=== PATIENT | female | born 1945 | race Hispanic/Latino ===

== ENCOUNTER 2017-12-14 15:30 | Inpatient (IN) | payer MEDICARE ==
[~2017-12-14] VITALS: Ht 154.9 cm; Wt 103.0 kg
[2018-02-12] MEDS ORDERED: PROPOFOL 10 MG/ML 20ML VIAL IV ONE (09:20)
[2018-02-14 15:05] VITALS: BP 160/68
[2018-02-14] MEDS ORDERED: EZET1TAB21 PO (15:18)
[2018-02-14] MEDS ORDERED: DULA1.5P SQ (15:18)
[2018-02-14 15:21] LABS: APPEARANCE,URINE Clear (CLEAR); BILIRUBIN,URINE Negative (NEGATIVE); COLOR,URINE Yellow (YELLOW); GLUCOSE, URINE (UA) 250 mg/dL (NEGATIVE); KETONES,URINE Negative (NEGATIVE); LEUKOCYTE ESTERASE ,URINE Small (NEGATIVE); NITRATE,URINE Negative (NEGATIVE); OCCULT BLOOD,URINE Negative (NEGATIVE); PROTEIN,URINE >=1000 (NEGATIVE)
[2018-02-14 15:24] LABS: CREATININE 1.4 mg/dL (0.5-1.5); POTASSIUM 4.5 mmol/L (3.5-5.1)
[2018-02-14 15:28] LABS: INR 0.92 (0.85-1.15); PARTIAL THROMBOPLASTIN TIME 24.3 SEC (26.3-35.5); PROTHROMBIN TIME 9.7 SEC (9.6-11.6)
[2018-02-14 15:30] LABS: BASOPHILS % (AUTO) 0.7 % (0.0-5.0); EOSINOPHILS % (AUTO) 4.7 % (0.0-8.0); HEMATOCRIT 36.8 % (36-48); LYMPHOCYTES % (AUTO) 15.9 % (21.0-51.0); MEAN CORPUSCULAR HEMOGLOBIN 28.2 pg (27.0-33.0); MEAN CORPUSCULAR VOLUME 82.7 fL (79-99); MONOCYTES % (AUTO) 5.4 % (3.0-13.0); NEUTROPHILS % (AUTO) 73.3 % (40.0-77.0); PLATELET COUNT (AUTO) 263 K/uL (130-400); RED BLOOD CELL COUNT(AUTO) 4.44 MIL/uL (4.00-5.50); RED CELL DISTRIBUTION WIDTH 13.8 % (11.0-15.5)
[2018-02-14 15:52] LABS: BACTERIA,URINE Rare /HPF (None Seen); RBC,URINE 0-1 /HPF (0-1); SQUAMOUS EPITHELIAL CELL,UR Few /HPF (0-2)
[2018-02-14] MEDS ORDERED: INSU100I24 SQ ×2 (15:54)
[2018-02-14] MEDS ORDERED: METF10004 PO (15:54)
[2018-02-14] MEDS ORDERED: LISI40TA4 PO (15:54)
[2018-02-14] MEDS ORDERED: TRAM50TA4 PO (15:54)
[2018-02-14] MEDS ORDERED: OMEP20TA25 PO (15:54)
[2018-02-14] MEDS ORDERED: ALPHAGAN OU (15:54)
[2018-02-14] MEDS ORDERED: CHOL200016 PO (15:54)
[2018-02-14] MEDS ORDERED: CARV3.12 PO (15:54)
[2018-02-15] VITALS (19 sets, daily range): BP systolic 117–157; BP diastolic 60–88
[2018-02-15] MEDS ORDERED: CEFAZOLIN 3GM /D5W 100ML 100 ML IV ONE (08:00)
[2018-02-15] MEDS ORDERED: CEFAZOLIN SODIUM 1 GM VIAL ONE (08:44)
[2018-02-15] MEDS ORDERED: SODIUM CHLORIDE 0.9% 1000ML 1,000 ML IV ONE (08:44)
[2018-02-15] MEDS ORDERED: CLINDAMYCIN 900 MG/D5% WATER 50 ML IV ONE (08:54)
[2018-02-15] MEDS ORDERED: PROPOFOL 10 MG/ML 20ML VIAL IV ONE (09:09)
[2018-02-15] MEDS ORDERED: FENTANYL CITRATE PF 50 MCG/1 ML 2ML VIAL ONE ×2 (09:09→10:53)
[2018-02-15] MEDS ORDERED: LIDOCAINE PF 2% 5ML ABBOJECT ONE (09:09)
[2018-02-15] MEDS ORDERED: DEXAMETHASONE SOD PHOSPHATE 10MG/ML 1ML VIAL ONE ×3 (09:09→13:10)
[2018-02-15] MEDS ORDERED: MIDAZOLAM HCL 1 MG/ML 2ML VIAL ONE (09:09)
[2018-02-15] MEDS: GENTAMICIN SULFATE 240 MG in SODIUM CHLORIDE 0.9% 100 ML IV SCH ×3 (09:10→11:21)
[2018-02-15] MEDS ORDERED: BUPIVACAINE/EPI/PF 0.25% 30ML VIAL IJ ONE (09:42)
[2018-02-15] MEDS ORDERED: CLINDAMYCIN PHOSPHATE 150 MG/ML 6ML VIAL ONE ×2 (09:42→12:50)
[2018-02-15] MEDS ORDERED: TRANEXAMIC ACID 1000MG/10ML IV ONE (09:43)
[2018-02-15] MEDS ORDERED: ROPIVACAINE 0.5% 5MG/ML 30ML IJ ONE ×2 (09:46)
[2018-02-15] MEDS ORDERED: CALDOLOR 800MG+NS 250ML 250 ML IV ONE (09:46)
[2018-02-15] MEDS ORDERED: ACETAMINOPHEN EXTRA STRENGTH 500 MG TABLET ONE (09:56)
[2018-02-15] MEDS ORDERED: CELECOXIB 200 MG CAP ONE (09:56)
[2018-02-15] MEDS ORDERED: KETOROLAC TROMETHAMINE 15MG/ML ONE (09:56)
[2018-02-15] MEDS ORDERED: OXYCODONE HCL 10 MG TAB.SR.12H PO ONE (09:57)
[2018-02-15] MEDS ORDERED: EPHEDRINE SULFATE 50 MG/ML AMPULE ONE (10:44)
[2018-02-15] MEDS ORDERED: ROCURONIUM BROMIDE 10MG/1ML 5ML VL ONE ×2 (13:09)
[2018-02-15] MEDS ORDERED: LIDOCAINE HCL 4% LTA SOL 4 ML VIAL ONE (13:10)
[2018-02-15] MEDS ORDERED: GLYCOPYRROLATE 0.2 MG/ML 5 ML VIAL ONE (13:10)
[2018-02-15] MEDS ORDERED: PHENYLEPHRINE HCL 10 MG/ML 1ML VIAL IV ONE (13:10)
[2018-02-15] MEDS ORDERED: SUCCINYLCHOLINE CHLORIDE 20 MG/ML 10 ML VIAL ONE (13:10)
[2018-02-15] MEDS ORDERED: ONDANSETRON HCL MDV 20ML 2 MG/ML VIAL ONE (13:11)
[2018-02-15] MEDS ORDERED: KETOROLAC TROMETHAMINE 15MG/ML IV PRN (13:15)
[2018-02-15] MEDS ORDERED: POTASSIUM CHLORIDE 20MEQ/100ML 100 ML IV PRN (13:15)
[2018-02-15] MEDS ORDERED: POTASSIUM CHLORIDE 10% ELIXIR 20 MEQ/15 ML UDCUP PO PRN (13:15)
[2018-02-15] MEDS ORDERED: DIPHENHYDRAMINE HCL 25 MG CAPSULE PO PRN (13:15)
[2018-02-15] MEDS ORDERED: OXYCODONE HCL 5 MG TAB PO PRN (13:15)
[2018-02-15] MEDS ORDERED: DiphenhydrAMINE HCL 50 MG/ML VIAL IVP PRN (13:15)
[2018-02-15] MEDS ORDERED: POTASSIUM CHLORIDE 20 MEQ ERTAB PO PRN (13:15)
[2018-02-15] MEDS ORDERED: TEMAZEPAM 15 MG CAPSULE PO PRN (13:15)
[2018-02-15] MEDS ORDERED: PROMETHAZINE HCL 25 MG/ML 1ML AMPULE IM PRN (13:15)
[2018-02-15] MEDS ORDERED: LIDOCAINE HCL-MPF 1% 2ML VIAL IVP PRN (13:15)
[2018-02-15] MEDS ORDERED: FERROUS FUMARATE 324 MG TABLET PO PRN (13:15)
[2018-02-15] MEDS ORDERED: TRAMADOL HCL 50 MG TABLET PO PRN (13:15)
[2018-02-15] MEDS ORDERED: CALCIUM CARBONATE 500 MG TABLET PO PRN (13:15)
[2018-02-15] MEDS ORDERED: MEPERIDINE-PF 25 MG/ML SYG ONE ×2 (13:54→14:03)
[2018-02-15] MEDS: SODIUM CHLORIDE 0.9% 1000ML 1,000 ML IV SCH ×2 (15:12→23:03)
[2018-02-15] MEDS: ACETAMINOPHEN 325 MG TAB PO SCH ×2 (15:22→20:08)
[2018-02-15] MEDS: CLINDAMYCIN 900 MG/D5% WATER 50 ML IVPB SCH (18:14)
[2018-02-15] MEDS: SIMVASTATIN PO SCH (20:06)
[2018-02-15] MEDS: LISINOPRIL 40 MG TABLET PO SCH (20:06)
[2018-02-15] MEDS: INSULIN DEGLUDEC 35 UNIT SQ SCH (20:06)
[2018-02-15] MEDS: EZETIMIBE PO SCH (20:06)
[2018-02-15] MEDS: BRIMONIDINE TARTRATE 0.2% 5 ML BOTTLE OU SCH (20:07)
[2018-02-15] MEDS: CARVEDILOL 3.125 MG TABLET PO SCH (20:07)
[2018-02-15] MEDS: ASPIRIN 325 MG TABLET PO SCH (20:09)
[2018-02-15] MEDS: FAMOTIDINE 20MG TAB 20 MG TAB PO SCH (20:09)
[2018-02-15] MEDS: CELECOXIB 200 MG CAP PO SCH (20:09)
[2018-02-15] MEDS: PREGABALIN 25 MG CAP PO SCH (20:09)
[2018-02-15] MEDS: OXYCODONE HCL 5 MG TAB PO PRN ×2 (20:10→23:50)
[2018-02-15] MEDS ORDERED: EZETIMIBE 10 MG TAB PO SCH (21:00)
[2018-02-16] VITALS (7 sets, daily range): BP systolic 113–148; BP diastolic 56–77
[2018-02-16] MEDS: ACETAMINOPHEN 325 MG TAB PO SCH ×4 (01:02→20:22)
[2018-02-16] MEDS: CLINDAMYCIN 900 MG/D5% WATER 50 ML IVPB SCH (01:39)
[2018-02-16 06:07] LABS: HEMATOCRIT 31.9 % (36-48); MEAN CORPUSCULAR HEMOGLOBIN 29.9 pg (27.0-33.0); MEAN CORPUSCULAR VOLUME 83.2 fL (79-99); PLATELET COUNT (AUTO) 231 K/uL (130-400); RED BLOOD CELL COUNT(AUTO) 3.83 MIL/uL (4.00-5.50); RED CELL DISTRIBUTION WIDTH 13.8 % (11.0-15.5); WHITE BLOOD COUNT (AUTO) 10.9 K/uL (4.8-10.8)
[2018-02-16 06:22] LABS: CREATININE 1.6 mg/dL (0.5-1.5); POTASSIUM 4.7 mmol/L (3.5-5.1)
[2018-02-16] MEDS: POLYETHYLENE GLYCOL 3350 17 GM POWD.PACK PO SCH (08:41)
[2018-02-16] MEDS: METFORMIN HCL 500 MG TABLET PO SCH (08:41)
[2018-02-16] MEDS: ASPIRIN 325 MG TABLET PO SCH ×2 (08:41→20:20)
[2018-02-16] MEDS: FAMOTIDINE 20MG TAB 20 MG TAB PO SCH ×2 (08:41→20:20)
[2018-02-16] MEDS: PANTOPRAZOLE SODIUM 40 MG TABLET.DR PO SCH (08:44)
[2018-02-16] MEDS: LISINOPRIL 40 MG TABLET PO SCH ×2 (08:44→20:20)
[2018-02-16] MEDS: PREGABALIN 25 MG CAP PO SCH ×2 (08:44→20:20)
[2018-02-16] MEDS: CARVEDILOL 3.125 MG TABLET PO SCH ×2 (08:44→20:21)
[2018-02-16] MEDS: CELECOXIB 200 MG CAP PO SCH ×2 (08:45→20:21)
[2018-02-16] MEDS: OXYCODONE HCL 5 MG TAB PO PRN ×3 (08:45→20:21)
[2018-02-16] MEDS: BRIMONIDINE TARTRATE 0.2% 5 ML BOTTLE OU SCH ×2 (08:46→20:22)
[2018-02-16] MEDS: INSULIN DEGLUDEC 70 UNIT SQ SCH (08:46)
[2018-02-16] MEDS: CHOLECALCIFEROL 2000 UNIT PO SCH (08:46)
[2018-02-16] MEDS: SODIUM CHLORIDE 0.9% 1000ML 1,000 ML IV SCH (09:03)
[2018-02-16] MEDS: INSULIN HUMULIN R 100 UNIT/ML 3ML SQ SCH ×3 (12:27→20:23)
[2018-02-16] MEDS: PSYLLIUM SEED 1 EACH PACKET PO SCH (12:30)
[2018-02-16] MEDS: EZETIMIBE PO SCH (20:22)
[2018-02-16] MEDS: SIMVASTATIN PO SCH (20:22)
[2018-02-16] MEDS: INSULIN DEGLUDEC 35 UNIT SQ SCH (20:23)
[2018-02-17] VITALS: BP 146/72
[2018-02-17] MEDS: ACETAMINOPHEN 325 MG TAB PO SCH ×3 (02:02→12:03)
[2018-02-17 04:08] VITALS: BP 150/75
[2018-02-17] MEDS: INSULIN HUMULIN R 100 UNIT/ML 3ML SQ SCH ×2 (05:52→11:30)
[2018-02-17 05:59] LABS: HEMATOCRIT 31.8 % (36-48); MEAN CORPUSCULAR HEMOGLOBIN 28.6 pg (27.0-33.0); MEAN CORPUSCULAR HGB CONC 34.3 g/dL (32.0-36.0); MEAN CORPUSCULAR VOLUME 83.3 fL (79-99); PLATELET COUNT (AUTO) 221 K/uL (130-400); RED BLOOD CELL COUNT(AUTO) 3.81 MIL/uL (4.00-5.50); RED CELL DISTRIBUTION WIDTH 14.4 % (11.0-15.5); WHITE BLOOD COUNT (AUTO) 7.4 K/uL (4.8-10.8)
[2018-02-17 06:07] LABS: CREATININE 1.9 mg/dL (0.5-1.5); POTASSIUM 4.6 mmol/L (3.5-5.1)
[2018-02-17] MEDS: PANTOPRAZOLE SODIUM 40 MG TABLET.DR PO SCH (06:25)
[2018-02-17 08:00] VITALS: BP 161/87
[2018-02-17] MEDS: CELECOXIB 200 MG CAP PO SCH (08:37)
[2018-02-17] MEDS: PREGABALIN 25 MG CAP PO SCH (08:37)
[2018-02-17] MEDS: FAMOTIDINE 20MG TAB 20 MG TAB PO SCH (08:37)
[2018-02-17] MEDS: CARVEDILOL 3.125 MG TABLET PO SCH (08:37)
[2018-02-17] MEDS: METFORMIN HCL 500 MG TABLET PO SCH (08:38)
[2018-02-17] MEDS: ASPIRIN 325 MG TABLET PO SCH (08:38)
[2018-02-17] MEDS: LISINOPRIL 40 MG TABLET PO SCH (08:38)
[2018-02-17] MEDS: OXYCODONE HCL 5 MG TAB PO PRN ×2 (08:39→15:11)
[2018-02-17] MEDS: POLYETHYLENE GLYCOL 3350 17 GM POWD.PACK PO SCH (08:39)
[2018-02-17] MEDS: BRIMONIDINE TARTRATE 0.2% 5 ML BOTTLE OU SCH (08:40)
[2018-02-17] MEDS: INSULIN DEGLUDEC 70 UNIT SQ SCH (08:40)
[2018-02-17] MEDS: CHOLECALCIFEROL 2000 UNIT PO SCH (08:40)
[2018-02-17] MEDS ORDERED: HYDR-309 PO (09:22)
[2018-02-17] MEDS ORDERED: ASPI-1012 PO (09:22)
[2018-02-17 11:49] VITALS: BP 126/66
[2018-02-17] MEDS: PSYLLIUM SEED 1 EACH PACKET PO SCH (12:04)
[2018-02-17] MEDS ORDERED: BISACODYL 5 MG TABLET.DR PO PRN (13:15)
[2018-02-18] MEDS ORDERED: BISACODYL 10 MG SUPP.RECT RC PRN (13:15)
[2018-02-22] MEDS ORDERED: DULAGLUTIDE 1.5 MG SQ SCH (09:00)
== END 2018-02-17 15:55 | disposition home health service (06) | DRG 468 ==
LOC: EDSTATUS 02-12 15:30 → DAHIP 02-15 07:51 → 4AH 02-15 14:43
PROVIDERS: ADMIT Orthopaedic Surgery; ATTEND Orthopaedic Surgery
PROC: 0SPC0JZ Removal of Synthetic Substitute from Right Knee Joint, Open Approach (ICD-10-PCS; principal; 2018-02-15 10:10)
PROC: 0SRC0J9 Replacement of Right Knee Joint with Synthetic Substitute, Cemented, Open Approach (ICD-10-PCS; 2018-02-15 10:10)
DX: M25.561 Pain in right knee (principal); E11.9 Type 2 diabetes mellitus without complications; G89.29 Other chronic pain; I10 Essential (primary) hypertension; K21.9 Gastro-esophageal reflux disease without esophagitis; Z79.4 Long term (current) use of insulin; Z85.3 Personal history of malignant neoplasm of breast; Z88.0 Allergy status to penicillin; Z88.8 Allergy status to other drugs, medicaments and biological substances
CPT/HCPCS: 36415; 80048; 81001; 82948; 85025; 85027; 85610; 85730; 88300; 88304; 97039; A4218; C1713; J0330; J0690; J1100; J1580; J1741; J1815; J1885; J2001; J2175; J2250; J2370; J2550; J2704; J2795; J3010; J3490; J7030

== ENCOUNTER → 2019-01-13 | Outpatient (CLI) | payer MEDICARE ==
[~2019-01-13] MED LIST: ALPHAGAN OU; ASPI-1012 PO; CARV3.12 PO; CHOL200016 PO; DULA1.5P SQ; EZET1TAB21 PO; HYDR-4457 PO; INSU100I24 SQ; LISI40TA4 PO; METF-446 PO; OMEP20TA25 PO
== END | disposition home or self-care (01) ==
LOC: SHCH 07:36 → EDUNIT# 08:00 → EDSTATUS 08:00
PROVIDERS: ATTEND Internal Medicine Cardiovascular Disease
DX: I08.8 Other rheumatic multiple valve diseases (principal)
CPT/HCPCS: 93306

== ENCOUNTER → 2020-03-03 | Outpatient (CLI) | payer MEDICARE | END | disposition home or self-care (01) | LOC: SHCH 08:57 | PROVIDERS: ATTEND Internal Medicine Cardiovascular Disease | DX: I35.0 Nonrheumatic aortic (valve) stenosis (principal) | CPT/HCPCS: 93306 ==

== ENCOUNTER 2023-05-18 16:02 | Inpatient (IN) | payer MEDICARE ==
[~2023-05-18] VITALS: Ht 152.4 cm; Wt 97.1 kg
[~2023-05-18 16:02] MED LIST changes: +EZET-82 PO; -EZET1TAB21 PO; -LISI40TA4 PO; +LISI40TA9 PO; +OMEP20TA20 PO; -OMEP20TA25 PO
[2023-05-18 17:23] LABS: BASOPHILS % (AUTO) 0.4 % (0.0-5.0); EOSINOPHILS % (AUTO) 5.3 % (0.0-8.0); HEMATOCRIT 32.4 % (36-48); LYMPHOCYTES % (AUTO) 18.1 % (21.0-51.0); MEAN CORPUSCULAR HEMOGLOBIN 27.1 pg (27.0-33.0); MEAN CORPUSCULAR HGB CONC 31.2 g/dL (32.0-36.0); MEAN CORPUSCULAR VOLUME 86.9 fL (79-99); MONOCYTES % (AUTO) 8.6 % (3.0-13.0); NEUTROPHILS % (AUTO) 65.9 % (40.0-77.0); PLATELET COUNT (AUTO) 218 K/uL (130-400); RED BLOOD CELL COUNT(AUTO) 3.73 MIL/uL (4.00-5.50); RED CELL DISTRIBUTION WIDTH 14.6 % (11.0-15.5); WHITE BLOOD COUNT (AUTO) 7.7 K/uL (4.8-10.8)
[2023-05-18 17:40] LABS: ALBUMIN 2.7 g/dL (3.5-5.0); POTASSIUM 3.9 mmol/L (3.5-5.1); TOTAL PROTEIN, SERUM 6.4 g/dL (6.0-8.3)
[2023-05-18 17:50] LABS: CREATININE 11.7 mg/dL (0.5-1.5)
[2023-05-18] MEDS ORDERED: HYDRALAZINE 20MG/ML VIAL IV ONE (18:30)
[2023-05-18] MEDS ORDERED: HYDRALAZINE 20MG/ML VIAL ONE (18:36)
[2023-05-18] MEDS ORDERED: ONDANSETRON 4MG INJ IVP ONE (20:30)
[2023-05-18] MEDS ORDERED: ONDANSETRON 4MG INJ IVP PRN (21:00)
[2023-05-18] MEDS ORDERED: FURO20TA4 PO (22:51)
[2023-05-18] MEDS ORDERED: OMEP20TA20 PO (22:51)
[2023-05-18] MEDS ORDERED: BRIM5DRO2 OP (22:51)
[2023-05-18] MEDS ORDERED: ROSU20TA73 PO (22:51)
[2023-05-18] MEDS ORDERED: CHOL500051 PO (22:51)
[2023-05-18] MEDS ORDERED: CARV25TA PO (22:51)
[2023-05-18 23:35] VITALS: BP 197/76; PULSE 94; RESP 20
[2023-05-18] MEDS: HYDRALAZINE 20MG/ML VIAL IV PRN (23:57)
[2023-05-19] MEDS ORDERED: LORAZEPAM 2 MG/ML 1 ML VIAL IVP ONE (00:30)
[2023-05-19 04:00] VITALS: BP 157/71; PULSE 98; RESP 20
[2023-05-19 05:40] LABS: BASOPHILS % (AUTO) 0.5 % (0.0-5.0); EOSINOPHILS % (AUTO) 2.1 % (0.0-8.0); HEMATOCRIT 31.4 % (36-48); LYMPHOCYTES % (AUTO) 13.3 % (21.0-51.0); MEAN CORPUSCULAR HEMOGLOBIN 26.7 pg (27.0-33.0); MEAN CORPUSCULAR HGB CONC 30.6 g/dL (32.0-36.0); MEAN CORPUSCULAR VOLUME 87.2 fL (79-99); MONOCYTES % (AUTO) 7.2 % (3.0-13.0); NEUTROPHILS % (AUTO) 75.4 % (40.0-77.0); PLATELET COUNT (AUTO) 249 K/uL (130-400); RED CELL DISTRIBUTION WIDTH 14.6 % (11.0-15.5); WHITE BLOOD COUNT (AUTO) 8.5 K/uL (4.8-10.8)
[2023-05-19 05:56] LABS: INR 1.01 (0.85-1.15); PROTHROMBIN TIME 11.7 SEC (9.6-11.6)
[2023-05-19 06:05] LABS: ALBUMIN 2.5 g/dL (3.5-5.0); PHOSPHORUS 8.2 mg/dL (2.5-4.9); POTASSIUM 3.6 mmol/L (3.5-5.1); TOTAL PROTEIN, SERUM 5.9 g/dL (6.0-8.3)
[2023-05-19 08:00] VITALS: BP 131/76; PULSE 96; RESP 19
[2023-05-19] MEDS: CARVEDILOL 25 MG TABLET PO SCH ×2 (08:27→19:58)
[2023-05-19] MEDS: PANTOPRAZOLE 40 MG TAB DR PO SCH (08:27)
[2023-05-19] MEDS: BRIMONIDINE TARTRATE 0.2% 5 ML BOTTLE OP SCH (08:28)
[2023-05-19] MEDS ORDERED: FUROSEMIDE 40MG VIAL IV SCH (09:00)
[2023-05-19] MEDS ORDERED: FUROSEMIDE 20 MG TABLET PO SCH (09:00)
[2023-05-19] MEDS ORDERED: BRIMONIDINE TARTRATE OP SCH (09:00)
[2023-05-19] MEDS: LORAZEPAM 2 MG/ML 1 ML VIAL IVP PRN ×2 (09:24→20:05)
[2023-05-19 12:00] VITALS: BP 121/65; PULSE 90; RESP 18
[2023-05-19 14:03] LABS: PHOSPHORUS 8.6 mg/dL (2.5-4.9)
[2023-05-19 14:08] LABS: % IRON SATURATION 31.3 % (22-44)
[2023-05-19 16:00] VITALS: BP 158/71; PULSE 96; RESP 18
[2023-05-19 19:24] VITALS: BP 152/70; PULSE 94; RESP 21
[2023-05-19] MEDS: ATORVASTATIN 40 MG TABLET PO SCH (19:57)
[2023-05-19] MEDS: FUROSEMIDE 40MG VIAL IV SCH (19:57)
[2023-05-20] VITALS: BP 130/67; PULSE 86; RESP 20
[2023-05-20 04:00] VITALS: BP 146/63; PULSE 88; RESP 20
[2023-05-20 04:51] LABS: HEMATOCRIT 28.7 % (36-48); MEAN CORPUSCULAR HGB CONC 30.7 g/dL (32.0-36.0); RED BLOOD CELL COUNT(AUTO) 3.26 MIL/uL (4.00-5.50); RED CELL DISTRIBUTION WIDTH 14.7 % (11.0-15.5); WHITE BLOOD COUNT (AUTO) 9.9 K/uL (4.8-10.8)
[2023-05-20 05:07] LABS: POTASSIUM 3.8 mmol/L (3.5-5.1)
[2023-05-20 05:15] LABS: CREATININE 12.5 mg/dL (0.5-1.5)
[2023-05-20] MEDS: LORAZEPAM 2 MG/ML 1 ML VIAL IVP PRN ×2 (06:17→20:17)
[2023-05-20 08:00] VITALS: BP 137/71; PULSE 91; RESP 20
[2023-05-20] MEDS: PANTOPRAZOLE 40 MG TAB DR PO SCH (08:31)
[2023-05-20] MEDS: Vitamin B Complex/Vit C/Folic Acid PO SCH (08:31)
[2023-05-20] MEDS: FUROSEMIDE 40MG VIAL IV SCH ×2 (08:31→20:16)
[2023-05-20] MEDS: BRIMONIDINE TARTRATE 0.2% 5 ML BOTTLE OP SCH (08:34)
[2023-05-20] MEDS: CARVEDILOL 25 MG TABLET PO SCH ×2 (08:34→20:16)
[2023-05-20] MEDS: TRIAMCINOLONE ACETONIDE 0.1% CREAM 15GM TP SCH ×2 (09:24→20:16)
[2023-05-20 12:00] VITALS: BP 130/53; PULSE 74; RESP 18
[2023-05-20] MEDS: IRON SUCROSE COMPLEX 300 MG in 0.9% NACL 250ML 250 ML IV SCH (15:56)
[2023-05-20 16:00] VITALS: BP 140/66; PULSE 88; RESP 18
[2023-05-20] MEDS ORDERED: MAGNESIUM 2GM PREMIX 50ML 50 ML IV PRN (16:30)
[2023-05-20 20:08] VITALS: BP 133/71; PULSE 88; RESP 18
[2023-05-20] MEDS: ATORVASTATIN 40 MG TABLET PO SCH (20:16)
[2023-05-21] VITALS (26 sets, daily range): BP systolic 95–168; BP diastolic 46–86; PULSE 76–90; RESP 16–20; TEMP 98–98.1
[2023-05-21 04:05] LABS: HEMATOCRIT 27.1 % (36-48); MEAN CORPUSCULAR HEMOGLOBIN 27.1 pg (27.0-33.0); MEAN CORPUSCULAR HGB CONC 30.6 g/dL (32.0-36.0); MEAN CORPUSCULAR VOLUME 88.6 fL (79-99); RED BLOOD CELL COUNT(AUTO) 3.06 MIL/uL (4.00-5.50); RED CELL DISTRIBUTION WIDTH 14.7 % (11.0-15.5); WHITE BLOOD COUNT (AUTO) 8.8 K/uL (4.8-10.8)
[2023-05-21 04:08] LABS: INR 0.95 (0.85-1.15); PROTHROMBIN TIME 11.1 SEC (9.6-11.6)
[2023-05-21 04:09] LABS: PARTIAL THROMBOPLASTIN TIME 33.7 SEC (26.3-35.5)
[2023-05-21 04:17] LABS: PHOSPHORUS 9.3 mg/dL (2.5-4.9); POTASSIUM 3.5 mmol/L (3.5-5.1)
[2023-05-21 05:01] LABS: CREATININE 13.2 mg/dL (0.5-1.5)
[2023-05-21] MEDS: FUROSEMIDE 40MG VIAL IV SCH ×2 (08:15→22:14)
[2023-05-21] MEDS: CARVEDILOL 25 MG TABLET PO SCH ×2 (08:16→22:14)
[2023-05-21] MEDS: PANTOPRAZOLE 40 MG TAB DR PO SCH (08:16)
[2023-05-21] MEDS: Vitamin B Complex/Vit C/Folic Acid PO SCH (08:16)
[2023-05-21] MEDS: TRIAMCINOLONE ACETONIDE 0.1% CREAM 15GM TP SCH ×2 (08:20→22:12)
[2023-05-21] MEDS: BRIMONIDINE TARTRATE 0.2% 5 ML BOTTLE OP SCH (08:22)
[2023-05-21] MEDS ORDERED: EPOETIN ALFA-EPBX (NON-ESRD) 10,000 UNIT/ML VIAL SQ SCH (10:30)
[2023-05-21 10:53] LABS: APPEARANCE,URINE CLOUDY (CLEAR); BILIRUBIN,URINE NEGATIVE (NEGATIVE); COLOR,URINE LIGHT-YELLOW (YELLOW); GLUCOSE, URINE (UA) TRACE mg/dL (NEGATIVE); KETONES,URINE NEGATIVE (NEGATIVE); LEUKOCYTE ESTERASE ,URINE NEGATIVE Leu/uL (NEGATIVE); NITRATE,URINE NEGATIVE (NEGATIVE); OCCULT BLOOD,URINE SMALL (NEGATIVE); PROTEIN,URINE 300 mg/dL (NEGATIVE); UROBILINOGEN,URINE 0.2 mg/dL (0.2-1.0)
[2023-05-21 10:57] LABS: BACTERIA,URINE MOD /HPF (None Seen); MUCUS,URINE RARE LPF (None Seen); SQUAMOUS EPITHELIAL CELL,UR MOD /HPF (0-2)
[2023-05-21] MEDS: SEVELAMER HCL 800 MG TABLET PO SCH ×2 (12:00→16:08)
[2023-05-21] MEDS ORDERED: COMPOUND IV MISC 1 EACH IVSOLN MISC PRN (12:30)
[2023-05-21] MEDS ORDERED: HEPARIN 1,000 UNIT VIAL ONE (14:17)
[2023-05-21] MEDS ORDERED: LIDOCAINE HCL 1% MDV 50ML VIAL ONE (14:17)
[2023-05-21] MEDS: IRON SUCROSE COMPLEX 300 MG in 0.9% NACL 250ML 250 ML IV SCH (16:09)
[2023-05-21] MEDS ORDERED: HEPARIN 5,000 UNIT VIAL IJ SCH (20:00)
[2023-05-21] MEDS: ATORVASTATIN 40 MG TABLET PO SCH (22:13)
[2023-05-21] MEDS: LORAZEPAM 2 MG/ML 1 ML VIAL IVP PRN (22:26)
[2023-05-22] VITALS (19 sets, daily range): BP systolic 106–166; BP diastolic 59–77; PULSE 76–91; RESP 17–20; TEMP 97.8–98
[2023-05-22 04:14] LABS: HEPATITIS B SURFACE ANTIGEN Non-Reactive (Nonreactive)
[2023-05-22] MEDS ORDERED: ACETAMINOPHEN 325 MG TAB PO PRN (06:00)
[2023-05-22] MEDS: SEVELAMER HCL 800 MG TABLET PO SCH ×2 (08:00→12:00)
[2023-05-22] MEDS: PANTOPRAZOLE 40 MG TAB DR PO SCH (09:00)
[2023-05-22] MEDS: CARVEDILOL 25 MG TABLET PO SCH ×2 (09:00→22:00)
[2023-05-22] MEDS: CALCITRIOL 0.25 MCG CAP PO SCH (09:00)
[2023-05-22] MEDS: BRIMONIDINE TARTRATE 0.2% 5 ML BOTTLE OP SCH (09:00)
[2023-05-22] MEDS: Vitamin B Complex/Vit C/Folic Acid PO SCH (09:00)
[2023-05-22] MEDS: TRIAMCINOLONE ACETONIDE 0.1% CREAM 15GM TP SCH ×2 (09:48→22:01)
[2023-05-22] MEDS: HEPARIN 5,000 UNIT VIAL IJ PRN (12:37)
[2023-05-22] MEDS: IRON SUCROSE COMPLEX 300 MG in 0.9% NACL 250ML 250 ML IV SCH (14:23)
[2023-05-22] MEDS: ATORVASTATIN 40 MG TABLET PO SCH (22:00)
[2023-05-23] VITALS (26 sets, daily range): BP systolic 110–215; BP diastolic 45–101; PULSE 76–143; RESP 11–20
[2023-05-23] MEDS: LORAZEPAM 2 MG/ML 1 ML VIAL IVP PRN (04:08)
[2023-05-23 05:50] LABS: HEMATOCRIT 26.4 % (36-48); MEAN CORPUSCULAR HEMOGLOBIN 27.5 pg (27.0-33.0); MEAN CORPUSCULAR HGB CONC 30.7 g/dL (32.0-36.0); MEAN CORPUSCULAR VOLUME 89.5 fL (79-99); NUCLEATED RED BLOOD CELLS 0.2 % (0.0-0.19); RED BLOOD CELL COUNT(AUTO) 2.95 MIL/uL (4.00-5.50); RED CELL DISTRIBUTION WIDTH 14.6 % (11.0-15.5); WHITE BLOOD COUNT (AUTO) 8.9 K/uL (4.8-10.8)
[2023-05-23 05:55] LABS: INR 0.98 (0.85-1.15); PROTHROMBIN TIME 11.4 SEC (9.6-11.6)
[2023-05-23 05:56] LABS: CREATININE 6.9 mg/dL (0.5-1.5); PARTIAL THROMBOPLASTIN TIME 40.7 SEC (26.3-35.5); POTASSIUM 3.1 mmol/L (3.5-5.1)
[2023-05-23] MEDS: SEVELAMER HCL 800 MG TABLET PO SCH ×3 (08:00→17:19)
[2023-05-23] MEDS: BRIMONIDINE TARTRATE 0.2% 5 ML BOTTLE OP SCH (09:00)
[2023-05-23] MEDS: TRIAMCINOLONE ACETONIDE 0.1% CREAM 15GM TP SCH ×2 (09:00→22:33)
[2023-05-23] MEDS: PANTOPRAZOLE 40 MG TAB DR PO SCH (09:00)
[2023-05-23] MEDS: Vitamin B Complex/Vit C/Folic Acid PO SCH (09:00)
[2023-05-23] MEDS: CALCITRIOL 0.25 MCG CAP PO SCH (09:00)
[2023-05-23] MEDS: CARVEDILOL 25 MG TABLET PO SCH ×2 (09:08→22:33)
[2023-05-23] MEDS ORDERED: CEFAZOLIN SODIUM 1 GM VIAL ONE (10:27)
[2023-05-23] MEDS ORDERED: VANCOMYCIN 1G/250ML KIT 250 ML IV ONE ×2 (11:10→12:46)
[2023-05-23] MEDS ORDERED: LIDOCAINE PF 100MG/5ML (2%) SYRINGE 5ML ONE (13:39)
[2023-05-23] MEDS ORDERED: ONDANSETRON 4MG INJ ONE (13:39)
[2023-05-23] MEDS ORDERED: DEXAMETHASONE SOD PHOSPHATE 4 MG/ML 1ML VIAL ONE (13:39)
[2023-05-23] MEDS ORDERED: PROPOFOL 10 MG/ML 20ML VIAL IV ONE (13:39)
[2023-05-23] MEDS ORDERED: FENTANYL CITRATE PF 50 MCG/1 ML 2ML VIAL ONE (13:40)
[2023-05-23] MEDS ORDERED: ROCURONIUM 10MG/1ML SYR 10 MG/ML ML ONE (13:40)
[2023-05-23] MEDS ORDERED: EPHEDRINE SULFATE 50 MG/ML AMPULE ONE (14:18)
[2023-05-23] MEDS ORDERED: VANCOMYCIN 1G VIAL IRRIG ONE (14:20)
[2023-05-23] MEDS ORDERED: ACETAMINOPHEN 325 MG TAB PO PRN (15:00)
[2023-05-23] MEDS ORDERED: TRAMADOL HCL 50 MG TABLET PO PRN ×2 (15:00)
[2023-05-23] MEDS ORDERED: SUGAMMADEX SODIUM 200 MG/2 ML VIAL IV ONE (15:03)
[2023-05-23] MEDS: HYDRALAZINE 20MG/ML VIAL IV PRN (16:53)
[2023-05-23] MEDS: IRON SUCROSE COMPLEX 300 MG in 0.9% NACL 250ML 250 ML IV SCH (17:19)
[2023-05-23] MEDS: ATORVASTATIN 40 MG TABLET PO SCH (22:32)
[2023-05-24] VITALS (18 sets, daily range): BP systolic 109–161; BP diastolic 59–91; PULSE 76–90; RESP 18–20; TEMP 97.6–97.7
[2023-05-24] MEDS: LORAZEPAM 2 MG/ML 1 ML VIAL IVP PRN (00:57)
[2023-05-24 05:56] LABS: BASOPHILS % (AUTO) 0.2 % (0.0-5.0); LYMPHOCYTES % (AUTO) 4.3 % (21.0-51.0); MEAN CORPUSCULAR HEMOGLOBIN 27.5 pg (27.0-33.0); MEAN CORPUSCULAR HGB CONC 30.7 g/dL (32.0-36.0); MEAN CORPUSCULAR VOLUME 89.5 fL (79-99); MONOCYTES % (AUTO) 5.3 % (3.0-13.0); NEUTROPHILS % (AUTO) 87.8 % (40.0-77.0); PLATELET COUNT (AUTO) 168 K/uL (130-400); RED BLOOD CELL COUNT(AUTO) 3.13 MIL/uL (4.00-5.50); RED CELL DISTRIBUTION WIDTH 14.4 % (11.0-15.5); WHITE BLOOD COUNT (AUTO) 11.3 K/uL (4.8-10.8)
[2023-05-24 06:20] LABS: PHOSPHORUS 6.3 mg/dL (2.5-4.9); POTASSIUM 3.6 mmol/L (3.5-5.1)
[2023-05-24 06:24] LABS: CREATININE 7.9 mg/dL (0.5-1.5)
[2023-05-24] MEDS: BRIMONIDINE TARTRATE 0.2% 5 ML BOTTLE OP SCH (09:00)
[2023-05-24] MEDS: Vitamin B Complex/Vit C/Folic Acid PO SCH (09:11)
[2023-05-24] MEDS: SEVELAMER HCL 800 MG TABLET PO SCH (09:12)
[2023-05-24] MEDS: PANTOPRAZOLE 40 MG TAB DR PO SCH (09:13)
[2023-05-24] MEDS: CARVEDILOL 25 MG TABLET PO SCH (09:13)
[2023-05-24] MEDS: TRIAMCINOLONE ACETONIDE 0.1% CREAM 15GM TP SCH (09:14)
[2023-05-24] MEDS: CALCITRIOL 0.25 MCG CAP PO SCH (09:14)
[2023-05-24] MEDS: HEPARIN 5,000 UNIT VIAL IJ PRN (15:00)
[2023-05-25] MEDS ORDERED: BRIMONIDINE TARTRATE 0.2% 5 ML BOTTLE OP SCH (09:00)
== END 2023-05-24 16:21 | disposition home or self-care (01) | DRG 674 ==
LOC: EDH 16:02 → EDHIP 20:50 → 3CH 23:35
PROVIDERS: ADMIT Internal Medicine; ATTEND Internal Medicine
PROC: 0JH63XZ Insertion of Tunneled Vascular Access Device into Chest Subcutaneous Tissue and Fascia, Percutaneous Approach (ICD-10-PCS; 2023-05-21)
PROC: 02H633Z Insertion of Infusion Device into Right Atrium, Percutaneous Approach (ICD-10-PCS; 2023-05-21)
PROC: B5181ZA Fluoroscopy of Superior Vena Cava using Low Osmolar Contrast, Guidance (ICD-10-PCS; 2023-05-21)
PROC: 5A1D70Z Performance of Urinary Filtration, Intermittent, Less than 6 Hours Per Day (ICD-10-PCS; 2023-05-21)
PROC: 5A1D70Z Performance of Urinary Filtration, Intermittent, Less than 6 Hours Per Day (ICD-10-PCS; 2023-05-22)
PROC: 03180ZD Bypass Left Brachial Artery to Upper Arm Vein, Open Approach (ICD-10-PCS; principal; 2023-05-23 13:42)
PROC: 5A1D70Z Performance of Urinary Filtration, Intermittent, Less than 6 Hours Per Day (ICD-10-PCS; 2023-05-24)
DX: N17.9 Acute kidney failure, unspecified (principal); I12.0 Hypertensive chronic kidney disease with stage 5 chronic kidney disease or end stage renal disease; I16.1 Hypertensive emergency; Z20.822 Contact with and (suspected) exposure to COVID-19; N18.6 End stage renal disease; E83.42 Hypomagnesemia; E11.22 Type 2 diabetes mellitus with diabetic chronic kidney disease; F41.9 Anxiety disorder, unspecified; E87.5 Hyperkalemia; Z96.651 Presence of right artificial knee joint; D63.1 Anemia in chronic kidney disease; E78.5 Hyperlipidemia, unspecified; Z90.49 Acquired absence of other specified parts of digestive tract; Z99.2 Dependence on renal dialysis
CPT/HCPCS: 36415; 36558; 71045; 77001; 80048; 80053; 80061; 81001; 82728; 82948; 83036; 83540; 83550; 83735; 84100; 85025; 85027; 85610; 85730; 86701; 86704; 86706; 86850; 86900; 86901; 86923; 87340; 87390; 87635; 90935; 93971; C1750; G0378; J0360; J0690; J1100; J1644; J1756; J1940; J2001; J2060; J2405; J2704; J3010; J3370; J3475; J3490; J7030; J7040; J7050

== ENCOUNTER → 2024-01-18 | Outpatient (CLI) | payer MEDICARE ==
[~2024-01-18] MED LIST changes: -ALPHAGAN OU; -ASPI-1012 PO; +BRIM5DRO2 OP; +CARV25TA PO; -CARV3.12 PO; -CHOL200016 PO; +CHOL500051 PO; -DULA1.5P SQ; -EZET-82 PO; +FURO20TA4 PO; -HYDR-4457 PO; -INSU100I24 SQ; -LISI40TA9 PO; -METF-446 PO; +ROSU20TA73 PO
== END ==
LOC: RAH 13:36
PROVIDERS: ATTEND Internal Medicine
DX: I51.89 Other ill-defined heart diseases (principal); I51.7 Cardiomegaly; I34.81 Nonrheumatic mitral (valve) annulus calcification; I70.0 Atherosclerosis of aorta
CPT/HCPCS: 93306

== ENCOUNTER 2025-07-30 06:54 | Observation (INO) | payer MEDICARE ==
[~2025-07-30] VITALS: Ht 152.4 cm; Wt 83.6 kg
[2025-07-30] VITALS (18 sets, daily range): BP systolic 119–188; BP diastolic 52–76; PULSE 65–78; RESP 12–18; TEMP 97.8–98.6; O2SAT 94–96
[~2025-07-30 06:54] MED LIST changes: -ROSU20TA73 PO; +ROSU20TA98 PO
--- NOTE | 2025-07-30 07:14 | ERN ---
General Chief Complaint: Hyperglycemia Stated Complaint: DIABETIC COMPLICATIONS Time Seen by MD: 07:08 History of Present Illness Initial Comments 79-year-old female, HX ESRD on dialysis Sunday left arm fistula, HTN, insulin-dependent diabetic, brought in by EMS from home for generalized weakness. Patient reports yesterday afternoon and about 12 hours prior to arrival she began feeling weak. This morning she woke up and was unable to go to dialysis because she felt generalized weakness. She denies any headache vision changes vomiting abdominal pain chest pain shortness of breath or diarrhea. She reports that she has been missing doses of insulin lately because she has been forgetting. She took 4 units of Humalog earlier this morning. She has also been taking weekly Ozempic. Last dialysis was Sunday, 48 hours ago. EMS found the patient's blood pressure 229/110, blood glucose greater than 500. Other vital signs stable. EMS gave 0.4 mg sublingual nitroglycerin prior to arrival. PCP: Noel Maintenance Pipefitter: Chicho Manager Film: Tonja Allergies: Coded Allergies: Latex, Natural Rubber (Unverified Allergy, Severe, 05/18/23) Penicillins (Unverified Allergy, Unknown, 02/14/18) codeine (Unverified Allergy, Unknown, 02/14/18) iodine (Unverified Allergy, Unknown, 02/14/18) Home Meds Reported Medications Brimonidine Tartrate (Alphagan P) 5 Ml Drops, 5 ML OP DAILY, DROP 05/18/23 Omeprazole (Omeprazole) 20 Mg Tablet.dr, 20 MG PO DAILY, TAB 05/18/23 Carvedilol (Carvedilol) 25 Mg Tablet, 25 MG PO TAKE 1/2 TAB BID , TAB 05/18/23 Cholecalciferol (Vitamin D3) (Vitamin D3) 125 Mcg Capsule, 125 MCG PO DAILY, CAP 05/18/23 Furosemide (Furosemide) 20 Mg Tablet, 20 MG PO DAILY, TAB 05/18/23 Rosuvastatin Calcium (Rosuvastatin Calcium) 20 Mg Tablet, 20 MG PO DAILY, TAB 05/18/23 Past Medical History Past Medical History: Diabetes-Type II, Hypertension, Renal Disese, Renal Failure Medical History Other: HX OF CA Past Surgical History: Appendectomy, Cholecystectomy Surgical History Other: KNEE, ROS Dictation CONSTITUTIONAL: Generalized fatigue and weakness, no fever HEAD/FACE: No signs of trauma. EENT: No eye pain, no blurred vision, no tearing, no double vision, no ear pain, no ear discharge, no nose pain, no nasal congestion, no throat pain, no throat swelling, no mouth pain. RESPIRATORY: No cough, no orthopnea, no SOB, no stridor, no wheezing. CARDIOVASCULAR: No chest pain, no edema, no palpitations, no syncope. GASTROINTESTINAL/ABDOMINAL: No abdominal pain, no constipation, no diarrhea, no nausea, no vomiting. GENITOURINARY: No abnormal discharge, no dysuria, no frequent urination, no hematuria. No complaints of pain in the genitals. MUSCULOSKELETAL: No back pain, no gout, no joint pain, no joint swelling, no muscle pain, no muscle stiffness, no neck pain. INTEGUMENTARY: No change in color, no change in hair/nails, no dryness, no lesion, no lumps, no rash. NEUROLOGICAL/PSYCH: No anxiety, not depressed, no emotional problem, no headache, no numbness, no pre-existing deficit, no history of seizures, no tremors, no weakness. HEMATOLOGIC/LYMPHATIC: Not anemic, no history of blood clots, no apparent bleeding, no bruising, glands not swollen. All Systems Negative, Except as Noted. Physical Exam Physical Exam Dictation VITAL SIGNS: Reviewed. GENERAL APPEARANCE: Alert, oriented x3, no acute distress. Generally weak HEAD AND FACE: Non-traumatic. EYES: PERRL, pink conjunctivas, eyelid no trauma, anterior chamber clear. EARS: Pinnas intact and no signs of trauma or erythema. Ear canals clear and no discharge. TMs no erythema. NOSE: No discharge, no bleeding. OROPHARYNX: Mouth normal, teeth no caries, tongue pink. Pharynx clear, no erythema. Tonsils no exudates, no abscesses noted. Mucous membrane moist. NECK: Supple, non-tender, no thyromegaly, no masses, no JVD, no bruits. BREAST: Deferred. CHEST: No tenderness, no crepitus, no paradoxical movement, no retractions. LUNGS: Clear, well-ventilated, symmetric, no rales, no wheezing, no rhonchi, no stridor, good breath sounds bilaterally. HEART: Regular rate, regular rhythm, no murmur, no gallops. VASCULAR: No peripheral edema. ABDOMEN: Soft, positive bowel sounds, nondistended, no guarding, nontender, no rebound, no masses no hepatomegaly, no splenomegaly, no Vo's sign, no hernias. RECTAL: Deferred. GENITAL: Deferred. NEUROLOGICAL: Normal speech, gross motor function intact, gross sensory function intact. MUSCULOSKELETAL: Neck nontender, full range of motion, back nontender, full range of motion. LAVA good bruit and flow. EXTREMITIES: Nontender, full range of motion. SKIN: Color pink, dry, no turgor, no rash, no lacerations, no abrasions, no contusions. LYMPHATICS: Deferred. Results Laboratory and Microbiology Lab and Micro Result Laboratory Tests Test 07/30/25 07:14 07/30/25 07:25 White Blood Count 8.0 K/uL (4.8-10.8) Red Blood Count 3.60 MIL/uL (4.00-5.50) L Hemoglobin 11.0 g/dL (12.0-16.0) L Hematocrit 32.9 % (36-48) L Mean Corpuscular Volume 91.4 fL (79-99) Mean Corpuscular Hemoglobin 30.6 pg (27.0-33.0) Mean Corpuscular Hemoglobin Concent 33.4 g/dL (32.0-36.0) Red Cell Distribution Width 12.9 % (11.0-15.5) Platelet Count 168 K/uL (130-400) Mean Platelet Volume 9.0 fL (7.5-10.5) Immature Granulocyte % (Auto) 0.7 % (0-1) Neutrophils (%) (Auto) 88.6 % (40.0-77.0) H Lymphocytes (%) (Auto) 7.4 % (21.0-51.0) L Monocytes (%) (Auto) 3.1 % (3.0-13.0) Eosinophils (%) (Auto) 0.1 % (0.0-8.0) Basophils (%) (Auto) 0.1 % (0.0-5.0) Neutrophils # (Auto) 7.1 K/uL (1.8-7.7) Lymphocytes # (Auto) 0.6 K/uL (1.0-4.8) L Monocytes # (Auto) 0.3 K/uL (0.1-1.0) Eosinophils # (Auto) 0.01 K/uL (0.00-0.70) Basophils # (Auto) 0.01 K/uL (0.00-0.20) Absolute Immature Granulocyte (auto 0.06 K/uL (0-1) Nucleated Red Blood Cells 0.0 % (0.0-0.19) White Cell Morphology Comment See comments Sodium Level 132 mmol/L (136-145) L Potassium Level 5.4 mmol/L (3.5-5.1) H Chloride Level 96 mmol/L (101-111) L Carbon Dioxide Level 28 mmol/L (21-32) Blood Urea Nitrogen 59 mg/dL (7-18) H Creatinine 8.6 mg/dL (0.5-1.0) *H Glomerular Filtration Rate Calc 4 mL/min (>90) Random Glucose 422 mg/dL (70-105) *H Whole Blood Ketones Quantitative 0.4 mmol/L (0.0-0.6) Total Calcium 8.5 mg/dL (8.5-10.1) Magnesium Level 2.00 mg/dL (1.80-2.40) Total Creatine Kinase 50 U/L (21-232) Troponin I High Sensitivity 14.7 ng/L (4-50) B-Type Natriuretic Peptide 664 pg/mL (0-100) H Blood Gas Specimen Type Venous Arterial Blood Oxygen Saturation 90.9 % (94.0-98.0) L Venous Blood pH 7.393 (7.320-7.430) Venous Blood pCO2 at Patient Temp 34 (38-54) L Venous Blood pO2 at Patient Temp 63.5 mmHg (23.0-48.0) H Venous Blood HCO3 20.0 (22.0-29.0) L Venous Blood Base Excess -4.2 (-2.0-3.0) L Venous Blood Total Hemoglobin 11.1 (12.0-16.0) L Sodium (Blood Gas) 134 MMOL/L (136-145) L Bedside Potassium (Blood Gas) 5.1 MMOL/L (3.4-4.5) H Bedside Chloride (Blood Gas) 98 MMOL/L (98-107) Bedside Glucose (Blood Gas) 379 MG/DL (65-95) H Bedside Ionized Calcium (Blood Gas) 1.12 MMOL/L (1.15-1.33) L Bedside Lactic Acid (Blood Gas) 1.46 MMOL/L (0.36-0.75) H Blood Gas Temperature 37.0 CELSIUS (35.5-37.0) Blood Gas Vent Mode RA (ROOM AIR) FiO2 21.0 % Blood Gas Specimen Comment DIYA MENDOZA RN MDM CC: generalized weakness, HTN, hyperglycemia Historian: patient Comorbidities: ESRD dialysis dependent, insulin-dependent diabetic, hypertension Limitations by social determinants of health: None Differential diagnosis: Hypertensive urgency, needing dialysis, fluid overload, hyperglycemia, hyperosmolar state, DKA, other Vital signs: Initially 214/94, did improve 186/93. Other vital signs stable. EKG: Sinus rhythm, rate 78, left axis deviation, good R-wave progression, LVH, no STEMI. Independently interpreted by me. Labs show no leukocytosis, left shift 88% neutrophils. Hemoglobin 11 baseline anemia. Blood gas shows a O2 sat 90.9, the pH is stable. Base excess -4. Labs show potassium 5.5, BUN 59 creatinine 0.6. The glucose is 4-2. Ketones are stable. BNP elevated 664. Troponin stable. CXR shows vascular congestion and cardiomegaly. Consistent with fluid overload. Patient has hyperglycemia, she does not need dialysis. She is a bit hypoxic oxygen level at 90%. Placed on 2 L cannula. I gave her some insulin here in the ER, 5 units IV. Also some hydralazine for the hypertension. Spoke with Dr Evangelista, agrees with dialysis. Spoke with Dr Gomes for admission. ED Course Orders Procedure Category Date Status Time Cardiac Panel LAB 07/30/25 Complete 07:09 Cbc With Differential LAB 07/30/25 Complete 07:09 Basic Metabolic Panel LAB 07/30/25 Complete 07:09 Magnesium LAB 07/30/25 Complete 07:09 12 Lead Ekg Tracing- EKG 07/30/25 Logged Technical 07:09 Chest 1vw RAD 07/30/25 Resulted 07:09 B-Type Natriuretic LAB 07/30/25 Complete Peptide 07:09 Ketone Blood LAB 07/30/25 Complete Quantitative 07:09 Venous Blood Gas + RT 07/30/25 Transmitted 07:09 Venous Blood Gas Plus LAB 07/30/25 Complete 07:25 Hydralazine 20mg Inj PHA 07/30/25 In Process (Apresoline 20mg In 08:30 Insulin Regular, PHA 07/30/25 In Process Human 3ml (Humulin R 08:30 Urinalysis LAB 07/30/25 Logged W/Microscopic 08:25 Current Medications Medications (Trade) Dose Ordered Sig/Benito Route PRN Reason Start Time Stop Time Status Last Admin Dose Admin Hydralazine HCl (APRESOLine 20MG INJ) 20 mg ONCE ONCE IV 07/30/25 08:30 07/30/25 08:31 Insulin Human Regular (humuLIN R 100 UNIT/ML 3ML) 5 unit ONCE ONCE IV 07/30/25 08:30 07/30/25 08:31 Vital Signs Date Time Temp Pulse Resp B/P (MAP) Pulse Ox O2 Delivery O2 Flow Rate FiO2 07/30/25 07:27 97.5 81 18 214/94 94 Room Air* 0 21 07/30/25 06:55 98.1 84 16 186/93 96 Room Air 0 DX & DISP Disposition: Inpatient Departure Impression: Primary Impression: Hypertensive emergency Additional Impressions: ESRD needing dialysis, Hyperglycemia due to diabetes mellitus, Hyperkalemia Critical Time: 30 minutes (Critical Care Procedure NoteAuthorized and Performed by: meTotal critical care time: Approximately 36 minutesDue to a high probability of clinically significant, life threatening deterioration, the patient required my highest level of preparedness to intervene emergently and I personally spent this critical care time directly and personally managing the patient. This critical care time included obtaining a history; examining the patient; pulse oximetry; ordering and review of studies; arranging urgent treatment with development of a management plan; evaluation of patient's response to treatment; frequent reassessment; and, discussions with other providers.This critical care time was performed to assess and manage the high probability of imminent, life-threatening deterioration that could result in multi-organ failure. It was exclusive of separately billable procedures and treating other patients and teaching time.Please see MDM section and the rest of the note for further information on patient assessment and treatment.) Condition: Stable Referrals: ALICIA DIAZ MD (PCP) KAT GREEN DO Jul 30, 2025 07:14
[2025-07-30 07:27] LABS: IMMATURE GRANULOCYTE ABSOLUTE 0.06 K/uL (0-1); NUCLEATED RED BLOOD CELLS 0.0 % (0.0-0.19); PLATELET COUNT (AUTO) 168 K/uL (130-400); RED BLOOD CELL COUNT(AUTO) 3.60 MIL/uL (4.00-5.50); RED CELL DISTRIBUTION WIDTH 12.9 % (11.0-15.5); WHITE BLOOD COUNT (AUTO) 8.0 K/uL (4.8-10.8)
[2025-07-30 07:28] LABS: ABG OXYGEN SATURATION 90.9 % (94.0-98.0); BASE EXCESS,VENOUS BLOOD GAS -4.2 (-2.0-3.0); DEVICE COMMENT VEN JESUS RN; HCO3,VENOUS BLOOD GAS 20.0 (22.0-29.0); PCO2,VENOUS BLOOD GAS 34 (38-54); PH,VENOUS BLOOD GAS 7.393 (7.320-7.430); PO2,VENOUS BLOOD GAS 63.5 mmHg (23.0-48.0); TEMPERATURE, CELSIUS BG 37.0 CELSIUS (35.5-37.0); VENT MODE, BG RA (ROOM AIR)
[2025-07-30 07:58] LABS: GLOMERULAR FILTR. RATE CALC 4.0 mL/min (>90); SODIUM SERUM 132.0 mmol/L (136-145); UREA NITROGEN, BLOOD 59.0 mg/dL (7-18)
--- NOTE | 2025-07-30 08:00 | HMCIMG ---
EXAM: CR Chest, 1 View. CLINICAL HISTORY: chest pain COMPARISON: None provided. FINDINGS: LUNGS: Mild pulmonary vascular congestion which could be on the basis of CHF. Correlate clinically. PLEURAL SPACES: No pleural effusion or pneumothorax. MEDIASTINUM: Cardiomegaly. BONES: No acute osseous abnormality. IMPRESSION: 1. Mild pulmonary vascular congestion, possibly due to congestive heart failure. 2. Cardiomegaly. /Bailey
[2025-07-30 08:04] LABS: CREATINE KINASE, TOTAL 50.0 U/L (21-232)
[2025-07-30 08:09] LABS: CREATININE 8.6 mg/dL (0.5-1.0); GLUCOSE,RANDOM 422.0 mg/dL (70-105)
[2025-07-30] MEDS ORDERED: DEXTROSE 50%-WATER 50 ML DISP.SYRIN IV PRN (09:00)
[2025-07-30] MEDS ORDERED: GLUCAGON 1MG KIT 1 MG ML IM PRN (09:00)
--- NOTE | 2025-07-30 09:20 | EKG ---
[facility] Test Date: 2025-07-30 Test Time: 07:29:34 Pat Name: ANDREI RODRÍGUEZ Department: [facility] Room: 304 Gender: F Front Line Supervisor: [id number]//STUDENT : 1945 Requested By: KAT GREEN Order Number: [id number] Reading MD: Antoinette Beckford Measurements Intervals [place] Rate: 78 P: 77 [place]: 233 QRS: -25 QRSD: 112 T: 137 QT: 413 QTc: 470 Interpretive Statements Sinus rhythm Prolonged [place] interval LVH with secondary repolarization abnormality No previous ECG available for comparison Electronically Signed On 07-31-2025 08:31:40 CDT by Antoinette Beckford Please click the below link to view image of tracing.
[2025-07-30] MEDS: 0.9%NACL 1000ML 1,000 ML IV SCH (10:00)
--- NOTE | 2025-07-30 11:30 | NUR ---
DCP:HOME Pt currently lives at home with her Luis E Davis [phone]. Pt does use a walker at home to ambulate. Pt does not have a provider or home health services. Pt states that she is able to complete ADLs independently. Pt does go to dialysis at [facility] on [address]. PCP is Dr. Mark Cohen and uses [facility] for any RX needs. At [place] pt will want to go home and family can assist with transportation. Addendum: 07/30/25 at 1134 by CHUY BONE SS Amended: Links added.
[2025-07-30] MEDS: amLODIPine 5 MG TAB PO ONE (11:58)
[2025-07-30 14:35] LABS: HEPATITIS B CORE AB TOTAL Non-Reactive (Nonreactive); HEPATITIS B SURFACE ANTIBODY Negative (Reactive)
--- NOTE | 2025-07-30 19:58 | NUR ---
per dialysis nurse 2.7 L removed
--- NOTE | 2025-07-30 21:15 | NUR ---
REPORT GIVEN TO NURSE SADIE
--- NOTE | 2025-07-30 22:07 | HP ---
HISTORY AND PHYSICAL NOTE DATE OF CONSULTATION: 07/30/25 REASON FOR CONSULTATION: dyspnea HISTORY OF PRESENT ILLNESS: 79-year-old female, HX ESRD on dialysis Sunday left arm fistula, HTN, insulin-dependent diabetic, brought in by EMS from home for generalized weakness. Patient reports yesterday afternoon and about 12 hours prior to arrival she began feeling weak. This morning she woke up and was unable to go to dialysis because she felt generalized weakness. She denies any headache vision changes vomiting abdominal pain chest pain shortness of breath or diarrhea. She reports that she has been missing doses of insulin lately because she has been forgetting. She took 4 units of Humalog earlier this morning. She has also been taking weekly Ozempic. Last dialysis was Sunday, 48 hours ago. EMS found the patient's blood pressure 229/110, blood glucose greater than 500. Other vital signs stable. EMS gave 0.4 mg sublingual nitroglycerin prior to arrival. PCP: [facility] [employer] Professor: Chicho Stamp Machine Servicer: Tonja Allergies: Coded Allergies: Latex, Natural Rubber (Unverified Allergy, Severe, 05/18/23) Penicillins (Unverified Allergy, Unknown, 02/14/18) codeine (Unverified Allergy, Unknown, 02/14/18) iodine (Unverified Allergy, Unknown, 02/14/18) Home Meds Reported Medications Brimonidine Tartrate (Alphagan P) 5 Ml Drops, 5 ML OP DAILY, DROP 05/18/23 Omeprazole (Omeprazole) 20 Mg Tablet.dr, 20 MG PO DAILY, TAB 05/18/23 Carvedilol (Carvedilol) 25 Mg Tablet, 25 MG PO TAKE 1/2 TAB BID , TAB 05/18/23 Cholecalciferol (Vitamin D3) (Vitamin D3) 125 Mcg Capsule, 125 MCG PO DAILY, CAP 05/18/23 Furosemide (Furosemide) 20 Mg Tablet, 20 MG PO DAILY, TAB 05/18/23 Rosuvastatin Calcium (Rosuvastatin Calcium) 20 Mg Tablet, 20 MG PO DAILY, TAB 05/18/23 Past History Past Medical History Past Medical History: Diabetes-Type II, Hypertension, Renal Disese, Renal Failure Medical History Other: HX OF CA Past Surgical History: Appendectomy, Cholecystectomy Surgical History Other: KNEE, Review of Systems ROS Dictation CONSTITUTIONAL: Generalized fatigue and weakness, no fever HEAD/FACE: No signs of trauma. EENT: No eye pain, no blurred vision, no tearing, no double vision, no ear pain, no ear discharge, no nose pain, no nasal congestion, no throat pain, no throat swelling, no mouth pain. RESPIRATORY: No cough, no orthopnea, no SOB, no stridor, no wheezing. CARDIOVASCULAR: No chest pain, no edema, no palpitations, no syncope. GASTROINTESTINAL/ABDOMINAL: No abdominal pain, no constipation, no diarrhea, no nausea, no vomiting. GENITOURINARY: No abnormal discharge, no dysuria, no frequent urination, no hematuria. No complaints of pain in the genitals. MUSCULOSKELETAL: No back pain, no gout, no joint pain, no joint swelling, no muscle pain, no muscle stiffness, no neck pain. INTEGUMENTARY: No change in color, no change in hair/nails, no dryness, no lesion, no lumps, no rash. NEUROLOGICAL/PSYCH: No anxiety, not depressed, no emotional problem, no headache, no numbness, no pre-existing deficit, no history of seizures, no tremors, no weakness. HEMATOLOGIC/LYMPHATIC: Not anemic, no history of blood clots, no apparent bleeding, no bruising, glands not swollen. All Systems Negative, Except as Noted. ALLERGIES: Coded Allergies: Latex, Natural Rubber (Unverified Allergy, Severe, 05/18/23) Penicillins (Unverified Allergy, Unknown, 02/14/18) codeine (Unverified Allergy, Unknown, 02/14/18) iodine (Unverified Allergy, Unknown, 02/14/18) HOME MEDS: Reported Medications Carvedilol (Carvedilol) 25 Mg Tablet, 25 MG PO TAKE 1/2 TAB BID , TAB 05/18/23 Discontinued Reported Medications Brimonidine Tartrate (Alphagan P) 5 Ml Drops, 5 ML OP DAILY, DROP 05/18/23 Omeprazole (Omeprazole) 20 Mg Tablet.dr, 20 MG PO DAILY, TAB 05/18/23 Cholecalciferol (Vitamin D3) (Vitamin D3) 125 Mcg Capsule, 125 MCG PO DAILY, CAP 05/18/23 Furosemide (Furosemide) 20 Mg Tablet, 20 MG PO DAILY, TAB 05/18/23 Rosuvastatin Calcium (Rosuvastatin Calcium) 20 Mg Tablet, 20 MG PO DAILY, TAB 05/18/23 INPATIENT MEDS: Current Medications Medications Dose Ordered Sig/Benito Start Time Stop Time Status Last Admin Furosemide 20 mg DAILY 07/30/25 09:00 08/29/25 08:59 07/30/25 09:30 Ondansetron HCl 4 mg Q6H PRN 07/30/25 09:00 08/29/25 08:59 Insulin Human Regular INSULIN SLIDING SCAL... ACHS 07/30/25 11:30 08/29/25 11:29 07/30/25 20:40 Dextrose 50 ml AD PRN 07/30/25 09:00 08/29/25 08:59 Glucagon 1 mg AD PRN 07/30/25 09:00 08/29/25 08:59 Carvedilol 12.5 mg BID 07/30/25 21:00 08/29/25 20:59 07/30/25 20:39 Sodium Chloride 1,000 ml @ 0 mls/hr ONCE 07/30/25 10:00 08/29/25 09:59 07/30/25 17:42 Clonidine HCl 0.1 mg Q4H PRN 07/30/25 15:30 08/29/25 15:29 07/30/25 15:19 VITAL SIGNS Vital Signs Date Time Temp Pulse Resp B/P (MAP) Pulse Ox O2 Delivery O2 Flow Rate FiO2 07/30/25 20:39 125/71 07/30/25 20:33 97.2 70 14 125/71 94 Room Air* 0 07/30/25 19:55 97.0 66 14 164/66 94 Room Air* 0 07/30/25 19:40 98.1 65 17 164/66 100 Nasal Cannula 2.0 07/30/25 19:30 76 18 119/71 96 Room Air 07/30/25 19:15 76 18 125/72 96 Room Air 07/30/25 19:00 70 15 139/61 96 Room Air 07/30/25 18:45 65 17 142/61 96 Room Air 07/30/25 18:30 71 16 142/61 98 Room Air 07/30/25 18:15 65 16 133/62 98 Room Air 07/30/25 18:00 67 16 136/63 98 Room Air 07/30/25 17:45 69 17 165/63 99 Room Air 07/30/25 17:30 72 17 149/66 99 Room Air 07/30/25 17:15 68 17 134/71 99 Room Air 07/30/25 17:00 98.1 72 17 151/59 99 Room Air 07/30/25 16:35 98.1 71 17 145/60 99 Room Air 07/30/25 16:31 97.9 75 12 188/76 07/30/25 15:19 78 185/71 07/30/25 12:30 98.6 78 18 185/71 97 Room Air 0.0 07/30/25 09:30 96 Room Air* 0 21 07/30/25 09:25 97.5 76 18 162/74 95 Room Air* 0 21 07/30/25 08:28 81 214/94 07/30/25 07:27 97.5 81 18 214/94 94 Room Air* 0 21 07/30/25 06:55 98.1 84 16 186/93 96 Room Air 0 PHYSICAL EXAM VITAL SIGNS: Reviewed. GENERAL APPEARANCE: Alert, oriented x3, no acute distress. Generally weak HEAD AND FACE: Non-traumatic. EYES: PERRL, pink conjunctivas, eyelid no trauma, anterior chamber clear. EARS: Pinnas intact and no signs of trauma or erythema. Ear canals clear and no discharge. TMs no erythema. NOSE: No discharge, no bleeding. OROPHARYNX: Mouth normal, teeth no caries, tongue pink. Pharynx clear, no erythema. Tonsils no exudates, no abscesses noted. Mucous membrane moist. NECK: Supple, non-tender, no thyromegaly, no masses, no JVD, no bruits. BREAST: Deferred. CHEST: No tenderness, no crepitus, no paradoxical movement, no retractions. LUNGS: Clear, well-ventilated, symmetric, no rales, no wheezing, no rhonchi, no stridor, good breath sounds bilaterally. HEART: Regular rate, regular rhythm, no murmur, no gallops. VASCULAR: No peripheral edema. ABDOMEN: Soft, positive bowel sounds, nondistended, no guarding, nontender, no rebound, no masses no hepatomegaly, no splenomegaly, no Vo's sign, no hernias. RECTAL: Deferred. GENITAL: Deferred. NEUROLOGICAL: Normal speech, gross motor function intact, gross sensory function intact. MUSCULOSKELETAL: Neck nontender, full range of motion, back nontender, full range of motion. LAVA good bruit and flow. EXTREMITIES: Nontender, full range of motion. SKIN: Color pink, dry, no turgor, no rash, no lacerations, no abrasions, no contusions. LYMPHATICS: Deferred. LABORATORY RESULTS Laboratory Tests 07/30/25 07:14: White Blood Count 8.0, Red Blood Count 3.60, Hemoglobin 11.0, Hematocrit 32.9, Mean Corpuscular Volume 91.4, Mean Corpuscular Hemoglobin 30.6, Mean Corpuscular Hemoglobin Concent 33.4, Red Cell Distribution Width 12.9, Platelet Count 168, Mean Platelet Volume 9.0, Immature Granulocyte % (Auto) 0.7, Neutrophils (%) (Au to) 88.6, Lymphocytes (%) (Auto) 7.4, Monocytes (%) (Auto) 3.1, Eosinophils (%) (Auto) 0.1, Basophils (%) (Auto) 0.1, Neutrophils # (Auto) 7.1, Lymphocytes # (Auto) 0.6, Monocytes # (Auto) 0.3, Eosinophils # (Auto) 0.01, Basophils # (Auto) 0.01, Absolute Immature Granulocyte (auto 0.06, Nucleated Red Blood Cells 0.0, White Cell Morphology Comment See comments, Sodium Level 132, Potassium Level 5.4, Chloride Level 96, Carbon Dioxide Level 28, Blood Urea Nitrogen 59, Creatinine 8.6, Glomerular Filtration Rate Calc 4, Random Glucose 422, Whole Blood Ketones Quantitative 0.4, Total Calcium 8.5, Magnesium Level 2.00, Total Creatine Kinase 50, Troponin I High Sensitivity 14.7, B-Type Natriuretic Peptide 664, Hepatitis B Surface Antigen. Non-Reactive, Hepatitis B Surface Antibody. Negative, Hepatitis B Core Total Antibody. Non-Reactive, Hepatitis C Antibody Non-Reactive 07/30/25 07:25: Blood Gas Specimen Type Venous, Arterial Blood Oxygen Saturation 90.9, Venous Blood pH 7.393, Venous Blood pCO2 at Patient Temp 34, Venous Blood pO2 at Patient Temp 63.5, Venous Blood HCO3 20.0, Venous Blood Base Excess -4.2, Venous Blood Total Hemoglobin 11.1, Sodium (Blood Gas) 134, Bedside Potassium (Blood Gas) 5.1, Bedside Chloride (Blood Gas) 98, Bedside Glucose (Blood Gas) 379, Bedside Ionized Calcium (Blood Gas) 1.12, Bedside Lactic Acid (Blood Gas) 1.46, Blood Gas Temperature 37.0, Blood Gas Vent Mode RA, FiO2 21.0, Blood Gas Specimen Comment DIYA MENDOZA RN 07/30/25 09:14: Whole Blood Glucose 280 07/30/25 11:51: Whole Blood Glucose 247 07/30/25 15:03: Whole Blood Glucose 199 07/30/25 16:58: Whole Blood Glucose 160 07/30/25 19:59: Whole Blood Glucose 196 PROBLEM LIST: (1) ESRD needing dialysis ICD Codes: N18.6 - End stage renal disease; Z99.2 - Dependence on renal dialysis (2) Hypertensive emergency ICD Codes: I16.1 - Hypertensive emergency (3) Hyperglycemia due to diabetes mellitus ICD Codes: E11.65 - Type 2 diabetes mellitus with hyperglycemia (4) Hyperkalemia ICD Codes: E87.5 - Hyperkalemia; Z99.2 - Dependence on renal dialysis PLAN emergent dialysis and consult nephrology, resume home meds KEISHA GREGORY MD Jul 30, 2025 22:07
[2025-07-31] VITALS: BP 130/57; PULSE 69; RESP 18; TEMP 98.2
--- NOTE | 2025-07-31 03:10 | NUR ---
Called Dr. Gomes answering service. Pending call back. Patient requesting tylenol.
[2025-07-31 04:00] VITALS: BP 153/68; PULSE 68; RESP 18; TEMP 98.6
--- NOTE | 2025-07-31 04:11 | NUR ---
Repaged Dr. Gomes. Pending call back
[2025-07-31 05:17] LABS: IMMATURE GRANULOCYTE ABSOLUTE 0.04 K/uL (0-1); NUCLEATED RED BLOOD CELLS 0.0 % (0.0-0.19); PLATELET COUNT (AUTO) 164 K/uL (130-400); RED BLOOD CELL COUNT(AUTO) 3.44 MIL/uL (4.00-5.50); RED CELL DISTRIBUTION WIDTH 13.2 % (11.0-15.5); WHITE BLOOD COUNT (AUTO) 9.2 K/uL (4.8-10.8)
[2025-07-31 05:28] LABS: CREATININE 6.7 mg/dL (0.5-1.0); GLOMERULAR FILTR. RATE CALC 6.0 mL/min (>90); GLUCOSE,RANDOM 192.0 mg/dL (70-105); PHOSPHORUS 4.2 mg/dL (2.5-4.9); SODIUM SERUM 134.0 mmol/L (136-145); UREA NITROGEN, BLOOD 44.0 mg/dL (7-18)
--- NOTE | 2025-07-31 06:33 | CONS ---
REFERRING PHYSICIAN: Oz Gomes MD REASON FOR CONSULTATION: Uncontrolled hypertension, ESRD. HISTORY OF PRESENT ILLNESS: An 79-year-old female with history of diabetes mellitus and hypertension. She has a history of end-stage renal disease, on dialysis on a Sunday, , Sunday schedule. The patient presented to the hospital with complaints of significant weakness and shortness of breath. The patient initially with systolic blood pressures above 200 mmHg. The patient stated her dialysis on 07/28/2025 with 3.2 L of ultrafiltration. She does admit to noncompliance with her diet and she is being seen for urgent dialysis. PAST MEDICAL HISTORY: Diabetes mellitus, hypertension, ESRD, coronary artery disease. PAST SURGICAL HISTORY: AV access, appendectomy. SOCIAL HISTORY: She lives independently. There is no alcohol or tobacco use. FAMILY HISTORY: There is no renal disease in the family. ALLERGIES: SHE HAS AN ALLERGY TO PENICILLIN. MEDICATIONS: All noted. REVIEW OF SYSTEMS: GENERAL: She is feeling weak and tired. HEENT: No change in vision. No change in hearing. CARDIOVASCULAR: There is no current chest pain or palpitations. PULMONARY: There is shortness of breath. GASTROINTESTINAL: She has been tolerating diet. MUSCULOSKELETAL: Complains of weakness. NEUROLOGIC: No seizures or focal deficits. PSYCHIATRIC: No history of hallucinations or psychosis. ENDOCRINE: Diabetes mellitus. No history of thyroid disease. HEME: History of anemia. No history of malignancy. PHYSICAL EXAMINATION: VITAL SIGNS: Blood pressure is 186/93, pulse 80s, afebrile. GENERAL: She is a chronically ill female, elderly, lying in bed on medical floor. HEENT: Head is atraumatic. Pupils are equal, round and reactive to light. Oropharynx is without exudate. Nares clear. NECK: There is no JVP. There is no thyromegaly. No masses. CARDIOVASCULAR: Regular. There is no S3 or S4 gallop. LUNGS: Coarse with equal thoracic movement. ABDOMEN: Soft, nondistended, nontender. EXTREMITIES: She has minimal edema. NEUROLOGICAL: She is awake. She is alert. She is oriented. SKIN: Reveals no rash or nodules. BACK: There is no CVA tenderness, no back deformity. LABORATORY DATA: Sodium 132, potassium if 5.4, BUN 59, creatinine is 8. Glucose is 422. Hemoglobin 11, hematocrit 32. IMPRESSION: * Uncontrolled hypertension. * Volume overload. * Diabetes mellitus. * Anemia. * End-stage renal disease. PLAN: The patient will receive urgent dialysis on the day of this consultation. We will continue with maximum ultrafiltration as blood pressure allows. The patient's chest x-ray is consistent with pulmonary vascular congestion. I did discuss with the patient in regard to compliance with her general medical care including her fluid restriction. We will continue to follow closely. All labs will be repeated in the morning. The patient and at the bedside had multiple questions, were all answered. TID: [id number] RECEIPT: [id number]
--- NOTE | 2025-07-31 06:35 | PN ---
FOLLOWUP PROGRESS NOTE SUBJECTIVE: The patient was seen and evaluated on hemodialysis, prescription noted. OBJECTIVE: VITAL SIGNS: Blood pressure is 180/70. CARDIOVASCULAR: Regular. LUNGS: Coarse. IMPRESSION: End-stage renal disease. PLAN: The patient will continue with maximum ultrafiltration as blood pressure allows. The patient to be resumed on her antihypertensive medications. TID: [id number] RECEIPT: [id number]
[2025-07-31 08:00] VITALS: BP 168/62; PULSE 68; RESP 20; TEMP 98
[2025-07-31 12:00] VITALS: BP 120/62; PULSE 64; RESP 18; TEMP 98.2
--- NOTE | 2025-08-01 01:47 | PN ---
FOLLOWUP PROGRESS NOTE SUBJECTIVE: An 79-year-old female with a history of hypertension, diabetes mellitus. She initially presented with hypertensive urgency. The patient has a history of end-stage renal disease, on dialysis 3 times a week. The patient with ESRD. She did receive 2.7 liters of ultrafiltration with dialysis yesterday. The patient has become much more hemodynamically stable and she is being seen as a followup visit for all the above. REVIEW OF SYSTEMS: She is feeling weak and tired. HEENT: No change in vision. No change in hearing. CARDIOVASCULAR: There is no current chest pain or palpitations. PULMONARY: No shortness of breath. GASTROINTESTINAL: She is tolerating a diet. MUSCULOSKELETAL: Complaints of weakness. PHYSICAL EXAMINATION: VITAL SIGNS: Blood pressure is 168/62, pulse 60, afebrile. GENERAL: Chronically ill, elderly female, lying in bed on the medical floor. HEENT: Head is atraumatic. Pupils are equal, round, and reactive to light. Oropharynx is without exudate. Nares are clear. NECK: There is no JVP. There is no thyromegaly. No mass. CARDIOVASCULAR: Regular. There is no S3 or S4 gallop. LUNGS: Coarse with equal thoracic movement. ABDOMEN: Soft, nondistended, nontender. EXTREMITIES: No clubbing, no cyanosis. NEUROLOGICAL: She is awake and alert. LABORATORY DATA: Sodium 134, potassium 4.8, BUN 44, creatinine 6.7. Hemoglobin 10, hematocrit 32. IMPRESSION: 1. Hypertensive urgency. 2. End-stage renal disease. 3. Volume overload. 4. Diabetes mellitus. 5. Anemia PLAN: The patient has become much more hemodynamically stable. The patient is encouraged with her compliance with her general medical care including fluid restriction. The patient has been resumed on her antihypertensive medications. If the patient is discharged, she will follow up at the dialysis unit. TID: [id number] RECEIPT: [id number]
== END 2025-07-31 12:55 | disposition home or self-care (01) ==
LOC: EDH 06:54 → EDHIP 10:20 → 3AH 21:36
PROVIDERS: ADMIT Internal Medicine; ATTEND Internal Medicine
DX: I12.0 Hypertensive chronic kidney disease with stage 5 chronic kidney disease or end stage renal disease (principal); I25.10 Atherosclerotic heart disease of native coronary artery without angina pectoris; I16.1 Hypertensive emergency; N18.6 End stage renal disease; E11.22 Type 2 diabetes mellitus with diabetic chronic kidney disease; E11.65 Type 2 diabetes mellitus with hyperglycemia; D63.1 Anemia in chronic kidney disease; E87.5 Hyperkalemia; E87.70 Fluid overload, unspecified; R53.83 Other fatigue; Z90.49 Acquired absence of other specified parts of digestive tract; Z99.2 Dependence on renal dialysis; Z88.0 Allergy status to penicillin; Z79.899 Other long term (current) drug therapy; Z98.890 Other specified postprocedural states
CPT/HCPCS: 96374; 96375; 82435; 82947; 84132; 84295; 82948 ×6; 99291; 93005; 36600; 82550; 83735; 84484; 80048 ×2; 82803; 83880; 85025 ×2; 86803; 83605; 86706; 87340; 86704; 82010; 36415 ×2; 71045; 90935; 96376; 84100; J1815 ×5; G0378 ×27; J0360; J1938 ×2; G0257

== ENCOUNTER 2025-08-03 22:02 | Inpatient (IN) | payer MEDICARE ==
[~2025-08-03] VITALS: Ht 162.6 cm; Wt 87.1 kg
[~2025-08-03 22:02] MED LIST changes: -BRIM5DRO2 OP; -CHOL500051 PO; -FURO20TA4 PO; -OMEP20TA20 PO; -ROSU20TA98 PO
[2025-08-03 22:30] VITALS: PULSE 112; RESP 25; O2SAT 94
[2025-08-03 22:31] LABS: IMMATURE GRANULOCYTE ABSOLUTE 0.06 K/uL (0-1); NUCLEATED RED BLOOD CELLS 0.0 % (0.0-0.19); PLATELET COUNT (AUTO) 132 K/uL (130-400); RED BLOOD CELL COUNT(AUTO) 3.79 MIL/uL (4.00-5.50); RED CELL DISTRIBUTION WIDTH 13.4 % (11.0-15.5); WHITE BLOOD COUNT (AUTO) 9.1 K/uL (4.8-10.8)
[2025-08-03 22:32] LABS: ABG BASE EXCESS -2.1 mmol/L (-2.0-3.0); ABG HCO3 22.0 mmol/L (21.0-28.0); ABG OXYGEN SATURATION 98.0 % (94.0-98.0); ABG PCO2 35 mmHg (32-45); ABG PH 7.414 (7.350-7.450); CARBON MONOXIDE 1.7 % (0.5-1.5); DEVICE COMMENT RN PAUL,RR; PO2, ARTERIAL BG 110.3 mmHg (83.0-108.0); TEMPERATURE, CELSIUS BG 37.0 CELSIUS (35.5-37.0); VENT MODE, BG BIPAP 12,6 (ROOM AIR)
--- NOTE | 2025-08-03 22:33 | ERN ---
General Chief Complaint: Sepsis Stated Complaint: SEPSIS Time Seen by MD: 22:06 Source: patient History of Present Illness Initial Comments Patient is a an 79-year-old female coming in complaining of shortness of breath and cough. Per EMS patient has been presenting with a cough and URI symptoms led her to same day patient started having increased cough and shortness of breath. Patient does has a history of end-stage renal disease in his on dialysis. Patient started having fever and chills in his brought in for further evaluation. Allergies: Coded Allergies: Latex, Natural Rubber (Unverified Allergy, Severe, 05/18/23) Penicillins (Unverified Allergy, Unknown, 02/14/18) codeine (Unverified Allergy, Unknown, 02/14/18) iodine (Unverified Allergy, Unknown, 02/14/18) Home Meds Reported Medications Carvedilol (Carvedilol) 25 Mg Tablet, 25 MG PO TAKE 1/2 TAB BID , TAB 05/18/23 Discontinued Reported Medications Brimonidine Tartrate (Alphagan P) 5 Ml Drops, 5 ML OP DAILY, DROP 05/18/23 Omeprazole (Omeprazole) 20 Mg Tablet.dr, 20 MG PO DAILY, TAB 05/18/23 Cholecalciferol (Vitamin D3) (Vitamin D3) 125 Mcg Capsule, 125 MCG PO DAILY, CAP 05/18/23 Furosemide (Furosemide) 20 Mg Tablet, 20 MG PO DAILY, TAB 05/18/23 Rosuvastatin Calcium (Rosuvastatin Calcium) 20 Mg Tablet, 20 MG PO DAILY, TAB 05/18/23 Past Medical History Past Medical History: Diabetes-Type II, Hypertension, Renal Disese, Renal Failure Medical History Other: HX OF CA Past Surgical History: Appendectomy, Cholecystectomy Surgical History Other: KNEE, ROS Dictation CONSTITUTIONAL: No chills, no fever, no weakness, no diaphoresis, no malaise. HEAD/FACE: No signs of trauma. EENT: No eye pain, no blurred vision, no tearing, no double vision, no ear pain, no ear discharge, no nose pain, no nasal congestion, no throat pain, no throat swelling, no mouth pain. RESPIRATORY: No cough, no orthopnea, no SOB, no stridor, no wheezing. CARDIOVASCULAR: No chest pain, no edema, no palpitations, no syncope. GASTROINTESTINAL/ABDOMINAL: No abdominal pain, no constipation, no diarrhea, no nausea, no vomiting. GENITOURINARY: No abnormal discharge, no dysuria, no frequent urination, no hematuria. No complaints of pain in the genitals. MUSCULOSKELETAL: No back pain, no gout, no joint pain, no joint swelling, no muscle pain, no muscle stiffness, no neck pain. INTEGUMENTARY: No change in color, no change in hair/nails, no dryness, no lesion, no lumps, no rash. NEUROLOGICAL/PSYCH: No anxiety, not depressed, no emotional problem, no headache, no numbness, no pre-existing deficit, no history of seizures, no tremors, no weakness. HEMATOLOGIC/LYMPHATIC: Not anemic, no history of blood clots, no apparent bleeding, no bruising, glands not swollen. All Systems Negative, Except as Noted. Physical Exam Physical Exam Dictation VITAL SIGNS: Reviewed. GENERAL APPEARANCE: Alert, oriented x3, no acute distress, obese. HEAD AND FACE: Non-traumatic. EYES: PERRL, pink conjunctivas, eyelid no trauma, anterior chamber clear. EARS: Pinnas intact and no signs of trauma or erythema. Ear canals clear and no discharge. TMs no erythema. NOSE: No discharge, no bleeding. OROPHARYNX: Mouth normal, teeth no caries, tongue pink. Pharynx clear, no erythema. Tonsils no exudates, no abscesses noted. Mucous membrane moist. NECK: Supple, non-tender, no thyromegaly, no masses, no JVD, no bruits. BREAST: Deferred. CHEST: No tenderness, no crepitus, no paradoxical movement, no retractions. LUNGS: Clear, well-ventilated, symmetric, no rales, no wheezing, no rhonchi, no stridor, good breath sounds bilaterally. HEART: Regular rate, regular rhythm, no murmur, no gallops. VASCULAR: No peripheral edema. ABDOMEN: Soft, positive bowel sounds, nondistended, no guarding, nontender, no rebound, no masses no hepatomegaly, no splenomegaly, no Vo's sign, no hernias. RECTAL: Deferred. GENITAL: Deferred. NEUROLOGICAL: Normal speech, gross motor function intact, gross sensory function intact. MUSCULOSKELETAL: Neck nontender, full range of motion, back nontender, full range of motion. EXTREMITIES: Nontender, full range of motion. SKIN: Color pink, dry, no turgor, no rash, no lacerations, no abrasions, no contusions. LYMPHATICS: Deferred. Results Laboratory and Microbiology Lab and Micro Result Laboratory Tests Test 08/03/25 22:18 08/03/25 22:22 08/03/25 22:31 Influenza Type A Antigen Negative For Type A Influenza Type B Antigen Negative For Type B SARS-CoV-2, RNA, NAAT NEGATIVE SARS CoV-2 White Blood Count 9.1 K/uL (4.8-10.8) Red Blood Count 3.79 MIL/uL (4.00-5.50) L Hemoglobin 11.5 g/dL (12.0-16.0) L Hematocrit 35.5 % (36-48) L Mean Corpuscular Volume 93.7 fL (79-99) Mean Corpuscular Hemoglobin 30.3 pg (27.0-33.0) Mean Corpuscular Hemoglobin Concent 32.4 g/dL (32.0-36.0) Red Cell Distribution Width 13.4 % (11.0-15.5) Platelet Count 132 K/uL (130-400) Mean Platelet Volume 9.2 fL (7.5-10.5) Immature Granulocyte % (Auto) 0.7 % (0-1) Neutrophils (%) (Auto) 95.7 % (40.0-77.0) H Lymphocytes (%) (Auto) 0.7 % (21.0-51.0) L Monocytes (%) (Auto) 1.9 % (3.0-13.0) L Eosinophils (%) (Auto) 0.8 % (0.0-8.0) Basophils (%) (Auto) 0.2 % (0.0-5.0) Neutrophils # (Auto) 8.8 K/uL (1.8-7.7) H Lymphocytes # (Auto) 0.1 K/uL (1.0-4.8) L Monocytes # (Auto) 0.2 K/uL (0.1-1.0) Eosinophils # (Auto) 0.07 K/uL (0.00-0.70) Basophils # (Auto) 0.02 K/uL (0.00-0.20) Absolute Immature Granulocyte (auto 0.06 K/uL (0-1) Nucleated Red Blood Cells 0.0 % (0.0-0.19) Sodium Level 139 mmol/L (136-145) Potassium Level 5.2 mmol/L (3.5-5.1) H Chloride Level 100 mmol/L (101-111) L Carbon Dioxide Level 27 mmol/L (21-32) Blood Urea Nitrogen 70 mg/dL (7-18) H Creatinine 9.8 mg/dL (0.5-1.0) *H Glomerular Filtration Rate Calc 4 mL/min (>90) Random Glucose 136 mg/dL (70-105) H Lactic Acid Level 3.2 mmol/L (0.8-2.5) H Total Calcium 7.9 mg/dL (8.5-10.1) L Total Creatine Kinase 44 U/L (21-232) Troponin I High Sensitivity 82 ng/L (4-50) *H Blood Gas Specimen Type Arterial Arterial Blood pH 7.414 (7.350-7.450) Arterial Blood Partial Pressure CO2 35 mmHg (32-45) Arterial Blood Partial Pressure O2 110.3 mmHg (83.0-108.0) H Arterial Blood HCO3 22.0 mmol/L (21.0-28.0) Arterial Blood Oxygen Saturation 98.0 % (94.0-98.0) Arterial Blood Base Excess -2.1 mmol/L (-2.0-3.0) L Hemoglobin (Blood Gas) 11.4 g/dL (12.0-16.0) L Sodium (Blood Gas) 137 MMOL/L (136-145) Bedside Potassium (Blood Gas) 5.2 MMOL/L (3.4-4.5) H Bedside Chloride (Blood Gas) 100 MMOL/L (98-107) Bedside Glucose (Blood Gas) 143 MG/DL (65-95) H Bedside Ionized Calcium (Blood Gas) 1.04 MMOL/L (1.15-1.33) L Bedside Lactic Acid (Blood Gas) 2.80 MMOL/L (0.36-0.75) H Blood Gas Temperature 37.0 CELSIUS (35.5-37.0) Blood Gas Respiration Rate 12.0 min. Blood Gas Vent Mode BIPAP 12,6 (ROOM AIR) FiO2 40.0 % Blood Gas PEEP 5 cm H2O Blood Gas Specimen Comment DEVYN MURPHY,RR Labs Reviewed?: Yes MDM MDM: Differential diagnosis: Sepsis, right-sided pneumonia, end-stage renal disease on dialysis, shortness of breath, respiratory distress, endotracheal intubation Rationale: Tests considered and ordered secondary to shared decision making include: labs, ECG and radiology Previous outside records reviewed: Old ER visits. Risk of complication and/or morbidity or mortality of patient management: None Medications-Per medication reconciliation Need for hospitalization: Patient does meet criteria for hospitalization. Need for emergency major/minor surgery: No There are no social concerns with this patient. Prescription drug management Prescriptions will include symptomatic care Patient's prior external medical records from other ER visits were reviewed by me as indicated. Prior testing and results from previous visits were reviewed. Prior tests were taken into account with medical decision making and resource utilization, independent historian/historians were used to obtain complete medical history. I independently interpreted the test that were performed, results were reviewed by me and considered findings on radiology if ordered. Medical management and examination interpretation discussions were had by me with other qualified healthcare professionals as indicated for the patient's care. Patient is a an 79-year-old female coming in in respiratory distress. Patient does has a history of end-stage renal disease and was dialyzed on Sunday. Due to the respiratory distress and retractions he was presenting with the patient needed to be intubated. Patient is currently intubated we will be admitted under the care of for ongoing management. ED Course Orders Procedure Category Date Status Time Cbc With Differential LAB 08/03/25 Complete 22:06 Blood Cult ANTONY 08/03/25 In Process 22:06 Urinalysis Profile LAB 08/03/25 Logged 22:06 Culture Urine ANTONY 08/03/25 Logged 22:06 Creatine Kinase, Total LAB 08/03/25 Complete 22:06 Troponin I High LAB 08/03/25 Complete Sensitivity 22:06 Lactic Acid LAB 08/03/25 Complete 22:06 Basic Metabolic Panel LAB 08/03/25 Complete 22:06 Covid Rna Naat LAB 08/03/25 Complete 22:06 Influenza Type A & B, LAB 08/03/25 Complete Rapid 22:06 Arterial Blood Gas + RT 08/03/25 Transmitted 22:06 Ipratropium/Albuterol PHA 08/03/25 Complete Neb (Duoneb) 22:30 Ipratropium/Albuterol PHA 08/03/25 Complete Neb (Duoneb) 22:17 Arterial Blood Gas LAB 08/03/25 Complete Arterial + 22:31 Chest 1vw RAD 08/03/25 Logged 22:36 Acetaminophen 500mg PHA 08/03/25 Complete Tab (Tylenol 500mg T 23:00 Chest 1vw RAD 08/03/25 Taken 22:45 Fentanyl 1000mcg+Ns PHA 08/03/25 Complete 100ml (Fentanyl 1000 22:46 Ketamine 50mg/Ml PHA 08/03/25 Complete Syringe (Ketamine 22:47 Rocuronium [place] PHA 08/03/25 Complete (Zemuron) 22:47 Propofol 1000 Mg/100 PHA 08/03/25 Complete Ml (Diprivan 1000mg 22:50 Norepinephrin 4mg/Ns PHA 08/03/25 Complete 250ml (Levophed 4mg 22:58 Vancomycin 1g/250ml PHA 08/03/25 Transmitted Kit (Vancomycin 1g/2 23:30 Current Medications Medications (Trade) Dose Ordered Sig/Benito Route PRN Reason Start Time Stop Time Status Last Admin Dose Admin Acetaminophen (TYLenol 500MG TAB) 1,000 mg ONCE ONCE PO 08/03/25 23:00 08/03/25 23:01 DC Albuterol (DUOneb) 1 udvial STK-MED ONCE IH 08/03/25 22:17 08/03/25 22:18 DC Albuterol (DUOneb) 2 udvial ONCE ONCE IH 08/03/25 22:30 08/03/25 22:31 DC Fentanyl Citrate 100 ml @ As Directed STK-MED ONCE IV 08/03/25 22:46 08/03/25 22:46 DC Ketamine HCl (ketaMINE 50MG/ ML SYRINGE) 50 mg STK-MED ONCE .ROUTE 08/03/25 22:47 08/03/25 22:47 DC Norepinephrine 250 ml @ As Directed STK-MED ONCE IV 08/03/25 22:58 08/03/25 22:58 DC Propofol 100 ml @ As Directed STK-MED ONCE IV 08/03/25 22:50 08/03/25 22:50 DC Rocuronium [place] (ZemuRON) 50 mg STK-MED ONCE .ROUTE 08/03/25 22:47 08/03/25 22:47 DC Vital Signs Date Time Temp Pulse Resp B/P (MAP) Pulse Ox O2 Delivery O2 Flow Rate FiO2 08/03/25 22:10 102.4 105 20 107/47 98 Non-Rebreather+ 15 100 Procedure Dictation The procedure was emergent, the patient was unable to provide consent, and a designee was not immediately available. PROCEDURE SUMMARY: A time out was performed. My hands were washed immediately prior to the procedure. I wore a surgical cap, mask with protective eyewear, gown and gloves throughout the procedure. The patient was placed on a medic technician including continuous pulse oximetry. Rapid Sequence Intubation was conducted. The patient received 100 mg of KETAMINE for induction and 50 mg of AREN for adequate paralysis. Cricoid pressure was maintained from time induction agent was given to time of cuff balloon inflation. Using a GLIDESCOPE and a size [ 7.5 ] endotracheal tube with stylet, the patient was intubated on the 1 attempt. The stylet was removed and cuff balloon was inflated. Appropriate endotracheal tube position was confirmed by direct visualization of vocal cord passage, fogging of the tube, CO2 colormetric indicator and symmetric breath sounds. The tube wa s secured at [ 23] cm at the lips. Post intubation chest x-ray is pending at this time. Critical Care Note Comments Critical Care Procedure Note Authorized and Performed by: me Total critical care time: Approximately 36 minutes Due to a high probability of clinically significant, life threatening deterioration, the patient required my highest level of preparedness to intervene emergently and I personally spent this critical care time directly and personally managing the patient. This critical care time included obtaining a history; examining the patient; pulse oximetry; ordering and review of studies; arranging urgent treatment with development of a management plan; evaluation of patient's response to treatment; frequent reassessment; and, discussions with other providers. This critical care time was performed to assess and manage the high probability of imminent, life-threatening deterioration that could result in multi-organ failure. It was exclusive of separately billable procedures and treating other patients and teaching time. Please see MDM section and the rest of the note for further information on patient assessment and treatment. DX & DISP Disposition: Inpatient Decision to Admit Time: 23:08 Departure Impression: Primary Impression: End-stage renal disease (ESRD) Additional Impressions: Respiratory distress, Sepsis, Pneumonia involving right lung, Endotracheally intubated Condition: Stable Referrals: ALICIA DIAZ MD (PCP) MANSOOR CLEVELAND MD Aug 03, 2025 22:33
--- NOTE | 2025-08-03 22:40 | NUR ---
PT NOTED TO STILL BE DYSPNEIC, USING ACCESSORY MUSCLES ON THE BIPAP. ED MD MADE AWARE. ED MD DECIDES TO INTUBATE PATIENT. ED MD SPOKE TO PT'S AND PT CONSENTS TO THE EMERGENCY INTUBATION. 100MG KETAMINE IVP ADMINISTERED AT 2253, ROCURONIUM 50MCG IVP ADMINISTERED AT 2254. 7.5 ET TUBE PLACED AT 2254. INITIAL PLACEMENT AT 23@ LIPS. AFTER CXR, ET TUBE RETRACTED TO 20@LIPS. 14F OG TUBE INSERTED AT THIS TIME, CONNECTED TO LIS
[2025-08-03 22:45] LABS: SARS-CoV-2, RNA, NAAT NEGATIVE SARS CoV-2 (NEGATIVE)
[2025-08-03 22:51] LABS: INFLUENZA TYPE A Negative For Type A (NEGATIVE); INFLUENZA TYPE B Negative For Type B (NEGATIVE)
[2025-08-03 22:55] LABS: CREATINE KINASE, TOTAL 44.0 U/L (21-232); GLOMERULAR FILTR. RATE CALC 4.0 mL/min (>90); GLUCOSE,RANDOM 136.0 mg/dL (70-105); SODIUM SERUM 139.0 mmol/L (136-145); UREA NITROGEN, BLOOD 70.0 mg/dL (7-18)
[2025-08-03 22:57] LABS: CREATININE 9.8 mg/dL (0.5-1.0)
[2025-08-03 23:16] VITALS: PULSE 94; O2SAT 95
--- NOTE | 2025-08-03 23:25 | CONS ---
[facility] CONSULTATION NOTE Date Patient Seen: Aug 03, 2025 Time of Visit: 23:25 Supervising Physician: Dr. Lb Alicea Reason for Consultation: Critical Care Management Primary Care Physician: Dr. Cohen Outpatient Specialists: Inpatient Consults: BIS, critical care team PROBLEM LIST: Acute respiratory failure, in need of emergent intubation Sepsis with septic shock, POA, in need of pressors Pneumonia, POC Pulmonary vascular congestion Fluid overload, BNP a 1470 on arrival LVEF 55-60%, stage I diastolic dysfunction, moderate left ventricular hypertrophy, per echo on 01/17/2025 Left atrium mildly dilated, posterior mitral valve annular calcification, per echo on 01/18/2024 Lactic acidosis Elevated troponin, POA Hyperkalemia, in need of a hemodialysis Electrolyte derangement (hypokalemia, hypochloremia, hypocalcemia) ESRD in need of dialysis Anemia of chronic disease, POA Elevated ALK PHOS Hypoalbuminemia Diabetes mellitus with hyperglycemia End-stage renal disease History of cancer Hypertension, currently hypotensive HPI: Ms. Davis is a 79-year-old female with a history of HX of CA, diabetes-type II, hypertension, and ESRD who presented to [facility] via EMS for evaluation of shortness of breath and cough. Per EMS patient has been presenting with a cough and URI symptoms. The patient started having increased cough and shortness of breath. She started having fever and chills and was brought in for evaluation. VS: HR 105 bmp, RR 20 bmp, BP 107/47, 102.4 F, 98% Non-Rebreather, Labs: Chemistry: Potassium 5.2, Chloride 100, BUN 70, Creatinine 9.8 Random Glucose 136, Lactic Acid 3.2, Total Calcium 7.9, Alkaline Phosphatase 174, Troponin I High Sens 82, B-Natriuretic Peptide 1470, Albumin 3.2, Hematology: RBC 3.79, Hgb 11.5, Hct 35.5, UA: Negative Nitrate, Negative Leuk Est, Serology: Neg Flu and Neg COVID, ABG PH 7.414, pCO2 35, O2 110.3, bicarbonate 22.3, PO2 98.0, base excess -2.1, on BiPAP 1246, FiO2 40%, peep of five. Hemoglobin: 11.4, POC Potassium: 5.2, POC Glucose 143, POC Ionize Calcium: 1.04, POC Lactic Acid 2.80, Chest X-Ray: The endotracheal tube tip is 1.7 cm above the maru. The gastric tube tip is probably around the distal stomach. Stable mild cardiomegaly and pulmonary vascular congestion. ED provider reports that patient was retracting, was placed on BiPAP, continued tachypneic, in respiratory distress. The patient was intubated and admitted by Dr. Gomes covering for Dr. Cohen. BIS, critical care team was consulted for critical care management. I assessed the patient at bedside in ED 11. The patient had just been intubated. No family member at bedside. BI team we will continue monitoring patient closely in the ICU. PAST MEDICAL HX: see above PAST SURGICAL HX: Appendectomy, cholecystectomy and knee surgery SOCIAL HISTORY: No tobacco, ETOH, or illicit drug use Coded Allergies: Latex, Natural Rubber (Unverified Allergy, Severe, 05/18/23) Penicillins (Unverified Allergy, Unknown, 02/14/18) codeine (Unverified Allergy, Unknown, 02/14/18) iodine (Unverified Allergy, Unknown, 02/14/18) REVIEW OF SYSTEMS: Unable to obtain ROS from patient due to patient is intubated and sedated. PHYSICAL EXAM: GENERAL: Intubated and sedated HEENT: EOMI, Sclera non icteric, moist mucosa NECK: Supple, no JVD, trachea midline LUNGS: Diminished breath sounds bilaterally. No wheezes HEART: Regular rate and rhythm. Normal S1 and S2, without murmurs ABD: Abdomen soft, nontender. Bowel sounds present. Obese EXT: No clubbing cyanosis or edema NEURO: Intubated and sedated Vital Signs (last 8hr) Date Time Temp Pulse Resp B/P (MAP) Pulse Ox O2 Delivery O2 Flow Rate FiO2 08/03/25 22:10 102.4 105 20 107/47 98 Non-Rebreather+ 15 100 LABS: Hematology Labs: Test 08/03/25 22:22 Range/Units White Blood Count 9.1 4.8-10.8 K/uL Red Blood Count 3.79 L 4.00-5.50 MIL/uL Hemoglobin 11.5 L 12.0-16.0 g/dL Hematocrit 35.5 L 36-48 % Mean Corpuscular Volume 93.7 79-99 fL Mean Corpuscular Hemoglobin 30.3 27.0-33.0 pg Mean Corpuscular Hemoglobin Concent 32.4 32.0-36.0 g/dL Red Cell Distribution Width 13.4 11.0-15.5 % Platelet Count 132 130-400 K/uL Mean Platelet Volume 9.2 7.5-10.5 fL Immature Granulocyte % (Auto) 0.7 0-1 % Neutrophils (%) (Auto) 95.7 H 40.0-77.0 % Lymphocytes (%) (Auto) 0.7 L 21.0-51.0 % Monocytes (%) (Auto) 1.9 L 3.0-13.0 % Eosinophils (%) (Auto) 0.8 0.0-8.0 % Basophils (%) (Auto) 0.2 0.0-5.0 % Neutrophils # (Auto) 8.8 H 1.8-7.7 K/uL Lymphocytes # (Auto) 0.1 L 1.0-4.8 K/uL Monocytes # (Auto) 0.2 0.1-1.0 K/uL Eosinophils # (Auto) 0.07 0.00-0.70 K/uL Basophils # (Auto) 0.02 0.00-0.20 K/uL Absolute Immature Granulocyte (auto 0.06 0-1 K/uL Nucleated Red Blood Cells 0.0 0.0-0.19 % Chemistry Labs: Test 08/03/25 22:22 Range/Units Sodium Level 139 136-145 mmol/L Potassium Level 5.2 H 3.5-5.1 mmol/L Chloride Level 100 L 101-111 mmol/L Carbon Dioxide Level 27 21-32 mmol/L Blood Urea Nitrogen 70 H 7-18 mg/dL Creatinine 9.8 *H 0.5-1.0 mg/dL Glomerular Filtration Rate Calc 4 >90 mL/min Random Glucose 136 H 70-105 mg/dL Lactic Acid Level 3.2 H 0.8-2.5 mmol/L Total Calcium 7.9 L 8.5-10.1 mg/dL Total Creatine Kinase 44 21-232 U/L Troponin I High Sensitivity 82 *H 4-50 ng/L DIAGNOSTICS / RADIOLOGY RESULTS: [ ] PLAN -Admit patient to ICU under Dr. Cohen/ Mireya as inpatient. -Continuous pulse oximetry and cardiac monitoring. -Continue propofol, fentanyl titrate for RASS -2. -Titrate Levophed to keep map above 65. . -Monitor respiratory status closely. -Titrate ventilator to keep Spo2>/+=92%. -Chest x-ray and ABGs in a.m.. -Albuterol and Atrovent scheduled q.6 hours. -Robitussin DM as needed cough. -Solu-Medrol IV daily. -Echo in a.m.. -Troponin and EKGs series -Aspirin 81 mg p.o. daily. -Atorvastatin 40 mg IV daily. -Fluid restriction a 1200 mL. -consult Nephrology. -Continue antibiotic therapy: Levaquin IV and vancomycin (patient allergic to penicillin) -PRN medications for: Pain management, fever, N/V, constipation. -Glucometer checks AC & HS needed with insulin regular sliding scale coverage as needed. -Vital signs per ICU -Reconcile home medications once available. - Monitor renal and liver function. -Monitor electrolytes and treat accordingly PRN -AM labs. -GI and DVT prophylaxis -Further plan/orders per hospitalization course. NEURO: Minimize central acting medications as possible. Fall Precautions. Well lighted room through the day and minimize interruptions through the night to prevent acute delirium. PULMONARY: Supplemental 02 as needed Titrate Fio2 to keep Spo2 > or = 90% DuoNebs and CPT as needed IS hourly while awake for pulmonary hygiene Out of bed to chair as tolerated VAP Bundle CARDIOVASCULAR: Follow hemodynamics. Titrate vasopressor to keep MAP >65 or systolic blood pressure >95mmHg GI & NUTRITION: Continue nutritional support Aspirations precautions Prokinetic agents and laxatives as needed KIDNEYS & ELECTROLYTES: Strict monitoring of intake and output Daily weights Avoid nephrotoxic agents Monitor electrolytes and replace as needed Goal urine output of 30mL/hr or 0.5mL/kg/hr ENDOCRINE: Maintain blood glucose between 100-180 at all times. Insulin sliding scale for blood glucose management INFECTIOUS DISEASE: Trend temperature. Go-culture if febrile. HEMATOLOGY & COAGULATION: Monitor H&H. Keep Hgb > 7 Transfuse 1 unit of PRBC for Hgb < 7 Transfuse 1 pack of platelets of platelets < 20, 000 Watch for any signs and symptoms of bleeding SKIN: Pressure ulcer prevention per facility protocol Code Status: Full Resuscitation Disposition: Other: Due to a high probability for clinically significant, life-threatening deterioration, the patient required my highest level of preparedness to intervene emergently, and I personally spent 60 minutes of critical care time directly and personally managing the patient. I devoted my full attention to the patient during this time, which is separate from time spent on any billable procedures. This includes time spent involved in work directly related to the care of the patient: such as review of prior records, development of treatment plan with patient and/or surrogate as well as nursing, discussions with consultants, evaluation of patient's response to treatment, examination of patient, obtaining history from staff, ordering and performing treatments and interventions, ordering and review of laboratory studies, ordering and review of radiographic studies, pulse oximetry and re-evaluation of patient's condition, and any required documentation. This critical care time was performed to assess and manage the high probability of imminent life-threatening deterioration that could result in multi-organ failure. ATTESTATION BY PHYSICIAN The patient has been seen and evaluated, the case has been discussed with the SAP ANALYST, I agree with the clinical findings and plan of care. Lb Alicea MD, [facility] Aug 03, 2025 23:25
[2025-08-03] MEDS ORDERED: NOREPINEPHRIN 4MG/NS 250ML 250 ML IV SCH (23:30)
[2025-08-03] MEDS ORDERED: ALBUTEROL 0.083% 2.5 MG/3 ML INH IH PRN (23:30)
[2025-08-03] MEDS: NOREPINEPHRIN 4MG/NS 250ML 250 ML IV ONE (23:35)
[2025-08-03 23:39] LABS: APPEARANCE,URINE CLEAR (CLEAR); GLUCOSE, URINE (UA) 150 mg/dL (NEGATIVE); LEUKOCYTE ESTERASE ,URINE NEGATIVE Leu/uL (NEGATIVE); NITRATE,URINE NEGATIVE (NEGATIVE); OCCULT BLOOD,URINE NEGATIVE (NEGATIVE)
[2025-08-03] MEDS: NOREPINEPHRIN 4MG/NS 250ML 250 ML IV SCH (23:44)
[2025-08-03 23:48] LABS: ADD UA MICROSCOPIC YES
[2025-08-03 23:50] LABS: SQUAMOUS EPITHELIAL CELL,UR RARE /HPF (0-2)
[2025-08-03 23:52] VITALS: PULSE 90; RESP 18
[2025-08-03 23:59] LABS: ASPARTATE AMINOTRANSFERASE 23.0 U/L (10-37); TOTAL PROTEIN, SERUM 6.4 g/dL (6.0-8.3)
[2025-08-04] VITALS (93 sets, daily range): BP systolic 59–188; BP diastolic 31–91; PULSE 76–122; RESP 10–28; TEMP 97.5–101.2; O2SAT 92–100
[2025-08-04] MEDS: VANCOMYCIN KIT 1 GM/250 ML IV.KIT IV ONE (00:06)
--- NOTE | 2025-08-04 00:17 | HMCIMG ---
EXAM: CR Chest, 1 view CLINICAL HISTORY: Endotracheal tube. COMPARISON: Chest radiograph dated 07/30/2025. FINDINGS: The endotracheal tube tip terminates within the right main bronchus, recommend at least 5 cm retrieval of the endotracheal tube. The gastric tube tip is probably around the distal stomach. Stable mild cardiomegaly and pulmonary vascular congestion. No pleural effusion or pneumothorax. No acute osseous abnormality. Surgical clips in the right chest wall. IMPRESSION: The endotracheal tube tip terminates within the right main bronchus, recommend at least 5 cm retrieval of the endotracheal tube. The gastric tube tip is probably around the distal stomach. Stable mild cardiomegaly and pulmonary vascular congestion. /[place]
--- NOTE | 2025-08-04 00:19 | HMCIMG ---
EXAM: CR Chest, 1 view CLINICAL HISTORY: Endotracheal tube. COMPARISON: Chest radiograph from the same date. FINDINGS: The endotracheal tube tip is 1.7 cm above the maru. The gastric tube tip is probably around the distal stomach. Stable mild cardiomegaly and pulmonary vascular congestion. No pleural effusion or pneumothorax. No acute osseous abnormality. Surgical clips in the right and left chest wall. Surgical clips in the right upper quadrant of the abdomen. IMPRESSION: The endotracheal tube tip is 1.7 cm above the maru. The gastric tube tip is probably around the distal stomach. Stable mild cardiomegaly and pulmonary vascular congestion. /[place]
[2025-08-04] MEDS: VASOpressin 20 UNITS/ML 1ML Vi 20 UNITS in 0.9%NACL 100ML 100 ML IV SCH (04:45)
--- NOTE | 2025-08-04 06:06 | NUR ---
per DEVYN Edward pt too unstable to move or to go CT
[2025-08-04 06:32] LABS: NUCLEATED RED BLOOD CELLS 0.0 % (0.0-0.19); PLATELET COUNT (AUTO) 159.0 K/uL (130-400); RED BLOOD CELL COUNT(AUTO) 3.47 MIL/uL (4.00-5.50); RED CELL DISTRIBUTION WIDTH 13.8 % (11.0-15.5); WHITE BLOOD COUNT (AUTO) 17.8 K/uL (4.8-10.8)
--- NOTE | 2025-08-04 07:45 | NUR ---
PT JUST NOW LEAVING THE FLOOR W/OFELIA COMMODITY MANAGER, CAITY MORGAN II, STEFFI RN AND A STUDENT NURSE/EMT. THEY ARE EN-ROUTE TO ICU. PT IS INTUBATED AND LEFT W/OXYGEN, BVM WHILE VENTILATOR IS FOLLOWING W/THE COMMODITY MANAGER AND A HAT AND CAP OPENER. VSS ON CURRENT MEDICATION REGIME AND OXYGEN THERAPY.
[2025-08-04 08:01] LABS: GLOMERULAR FILTR. RATE CALC 4.0 mL/min (>90); GLUCOSE,RANDOM 168.0 mg/dL (70-105); PHOSPHORUS 3.1 mg/dL (2.5-4.9); SODIUM SERUM 139.0 mmol/L (136-145)
[2025-08-04 08:21] LABS: UREA NITROGEN, BLOOD 76.0 mg/dL (7-18)
[2025-08-04 08:22] LABS: CREATININE 9.7 mg/dL (0.5-1.0)
[2025-08-04 09:55] LABS: ABG BASE EXCESS -6.2 mmol/L (-2.0-3.0); ABG HCO3 19.6 mmol/L (21.0-28.0); ABG OXYGEN SATURATION 96.5 % (94.0-98.0); ABG PCO2 40 mmHg (32-45); ABG PH 7.308 (7.350-7.450); CARBON MONOXIDE 2.1 % (0.5-1.5); DEVICE COMMENT RR JEMMA; PO2, ARTERIAL BG 93.1 mmHg (83.0-108.0); TEMPERATURE, CELSIUS BG 37.0 CELSIUS (35.5-37.0); VENT MODE, BG AC-VC (ROOM AIR)
--- NOTE | 2025-08-04 10:48 | HP ---
HISTORY AND PHYSICAL NOTE DATE OF CONSULTATION: 08/04/25 REASON FOR CONSULTATION: Shortness of breath HISTORY OF PRESENT ILLNESS: Patient is a an 79-year-old female coming in complaining of shortness of breath and cough. Per EMS patient has been presenting with a cough and URI symptoms led her to same day patient started having increased cough and shortness of breath. Patient does has a history of end-stage renal disease in his on d ialysis. Patient started having fever and chills in his brought in for further evaluation. Allergies: Coded Allergies: Latex, Natural Rubber (Unverified Allergy, Severe, 05/18/23) Penicillins (Unverified Allergy, Unknown, 02/14/18) codeine (Unverified Allergy, Unknown, 02/14/18) iodine (Unverified Allergy, Unknown, 02/14/18) Home Meds Reported Medications Carvedilol (Carvedilol) 25 Mg Tablet, 25 MG PO TAKE 1/2 TAB BID , TAB 05/18/23 Discontinued Reported Medications Brimonidine Tartrate (Alphagan P) 5 Ml Drops, 5 ML OP DAILY, DROP 05/18/23 Omeprazole (Omeprazole) 20 Mg Tablet.dr, 20 MG PO DAILY, TAB 05/18/23 Cholecalciferol (Vitamin D3) (Vitamin D3) 125 Mcg Capsule, 125 MCG PO DAILY, CAP 05/18/23 Furosemide (Furosemide) 20 Mg Tablet, 20 MG PO DAILY, TAB 05/18/23 Rosuvastatin Calcium (Rosuvastatin Calcium) 20 Mg Tablet, 20 MG PO DAILY, TAB 05/18/23 Past History Past Medical History Past Medical History: Diabetes-Type II, Hypertension, Renal Disese, Renal Failure Medical History Other: HX OF CA Past Surgical History: Appendectomy, Cholecystectomy Surgical History Other: KNEE, Review of Systems ROS Dictation CONSTITUTIONAL: No chills, no fever, no weakness, no diaphoresis, no malaise. HEAD/FACE: No signs of trauma. EENT: No eye pain, no blurred vision, no tearing, no double vision, no ear pain, no ear discharge, no nose pain, no nasal congestion, no throat pain, no throat swelling, no mouth pain. RESPIRATORY: No cough, no orthopnea, no SOB, no stridor, no wheezing. CARDIOVASCULAR: No chest pain, no edema, no palpitations, no syncope. GASTROINTESTINAL/ABDOMINAL: No abdominal pain, no constipation, no diarrhea, no nausea, no vomiting. GENITOURINARY: No abnormal discharge, no dysuria, no frequent urination, no hematuria. No complaints of pain in the genitals. MUSCULOSKELETAL: No back pain, no gout, no joint pain, no joint swelling, no muscle pain, no muscle stiffness, no neck pain. INTEGUMENTARY: No change in color, no change in hair/nails, no dryness, no lesion, no lumps, no rash. NEUROLOGICAL/PSYCH: No anxiety, not depressed, no emotional problem, no headache, no numbness, no pre-existing deficit, no history of seizures, no tremors, no weakness. HEMATOLOGIC/LYMPHATIC: Not anemic, no history of blood clots, no apparent bleeding, no bruising, glands not swollen. All Systems Negative, Except as Noted. Physical Exam Physical Exam ALLERGIES: Coded Allergies: Latex, Natural Rubber (Unverified Allergy, Severe, 05/18/23) Penicillins (Unverified Allergy, Unknown, 02/14/18) codeine (Unverified Allergy, Unknown, 02/14/18) iodine (Unverified Allergy, Unknown, 02/14/18) HOME MEDS: Reported Medications Carvedilol (Carvedilol) 25 Mg Tablet, 25 MG PO TAKE 1/2 TAB BID , TAB 05/18/23 Discontinued Reported Medications Brimonidine Tartrate (Alphagan P) 5 Ml Drops, 5 ML OP DAILY, DROP 05/18/23 Omeprazole (Omeprazole) 20 Mg Tablet.dr, 20 MG PO DAILY, TAB 05/18/23 Cholecalciferol (Vitamin D3) (Vitamin D3) 125 Mcg Capsule, 125 MCG PO DAILY, CAP 05/18/23 Furosemide (Furosemide) 20 Mg Tablet, 20 MG PO DAILY, TAB 05/18/23 Rosuvastatin Calcium (Rosuvastatin Calcium) 20 Mg Tablet, 20 MG PO DAILY, TAB 05/18/23 INPATIENT MEDS: Current Medications Medications Dose Ordered Sig/Benito Start Time Stop Time Status Last Admin Albuterol Sulfate 2.5 mg [id number] PRN 08/03/25 23:30 09/02/25 23:29 Ipratropium [place] 0.5 mg [id number] 08/04/25 00:00 09/03/25 00:00 08/04/25 06:37 Acetaminophen 650 mg Q6H PRN 08/03/25 23:30 09/02/25 23:29 Acetaminophen 650 mg Q6H PRN 08/03/25 23:30 09/02/25 23:29 08/04/25 04:08 Lactulose 20 gm Q6H PRN 08/03/25 23:30 09/02/25 23:29 Docusate Sodium 100 mg BID PRN 08/03/25 23:30 09/02/25 23:29 Ondansetron HCl 4 mg Q6H PRN 08/03/25 23:30 09/02/25 23:29 Insulin Human Regular INSULIN SLIDING SCAL... ACHS 08/04/25 07:30 09/03/25 07:29 Fentanyl/Sodium Chloride 250 ml @ 0.1 mls/hr PROTOCOL 08/03/25 23:30 08/08/25 23:29 08/04/25 05:43 Propofol 1,000 mg PROTOCOL PRN 08/03/25 23:30 09/02/25 23:29 08/04/25 05:39 Norepinephrine 250 ml @ 37.425 mls/ hr PROTOCOL 08/03/25 23:30 09/02/25 23:29 08/04/25 10:09 Levofloxacin/ Dextrose 100 ml @ 100 mls/hr Q48H 08/05/25 23:00 08/15/25 22:59 Vasopressin 20 units/Sodium Chloride 100 ml @ 0 mls/hr PROTOCOL 08/04/25 05:00 09/03/25 04:59 08/04/25 04:45 VITAL SIGNS Vital Signs Date Time Temp Pulse Resp B/P (MAP) Pulse Ox O2 Delivery O2 Flow Rate FiO2 08/04/25 10:15 81 13 142/50 (80) 99 08/04/25 10:09 59/31 08/04/25 09:55 81 13 121/54 (76) 99 08/04/25 09:49 80 13 108/61 (77) 99 08/04/25 09:40 86 60 08/04/25 09:40 86 14 59/31 (40) 98 08/04/25 09:35 85 10 98 08/04/25 09:25 82 10 62/37 (45) 98 08/04/25 09:20 81 11 99 08/04/25 09:10 81 12 120/51 (74) 99 08/04/25 09:05 82 12 99 08/04/25 09:00 82 12 118/46 (70) 98 08/04/25 08:50 82 11 99 08/04/25 08:35 82 11 98 08/04/25 08:20 82 11 98 08/04/25 08:11 85 11 106/48 (67) 98 08/04/25 08:05 84 12 99 08/04/25 07:58 85 12 87/50 (62) 98 08/04/25 07:55 85 13 67/33 (44) 97 08/04/25 07:50 85 13 98 08/04/25 07:50 101.1 08/04/25 07:45 91/46 08/04/25 07:34 102.0 86 12 96/49 100 Ventilator+ 60 08/04/25 06:39 102.0 85 15 96/48 95 Ventilator+ 15 60 08/04/25 06:35 85 14 08/04/25 06:34 85 60 08/04/25 05:11 100/48 08/04/25 04:47 101.7 89 15 83/44 95 Ventilator+ 15 60 08/04/25 04:45 83/44 08/04/25 04:44 83/44 08/04/25 04:08 101.7 08/04/25 03:20 94 60 08/04/25 03:00 108/49 08/04/25 02:19 102.2 91 15 104/46 95 Ventilator+ 15 60 08/04/25 01:09 100/48 08/04/25 01:02 102.4 91 20 114/48 95 Ventilator+ 15 60 08/04/25 00:22 102.7 93 20 105/46 95 Ventilator+ 15 60 08/04/25 00:07 102 14 vent 60 08/03/25 23:52 90 18 08/03/25 23:44 83/42 08/03/25 23:16 94 60 08/03/25 23:00 103.1 101 20 73/42 95 Ventilator+ 15 60 08/03/25 22:30 112 25 40 08/03/25 22:10 102.4 105 20 107/47 98 Non-Rebreather+ 15 100 PHYSICAL EXAM Physical Exam Dictation VITAL SIGNS: Reviewed. GENERAL APPEARANCE: Alert, oriented x3, no acute distress, obese. HEAD AND FACE: Non-traumatic. EYES: PERRL, pink conjunctivas, eyelid no trauma, anterior chamber clear. EARS: Pinnas intact and no signs of trauma or erythema. Ear canals clear and no discharge. TMs no erythema. NOSE: No discharge, no bleeding. OROPHARYNX: Mouth normal, teeth no caries, tongue pink. Pharynx clear, no erythema. Tonsils no exudates, no abscesses noted. Mucous membrane moist. NECK: Supple, non-tender, no thyromegaly, no masses, no JVD, no bruits. BREAST: Deferred. CHEST: No tenderness, no crepitus, no paradoxical movement, no retractions. LUNGS: Clear, well-ventilated, symmetric, no rales, no wheezing, no rhonchi, no stridor, good breath sounds bilaterally. HEART: Regular rate, regular rhythm, no murmur, no gallops. VASCULAR: No peripheral edema. ABDOMEN: Soft, positive bowel sounds, nondistended, no guarding, nontender, no rebound, no masses no hepatomegaly, no splenomegaly, no Vo's sign, no hernias. RECTAL: Deferred. GENITAL: Deferred. NEUROLOGICAL: Normal speech, gross motor function intact, gross sensory function intact. MUSCULOSKELETAL: Neck nontender, full range of motion, back nontender, full range of motion. EXTREMITIES: Nontender, full range of motion. SKIN: Color pink, dry, no turgor, no rash, no lacerations, no abrasions, no contusions. LYMPHATICS: Deferred. LABORATORY RESULTS Laboratory Tests 08/03/25 22:18: Influenza Type A Antigen Negative For Type A, Influenza Type B Antigen Negative For Type B, SARS-CoV-2, RNA, NAAT NEGATIVE SARS CoV-2 08/03/25 22:22: White Blood Count 9.1, Red Blood Count 3.79, Hemoglobin 11.5, Hematocrit 35.5, Mean Corpuscular Volume 93.7, Mean Corpuscular Hemoglobin 30.3, Mean Corpuscular Hemoglobin Concent 32.4, Red Cell Distribution Width 13.4, Platelet Count 132, Mean Platelet Volume 9.2, Immature Granulocyte % (Auto) 0.7, Neutrophils (%) (Auto) 95.7, Lymphocytes (%) (Auto) 0.7, Monocytes (%) (Auto) 1.9, Eosinophils (%) (Auto) 0.8, Basophils (%) (Auto) 0.2, Neutrophils # (Auto) 8.8, Lymphocytes # (Auto) 0.1, Monocytes # (Auto) 0.2, Eosinophils # (Auto) 0.07, Basophils # (Auto) 0.02, Absolute Immature Granulocyte (auto 0.06, Nucleated Red Blood Cells 0.0, Sodium Level 139, Potassium Level 5.2, Chloride Level 100, Carbon Dioxide Level 27, Blood Urea Nitrogen 70, Creatinine 9.8, Glomerular Filtration Rate Calc 4, Random Glucose 136, Lactic Acid Level 3.2, Total Calcium 7.9, Total Bilirubin 0.6, Direct Bilirubin 0.3, Aspartate Amino Transf (AST/SGOT) 23, Alanine Aminotransferase (ALT/SGPT) 23, Alkaline Phosphatase 174, Total Creatine Kinase 44, Troponin I High Sensitivity 82, B-Type Natriuretic Peptide 1470, Total Protein 6.4, Albumin 3.2, Thyroid Stimulating Hormone (TSH) 0.99 08/03/25 22:31: Blood Gas Specimen Type Arterial, Arterial Blood pH 7.414, Arterial Blood Partial Pressure CO2 35, Arterial Blood Partial Pressure O2 110.3, Arterial Blood HCO3 22.0, Arterial Blood Oxygen Saturation 98.0, Arterial Blood Base Excess -2.1, Hemoglobin (Blood Gas) 11.4, Sodium (Blood Gas) 137, Bedside Potassium (Blood Gas) 5.2, Bedside Chloride (Blood Gas) 100, Bedside Glucose (Blood Gas) 143, Bedside Ionized Calcium (Blood Gas) 1.04, Bedside Lactic Acid (Blood Gas) 2.80, Blood Gas Temperature 37.0, Blood Gas Respiration Rate 12.0, Blood Gas Vent Mode BIPAP 12,6, FiO2 40.0, Blood Gas PEEP 5, Blood Gas Specimen Comment DEVYN MURPHY,RR 08/03/25 23:29: Urine Color LIGHT-YELLOW, Urine Appearance CLEAR, Urine pH 8.0, Urine Specific [place] 1.010, Urine Protein 100, Urine Glucose (UA) 150, Urine Ketones NEGATIVE, Urine Occult Blood NEGATIVE, Urine Nitrate NEGATIVE, Urine Bilirubin NEGATIVE, Urine Urobilinogen 0.2, Urine Leukocyte Esterase NEGATIVE, Urine RBC 2-5, Urine WBC 11-25, Urine Squamous Epithelial Cells RARE, Urine Bacteria None 08/04/25 06:02: White Blood Count 17.8, Red Blood Count 3.47, Hemoglobin 10.9, Hematocrit 32.8, Mean Corpuscular Volume 94.5, Mean Corpuscular Hemoglobin 31.4, Mean Corpuscular Hemoglobin Concent 33.2, Red Cell Distribution Width 13.8, Platelet Count 159, Mean Platelet Volume 9.9, Nucleated Red Blood Cells 0.0, Sodium Level 139, Potassium Level 5.9, Chloride Level 101, Carbon Dioxide Level 23, Blood Urea Nitrogen 76, Creatinine 9.7, Glomerular Filtration Rate Calc 4, Random Glucose 168, Hemoglobin A1c 8.7, Estimated Average Glucose (eAG) 203, Total Calcium 7.0, Phosphorus Level 3.1, Magnesium Level 1.70, Troponin I High Sensitivity 101, B- Type Natriuretic Peptide 3080, Thyroid Stimulating Hormone (TSH) 0.74 08/04/25 06:04: Lactic Acid Level 3.3 08/04/25 08:00: Whole Blood Glucose 146 08/04/25 09:53: Blood Gas Specimen Type Arterial, Arterial Blood pH 7.308, Arterial Blood Partial Pressure CO2 40, Arterial Blood Partial Pressure O2 93.1, Arterial Blood HCO3 19.6, Arterial Blood Oxygen Saturation 96.5, Arterial Blood Base Excess -6 .2, Hemoglobin (Blood Gas) 11.5, Sodium (Blood Gas) 134, Bedside Potassium (Blood Gas) 6.7, Bedside Chloride (Blood Gas) 100, Bedside Glucose (Blood Gas) 167, Bedside Ionized Calcium (Blood Gas) 0.98, Bedside Lactic Acid (Blood Gas) 1.96, Blood Gas Temperature 37.0, Blood Gas Respiration Rate 12.0, Blood Gas Vent Mode AC-VC, FiO2 60.0, Blood Gas Tidal Volume 450, Blood Gas PEEP 5, Blood Gas Specimen Comment [facility] Microbiology Date/Time Source Procedure Growth Status 08/03/25 22:38 Blood Blood Culture - Final Complete 08/03/25 22:22 Blood Blood Culture - Final Complete PROBLEM LIST: (1) ESRD needing dialysis ICD Codes: N18.6 - End stage renal disease; Z99.2 - Dependence on renal dialysis (2) Hypertensive emergency ICD Codes: I16.1 - Hypertensive emergency (3) Hyperglycemia due to diabetes mellitus ICD Codes: E11.65 - Type 2 diabetes mellitus with hyperglycemia (4) Respiratory distress ICD Codes: R06.03 - Acute respiratory distress (5) Sepsis ICD Codes: A41.9 - Sepsis, unspecified organism (6) Endotracheally intubated ICD Codes: Z97.8 - Presence of other specified devices (7) Pneumonia involving right lung ICD Codes: J18.9 - Pneumonia, unspecified organism PLAN IV antibiotics admit to ICU and consult critical Care and Nephrology KEISHA GREGORY MD Aug 04, 2025 10:48
--- NOTE | 2025-08-04 11:27 | NUR ---
DCP:HOME Pt currently lives at home with her Luis E Davis [phone]. Pt does have a walker and wheelchair at home. As per , pt can complete most ADLs independently however assists when needed. PCP is Dr. Mark Cohen and uses [facility] for any RX needs. At CT pt will want to go home and family can assist with transportation. Addendum: 08/04/25 at 1129 by CHUY BONE SS Amended: Links added. Addendum: 08/04/25 at 1130 by CHUY BONE SS Pt also goes to [facility] on [address], [address].
--- NOTE | 2025-08-04 13:10 | NUR ---
SPEECH TRIGGER COMPLETED / INTUBATION Pt IS AN 79 Y.O. FEMALE ADMITTED SECONDARY TO RESPIRATORY FAILURE AND ESRD. Pt CURRENTLY INTUBATED AND NPO. PLEASE REQUEST SPEECH THERAPY SERVICES FOR SKILLED BEDSIDE SWALLOW EVALUATION 24 HOURS POST EXTUBATION IF ANY S/S OF ASPIRATION ARISE WITH ORAL INTAKE. FLOORHAND COORDINATED WITH NURSE MILLER. ALL QUESTIONS ANSWERED AT THIS TIME. Addendum: 08/04/[address] [facility] Amended: Links added.
--- NOTE | 2025-08-04 13:25 | CONS ---
NEPHROLOGY CONSULTATION NOTE Date/Time Patient Seen: Aug 04, 2025 1205 Reason for Consultation: Shortness of breath, cough, end-stage renal disease HISTORY OF PRESENT ILLNESS: This is an 79-year-old female with a past medical history of end-stage renal disease on hemodialysis Sunday, hypertension, cancer, coronary artery disease, anemia. She presented to the emergency room with complaints of shortness of breath, cough, fever and chills. She was intubated in the emergency room and transferred to the ICU. She continues to be intubated and sedated Continues to require multiple vasopressors to maintain blood pressure. Blood cultures are positive for Gram-positive cocci She has been started on antibiotics. Imaging studies were noted. She is due for dialysis today She was seen in the ICU, intubated and sedated Multiple family members at the bedside Condition is critical and guarded REVIEW OF SYSTEMS: Difficult to obtain given status of the patient who remains intubated mechanically ventilated PAST MEDICAL HISTORY: End-stage renal disease Hypertension Cancer Coronary artery disease Anemia PAST SURGICAL HISTORY: Appendectomy Cholecystectomy Left AV fistula PAST SOCIAL HISTORY: Denies use of alcohol, tobacco or illicit drugs FAMILY HISTORY: Noncontributory PHYSICAL EXAM: General: acutely ill, sedated, intubated, and mechanically ventilated HEENT: head is atraumatic, pupils equal and reactive, ET tube in place Neck: supple, no masses, no lymphadenopathy, no thyromegaly, no JVD Lungs: decreased breath sounds bilaterally, symmetrical chest movement Cardio: regular rate, S1 and S2 normal, no rub or gallop Abdomen: soft, non tender, no distension, no organomegaly Extremities: trace edema bilateral lower extremities, no cyanosis or clubbing Skin: no rashes or suspicious lesions Neuro: sedated MEDICATIONS: [ ] Current Medications Medications (Trade) Dose Ordered Sig/Benito Route PRN Reason Start Time Stop Time Status Last Admin Dose Admin Acetaminophen (TYLenol 325MG TAB) 650 mg Q6H PRN PO FEVER/MILD PAIN LEVEL 1-3 08/03/25 23:30 09/02/25 23:29 Acetaminophen (TYLenol 650MG SUPPOSITORY) 650 mg Q6H PRN RC FEVER / MILD PAIN 1-3 IF NPO 08/03/25 23:30 09/02/25 23:29 08/04/25 04:08 650 MG Albuterol Sulfate (Proventil 0.083% 2.5mg/3ml) 2.5 mg [id number] PRN IH SHORTNESS OF BREATH 08/03/25 23:30 09/02/25 23:29 Docusate Sodium (COLace 100MG CAP) 100 mg BID PRN PO CONSTIPATION 08/03/25 23:30 09/02/25 23:29 Fentanyl Citrate 100 ml @ 2.5 mls/hr PROTOCOL IV 08/03/25 23:30 08/03/25 23:39 DC Fentanyl/Sodium Chloride 250 ml @ 0.1 mls/hr PROTOCOL IV 08/03/25 23:30 08/08/25 23:29 08/04/25 05:43 0.1 MLS/HR Insulin Human Regular (humuLIN R 100 UNIT/ML 3ML) INSULIN SLIDING SCAL... ACHS SQ 08/04/25 07:30 09/03/25 07:29 Ipratropium [place] (AtrovENT UD) 0.5 mg [id number] IH 08/04/25 00:00 09/03/25 00:00 08/04/25 11:25 0.5 MG Lactulose (Constulose 20gm/ 30ml Udcup) 20 gm Q6H PRN PO CONSTIPATION 08/03/25 23:30 09/02/25 23:29 Levofloxacin/ Dextrose 100 ml @ 100 mls/hr Q48H IV 08/05/25 23:00 08/15/25 22:59 Norepinephrine 250 ml @ 37.425 mls/ hr PROTOCOL IV 08/03/25 23:30 09/02/25 23:29 08/04/25 12:50 37.425 MLS/HR Norepinephrine 250 ml @ 0 mls/hr PROTOCOL IV 08/03/25 23:30 08/03/25 23:39 DC Ondansetron HCl (zoFRAN 4MG INJ) 4 mg Q6H PRN IVP NAUSEA/VOMITING 08/03/25 23:30 09/02/25 23:29 Propofol (DIPRivan 1000MG/ 100ML) 1,000 mg PROTOCOL PRN IV SEDATION 08/03/25 23:30 08/03/25 23:39 DC Propofol (DIPRivan 1000MG/ 100ML) 1,000 mg PROTOCOL PRN IV SEDATION 08/03/25 23:30 09/02/25 23:29 08/04/25 05:39 1,000 MG Vasopressin 20 units/Sodium Chloride 100 ml @ 0 mls/hr PROTOCOL IV 08/04/25 05:00 09/03/25 04:59 08/04/25 04:45 9 MLS/HR Vital Signs (last 8hr) Date Time Temp Pulse Resp B/P (MAP) Pulse Ox O2 Delivery O2 Flow Rate FiO2 08/04/25 12:50 121/77 08/04/25 11:27 82 14 08/04/25 11:24 81 60 08/04/25 10:15 81 13 142/50 (80) 99 08/04/25 10:09 59/31 08/04/25 09:55 81 13 121/54 (76) 99 08/04/25 09:49 80 13 108/61 (77) 99 08/04/25 09:40 86 60 08/04/25 09:40 86 14 59/31 (40) 98 08/04/25 09:35 85 10 98 08/04/25 09:25 82 10 62/37 (45) 98 08/04/25 09:20 81 11 99 08/04/25 09:10 81 12 120/51 (74) 99 08/04/25 09:05 82 12 99 08/04/25 09:00 82 12 118/46 (70) 98 08/04/25 08:50 82 11 99 08/04/25 08:35 82 11 98 08/04/25 08:20 82 11 98 08/04/25 08:11 85 11 106/48 (67) 98 08/04/25 08:05 84 12 99 08/04/25 07:58 85 12 87/50 (62) 98 08/04/25 07:55 85 13 67/33 (44) 97 08/04/25 07:50 85 13 98 08/04/25 07:50 101.1 08/04/25 07:45 91/46 08/04/25 07:34 102.0 86 12 96/49 100 Ventilator+ 60 08/04/25 06:39 102.0 85 15 96/48 95 Ventilator+ 15 60 08/04/25 06:35 85 14 08/04/25 06:34 85 60 08/04/25 05:11 100/48 DIAGNOSTICS / RADIOLOGY: [facility] [address] [address] IMAGING REPORT Signed PATIENT: ANDREI RODRÍGUEZ MR#: [id number] : 1945 SEX: F AGE: 79 LOCATION: [facility] ORDER 10 STATUS: ADM IN REPORT#: [id number] SERVICE 09 REASON: ET TUBE PLACEMENT RECHECK ORDERING PHYSICIAN: MANSOOR CLEVELAND MD PROCEDURE: CXR1VW - CHEST 1VW EXAM: CR Chest, 1 view CLINICAL HISTORY: Endotracheal tube. COMPARISON: Chest radiograph from the same date. FINDINGS: The endotracheal tube tip is 1.7 cm above the maru. The gastric tube tip is probably around the distal stomach. Stable mild cardiomegaly and pulmonary vascular congestion. No pleural effusion or pneumothorax. No acute osseous abnormality. Surgical clips in the right and left chest wall. Surgical clips in the right upper quadrant of the abdomen. IMPRESSION: The endotracheal tube tip is 1.7 cm above the maru. The gastric tube tip is probably around the distal stomach. Stable mild cardiomegaly and pulmonary vascular congestion. /[place] DICTATED BY: EREN YANES Jr., MD DATE: 08/04/25117 ELECTRONICALLY SIGNED BY: EREN YANES Jr., MD DATE: 08/04/25117 PATIENT: ANDREI RODRÍGUEZ MR#: [id number] : 1945 SEX: F AGE: 79 LOCATION: [facility] ORDER 45 STATUS: ADM IN REPORT#: [id number] SERVICE 44 REASON: S/P INTUBATION ORDERING PHYSICIAN: MANSOOR CLEVELAND MD PROCEDURE: CXR1VW - CHEST 1VW EXAM: CR Chest, 1 view CLINICAL HISTORY: Endotracheal tube. COMPARISON: Chest radiograph dated 07/30/2025. FINDINGS: The endotracheal tube tip terminates within the right main bronchus, recommend at least 5 cm retrieval of the endotracheal tube. The gastric tube tip is probably around the distal stomach. Stable mild cardiomegaly and pulmonary vascular congestion. No pleural effusion or pneumothorax. No acute osseous abnormality. Surgical clips in the right chest wall. IMPRESSION: The endotracheal tube tip terminates within the right main bronchus, recommend at least 5 cm retrieval of the endotracheal tube. The gastric tube tip is probably around the distal stomach. Stable mild cardiomegaly and pulmonary vascular congestion. /[place] DICTATED BY: EREN YANES Jr., MD DATE: 08/04/25116 ELECTRONICALLY SIGNED BY: EREN YANES Jr., MD DATE: 08/04/25116 LABORATORY: [ ] Hematology Labs: Test 08/04/25 06:02 08/03/25 22:22 Range/Units White Blood Count 17.8 #H 4.8-10.8 K/uL Red Blood Count 3.47 L 4.00-5.50 MIL/uL Hemoglobin 10.9 L 12.0-16.0 g/dL Hematocrit 32.8 L 36-48 % Mean Corpuscular Volume 94.5 79-99 fL Mean Corpuscular Hemoglobin 31.4 27.0-33.0 pg Mean Corpuscular Hemoglobin Concent 33.2 32.0-36.0 g/dL Red Cell Distribution Width 13.8 11.0-15.5 % Platelet Count 159 130-400 K/uL Mean Platelet Volume 9.9 7.5-10.5 fL Nucleated Red Blood Cells 0.0 0.0-0.19 % Immature Granulocyte % (Auto) 0.7 0-1 % Neutrophils (%) (Auto) 95.7 H 40.0-77.0 % Lymphocytes (%) (Auto) 0.7 L 21.0-51.0 % Monocytes (%) (Auto) 1.9 L 3.0-13.0 % Eosinophils (%) (Auto) 0.8 0.0-8.0 % Basophils (%) (Auto) 0.2 0.0-5.0 % Neutrophils # (Auto) 8.8 H 1.8-7.7 K/uL Lymphocytes # (Auto) 0.1 L 1.0-4.8 K/uL Monocytes # (Auto) 0.2 0.1-1.0 K/uL Eosinophils # (Auto) 0.07 0.00-0.70 K/uL Basophils # (Auto) 0.02 0.00-0.20 K/uL Absolute Immature Granulocyte (auto 0.06 0-1 K/uL Chemistry Labs: Test 08/04/25 12:53 08/04/25 06:04 08/04/25 06:02 08/03/25 22:22 Range/Units Whole Blood Glucose 141 H 70-110 MG/DL Lactic Acid Level 3.3 H 0.8-2.5 mmol/L Sodium Level 139 136-145 mmol/L Potassium Level 5.9 H 3.5-5.1 mmol/L Chloride Level 101 101-111 mmol/L Carbon Dioxide Level 23 21-32 mmol/L Blood Urea Nitrogen 76 *H 7-18 mg/dL Creatinine 9.7 *H 0.5-1.0 mg/dL Glomerular Filtration Rate Calc 4 >90 mL/min Random Glucose 168 H 70-105 mg/dL Hemoglobin A1c 8.7 H 4.0-6.0 % Estimated Average Glucose (eAG) 203 H 70-126 mg/dL Total Calcium 7.0 L 8.5-10.1 mg/dL Phosphorus Level 3.1 2.5-4.9 mg/dL Magnesium Level 1.70 L 1.80-2.40 mg/dL Troponin I High Sensitivity 101 *H 4-50 ng/L B-Type Natriuretic Peptide 3080 H 0-100 pg/mL Thyroid Stimulating Hormone (TSH) 0.74 # 0.36-3.74 uIU/mL Total Bilirubin 0.6 0.2-1.0 mg/dL Direct Bilirubin 0.3 0.0-0.3 mg/dL Aspartate Amino Transf (AST/SGOT) 23 10-37 U/L Alanine Aminotransferase (ALT/SGPT) 23 12-78 U/L Alkaline Phosphatase 174 H 50-136 U/L Total Creatine Kinase 44 21-232 U/L Total Protein 6.4 6.0-8.3 g/dL Albumin 3.2 L 3.5-5.0 g/dL ASSESSMENT: ESRD Hyperkalemia Fluid overload Acute respiratory failure, in need of emergent intubation Sepsis with septic shock, POA, in need of pressors Pneumonia Pulmonary vascular congestion LVEF 55-60%, stage I diastolic dysfunction, moderate left ventricular hypertrophy, per echo on 01/17/2025 Left atrium mildly dilated, posterior mitral valve annular calcification, per echo on 01/18/2024 Lactic acidosis Elevated troponin Electrolyte derangement (hypokalemia, hypochloremia, hypocalcemia) Elevated ALK PHOS Hypoalbuminemia Diabetes mellitus History of cancer Hypertension, currently hypotensive PLAN: Labs and Diagnostics/ Radiology personally reviewed and interpreted by myself and supervising physician We have reviewed dialysis and external records in detail. Patient continues to require multiple vasopressors to maintain blood pressure. Dialysis remains a high-risk procedure, this was explained to family at the bedside Multiple questions were answered The agreed to proceed, dialysis planned for today. May use albumin for hypotension. Start thiamine 100 mg IV daily. Continue with the antibiotics Continue with mechanical ventilation and sedation Continue with the IV pressors Follow up blood culture results 1.5 L fluid restriction Continue with frequent monitoring of renal function, anemia, and electrolytes Order CBC, CMP, and electrolytes in the morning May use Dilaudid 0.5 mg IV every 6 hours as needed for severe pain Monitor blood pressure adjust medication doses as needed Maintain normotensive state Strict intake, output, and daily weight should be monitored Please renally adjust medications. Avoid nephrotoxics and nonsteroidal drugs. We will continue to monitor the patient closely We have discussed with the other team physicians in detail about the care plan Thank you for allowing us to participate in the care of this patient Total critical care time spent with patient, nursing staff, critical care team over 35 minutes ATTESTATION BY PHYSICIAN I have seen and examined the patient. I reviewed the documentation, medical decision making, and treatment plan as noted by the mid-level provider above. I agree with the findings and plan of care. VIKA LONGO MD, [facility] Aug 04, 2025 13:25
[2025-08-04] MEDS ORDERED: VANCOMYCIN PROTOCOL PER PHARMACY IV SCH (13:30)
[2025-08-04] MEDS: ALBUMIN (HUMAN) 25% 50 ML IV ONE (13:30)
[2025-08-04] MEDS ORDERED: CARV12.511 PO (13:36)
[2025-08-04] MEDS ORDERED: FOLI0.8T22 PO (13:36)
[2025-08-04] MEDS ORDERED: OMEP20CA12 PO (13:36)
[2025-08-04] MEDS ORDERED: LISI40TA15 PO (13:36)
[2025-08-04] MEDS ORDERED: ROSU40TA88 PO (13:36)
[2025-08-04] MEDS ORDERED: GABA-529 PO (13:36)
[2025-08-04] MEDS ORDERED: AMLO2.5T4 PO (13:36)
[2025-08-04] MEDS ORDERED: FURO20TA6 PO (13:36)
[2025-08-04] MEDS ORDERED: CHOL1CAP16 PO (13:36)
[2025-08-04] MEDS ORDERED: VANCOMYCIN 1.75 GM/250 ML BAG 250 ML IV ONE (14:00)
--- NOTE | 2025-08-04 14:04 | HMCIMG ---
EXAM: CR Chest, 2 View. CLINICAL HISTORY: PICC LINE INSERTION COMPARISON: Radiograph dated August 04, 2025 Findings: AP view of the chest is submitted. Endotracheal and enteric tubes are in satisfactory positions. Right PICC terminates overlying the proximal right atrium. There is no pneumothorax appreciated. Relatively unchanged bilateral perihilar and bibasilar airspace disease. No pleural effusion. Heart size is stable. Mild central pulmonary vascular congestion. IMPRESSION: 1. Right PICC line terminates overlying the proximal right atrium. 2. Bilateral perihilar and bibasilar airspace disease, unchanged, with mild central pulmonary vascular congestion. /[place]
[2025-08-04] MEDS ORDERED: PHARMACY COMMUNICATION MISC SCH (15:30)
--- NOTE | 2025-08-04 15:37 | PN ---
[facility] PROGRESS NOTE Date Patient Seen: Aug 04, 2025 Time of Visit: 15:14 Supervising Physician: [ ] Primary Care Physician: Dr. Cohen Outpatient Specialists: Inpatient Consults: BIS, critical care team PROBLEM LIST: Acute respiratory failure, in need of emergent intubation Sepsis with septic shock, POA, in need of pressors Pneumonia, POC Pulmonary vascular congestion Fluid overload, BNP a 1470 on arrival LVEF 55-60%, stage I diastolic dysfunction, moderate left ventricular hypertrophy, per echo on 01/17/2025 Left atrium mildly dilated, posterior mitral valve annular calcification, per echo on 01/18/2024 Lactic acidosis Elevated troponin, POA Hyperkalemia, in need of a hemodialysis Electrolyte derangement (hypokalemia, hypochloremia, hypocalcemia) ESRD in need of dialysis Anemia of chronic disease, POA Elevated ALK PHOS Hypoalbuminemia Diabetes mellitus with hyperglycemia End-stage renal disease History of cancer Hypertension, currently hypotensive INTERVAL HISTORY: 79-year-old female with a past medical history of end-stage renal disease on hemodialysis Sunday, hypertension, cancer, coronary artery disease, anemia. She presented to the emergency room with complaints of shortness of breath, cough, fever and chills.She was intubated in the emergency room and transferred to the ICU. She continues to be intubated and sedated .Continues to require Levophed and vasopressin to maintain blood pressure. Vitals stable. Labs WBC 17.8 from 9.1, HB 10.9, potassium 5.9, sodium 139, BUN 76, creatinine 9.7, GFR for, lactic acid 3.2, BNP 1470. Blood cultures are positive for Gram-positive cocci.She has been started on antibiotics, vancomycin and meropenem, discontinued on Levaquin. Patient is placed on a PICC line for dialysis. Chest x-ray- Right PICC line terminates overlying the proximal right atrium. 2. Bilateral perihilar and bibasilar airspace disease, unchanged, with mild central pulmonary vascular congestion. She is due for dialysis today. Condition is critical and guarded. REVIEW OF SYSTEMS: Unable to obtain ROS from patient due to patient is intubated and sedated. PHYSICAL EXAM: GENERAL: Intubated and sedated HEENT: EOMI, Sclera non icteric, moist mucosa NECK: Supple, no JVD, trachea midline LUNGS: Diminished breath sounds bilaterally. No wheezes HEART: Regular rate and rhythm. Normal S1 and S2, without murmurs ABD: Abdomen soft, nontender. Bowel sounds present. Obese EXT: No clubbing cyanosis or edema NEURO: Intubated and sedated Vital Signs (last 8hr) Date Time Temp Pulse Resp B/P (MAP) Pulse Ox O2 Delivery O2 Flow Rate FiO2 08/04/25 15:08 77 60 08/04/25 14:11 110/54 08/04/25 13:00 99.5 08/04/25 12:50 121/77 08/04/25 11:27 82 14 08/04/25 11:24 81 60 08/04/25 10:15 81 13 142/50 (80) 99 08/04/25 10:09 59/31 08/04/25 09:55 81 13 121/54 (76) 99 08/04/25 09:49 80 13 108/61 (77) 99 08/04/25 09:40 86 60 08/04/25 09:40 86 14 59/31 (40) 98 08/04/25 09:35 85 10 98 08/04/25 09:25 82 10 62/37 (45) 98 08/04/25 09:20 81 11 99 08/04/25 09:10 81 12 120/51 (74) 99 08/04/25 09:05 82 12 99 08/04/25 09:00 82 12 118/46 (70) 98 08/04/25 08:50 82 11 99 08/04/25 08:35 82 11 98 08/04/25 08:20 82 11 98 08/04/25 08:11 85 11 106/48 (67) 98 08/04/25 08:05 84 12 99 08/04/25 07:58 85 12 87/50 (62) 98 08/04/25 07:55 85 13 67/33 (44) 97 08/04/25 07:50 85 13 98 08/04/25 07:50 101.1 08/04/25 07:45 91/46 08/04/25 07:34 102.0 86 12 96/49 100 Ventilator+ 60 LABS: Hematology Labs: Test 08/04/25 06:02 08/03/25 22:22 Range/Units White Blood Count 17.8 #H 4.8-10.8 K/uL Red Blood Count 3.47 L 4.00-5.50 MIL/uL Hemoglobin 10.9 L 12.0-16.0 g/dL Hematocrit 32.8 L 36-48 % Mean Corpuscular Volume 94.5 79-99 fL Mean Corpuscular Hemoglobin 31.4 27.0-33.0 pg Mean Corpuscular Hemoglobin Concent 33.2 32.0-36.0 g/dL Red Cell Distribution Width 13.8 11.0-15.5 % Platelet Count 159 130-400 K/uL Mean Platelet Volume 9.9 7.5-10.5 fL Nucleated Red Blood Cells 0.0 0.0-0.19 % Immature Granulocyte % (Auto) 0.7 0-1 % Neutrophils (%) (Auto) 95.7 H 40.0-77.0 % Lymphocytes (%) (Auto) 0.7 L 21.0-51.0 % Monocytes (%) (Auto) 1.9 L 3.0-13.0 % Eosinophils (%) (Auto) 0.8 0.0-8.0 % Basophils (%) (Auto) 0.2 0.0-5.0 % Neutrophils # (Auto) 8.8 H 1.8-7.7 K/uL Lymphocytes # (Auto) 0.1 L 1.0-4.8 K/uL Monocytes # (Auto) 0.2 0.1-1.0 K/uL Eosinophils # (Auto) 0.07 0.00-0.70 K/uL Basophils # (Auto) 0.02 0.00-0.20 K/uL Absolute Immature Granulocyte (auto 0.06 0-1 K/uL Chemistry Labs: Test 08/04/25 13:19 08/04/25 12:53 08/04/25 06:04 08/04/25 06:02 Range/Units Troponin I High Sensitivity 208 *H 4-50 ng/L Whole Blood Glucose 141 H 70-110 MG/DL Lactic Acid Level 3.3 H 0.8-2.5 mmol/L Sodium Level 139 136-145 mmol/L Potassium Level 5.9 H 3.5-5.1 mmol/L Chloride Level 101 101-111 mmol/L Carbon Dioxide Level 23 21-32 mmol/L Blood Urea Nitrogen 76 *H 7-18 mg/dL Creatinine 9.7 *H 0.5-1.0 mg/dL Glomerular Filtration Rate Calc 4 >90 mL/min Random Glucose 168 H 70-105 mg/dL Hemoglobin A1c 8.7 H 4.0-6.0 % Estimated Average Glucose (eAG) 203 H 70-126 mg/dL Total Calcium 7.0 L 8.5-10.1 mg/dL Phosphorus Level 3.1 2.5-4.9 mg/dL Magnesium Level 1.70 L 1.80-2.40 mg/dL B-Type Natriuretic Peptide 3080 H 0-100 pg/mL Thyroid Stimulating Hormone (TSH) 0.74 # 0.36-3.74 uIU/mL Test 08/03/25 22:22 Range/Units Total Bilirubin 0.6 0.2-1.0 mg/dL Direct Bilirubin 0.3 0.0-0.3 mg/dL Aspartate Amino Transf (AST/SGOT) 23 10-37 U/L Alanine Aminotransferase (ALT/SGPT) 23 12-78 U/L Alkaline Phosphatase 174 H 50-136 U/L Total Creatine Kinase 44 21-232 U/L Total Protein 6.4 6.0-8.3 g/dL Albumin 3.2 L 3.5-5.0 g/dL DIAGNOSTICS / RADIOLOGY RESULTS: [ ] PLAN -Admit patient to ICU under Dr. Cohen/ Mireya as inpatient. -Continuous pulse oximetry and cardiac monitoring. -Continue propofol, fentanyl titrate for RASS -2. -Titrate Levophed to keep map above 65. . -Monitor respiratory status closely. -Titrate ventilator to keep Spo2>/+=92%. -Chest x-ray and ABGs in a.m.. -Albuterol and Atrovent scheduled q.6 hours. -Robitussin DM as needed cough. -Solu-Medrol IV daily. -Echo in a.m.. -Troponin and EKGs series -Aspirin 81 mg p.o. daily. -Atorvastatin 40 mg IV daily. -Fluid restriction a 1200 mL. -consult Nephrology for dialysis. On PICC line -Continue antibiotic therapy: Levaquin discontinued. Continued on vanco and Merrem -PRN medications for: Pain management, fever, N/V, constipation. -Glucometer checks AC & HS needed with insulin regular sliding scale coverage as needed. -Vital signs per ICU -Reconcile home medications once available. - Monitor renal and liver function. -Monitor electrolytes and treat accordingly PRN -AM labs. -GI and DVT prophylaxis -Further plan/orders per hospitalization course. NEURO: Minimize central acting medications as possible. Fall Precautions. Well lighted room through the day and minimize interruptions through the night to prevent acute delirium. PULMONARY: Supplemental 02 as needed Titrate Fio2 to keep Spo2 > or = 90% DuoNebs and CPT as needed IS hourly while awake for pulmonary hygiene Out of bed to chair as tolerated VAP Bundle Vent settings: FiO2 60%, RR 12, peep 5, tidal volume 450 mL CARDIOVASCULAR: Follow hemodynamics. Titrate vasopressor to keep MAP >65 or systolic blood pressure >95mmHg GI & NUTRITION: Continue nutritional support Aspirations precautions Prokinetic agents and laxatives as needed KIDNEYS & ELECTROLYTES: Strict monitoring of intake and output Daily weights Avoid nephrotoxic agents Monitor electrolytes and replace as needed Goal urine output of 30mL/hr or 0.5mL/kg/hr ENDOCRINE: Maintain blood glucose between 100-180 at all times. Insulin sliding scale for blood glucose management INFECTIOUS DISEASE: Trend temperature. Go-culture if febrile. HEMATOLOGY & COAGULATION: Monitor H&H. Keep Hgb > 7 Transfuse 1 unit of PRBC for Hgb < 7 Transfuse 1 pack of platelets of platelets < 20, 000 Watch for any signs and symptoms of bleeding SKIN: Pressure ulcer prevention per facility protocol Code Status: Full Resuscitation Disposition: Other: Due to a high probability for clinically significant, life-threatening deterioration, the patient required my highest level of preparedness to intervene emergently, and I personally spent 60 minutes of critical care time directly and personally managing the patient. I devoted my full attention to the patient during this time, which is separate from time spent on any billable procedures. This includes time spent involved in work directly related to the care of the patient: such as review of prior records, development of treatment plan with patient and/or surrogate as well as nursing, discussions with consultants, evaluation of patient's response to treatment, examination of patient, obtaining history from staff, ordering and performing treatments and interventions, ordering and review of laboratory studies, ordering and review of radiographic studies, pulse oximetry and re-evaluation of patient's condition, and any required documentation. This critical care time was performed to assess and manage the high probability of imminent life-threatening deterioration that could result in multi-organ failure. ATTESTATION BY PHYSICIAN I have seen and examined the patient. I reviewed the documentation, medical decision making, and treatment plan as noted by the mid-level provider above. I agree with the findings and plan of care. ANNIE PIZANO MD, AISHWARYA MD Aug 04, 2025 15:36
[2025-08-04] MEDS ORDERED: 0.9% NACL 250ML 250 ML IV SCH (17:00)
[2025-08-04] MEDS: 0.9%NACL 1000ML 1,000 ML IV SCH (17:00)
[2025-08-04] MEDS: ALBUMIN (HUMAN) 25% 50 ML IV.SOLN. IV SCH (17:00)
[2025-08-04] MEDS: NOREPINEPHRINE 16MG/NS 250ML PREMIX IV SCH (17:01)
--- NOTE | 2025-08-04 17:03 | NUR ---
HEP STATUS OBTAINED FROM PT'S OP DIALYSIS CLINIC ([facility]) HBSAG - NEGATIVE OF 07/11/2025 HBSAB - <4 - NEGATIVE OF 12/11/2024
--- NOTE | 2025-08-04 17:55 | PN ---
[facility] PROGRESS NOTE Date Patient Seen: Today, July Supervising Physician: Dr Emeterio Garcia Room [address] Assessment: Acute respiratory failure requiring intubation Sepsis with septic shock (HAP, pulmonary vascular congestion) ESRD on hemodialysis (TTS) Stage I diastolic dysfunction Anemia of chronic disease Type II diabetes mellitus with hyperglycemia Interval/Exam: 79F intubated in ED for hypoxia/SOB. WBC 17.8, Hgb 10.9, lactate 3.3. EF 5560%. Vent FiO? 50%, PEEP 5. On vancomycin, merrem, levo, vasopressin. Sedated on propofol/fentanyl. On heparin SQ, Protonix. at bedside. Plan: Continue antibiotics Vent management + daily ABGs Maintain MAP with dual pressors Dialysis as scheduled Monitor labs and cultures Physical Exam: General: Intubated, sedated. Neuro: Sedated, non-responsive, pupils equal/reactive. HEENT: ETT secured, no trauma. CV: Tachycardic, no murmurs, distal pulses present. Respiratory: Bilateral crackles, diminished at bases. Abdomen: Soft, non-tender, non-distended. : Gambino present, minimal urine output. Extremities: Trace edema. Skin: Warm, intact. Lines/Tubes: ETT, central line, Gambino, A-line. Critical Care Time: 60 minutes intubated, on dual pressors, septic shock with multi-organ failure. Excludes any time spent with teaching for procedures Total patient critical care time 45 minutes excluding all procedures. REVIEW OF SYSTEMS: 12 point ROS reviewed , only + as per above PLAN GI & NUTRITION: Continue nutritional support Aspirations precautions Prokinetic agents and laxatives as needed KIDNEYS & ELECTROLYTES: Strict monitoring of intake and output NEURO: Minimize central acting medications as possible. Fall Precautions. Well lighted room through the day and minimize interruptions through the night to prevent acute delirium. PULMONARY: Supplemental 02 as needed Titrate Fio2 to keep Spo2 > or = 90% DuoNebs and CPT as needed CARDIOVASCULAR: Follow hemodynamics. Titrate vasopressor to keep MAP >65 or systolic blood pressure >95mmHg ENDOCRINE: Maintain blood glucose between 100-180 at all times. Insulin sliding scale for blood glucose management RENAL: Avoid nephrotoxic agents INFECTIOUS DISEASE: Trend temperature. Go-culture if febrile. HEMATOLOGY & COAGULATION: Monitor H&H. Keep Hgb > 7 Transfuse 1 unit of PRBC for Hgb < 7 Watch for any signs and symptoms of bleeding SKIN: Pressure ulcer prevention per facility protocol ATTESTATION BY PHYSICIAN The patient has been seen and evaluated, the case has been discussed with the PA, I agree with the clinical findings and plan of care. Vitals/Labs Vital Signs Date Time Temp Pulse Resp B/P (MAP) Pulse Ox O2 Delivery O2 Flow Rate FiO2 08/04/25 17:01 109/61 08/04/25 15:08 77 60 08/04/25 13:00 99.5 08/04/25 11:27 14 08/04/25 10:15 99 08/04/25 07:34 Ventilator+ 08/04/25 06:39 15 Laboratory Tests 08/03/25 22:22 08/04/25 06:02 Microbiology Date/Time Source Procedure Growth Status 08/03/25 22:38 Blood Blood Culture - Final Complete 08/03/25 22:22 Blood Blood Culture - Final Complete Medications Current Medications Albuterol 2 udvial ONCE ONCE IH Last administered on 08/03/25at 23:50; Start 08/03/25 at 22:30; Stop 08/03/25 at 22:31; Status DC Albuterol 1 udvial STK-MED ONCE IH; Start 08/03/25 at 22:17; Stop 08/03/25 at 22:18; Status DC Acetaminophen 1,000 mg ONCE ONCE PO; Start 08/03/25 at 23:00; Stop 08/03/25 at 23:01; Status DC Fentanyl Citrate 100 ml @ As Directed STK-MED ONCE IV; Start 08/03/25 at 22:46; Stop 08/03/25 at 22:46; Status DC Ketamine HCl 50 mg STK-MED ONCE .ROUTE; Start 08/03/25 at 22:47; Stop 08/03/25 at 22:47; Status DC Rocuronium [place] 50 mg STK-MED ONCE .ROUTE Last administered on 08/03/25at 23:34; Start 08/03/25 at 22:47; Stop 08/03/25 at 22:47; Status DC Propofol 100 ml @ As Directed STK-MED ONCE IV; Start 08/03/25 at 22:50; Stop 08/03/25 at 22:50; Status DC Norepinephrine 250 ml @ As Directed STK-MED ONCE IV; Start 08/03/25 at 22:58; Stop 08/03/25 at 22:58; Status DC Vancomycin HCl 1 gm ONCE ONCE IV Last administered on 08/04/25at 00:06; Start 08/03/25 at 23:30; Stop 08/03/25 at 23:36; Status DC Albuterol Sulfate 2.5 mg [id number] PRN IH; Start 08/03/25 at 23:30; Stop 09/02/25 at 23:29 Ipratropium [place] 0.5 mg [id number] IH Last administered on 08/04/25at 11:25; Start 08/04/25 at 00:00; Stop 09/03/25 at 00:00 Acetaminophen 650 mg Q6H PRN PO; Start 08/03/25 at 23:30; Stop 09/02/25 at 23:29 Acetaminophen 650 mg Q6H PRN RC Last administered on 08/04/25at 04:08; Start 08/03/25 at 23:30; Stop 09/02/25 at 23:29 Lactulose 20 gm Q6H PRN PO; Start 08/03/25 at 23:30; Stop 09/02/25 at 23:29 Docusate Sodium 100 mg BID PRN PO; Start 08/03/25 at 23:30; Stop 09/02/25 at 23:29 Ondansetron HCl 4 mg Q6H PRN IVP; Start 08/03/25 at 23:30; Stop 09/02/25 at 23:29 Insulin Human Regular INSULIN SLIDING SCAL... ACHS SQ; Start 08/04/25 at 07:30; Stop 09/03/25 at 07:29 Ketamine HCl 100 mg ONCE ONCE IM Last administered on 08/03/25at 23:43; Start 08/03/25 at 23:30; Stop 08/03/25 at 23:39; Status DC Propofol 1,000 mg PROTOCOL PRN IV; Start 08/03/25 at 23:30; Stop 08/03/25 at 23:39; Status DC Fentanyl Citrate 100 ml @ 2.5 mls/hr PROTOCOL IV; Start 08/03/25 at 23:30; Stop 08/03/25 at 23:39; Status DC Norepinephrine 250 ml @ 0 mls/hr PROTOCOL IV; Start 08/03/25 at 23:30; Stop 08/03/25 at 23:39; Status DC Fentanyl/Sodium Chloride 250 ml @ 0.1 mls/hr PROTOCOL IV Last administered on 08/04/25at 05:43; Start 08/03/25 at 23:30; Stop 08/08/25 at 23:29 Propofol 1,000 mg PROTOCOL PRN IV Last administered on 08/04/25at 17:39; Start 08/03/25 at 23:30; Stop 09/02/25 at 23:29 Levofloxacin/ Dextrose 750 mg ONCE ONCE IV Last administered on 08/04/25at 02:13; Start 08/03/25 at 23:30; Stop 08/03/25 at 23:41; Status DC Norepinephrine 250 ml @ 37.425 mls/ hr PROTOCOL IV Last administered on 08/04/25at 14:11; Start 08/03/25 at 23:30; Stop 08/04/25 at 14:18; Status DC Levofloxacin/ Dextrose 100 ml @ 100 mls/hr Q48H IV; Start 08/05/25 at 23:00; Stop 08/04/25 at 16:22; Status DC Vasopressin 20 units STK-MED ONCE .ROUTE; Start 08/04/25 at 04:24; Stop 08/04/25 at 04:24; Status DC Vasopressin 20 units/Sodium Chloride 100 ml @ 0 mls/hr PROTOCOL IV Last administered on 08/04/25at 04:45; Start 08/04/25 at 05:00; Stop 09/03/25 at 04:59 Vancomycin HCl 1 each AD IV; Start 08/04/25 at 13:30; Stop 08/18/25 at 13:29 Albumin Human 50 ml @ 0 mls/hr AD ONCE IV; Start 08/04/25 at 13:30; Stop 08/04/25 at 13:47; Status DC Thiamine HCl 100 mg DAILY IVP; Start 08/05/25 at 09:00; Stop 09/04/25 at 08:59 Vancomycin HCl 250 ml @ 125 mls/hr ONCE ONCE IV; Start 08/04/25 at 14:00; Stop 08/04/25 at 13:33; Status DC Vancomycin HCl 750 mg TTHSPHD IVPB; Start 08/04/25 at 16:00; Stop 08/14/25 at 15:59 Norepinephrine Bitartrate as protocol PROTOCOL IV Last administered on 08/04/25at 17:01; Start 08/04/25 at 14:30; Stop 09/03/25 at 14:29 Pharmacy Profile Note 1 each ONCE MISC; Start 08/04/25 at 15:30; Stop 08/04/25 at 16:16; Status DC Meropenem 500 mg Q24H IVPB; Start 08/04/25 at 16:30; Stop 08/14/25 at 16:29 Sodium Chloride 250 ml @ 0 mls/hr AD IV; Start 08/04/25 at 17:00; Stop 09/03/25 at 16:59 Albumin Human 100 ml ONCE IV; Start 08/04/25 at 17:00; Stop 08/05/25 at 16:59 Sodium Chloride 1,000 ml @ 0 mls/hr ONCE IV; Start 08/04/25 at 17:00; Stop 09/03/25 at 16:59 ALONDRA DESHPANDE Aug 04, 2025 17:55
--- NOTE | 2025-08-04 17:57 | CONS ---
[facility] CARDIOLOGY CONSULTATION REPORT Date Patient Seen: Aug 04, 2025 Time of Visit: 17:28 Requesting Physician: Dr. Mark Cohen Reason for Consultation: Elevated troponin in the setting of septic shock History of Present Illness: This 79-year-old Latin-[place] female, patient of Dr. Mark Cohen and Dr. Ryan Valentino has a history of hypertension, hyperlipidemia, type 2 diabetes mellitus with renal manifestations, breast cancer, obesity, cholelithiasis, and moderate aortic stenosis. She was hospitalized with generalized weakness and dyspnea 07/30/2025 and was released 07/31/2025. She presented now to the emerg ency room via EMS with symptoms of cough, shortness of breath, upper respiratory infection symptoms, and fever with chills. She failed BiPAP support and required intubation a short time after arrival in the emergency department. The patient has been on pressor support with Levophed and vasopressin but Levophed has begun to be weaned this afternoon. Blood cultures are 2/2 sets po sitive on the 1st day of admission for Gram-positive cocci (pending identification) and she is receiving broad-spectrum antibiotics and she is intubated undergoing respiratory support. Cardiology was consulted because of a rising pattern of troponins initially 82, 101, 208, and 481. Review of the ER record and admission record discloses no information about chest discomfort. Her EKG was not obtained on admission but was just obtained and demonstrates sinus tachycardia at 120 beats per minute, left axis deviation, IVCD, and an early repolarization pattern in the anterior leads. A repeat EKG short interval later was unchanged. The patient is followed by Dr. Ryan Valentino for moderate aortic stenosis. She has no history of coronary artery disease or prior cardiac catheterization. A 2D echo March 2025 demonstrated an LVEF of 65-70% with concentric LVH and peak aortic valve gradient of 38 mm of mercury, mean gradient of 24 mm of mercury, DVI of 0.26, and an aortic valve area of 1.2 cm2. Past Medical History: Essential hypertension Type 2 diabetes mellitus with renal manifestations Obesity Breast cancer Cholelithiasis, status post cholecystectomy 1972 Moderate aortic stenosis by 2D echo March 2025 with aortic valve area of 1.2 cm2, dimensionless index of 0.26 (see below) End-stage renal disease on chronic hemodialysis Past Surgical History: Appendectomy 1967 Cholecystectomy 1972 Right total knee arthroplasty 1999 Bilateral lumpectomy Right total knee arthroplasty revision 02/15/2018 Hernia repair 01/2021 Family History: Noncontributory Social History: Noncontributory Habits: Never smoker. Denies alcohol consumption. Denies illicit drug use Home Meds: Recent office visit 05/13/2025: Amlodipine 5 mg daily Vitamin-D supplement Tresiba flex touch insulin Omeprazole 20 mg daily Lisinopril 40 mg daily Carvedilol 12.5 mg b.i.d. Ozempic 0.25 or 0.5 mg Furosemide 20 mg daily Alphagan eyedrops Review of Systems: CONST: Fever, chills, generalized weakness, dyspnea, respiratory distress. EYES: No recent vision problems. ENT: No congestion, ear pain, or sore throat. C/V: No chest pain, palpitations, or edema. RESP: Progressive respiratory distress. Positive for cough. GI: No abdominal pain, nausea, vomiting, constipation, or diarrhea. : No incontinence or dysuria. SKIN: No rash. NEURO: No headache, focal numbness or weakness, dizziness, or seizures. PSYCH: No depression or anxiety. HEME: No abnormal bruising or bleeding. LYMPH: No swollen glands. Physical Examination: GENERAL: Intubated, sedated, and mechanically ventilated. HEAD: Normal with no signs of head trauma. EYES: PERRLA, EOMI, conjunctiva and sclera normal. ENT: Intubated. NECK: Supple without JVD. There is no tenderness, lymphadenopathy, or masses. No thyromegaly. Normal carotid upstrokes without bruits. LUNGS: Rhonchorous breath sounds. No wheezes, or rhonchi. HEART: Normal rate and rhythm. Normal S1 and S2 with a 2/6 mid-peaking systolic ejection murmur loudest at the right upper sternal border. There was no diastolic murmur, gallops or rubs. VASC: Peripheral pulses +1 bilaterally. ABD: Bowel sounds normal, soft, nontender, no masses, no organomegaly. No audible bruits. : Not examined LYMPH: No lymphadenopathy noted. EXT: No clubbing, cyanosis or edema. SKIN: No rashes or lesions noted. NEURO: Sedated and can not be assessed. No lateralizing signs. Vital Signs (last 8hr) Date Time Temp Pulse Resp B/P (MAP) Pulse Ox O2 Delivery O2 Flow Rate FiO2 9/30/25 17:01 109/61 08/04/25 15:08 77 60 08/04/25 14:11 110/54 08/04/25 13:00 99.5 08/04/25 12:50 121/77 08/04/25 11:27 82 14 08/04/25 11:24 81 60 08/04/25 10:15 81 13 142/50 (80) 99 08/04/25 10:09 59/31 08/04/25 09:55 81 13 121/54 (76) 99 08/04/25 09:49 80 13 108/61 (77) 99 08/04/25 09:40 86 60 08/04/25 09:40 86 14 59/ (40) 98 08/04/25 09:35 85 10 98 Laboratory: Hematology Labs: Test 08/04/25 06:02 08/03/25 22:22 Range/Units White Blood Count 17.8 #H 4.8-10.8 K/uL Red Blood Count 3.47 L 4.00-5.50 MIL/uL Hemoglobin 10.9 L 12.0-16.0 g/dL Hematocrit 32.8 L 36-48 % Mean Corpuscular Volume 94.5 79-99 fL Mean Corpuscular Hemoglobin 31.4 27.0-33.0 pg Mean Corpuscular Hemoglobin Concent 33.2 32.0-36.0 g/dL Red Cell Distribution Width 13.8 11.0-15.5 % Platelet Count 159 130-400 K/uL Mean Platelet Volume 9.9 7.5-10.5 fL Nucleated Red Blood Cells 0.0 0.0-0.19 % Immature Granulocyte % (Auto) 0.7 0-1 % Neutrophils (%) (Auto) 95.7 H 40.0-77.0 % Lymphocytes (%) (Auto) 0.7 L 21.0-51.0 % Monocytes (%) (Auto) 1.9 L 3.0-13.0 % Eosinophils (%) (Auto) 0.8 0.0-8.0 % Basophils (%) (Auto) 0.2 0.0-5.0 % Neutrophils # (Auto) 8.8 H 1.8-7.7 K/uL Lymphocytes # (Auto) 0.1 L 1.0-4.8 K/uL Monocytes # (Auto) 0.2 0.1-1.0 K/uL Eosinophils # (Auto) 0.07 0.00-0.70 K/uL Basophils # (Auto) 0.02 0.00-0.20 K/uL Absolute Immature Granulocyte (auto 0.06 0-1 K/uL Chemistry Labs: Test 08/04/25 16:52 08/04/25 12:53 08/04/25 06:04 08/04/25 06:02 Range/Units Troponin I High Sensitivity 481 *H 4-50 ng/L Whole Blood Glucose 141 H 70-110 MG/DL Lactic Acid Level 3.3 H 0.8-2.5 mmol/L Sodium Level 139 136-145 mmol/L Potassium Level 5.9 H 3.5-5.1 mmol/L Chloride Level 101 101-111 mmol/L Carbon Dioxide Level 23 21-32 mmol/L Blood Urea Nitrogen 76 *H 7-18 mg/dL Creatinine 9.7 *H 0.5-1.0 mg/dL Glomerular Filtration Rate Calc 4 >90 mL/min Random Glucose 168 H 70-105 mg/dL Hemoglobin A1c 8.7 H 4.0-6.0 % Estimated Average Glucose (eAG) 203 H 70-126 mg/dL Total Calcium 7.0 L 8.5-10.1 mg/dL Phosphorus Level 3.1 2.5-4.9 mg/dL Magnesium Level 1.70 L 1.80-2.40 mg/dL B-Type Natriuretic Peptide 3080 H 0-100 pg/mL Thyroid Stimulating Hormone (TSH) 0.74 # 0.36-3.74 uIU/mL Test 08/03/25 22:22 Range/Units Total Bilirubin 0.6 0.2-1.0 mg/dL Direct Bilirubin 0.3 0.0-0.3 mg/dL Aspartate Amino Transf (AST/SGOT) 23 10-37 U/L Alanine Aminotransferase (ALT/SGPT) 23 12-78 U/L Alkaline Phosphatase 174 H 50-136 U/L Total Creatine Kinase 44 21-232 U/L Total Protein 6.4 6.0-8.3 g/dL Albumin 3.2 L 3.5-5.0 g/dL Diagnostics / Radiology: A 2D echo March 2025 demonstrated an LVEF of 65-70% with concentric LVH and peak aortic valve gradient of 38 mm of mercury, mean gradient of 24 mm of mercury, DVI of 0.26, and an aortic valve area of 1.2 cm2. Impression and Plan: Septic shock requiring two pressors, with Gram-positive cocci in blood cultures in 2/2 sets, pending identification: Respiratory symptoms and respiratory failure suggest possible pulmonary source, recent admission 07/30/2025 with dyspnea and weakness: -continue broad-spectrum antibiotic coverage and supportive care Nonspecific troponin elevations in the setting of septic shock: Troponin trend initially 82, 101, 208, and 481: No antecedent chest pain and no ischemic EKG changes. No clinical evidence of myocardial infarction. -await repeat 2D echocardiogram Moderate aortic stenosis with 2D echo March 2025 demonstrating an LVEF of 65-70% with concentric LVH and peak aortic valve gradient of 38 mm of mercury, mean gradient of 24 mm of mercury, DVI of 0.26, and an aortic valve area of 1.2 cm2: -await repeat 2D echocardiogram Comorbidities: Essential hypertension Hyperlipidemia Type 2 diabetes with renal manifestations End-stage renal disease on chronic hemodialysis Breast cancer Obesity Cholelithiasis status post cholecystectomy GABRIEL CHINCHILLA MD Aug 04, 2025 17:57
--- NOTE | 2025-08-04 18:48 | HMCIMG ---
EXAM: XR Chest, 3 View(s). CLINICAL HISTORY: 79-year-old female repositioning of PICC line. COMPARISON: Compared to XR chest from 08/03/2025 at 11:14 PM, similar findings are noted. FINDINGS: LUNGS: Minimal pulmonary vascular congestion. PLEURAL SPACES: No pleural effusion or pneumothorax. HEART: The heart size is normal. BONES: No acute osseous abnormality. IMPRESSION: 1. PICC line in a satisfactory position. 2. Minimal pulmonary vascular congestion, similar to prior study. 3. Similar findings compared to XR chest from 08/03/2025 at 11:14 PM. /[place]
--- NOTE | 2025-08-04 21:06 | NUR ---
CT ON HOLD AT THIS TIME. PT IS STILL UNSTABLE FOR CT SCAN ALSO PT IN DIALYSIS.
[2025-08-04] MEDS: VANCOMYCIN 750MG VIAL IVPB SCH (21:07)
[2025-08-04] MEDS: MEROPENEM 500MG 500 MG VIAL IVPB SCH (21:07)
--- NOTE | 2025-08-04 22:55 | HMCSR ---
APPROVED REPORT EXAM: Two-dimensional and M-mode echocardiogram with Doppler and color Doppler. INDICATION ICD: Respiratory failure 2D Dimensions RVDd4.0 cmLVEF(%)50.2 (>50%)LVED Vol(simp.)88.5 mL IVSd1.2 (0.7-1.1cm)FS(%)25 %LVES Vol(simp.)47.5 mL LVDd4.1 (3.8-5.6cm)LA (2D)4.3 (1.6-4.0cm)LVEF(%, simp.)46 % PWd1.2 (0.7-1.1cm)Ao Root(2D)2.9 (2.0-3.7cm)LA ESV INDEX (BP)30.04 mL/m2 LVDs3.1 (2.5-4.0cm)LVOT diam1.9 (1.8-2.4cm) IVC diam2.2 cm Deformation Strain Apical 4-8.9 % Apical 2-7.6 % Apical 3-8.1 % Global Strain-8.2 % M-Mode Dimensions EPSS1.2 cm LA (MM)4.2 (1.6-4.0cm) Ao Root(MM)3.2 (2.0-3.7cm) Aortic Valve AoV Vmax3.5 m/Konrad Peak GR49.3 mmHgLVOT Vmax1.0 m/s AoV VTI0.7 mAo Mean GR31.8 mmHgLVOT VTI0.19 m MARIAELENA (VMAX)0.79 cm2AVA (VTI) 0.8 cm2 Mitral Valve MV E Vmax82.3 cm/sDECEL Hoom503 msMV Peak GR7 mmHg MV A Xohn359.0 cm/sP 1/2 T75 msMV Mean GR3 mmHg E/A ratio0.7MVA (PHT)2.9 cm2MVA (VTI)1.41 cm2 TDI E/E' Cyxbgf25.0E/E' [id number] Medial E' Peak V3.43 cm/sLateral E' Peak V7.07 cm/s Pulmonary Valve PV Vmax1.4 m/sPV VTI0.25 mPV Mean GR3.4 mmHg PV Peak GR7.4 mmHg Tricuspid Valve TR Vmax2.5 m/sRAP (EST) 15 [id number] mmHg TR Peak GR26.3 mmHg Left Ventricle The left ventricle is normal size. GLS -8.0%. Apical septal bounce. Apical severe hypokinesis. Mild c oncentric left ventricular hypertrophy. LVEF is 40-45%. Stage I diastolic dysfunction. Right Ventricle The right ventricle is normal size. The right ventricular systolic function is normal. Atria The left atrium size is normal. The right atrium size is normal. Aortic Valve The aortic valve is trileaflet, heavily calcified, and shows severely restricted opening. Trace of ao rtic regurgitation is present. There is severe aortic valvular stenosis. Peak AV gradient is 48 mmHg; mean AV gradient is 32 mmHg; and AV area is 0.7 cm. Mitral Valve Mild posterior annular calcification noted. There is trace of mitral valve regurgitation noted. There is no mitral valve stenosis. Tricuspid Valve The tricuspid valve is normal in structure. There is trace of tricuspid valve regurgitation noted. Pulmonic Valve The pulmonary valve is normal in structure. There is mild pulmonic valvular regurgitation. Great Vessels The aortic root is normal in size. IVC is dilated and collapses <50% with inspiration. Pericardium There is no pericardial effusion. Other Information Quality : Adequate Conclusion The left atrium size is normal. Mild concentric left ventricular hypertrophy. GLS -8.0%. Early relaxation at the LV apex. Apical septal bounce. Apical severe hypokinesis. LVEF is 40-45%. Stage I diastolic dysfunction. The aortic valve is trileaflet, heavily calcified, and shows severely restricted opening. There is severe aortic valvular stenosis. Peak AV gradient is 48 mmHg; mean AV gradient is 32 mmHg; and AV area is 0.7 cm.
--- NOTE | 2025-08-04 23:37 | EKG ---
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 : 1945 Requested By: GABRIEL CHINCHILLA Order Number: [id number] Reading MD: Ryan Valentino Measurements Intervals [place] Rate: 103 P: 25 TN: 180 QRS: -53 QRSD: 120 T: 116 QT: 356 QTc: 466 Interpretive Statements Sinus tachycardia Left anterior fascicular block LVH with secondary repolarization abnormality Anterior ST elevation, probably due to LVH Compared to ECG 07/30/2025 07:29:34 Left anterior fascicular block now present ST (T wave) deviation now present Sinus rhythm no longer present First degree AV block no longer present Electronically Signed On 08-05-2025 21:30:39 CDT by Ryan Valentino Please click the below link to view image of tracing.
[2025-08-05] VITALS (115 sets, daily range): BP systolic 73–169; BP diastolic 30–136; PULSE 82–120; RESP 11–26; TEMP 98.8–99.6; O2SAT 96–100
[2025-08-05 03:31] LABS: ABG BASE EXCESS -0.6 mmol/L (-2.0-3.0); ABG HCO3 24.8 mmol/L (21.0-28.0); ABG OXYGEN SATURATION 98.9 % (94.0-98.0); ABG PCO2 44 mmHg (32-45); ABG PH 7.373 (7.350-7.450); CARBON MONOXIDE 1.7 % (0.5-1.5); DEVICE COMMENT RR; PO2, ARTERIAL BG 147.2 mmHg (83.0-108.0); TEMPERATURE, CELSIUS BG 37.0 CELSIUS (35.5-37.0); VENT MODE, BG AC (ROOM AIR)
[2025-08-05 04:26] LABS: NUCLEATED RED BLOOD CELLS 0.0 % (0.0-0.19); PLATELET COUNT (AUTO) 78 K/uL (130-400); RED BLOOD CELL COUNT(AUTO) 3.51 MIL/uL (4.00-5.50); RED CELL DISTRIBUTION WIDTH 13.8 % (11.0-15.5); WHITE BLOOD COUNT (AUTO) 12.7 K/uL (4.8-10.8)
[2025-08-05 05:01] LABS: ASPARTATE AMINOTRANSFERASE 199.0 U/L (10-37); CREATININE 6.8 mg/dL (0.5-1.0); GLOMERULAR FILTR. RATE CALC 6.0 mL/min (>90); GLUCOSE,RANDOM 168.0 mg/dL (70-105); PHOSPHORUS 5.1 mg/dL (2.5-4.9); SODIUM SERUM 136.0 mmol/L (136-145); TOTAL PROTEIN, SERUM 5.7 g/dL (6.0-8.3); UREA NITROGEN, BLOOD 55.0 mg/dL (7-18)
[2025-08-05 05:49] LABS: BAND NEUTROPHILS % (MANUAL) 41 % (0-2); EOSINOPHILS % (MANUAL) 3 % (1-6); LYMPHOCYTES % (MANUAL) 4 % (22-44); METAMYELOCYTES % 1 % (0-0); MONOCYTES % (MANUAL) 3 % (2-9); SEGMENTED NEUTROPHILS % 48 % (40-70)
[2025-08-05 05:50] LABS: MAN.DIFF COMMENT-IMPRESSION MANUAL DIFFERENTIAL; PLATELET MORPHOLOGY COMMENT DECREASED
--- NOTE | 2025-08-05 06:14 | NUR ---
CT on hold//pt too unstable
--- NOTE | 2025-08-05 08:58 | PN ---
[facility] PROGRESS NOTE Date Patient Seen: Aug 05, 2025 Time of Visit: 08:53 Supervising Physician: Dr Emeterio Garcia Primary Care Physician: Dr. Cohen Outpatient Specialists: Inpatient Consults: BIS, critical care team PROBLEM LIST: Acute respiratory failure, in need of emergent intubation Sepsis with septic shock - Gram-positive cocci bacteremia Volume overload in a end-stage renal disease patient on hemodialysis Electrolyte imbalance Hyperkalemia LVEF 55-60%, stage I diastolic dysfunction, moderate left ventricular hypertrophy, per echo on 01/17/2025 Diabetes mellitus with hyperglycemia INTERVAL HISTORY: Patient seen and examined, patient is remains intubated, FiO2 40% peep of 5, her chest x-ray is significantly improved, Patient underwent hemodialysis yesterday with removal of 3 L, she continues on Levophed and vasopressin however we are weaning down and likely turn off the vaso shortly Discussion with patient's at bedside, plan is turn off sedation and hopefully spontaneous breathing trials Nursing reports no acute events overnight Patient afebrile White count is downtrending Plan: Vent management, chest x-ray, ABG, spontaneous breathing trials shortly Following nephrology recs Weaning pressors Daily labs, cultures and antibiotics Total critical care time 54 minutes, vent management and pressor support. Patient remains critical but is improving REVIEW OF SYSTEMS: Unable to obtain ROS from patient due to patient is intubated and sedated. PHYSICAL EXAM: GENERAL: Intubated and sedated HEENT: EOMI, Sclera non icteric, moist mucosa NECK: Supple, no JVD, trachea midline LUNGS: Diminished breath sounds bilaterally. No wheezes HEART: Regular rate and rhythm. Normal S1 and S2, without murmurs ABD: Abdomen soft, nontender. Bowel sounds present. Obese EXT: No clubbing cyanosis or edema NEURO: Intubated and sedated Vital Signs (last 8hr) Date Time Temp Pulse Resp B/P (MAP) Pulse Ox O2 Delivery O2 Flow Rate FiO2 08/05/25 07:44 99.5 08/05/25 07:40 99 12 107/51 (69) 98 08/05/25 07:25 100 12 115/53 (73) 98 08/05/25 07:10 96 12 114/56 (75) 98 08/05/25 06:45 93 12 106/49 (68) 98 08/05/25 06:30 94 12 104/50 (68) 99 08/05/25 06:25 96 17 08/05/25 06:25 97 40 08/05/25 06:15 100 23 111/68 (82) 100 08/05/25 06:00 93 12 110/50 (70) 99 40 08/05/25 05:45 93 12 110/51 (70) 99 08/05/25 05:30 90 12 108/49 (68) 99 08/05/25 05:15 87 12 116/47 (70) 100 08/05/25 05:00 88 13 115/56 (75) 100 50 08/05/25 04:45 87 14 118/56 (76) 100 08/05/25 04:30 87 14 116/57 (76) 100 08/05/25 04:15 87 13 115/54 (74) 100 08/05/25 04:10 109/48 08/05/25 04:00 99.1 Ventilator 50 08/05/25 04:00 99.1 86 12 108/49 (68) 100 50 08/05/25 04:00 100 Ventilator+ 50 08/05/25 03:45 88 12 109/48 (68) 100 08/05/25 03:41 85 50 08/05/25 03:30 86 14 104/55 (71) 99 08/05/25 03:15 86 13 101/47 (65) 100 08/05/25 03:00 83 12 124/54 (77) 100 50 08/05/25 02:45 83 12 126/59 (81) 99 08/05/25 02:30 85 11 136/68 (90) 100 08/05/25 02:15 83 12 129/58 (81) 100 08/05/25 02:00 84 15 110/58 (75) 100 60 08/05/25 01:45 84 13 115/57 (76) 100 08/05/25 01:30 86 12 108/59 (75) 100 08/05/25 01:24 82 60 08/05/25 01:15 85 12 110/57 (74) 100 08/05/25 01:00 86 15 112/58 (76) 100 60 LABS: Hematology Labs: Test 08/05/25 03:55 08/03/25 22:22 Range/Units White Blood Count 12.7 #H 4.8-10.8 K/uL Red Blood Count 3.51 L 4.00-5.50 MIL/uL Hemoglobin 10.9 L 12.0-16.0 g/dL Hematocrit 33.3 L 36-48 % Mean Corpuscular Volume 94.9 79-99 fL Mean Corpuscular Hemoglobin 31.1 27.0-33.0 pg Mean Corpuscular Hemoglobin Concent 32.7 32.0-36.0 g/dL Red Cell Distribution Width 13.8 11.0-15.5 % Platelet Count 78 #L 130-400 K/uL Mean Platelet Volume 10.9 H 7.5-10.5 fL Segmented Neutrophils % 48 40-70 % Band Neutrophils % 41 H 0-2 % Lymphocytes % (Manual) 4 L 22-44 % Monocytes % (Manual) 3 2-9 % Eosinophils % (Manual) 3 1-6 % Metamyelocytes % 1 H 0-0 % Nucleated Red Blood Cells 0.0 0.0-0.19 % Differential Comment MANUAL DIFFERENTIAL White Cell Morphology Comment Platelet Morphology Comment DECREASED Red Blood Cell Morphology ANISO 1+ Immature Granulocyte % (Auto) 0.7 0-1 % Neutrophils (%) (Auto) 95.7 H 40.0-77.0 % Lymphocytes (%) (Auto) 0.7 L 21.0-51.0 % Monocytes (%) (Auto) 1.9 L 3.0-13.0 % Eosinophils (%) (Auto) 0.8 0.0-8.0 % Basophils (%) (Auto) 0.2 0.0-5.0 % Neutrophils # (Auto) 8.8 H 1.8-7.7 K/uL Lymphocytes # (Auto) 0.1 L 1.0-4.8 K/uL Monocytes # (Auto) 0.2 0.1-1.0 K/uL Eosinophils # (Auto) 0.07 0.00-0.70 K/uL Basophils # (Auto) 0.02 0.00-0.20 K/uL Absolute Immature Granulocyte (auto 0.06 0-1 K/uL Chemistry Labs: Test 08/05/25 03:55 08/04/25 21:11 08/04/25 16:52 08/04/25 06:04 Range/Units Sodium Level 136 136-145 mmol/L Potassium Level 5.3 H 3.5-5.1 mmol/L Chloride Level 96 L 101-111 mmol/L Carbon Dioxide Level 25 21-32 mmol/L Blood Urea Nitrogen 55 #H 7-18 mg/dL Creatinine 6.8 H 0.5-1.0 mg/dL Glomerular Filtration Rate Calc 6 >90 mL/min Random Glucose 168 H 70-105 mg/dL Total Calcium 7.0 L 8.5-10.1 mg/dL Phosphorus Level 5.1 #H 2.5-4.9 mg/dL Magnesium Level 1.70 L 1.80-2.40 mg/dL Total Bilirubin 2.0 H 0.2-1.0 mg/dL Aspartate Amino Transf (AST/SGOT) 199 H 10-37 U/L Alanine Aminotransferase (ALT/SGPT) 115 H 12-78 U/L Alkaline Phosphatase 179 H 50-136 U/L Total Protein 5.7 L 6.0-8.3 g/dL Albumin 2.3 L 3.5-5.0 g/dL Whole Blood Glucose 107 70-110 MG/DL Troponin I High Sensitivity 481 *H 4-50 ng/L Lactic Acid Level 3.3 H 0.8-2.5 mmol/L Test 08/04/25 06:02 08/03/25 22:22 Range/Units Hemoglobin A1c 8.7 H 4.0-6.0 % Estimated Average Glucose (eAG) 203 H 70-126 mg/dL B-Type Natriuretic Peptide 3080 H 0-100 pg/mL Thyroid Stimulating Hormone (TSH) 0.74 # 0.36-3.74 uIU/mL Direct Bilirubin 0.3 0.0-0.3 mg/dL Total Creatine Kinase 44 21-232 U/L DIAGNOSTICS / RADIOLOGY RESULTS: [ ] PLAN NEURO: Minimize central acting medications as possible. Fall Precautions. Well lighted room through the day and minimize interruptions through the night to prevent acute delirium. PULMONARY: Supplemental 02 as needed Titrate Fio2 to keep Spo2 > or = 90% DuoNebs and CPT as needed IS hourly while awake for pulmonary hygiene Out of bed to chair as tolerated VAP Bundle Vent settings: FiO2 60%, RR 12, peep 5, tidal volume 450 mL CARDIOVASCULAR: Follow hemodynamics. Titrate vasopressor to keep MAP >65 or systolic blood pressure >95mmHg GI & NUTRITION: Continue nutritional support Aspirations precautions Prokinetic agents and laxatives as needed KIDNEYS & ELECTROLYTES: Strict monitoring of intake and output Daily weights Avoid nephrotoxic agents Monitor electrolytes and replace as needed Goal urine output of 30mL/hr or 0.5mL/kg/hr ENDOCRINE: Maintain blood glucose between 100-180 at all times. Insulin sliding scale for blood glucose management INFECTIOUS DISEASE: Trend temperature. Go-culture if febrile. HEMATOLOGY & COAGULATION: Monitor H&H. Keep Hgb > 7 Transfuse 1 unit of PRBC for Hgb < 7 Transfuse 1 pack of platelets of platelets < 20, 000 Watch for any signs and symptoms of bleeding SKIN: Pressure ulcer prevention per facility protocol Code Status: Full Resuscitation Disposition: ALONDRA DESHPANDE Aug 05, 2025 08:58
[2025-08-05] MEDS: THIAMINE HCL 100 MG/ML 2ML VIAL IVP SCH (09:07)
[2025-08-05] MEDS: DEXTROSE 50%-WATER 50 ML DISP.SYRIN IV ONE (09:12)
--- NOTE | 2025-08-05 09:28 | PN ---
Acute myocardial infarct versus takotsubo syndrome Recent EF 65-70% with moderate aortic stenosis, DVI 0.27, current EF 40-45% with apical akinesia, DVI 0.27 Sepsis Acute renal failure Acute respiratory failure Diabetes Hypertension Gastroesophageal reflux Gallstones Patient is intubated and sedated and unresponsive. No JVD, no rales, soft S1 and S2, soft parasternal systolic murmur, no edema, bowel sounds present Echocardiogram demonstrates a new apical wall motion abnormality and troponin cathy to 480. This troponin does not correlate with the significant decrease in ejection fraction and significant wall motion abnormality observed; either it may have risen further since last draw, or the patient may have takotsubo rather than classical infarction. She has acute renal failure requiring dialysis and respiratory failure requiring ventilator support and septic shock requiring multiple pressor therapy but is now hemodynamically stable, ventilated, and can have dialysis. I will repeat troponin and obtain a CPK, and we will continue supportive care. I discussed the situation with her . I do not think the aortic stenosis is severe enough to complicate her current treatment unless she develops endocarditis. We will observe carefully. 40 minutes required to review office records, review hospital record, discussed with Dr. Evangelista team, review the echocardiogram images, evaluate the patient, discussed with her , document the results Vitals/Labs Vital Signs Date Time Temp Pulse Resp B/P (MAP) Pulse Ox O2 Delivery O2 Flow Rate FiO2 08/05/25 08:00 96 Ventilator+ 40 08/05/25 07:44 99.5 08/05/25 07:40 99 12 107/51 (69) 08/04/25 06:39 15 Laboratory Tests 08/05/25 03:55 Medications Current Medications Albuterol 2 udvial ONCE ONCE IH Last administered on 08/03/25at 23:50; Start 08/03/25 at 22:30; Stop 08/03/25 at 22:31; Status DC Albuterol 1 udvial STK-MED ONCE IH; Start 08/03/25 at 22:17; Stop 08/03/25 at 22:18; Status DC Acetaminophen 1,000 mg ONCE ONCE PO; Start 08/03/25 at 23:00; Stop 08/03/25 at 23:01; Status DC Fentanyl Citrate 100 ml @ As Directed STK-MED ONCE IV; Start 08/03/25 at 22:46; Stop 08/03/25 at 22:46; Status DC Ketamine HCl 50 mg STK-MED ONCE .ROUTE; Start 08/03/25 at 22:47; Stop 08/03/25 at 22:47; Status DC Rocuronium [place] 50 mg STK-MED ONCE .ROUTE Last administered on 08/03/25at 23:34; Start 08/03/25 at 22:47; Stop 08/03/25 at 22:47; Status DC Propofol 100 ml @ As Directed STK-MED ONCE IV; Start 08/03/25 at 22:50; Stop 08/03/25 at 22:50; Status DC Norepinephrine 250 ml @ As Directed STK-MED ONCE IV; Start 08/03/25 at 22:58; Stop 08/03/25 at 22:58; Status DC Vancomycin HCl 1 gm ONCE ONCE IV Last administered on 08/04/25at 00:06; Start 08/03/25 at 23:30; Stop 08/03/25 at 23:36; Status DC Albuterol Sulfate 2.5 mg [id number] PRN IH; Start 08/03/25 at 23:30; Stop 09/02/25 at 23:29 Ipratropium [place] 0.5 mg [id number] IH Last administered on 08/05/25at 06:25; Start 08/04/25 at 00:00; Stop 09/03/25 at 00:00 Acetaminophen 650 mg Q6H PRN PO; Start 08/03/25 at 23:30; Stop 09/02/25 at 23:29 Acetaminophen 650 mg Q6H PRN RC Last administered on 08/04/25at 04:08; Start 08/03/25 at 23:30; Stop 09/02/25 at 23:29 Lactulose 20 gm Q6H PRN PO; Start 08/03/25 at 23:30; Stop 09/02/25 at 23:29 Docusate Sodium 100 mg BID PRN PO; Start 08/03/25 at 23:30; Stop 09/02/25 at 23:29 Ondansetron HCl 4 mg Q6H PRN IVP; Start 08/03/25 at 23:30; Stop 09/02/25 at 23:29 Insulin Human Regular INSULIN SLIDING SCAL... ACHS SQ; Start 08/04/25 at 07:30; Stop 09/03/25 at 07:29 Ketamine HCl 100 mg ONCE ONCE IM Last administered on 08/03/25at 23:43; Start 08/03/25 at 23:30; Stop 08/03/25 at 23:39; Status DC Propofol 1,000 mg PROTOCOL PRN IV; Start 08/03/25 at 23:30; Stop 08/03/25 at 23:39; Status DC Fentanyl Citrate 100 ml @ 2.5 mls/hr PROTOCOL IV; Start 08/03/25 at 23:30; Stop 08/03/25 at 23:39; Status DC Norepinephrine 250 ml @ 0 mls/hr PROTOCOL IV; Start 08/03/25 at 23:30; Stop 08/03/25 at 23:39; Status DC Fentanyl/Sodium Chloride 250 ml @ 0.1 mls/hr PROTOCOL IV Last administered on 08/05/25at 08:12; Start 08/03/25 at 23:30; Stop 08/08/25 at 23:29 Propofol 1,000 mg PROTOCOL PRN IV Last administered on 08/05/25at 07:32; Start 08/03/25 at 23:30; Stop 09/02/25 at 23:29 Levofloxacin/ Dextrose 750 mg ONCE ONCE IV Last administered on 08/04/25at 02:13; Start 08/03/25 at 23:30; Stop 08/03/25 at 23:41; Status DC Norepinephrine 250 ml @ 37.425 mls/ hr PROTOCOL IV Last administered on 08/04/25at 14:11; Start 08/03/25 at 23:30; Stop 08/04/25 at 14:18; Status DC Levofloxacin/ Dextrose 100 ml @ 100 mls/hr Q48H IV; Start 08/05/25 at 23:00; Stop 08/04/25 at 16:22; Status DC Vasopressin 20 units STK-MED ONCE .ROUTE; Start 08/04/25 at 04:24; Stop 08/04/25 at 04:24; Status DC Vasopressin 20 units/Sodium Chloride 100 ml @ 0 mls/hr PROTOCOL IV Last administered on 08/05/25at 04:10; Start 08/04/25 at 05:00; Stop 09/03/25 at 04:59 Vancomycin HCl 1 each AD IV; Start 08/04/25 at 13:30; Stop 08/18/25 at 13:29 Albumin Human 50 ml @ 0 mls/hr AD ONCE IV; Start 08/04/25 at 13:30; Stop 08/04/25 at 13:47; Status DC Thiamine HCl 100 mg DAILY IVP; Start 08/05/25 at 09:00; Stop 09/04/25 at 08:59 Vancomycin HCl 250 ml @ 125 mls/hr ONCE ONCE IV; Start 08/04/25 at 14:00; Stop 08/04/25 at 13:33; Status DC Vancomycin HCl 750 mg [id number] IVPB Last administered on 08/04/25at 21:07; Start 08/04/25 at 16:00; Stop 08/14/25 at 15:59 Norepinephrine Bitartrate as protocol PROTOCOL IV Last administered on 08/04/25at 17:01; Start 08/04/25 at 14:30; Stop 09/03/25 at 14:29 Pharmacy Profile Note 1 each ONCE MISC; Start 08/04/25 at 15:30; Stop 08/04/25 at 16:16; Status DC Meropenem 500 mg Q24H IVPB Last administered on 08/04/25at 21:07; Start 08/04/25 at 16:30; Stop 08/14/25 at 16:29 Sodium Chloride 250 ml @ 0 mls/hr AD IV; Start 08/04/25 at 17:00; Stop 09/03/25 at 16:59 Albumin Human 100 ml ONCE IV; Start 08/04/25 at 17:00; Stop 08/05/25 at 16:59 Sodium Chloride 1,000 ml @ 0 mls/hr ONCE IV; Start 08/04/25 at 17:00; Stop 09/03/25 at 16:59 Dextrose 50 ml ONCE ONCE IV; Start 08/05/25 at 09:00; Stop 08/05/25 at 09:01; Status DC Insulin Human Regular 10 unit ONCE ONCE IV; Start 08/05/25 at 09:00; Stop 08/05/25 at 09:01; Status DC RUMA CLEMENTS MD Aug 05, 2025 09:28
--- NOTE | 2025-08-05 12:03 | NUR ---
[facility] ICU Skin Assessment: Patient assessed by wound healing team. Patient with no wounds or skin breakdown noted. Assessment and recommendations provided to primary nurse. Education provided. Addendum: 08/05/25 at 1648 by JOHN CONTEH RN RN/ Amended: Links added.
--- NOTE | 2025-08-05 12:40 | NUR ---
pATIENT WOKE UP AND WAS TACHY AND BP IN THE HIGH 160'S, DR. VALENCIA SAW THE PATIENT AND ORDERED TO SEDARE HER BACK.
--- NOTE | 2025-08-05 13:25 | NUR ---
pulled the wrong concentration of levophed from [facility] . Med was wasted in the med disposal in the med room and was witnessed by DEVYN Bryson. Mikayla pruett [facility] was made aware.
--- NOTE | 2025-08-05 14:49 | PN ---
NEPHROLOGY PROGRESS NOTE Date/Time Patient Seen: Aug 05, 2025 SUBJECTIVE: This is an 79-year-old female with a past medical history of end-stage renal disease on hemodialysis Sunday, hypertension, cancer, coronary artery disease, anemia. She presented to the emergency room with complaints of shortness of breath, cough, fever and chills. She was intubated in the emergency room and transferred to the ICU. She continues to be intubated and sedated Continues to require multiple vasopressors to maintain blood pressure. Blood cultures are positive for Gram-positive cocci She has been started on antibiotics. Imaging studies were noted. Dialysis was done yesterday She was seen in the ICU, intubated and sedated Multiple family members at the bedside Condition is critical and guarded REVIEW OF SYSTEMS: Difficult to obtain given status of the patient who remains intubated mechanically ventilated Vital Signs (last 8hr) Date Time Temp Pulse Resp B/P (MAP) Pulse Ox O2 Delivery O2 Flow Rate FiO2 08/05/25 14:43 97 40 08/05/25 14:10 96 20 103/51 (68) 98 08/05/25 14:05 96 22 100/50 (67) 98 08/05/25 14:00 97 20 106/53 (70) 97 08/05/25 13:55 95 20 84/42 (56) 91 08/05/25 13:50 96 14 77/39 (52) 89 08/05/25 13:45 96 13 80/46 (57) 95 08/05/25 13:40 94 11 73/34 (47) 95 08/05/25 13:35 97 13 73/30 (44) 91 08/05/25 13:33 96 14 75/34 (48) 90 08/05/25 13:25 97 12 75/35 (48) 95 08/05/25 13:20 99.7 08/05/25 13:18 82/44 08/05/25 13:10 98 12 75/38 (50) 93 08/05/25 13:06 98 12 80/38 (52) 95 08/05/25 12:55 102 13 82/44 (57) 92 08/05/25 12:40 116 26 104/37 (59) 96 08/05/25 12:25 103 24 85/47 (60) 94 08/05/25 12:10 115 21 166/136 (146) 95 08/05/25 12:06 107 40 08/05/25 11:55 120 20 169/94 (119) 96 08/05/25 11:50 102 17 08/05/25 11:40 115 15 126/93 (104) 96 08/05/25 11:25 95 94/47 (63) 93 08/05/25 11:10 96 14 92/47 (62) 94 08/05/25 10:55 98 15 107/51 (69) 95 08/05/25 10:40 94 14 119/53 (75) 97 08/05/25 10:25 95 13 118/53 (74) 96 08/05/25 10:20 98 40 08/05/25 10:10 96 17 112/53 (72) 96 08/05/25 09:55 97 15 99/48 (65) 95 08/05/25 09:40 101 14 100/52 (68) 95 08/05/25 09:25 101 17 83/45 (58) 95 08/05/25 09:10 99 20 96/46 (63) 95 08/05/25 08:55 97 14 103/52 (69) 95 08/05/25 08:40 99 15 104/50 (68) 96 08/05/25 08:25 97 12 113/51 (71) 95 08/05/25 08:10 97 12 113/49 (70) 98 08/05/25 08:00 96 Ventilator+ 40 08/05/25 07:44 99.5 08/05/25 07:40 99 12 107/51 (69) 98 08/05/25 07:25 100 12 115/53 (73) 98 08/05/25 07:10 96 12 114/56 (75) 98 PHYSICAL EXAM: General: acutely ill, sedated, intubated, and mechanically ventilated HEENT: head is atraumatic, pupils equal and reactive, ET tube in place Neck: supple, no masses, no lymphadenopathy, no thyromegaly, no JVD Lungs: decreased breath sounds bilaterally, symmetrical chest movement Cardio: regular rate, S1 and S2 normal, no rub or gallop Abdomen: soft, non tender, no distension, no organomegaly Extremities: trace edema bilateral lower extremities, no cyanosis or clubbing Skin: no rashes or suspicious lesions Neuro: sedated Current Medications Medications (Trade) Dose Ordered Sig/Benito Route Start Time Stop Time Status Last Admin Dose Admin Albumin Human (Albumin (Human) 25%) 100 ml ONCE IV 08/04/25 17:00 08/05/25 16:59 Fentanyl Citrate 100 ml @ 2.5 mls/hr PROTOCOL IV 08/03/25 23:30 08/03/25 23:39 DC Fentanyl/Sodium Chloride 250 ml @ 0.1 mls/hr PROTOCOL IV 08/03/25 23:30 08/08/25 23:29 08/05/25 08:12 0.1 MLS/HR Heparin Sodium (Porcine) (HEParin 5,000 UNIT VIAL) 5,000 unit Q12H SQ 08/05/25 12:00 09/04/25 11:59 UNV Insulin Human Regular (humuLIN R 100 UNIT/ML 3ML) INSULIN SLIDING SCAL... ACHS SQ 08/04/25 07:30 09/03/25 07:29 08/05/25 12:40 8 UNIT Ipratropium Seibert (AtrovENT UD) 0.5 mg [id number] IH 08/04/25 00:00 09/03/25 00:00 08/05/25 11:50 0.5 MG Levofloxacin/ Dextrose 100 ml @ 100 mls/hr Q48H IV 08/05/25 23:00 08/04/25 16:22 DC Meropenem (Merrem 500mg) 500 mg Q24H IVPB 08/04/25 16:30 08/14/25 16:29 08/04/25 21:07 500 MG Norepinephrine 250 ml @ 37.425 mls/ hr PROTOCOL IV 08/03/25 23:30 08/04/25 14:18 DC 08/04/25 14:11 37.425 MLS/HR Norepinephrine 250 ml @ 0 mls/hr PROTOCOL IV 08/03/25 23:30 08/03/25 23:39 DC Norepinephrine Bitartrate (Norepineph 16 Mg/250ml NS Premix) as protocol PROTOCOL IV 08/04/25 14:30 09/03/25 14:29 08/05/25 13:18 16 MG Pantoprazole Sodium (PROTonix 40MG INJ) 40 mg DAILY IVP 08/06/25 09:00 09/05/25 08:59 Pharmacy Profile Note (Pharmacy Communication) 1 each ONCE MISC 08/04/25 15:30 08/04/25 16:16 DC Sodium Chloride 250 ml @ 0 mls/hr AD IV 08/04/25 17:00 09/03/25 16:59 Sodium Chloride 1,000 ml @ 0 mls/hr ONCE IV 08/04/25 17:00 09/03/25 16:59 Thiamine HCl (Vitamin B-1) 100 mg DAILY IVP 08/05/25 09:00 09/04/25 08:59 08/05/25 09:07 100 MG Vancomycin HCl (Vancomycin 750mg) 750 mg TTHSPHD IVPB 08/04/25 16:00 08/14/25 15:59 08/04/25 21:07 750 MG Vancomycin HCl (Vancomycin Protocol) 1 each AD IV 08/04/25 13:30 08/18/25 13:29 Vasopressin 20 units/Sodium Chloride 100 ml @ 0 mls/hr PROTOCOL IV 08/04/25 05:00 09/03/25 04:59 08/05/25 04:10 9 MLS/HR LABORATORY: [ ] Hematology Labs: Test 08/05/25 03:55 08/03/25 22:22 Range/Units White Blood Count 12.7 #H 4.8-10.8 K/uL Red Blood Count 3.51 L 4.00-5.50 MIL/uL Hemoglobin 10.9 L 12.0-16.0 g/dL Hematocrit 33.3 L 36-48 % Mean Corpuscular Volume 94.9 79-99 fL Mean Corpuscular Hemoglobin 31.1 27.0-33.0 pg Mean Corpuscular Hemoglobin Concent 32.7 32.0-36.0 g/dL Red Cell Distribution Width 13.8 11.0-15.5 % Platelet Count 78 #L 130-400 K/uL Mean Platelet Volume 10.9 H 7.5-10.5 fL Segmented Neutrophils % 48 40-70 % Band Neutrophils % 41 H 0-2 % Lymphocytes % (Manual) 4 L 22-44 % Monocytes % (Manual) 3 2-9 % Eosinophils % (Manual) 3 1-6 % Metamyelocytes % 1 H 0-0 % Nucleated Red Blood Cells 0.0 0.0-0.19 % Differential Comment MANUAL DIFFERENTIAL White Cell Morphology Comment Platelet Morphology Comment DECREASED Red Blood Cell Morphology ANISO 1+ Immature Granulocyte % (Auto) 0.7 0-1 % Neutrophils (%) (Auto) 95.7 H 40.0-77.0 % Lymphocytes (%) (Auto) 0.7 L 21.0-51.0 % Monocytes (%) (Auto) 1.9 L 3.0-13.0 % Eosinophils (%) (Auto) 0.8 0.0-8.0 % Basophils (%) (Auto) 0.2 0.0-5.0 % Neutrophils # (Auto) 8.8 H 1.8-7.7 K/uL Lymphocytes # (Auto) 0.1 L 1.0-4.8 K/uL Monocytes # (Auto) 0.2 0.1-1.0 K/uL Eosinophils # (Auto) 0.07 0.00-0.70 K/uL Basophils # (Auto) 0.02 0.00-0.20 K/uL Absolute Immature Granulocyte (auto 0.06 0-1 K/uL Chemistry Labs: Test 08/05/25 12:15 08/05/25 09:40 08/05/25 03:55 08/04/25 06:04 Range/Units Whole Blood Glucose 237 H 70-110 MG/DL Total Creatine Kinase 1570 #*H 21-232 U/L Troponin I High Sensitivity 676 *H 4-50 ng/L Sodium Level 136 136-145 mmol/L Potassium Level 5.3 H 3.5-5.1 mmol/L Chloride Level 96 L 101-111 mmol/L Carbon Dioxide Level 25 21-32 mmol/L Blood Urea Nitrogen 55 #H 7-18 mg/dL Creatinine 6.8 H 0.5-1.0 mg/dL Glomerular Filtration Rate Calc 6 >90 mL/min Random Glucose 168 H 70-105 mg/dL Total Calcium 7.0 L 8.5-10.1 mg/dL Phosphorus Level 5.1 #H 2.5-4.9 mg/dL Magnesium Level 1.70 L 1.80-2.40 mg/dL Total Bilirubin 2.0 H 0.2-1.0 mg/dL Aspartate Amino Transf (AST/SGOT) 199 H 10-37 U/L Alanine Aminotransferase (ALT/SGPT) 115 H 12-78 U/L Alkaline Phosphatase 179 H 50-136 U/L Total Protein 5.7 L 6.0-8.3 g/dL Albumin 2.3 L 3.5-5.0 g/dL Lactic Acid Level 3.3 H 0.8-2.5 mmol/L Test 08/04/25 06:02 08/03/25 22:22 Range/Units Hemoglobin A1c 8.7 H 4.0-6.0 % Estimated Average Glucose (eAG) 203 H 70-126 mg/dL B-Type Natriuretic Peptide 3080 H 0-100 pg/mL Thyroid Stimulating Hormone (TSH) 0.74 # 0.36-3.74 uIU/mL Direct Bilirubin 0.3 0.0-0.3 mg/dL DIAGNOSTICS / RADIOLOGY: [place] [id number] [address] IMAGING REPORT Signed PATIENT: ANDREI RODRÍGUEZ MR#: [id number] : 1945 SEX: F AGE: 79 LOCATION: [facility] ORDER 13 STATUS: ADM IN REPORT#: [id number] SERVICE 09 REASON: respiratory failure ORDERING PHYSICIAN: EMERY RODRIGUEZ PROCEDURE: ECHO CMP - ECHO 2-D COMPLETE APPROVED REPORT EXAM: Two-dimensional and M-mode echocardiogram with Doppler and color Doppler. INDICATION ICD: Respiratory failure 2D Dimensions RVDd 4.0 cm LVEF(%) 50.2 (>50%) LVED Vol(simp.) 88.5 mL IVSd 1.2 (0.7-1.1cm) FS(%) 25 % LVES Vol(simp.) 47.5 mL LVDd 4.1 (3.8-5.6cm) LA (2D) 4.3 (1.6-4.0cm) LVEF(%, simp.) 46 % PWd 1.2 (0.7-1.1cm) Ao Root(2D) 2.9 (2.0-3.7cm) LA ESV INDEX (BP) 30.04 mL/m2 LVDs 3.1 (2.5-4.0cm) LVOT diam 1.9 (1.8-2.4cm) IVC diam 2.2 cm Deformation Strain Apical 4 -8.9 % Apical 2 -7.6 % Apical 3 -8.1 % Global Strain -8.2 % M-Mode Dimensions EPSS 1.2 cm LA (MM) 4.2 (1.6-4.0cm) Ao Root(MM) 3.2 (2.0-3.7cm) Aortic Valve AoV Vmax 3.5 m/s Ao Peak GR 49.3 mmHg LVOT Vmax 1.0 m/s AoV VTI 0.7 m Ao Mean GR 31.8 mmHg LVOT VTI 0.19 m MARIAELENA (VMAX) 0.79 cm2 MARIAELENA (VTI) 0.8 cm2 Mitral Valve MV E Vmax 82.3 cm/s DECEL Time 304 ms MV Peak GR 7 mmHg MV A Vmax 121.0 cm/s P 1/2 T 75 ms MV Mean GR 3 mmHg E/A ratio 0.7 MVA (PHT) 2.9 cm2 MVA (VTI) 1.41 cm2 TDI E/E' Medial 24.0 E/E' Lateral 11.6 Medial E' Peak V 3.43 cm/s Lateral E' Peak V 7.07 cm/s Pulmonary Valve PV Vmax 1.4 m/s PV VTI 0.25 m PV Mean GR 3.4 mmHg PV Peak GR 7.4 mmHg Tricuspid Valve TR Vmax 2.5 m/s RAP (EST) 15 mmHg RVSP 41.3 mmHg TR Peak GR 26.3 mmHg Left Ventricle The left ventricle is normal size. GLS -8.0%. Apical septal bounce. Apical severe hypokinesis. Mild concentric left ventricular hypertrophy. LVEF is 40- 45%. Stage I diastolic dysfunction. Right Ventricle The right ventricle is normal size. The right ventricular systolic function is normal. Atria The left atrium size is normal. The right atrium size is normal. Aortic Valve The aortic valve is trileaflet, heavily calcified, and shows severely restricted opening. Trace of aortic regurgitation is present. There is severe aortic valvular stenosis. Peak AV gradient is 48 mmHg; mean AV gradient is 32 mmHg; and AV area is 0.7 cm. Mitral Valve Mild posterior annular calcification noted. There is trace of mitral valve regurgitation noted. There is no mitral valve stenosis. Tricuspid Valve The tricuspid valve is normal in structure. There is trace of tricuspid valve regurgitation noted. Pulmonic Valve The pulmonary valve is normal in structure. There is mild pulmonic valvular regurgitation. Great Vessels The aortic root is normal in size. IVC is dilated and collapses <50% with insp iration. Pericardium There is no pericardial effusion. Other Information Quality : Adequate Conclusion The left atrium size is normal. Mild concentric left ventricular hypertrophy. GLS -8.0%. Early relaxation at the LV apex. Apical septal bounce. Apical severe hypokinesis. LVEF is 40-45%. Stage I diastolic dysfunction. The aortic valve is trileaflet, heavily calcified, and shows severely restricted opening. There is severe aortic valvular stenosis. Peak AV gradient is 48 mmHg; mean AV gradient is 32 mmHg; and AV area is 0.7 cm. DICTATED BY: GABRIEL CHINCHILLA MD DATE: 08/04/25 1015 ELECTRONICALLY SIGNED BY: GABRIEL CHINCHILLA MD DATE: 08/04/25 8051 PATIENT: ANDREI RODRÍGUEZ MR#: [id number] : 1945 SEX: F AGE: 79 LOCATION: [facility] ORDER 1306 STATUS: ADM IN REPORT#: [id number] SERVICE 1304 REASON: repositioning of picc line ORDERING PHYSICIAN: ALONDRA DESHPANDE PROCEDURE: CXR1VW - CHEST 1VW EXAM: XR Chest, 3 View(s). CLINICAL HISTORY: 79-year-old female repositioning of PICC line. COMPARISON: Compared to XR chest from 08/03/2025 at 11:14 PM, similar findings are noted. FINDINGS: LUNGS: Minimal pulmonary vascular congestion. PLEURAL SPACES: No pleural effusion or pneumothorax. HEART: The heart size is normal. BONES: No acute osseous abnormality. IMPRESSION: 1. PICC line in a satisfactory position. 2. Minimal pulmonary vascular congestion, similar to prior study. 3. Similar findings compared to XR chest from 08/03/2025 at 11:14 PM. /[place] DICTATED BY: OSCAR SMITH MD DATE: 08/04/251946 ELECTRONICALLY SIGNED BY: OSCRA SMITH MD DATE: 08/04/251946 PATIENT: ANDREI RODRÍGUEZ MR#: [id number] : 1945 SEX: F AGE: 79 LOCATION: [facility] ORDER 1230 STATUS: ADM IN REPORT#: [id number] SERVICE 1229 REASON: PICC LINE INSERTION ORDERING PHYSICIAN: ALONDRA DESHPANDE PROCEDURE: CXR1VW - CHEST 1VW EXAM: CR Chest, 2 View. CLINICAL HISTORY: PICC LINE INSERTION COMPARISON: Radiograph dated August 04, 2025 Findings: AP view of the chest is submitted. Endotracheal and enteric tubes are in satisfactory positions. Right PICC terminates overlying the proximal right atrium. There is no pneumothorax appreciated. Relatively unchanged bilateral perihilar and bibasilar airspace disease. No pleural effusion. Heart size is stable. Mild central pulmonary vascular congestion. IMPRESSION: 1. Right PICC line terminates overlying the proximal right atrium. 2. Bilateral perihilar and bibasilar airspace disease, unchanged, with mild central pulmonary vascular congestion. /[place] DICTATED BY: EREN YANES Jr., MD DATE: 08/04/251503 ELECTRONICALLY SIGNED BY: EREN YANES Jr., MD DATE: 08/04/251503 PATIENT: ANDREI RODRÍGUEZ MR#: [id number] : 1945 SEX: F AGE: 79 LOCATION: [facility] ORDER 231 STATUS: ADM IN REPORT#: [id number] SERVICE 231 REASON: ET TUBE PLACEMENT RECHECK ORDERING PHYSICIAN: MANSOOR CLEVELAND MD PROCEDURE: CXR1VW - CHEST 1VW EXAM: CR Chest, 1 view CLINICAL HISTORY: Endotracheal tube. COMPARISON: Chest radiograph from the same date. FINDINGS: The endotracheal tube tip is 1.7 cm above the maru. The gastric tube tip is probably around the distal stomach. Stable mild cardiomegaly and pulmonary vascular congestion. No pleural effusion or pneumothorax. No acute osseous abnormality. Surgical clips in the right and left chest wall. Surgical clips in the right upper quadrant of the abdomen. IMPRESSION: The endotracheal tube tip is 1.7 cm above the maru. The gastric tube tip is probably around the distal stomach. Stable mild cardiomegaly and pulmonary vascular congestion. /[place] DICTATED BY: EREN YANES Jr., MD DATE: 08/04/25117 ELECTRONICALLY SIGNED BY: EREN YANES Jr., MD DATE: 08/04/25117 PATIENT: ANDREI RODRÍGUEZ MR#: [id number] : 1945 SEX: F AGE: 79 LOCATION: [facility] ORDER 45 STATUS: ADM IN REPORT#: [id number] SERVICE 44 REASON: S/P INTUBATION ORDERING PHYSICIAN: MANSOOR CLEVELAND MD PROCEDURE: CXR1VW - CHEST 1VW EXAM: CR Chest, 1 view CLINICAL HISTORY: Endotracheal tube. COMPARISON: Chest radiograph dated 07/30/2025. FINDINGS: The endotracheal tube tip terminates within the right main bronchus, recommend at least 5 cm retrieval of the endotracheal tube. The gastric tube tip is probably around the distal stomach. Stable mild cardiomegaly and pulmonary vascular congestion. No pleural effusion or pneumothorax. No acute osseous abnormality. Surgical clips in the right chest wall. IMPRESSION: The endotracheal tube tip terminates within the right main bronchus, recommend at least 5 cm retrieval of the endotracheal tube. The gastric tube tip is probably around the distal stomach. Stable mild cardiomegaly and pulmonary vascular congestion. /[place] DICTATED BY: EREN YANES Jr., MD DATE: 08/04/25116 ELECTRONICALLY SIGNED BY: EREN YANES Jr., MD DATE: 09/30/25 0117 ASSESSMENT: ESRD Hyperkalemia Fluid overload Acute respiratory failure, in need of emergent intubation Sepsis with septic shock, POA, in need of pressors Pneumonia Pulmonary vascular congestion LVEF 55-60%, stage I diastolic dysfunction, moderate left ventricular hypertrophy, per echo on 01/17/2025 Left atrium mildly dilated, posterior mitral valve annular calcification, per echo on 01/18/2024 Lactic acidosis Elevated troponin Electrolyte derangement (hypokalemia, hypochloremia, hypocalcemia) Elevated ALK PHOS Hypoalbuminemia Diabetes mellitus History of cancer Hypertension, currently hypotensive PLAN: Labs and Diagnostics/ Radiology personally reviewed and interpreted by myself and supervising physician We have reviewed dialysis and external records in detail. Continue with dialysis schedule Sunday Continue with the antibiotics Continue with mechanical ventilation and sedation Continue with the IV pressors Follow up blood culture results 1.5 L fluid restriction Continue with frequent monitoring of renal function, anemia, and electrolytes Order CBC, CMP, and electrolytes in the morning May use Dilaudid 0.5 mg IV every 6 hours as needed for severe pain Monitor blood pressure adjust medication doses as needed Maintain normotensive state Strict intake, output, and daily weight should be monitored Please renally adjust medications. Avoid nephrotoxics and nonsteroidal drugs. We will continue to monitor the patient closely We have discussed with the other team physicians in detail about the care plan Total critical care time spent with patient, nursing staff, critical care team over 35 minutes ATTESTATION BY PHYSICIAN I have seen and examined the patient. I reviewed the documentation, medical decision making, and treatment plan as noted by the mid-level provider above. I agree with the findings and plan of care. VIKA LONGO MD, [facility] Aug 05, 2025 14:49
[2025-08-05 16:07] LABS: HEPATITIS B CORE AB TOTAL Non-Reactive (Nonreactive); HEPATITIS B SURFACE ANTIBODY Negative (Reactive)
[2025-08-05] MEDS: MAGNESIUM 2GM PREMIX 50ML 50 ML IV PRN (18:34)
--- NOTE | 2025-08-05 19:20 | PN ---
NEPHROLOGY NOTE FOR HEMODIALYSIS DATE OF SERVICE: 08/04/2025 SUBJECTIVE: The patient has been tolerating dialysis somewhat poorly, but the patient has hypotension with no fevers, chills, or rigors. No cough, expectoration, or hemoptysis. No abdominal pain. The patient has been on pressor, intubated and mechanically vent. PROBLEMS: * Renal failure. * Anemia. * Multiple other comorbidities. PLAN: The patient is critically ill and plan is to continue dialysis support. Continue monitoring of renal function. Continue monitoring of electrolytes. Sepsis, being treated; septic shock; respiratory failure. Antibiotic continue. Elevated troponin. The patient has no other associated finding. Plan will be on dialysis in ICU, continue mechanical ventilation, antibiotic, and overall status monitoring. I have discussed with other team physicians and thank you for this patient. TID: [id number] RECEIPT: [id number]
--- NOTE | 2025-08-05 20:19 | HMCIMG ---
EXAM: XR Chest, 3 Views. CLINICAL HISTORY: 79-year-old female with a history of congestion and is intubated. COMPARISON: XR Chest dated 08/04/2025. FINDINGS: LUNGS: No consolidation. PLEURAL SPACES: Left lower lobe pleural effusion. HEART: The heart size is normal. BONES: No acute osseous abnormality. LINES AND TUBES: The endotracheal tube tip is 2.1 cm above the maru. The right upper extremity PICC line tip is in the SVC. IMPRESSION: 1. Left lower lobe pleural effusion, overall similar to prior XR Chest dated 08/04/2025. 2. Lines and tubes in satisfactory positioning. /[place]
[2025-08-06] VITALS (107 sets, daily range): BP systolic 78–184; BP diastolic 32–127; PULSE 81–142; RESP 12–50; TEMP 98.1–102.9; O2SAT 96–100
--- NOTE | 2025-08-06 02:27 | PN ---
SUBJECTIVE: The patient in the Intensive Care Unit, orally intubated, on IV antibiotics, inotropics. The patient was admitted for assessment and treatment of respiratory failure with hypoxemia. She was intubated, went into shock, was resuscitated with fluids as well as with inotropics. The patient is on hemodialysis. She is currently orally intubated, restless in bed, opens eyes, spontaneous movement of upper and lower extremities. OBJECTIVE: VITAL SIGNS: Blood pressure is 102/64. Pulse 98. Respiratory rate is 17. HEENT: Normocephalic, atraumatic. LUNGS: Lungs decreased breath sounds bilaterally. Heart: S1, S2 are distant. ABDOMEN: Prominent, soft, nontender. EXTREMITIES: No clubbing or cyanosis. LABORATORY DATA: WBC count 12.7, down from 17.8 yesterday, hemoglobin 10.9, platelets 78. Sodium 136, potassium 5.3, BUN 55, creatinine 6.8, glucose 168, AST 199, ALT 115. Latest troponin was 676, albumin 2.3. Chest x-ray on admission was reported as bilateral perihilar and bibasilar airspace disease with mild central pulmonary vascular congestion. Echocardiogram from yesterday was reported as with left ventricular ejection fraction 40-45%. Aortic valve is three leaflet, heavily calcified with severely restricted opening with an AV area of 0.7 square cm, AV gradient peak is 48, mean AV gradient is 32. ASSESSMENT AND PLAN: * Respiratory failure with hypoxemia. Orally intubated. Continue with ICU protocol. The patient might be able to be extubated in the next 24-48 hours. * Sepsis with septic shock. Continue with current inotropics, antibiotics. * End-stage renal disease on hemodialysis. Continue recommendations by Nephrology. * Severe aortic stenosis. Continue to monitor. * Chronic anemia. Continue to monitor. * Abnormal cardiac enzymes. Continue recommendation by Cardiology. * Follow up in a.m. with results. DOS: 08/05/2025 TID: [id number] RECEIPT: [id number]
[2025-08-06 05:26] LABS: NUCLEATED RED BLOOD CELLS 0.0 % (0.0-0.19); PLATELET COUNT (AUTO) 68 K/uL (130-400); RED BLOOD CELL COUNT(AUTO) 3.40 MIL/uL (4.00-5.50); RED CELL DISTRIBUTION WIDTH 13.7 % (11.0-15.5); WHITE BLOOD COUNT (AUTO) 20.6 K/uL (4.8-10.8)
[2025-08-06 05:44] LABS: GLOMERULAR FILTR. RATE CALC 4.0 mL/min (>90); GLUCOSE,RANDOM 261.0 mg/dL (70-105); PHOSPHORUS 4.6 mg/dL (2.5-4.9); SODIUM SERUM 134.0 mmol/L (136-145); TOTAL PROTEIN, SERUM 5.4 g/dL (6.0-8.3)
[2025-08-06 05:46] LABS: BAND NEUTROPHILS % (MANUAL) 23 % (0-2); EOSINOPHILS % (MANUAL) 4 % (1-6); LYMPHOCYTES % (MANUAL) 3 % (22-44); MAN.DIFF COMMENT-IMPRESSION MANUAL DIFFERENTIAL; SEGMENTED NEUTROPHILS % 70 % (40-70)
[2025-08-06 05:47] LABS: PLATELET MORPHOLOGY COMMENT DECREASED
[2025-08-06 05:57] LABS: CREATININE 8.6 mg/dL (0.5-1.0); UREA NITROGEN, BLOOD 85.0 mg/dL (7-18)
[2025-08-06 06:17] LABS: ASPARTATE AMINOTRANSFERASE 91.0 U/L (10-37)
--- NOTE | 2025-08-06 08:19 | HMCIMG ---
EXAM: CR Chest, 1 View. CLINICAL HISTORY: pn COMPARISON: 08/05. FINDINGS: LUNGS: Endotracheal tube adequately positioned below the maru. Multiple airspace opacities within the left lung. New compared to prior. PLEURAL SPACES: Small left pleural effusion. MEDIASTINUM: Cardiac size and mediastinal contours within normal limits. BONES: No acute osseous abnormality. MISCELLANEOUS: Enteric tube course below level of diaphragm, distal tip not within the [id number]. Right sided PICC. IMPRESSION: 1. New left lung airspace opacities, concerning for pneumonia. 2. Small left pleural effusion. 3. Endotracheal tube in adequate position. 4. Enteric tube extending below the diaphragm, tip not visualized. 5. Right-sided PICC line present. /[place]
--- NOTE | 2025-08-06 09:35 | PN ---
[facility] PROGRESS NOTE Date Patient Seen: Aug 06, 2025 Time of Visit: 09:28 Supervising Physician: Dr Yung Butler Primary Care Physician: Dr. Cohen Outpatient Specialists: Inpatient Consults: BIS, critical care team PROBLEM LIST: Acute hypoxic and hypercapnic respiratory failure-intubated patient, 2nd 2 volu me overload Sepsis with septic shock - Gram-positive cocci bacteremia Volume overload in a end-stage renal disease patient on hemodialysis Electrolyte imbalance Hyperkalemia LVEF 40-45%, diastolic dysfunction, 55-60% per echo on 01/17/2025 Hyperglycemia in a type 2 diabetic Morbid obesity INTERVAL HISTORY: Patient seen and examined, patient is remains intubated, patient remains on peep of 5, FiO2 is at 40% Patient's chest x-ray reveals continued congestion, possible pneumonia, we are pending repeat cultures She continues on the Merrem and vancomycin, we have blood cultures x2 both positive for Gram-positi Patient with a temperature of 101 overnight, responding to Tylenol Coming down on pressors, now just on low-dose levo, vaso has been turned off Patient going for hemodialysis today with a goal to pull 3 L Plan: Vent management, chest x-ray, ABG, s spontaneous breathing trials post hemodialysis today Continue to follow nephrology recommendations Continue to wean pressors Continue current antibiotics, following cultures Total critical care time 49 minutes, vent management and pressor support. Patient remains critical REVIEW OF SYSTEMS: Unable to obtain ROS from patient due to patient is intubated and sedated. PHYSICAL EXAM: GENERAL: Intubated and sedated HEENT: EOMI, Sclera non icteric, moist mucosa NECK: Supple, no JVD, trachea midline LUNGS: Diminished breath sounds bilaterally. No wheezes HEART: Regular rate and rhythm. Normal S1 and S2, without murmurs ABD: Abdomen soft, nontender. Bowel sounds present. Obese EXT: No clubbing cyanosis or edema NEURO: Intubated and sedated Vital Signs (last 8hr) Date Time Temp Pulse Resp B/P (MAP) Pulse Ox O2 Delivery O2 Flow Rate FiO2 08/06/25 09:16 155/64 08/06/25 08:30 99.0 08/06/25 06:53 91 18 08/06/25 06:47 91 40 08/06/25 06:15 93 16 103/48 (66) 97 08/06/25 06:00 102 12 100/48 (65) 97 08/06/25 05:45 104 13 102/47 (65) 98 08/06/25 05:30 108 50 132/63 (86) 08/06/25 05:15 108 14 104/54 (71) 98 08/06/25 05:00 108 14 113/54 (73) 97 08/06/25 04:45 107 17 111/54 (73) 98 08/06/25 04:30 108 15 108/55 (72) 98 08/06/25 04:15 108 13 99/50 (66) 98 08/06/25 04:00 98 Ventilator+ 50 08/06/25 04:00 98.2 107 14 108/48 (68) 98 08/06/25 03:45 107 16 111/52 (71) 98 08/06/25 03:33 106 40 08/06/25 03:30 106 13 109/51 (70) 98 08/06/25 03:25 106 13 109/51 (70) 98 08/06/25 03:15 107 22 102/44 (63) 100 08/06/25 03:00 101 14 104/46 (65) 97 08/06/25 02:45 102 14 86/40 (55) 96 08/06/25 02:30 102 14 78/38 (51) 97 08/06/25 02:15 103 14 86/40 (55) 96 08/06/25 02:00 99.0 105 18 87/45 (59) 96 08/06/25 01:45 105 14 86/40 (55) 95 08/06/25 01:30 106 24 91/43 (59) 97 LABS: Hematology Labs: Test 08/06/25 05:09 08/05/25 03:55 Range/Units White Blood Count 20.6 H 4.8-10.8 K/uL Red Blood Count 3.40 L 4.00-5.50 MIL/uL Hemoglobin 10.6 L 12.0-16.0 g/dL Hematocrit 32.2 L 36-48 % Mean Corpuscular Volume 94.7 79-99 fL Mean Corpuscular Hemoglobin 31.2 27.0-33.0 pg Mean Corpuscular Hemoglobin Concent 32.9 32.0-36.0 g/dL Red Cell Distribution Width 13.7 11.0-15.5 % Platelet Count 68 L 130-400 K/uL Mean Platelet Volume 10.8 H 7.5-10.5 fL Segmented Neutrophils % 70 40-70 % Band Neutrophils % 23 H 0-2 % Lymphocytes % (Manual) 3 L 22-44 % Eosinophils % (Manual) 4 1-6 % Nucleated Red Blood Cells 0.0 0.0-0.19 % Differential Comment MANUAL DIFFERENTIAL White Cell Morphology Comment See comments Platelet Morphology Comment DECREASED Red Blood Cell Morphology ANISO 1+ Monocytes % (Manual) 3 2-9 % Metamyelocytes % 1 H 0-0 % Chemistry Labs: Test 08/06/25 06:28 08/06/25 05:09 08/05/25 09:40 08/05/25 03:55 Range/Units Whole Blood Glucose 247 #H 70-110 MG/DL Sodium Level 134 L 136-145 mmol/L Potassium Level 5.5 H 3.5-5.1 mmol/L Chloride Level 96 L 101-111 mmol/L Carbon Dioxide Level 22 21-32 mmol/L Blood Urea Nitrogen 85 *H 7-18 mg/dL Creatinine 8.6 *H 0.5-1.0 mg/dL Glomerular Filtration Rate Calc 4 >90 mL/min Random Glucose 261 H 70-105 mg/dL Total Calcium 7.2 L 8.5-10.1 mg/dL Phosphorus Level 4.6 2.5-4.9 mg/dL Total Bilirubin 2.0 H 0.2-1.0 mg/dL Aspartate Amino Transf (AST/SGOT) 91 H 10-37 U/L Alanine Aminotransferase (ALT/SGPT) 76 12-78 U/L Alkaline Phosphatase 205 H 50-136 U/L Total Protein 5.4 L 6.0-8.3 g/dL Albumin 2.2 L 3.5-5.0 g/dL Total Creatine Kinase 1570 #*H 21-232 U/L Troponin I High Sensitivity 676 *H 4-50 ng/L Magnesium Level 1.70 L 1.80-2.40 mg/dL DIAGNOSTICS / RADIOLOGY RESULTS: [ ] PLAN NEURO: Minimize central acting medications as possible. Fall Precautions. Well lighted room through the day and minimize interruptions through the night to prevent acute delirium. PULMONARY: Supplemental 02 as needed Titrate Fio2 to keep Spo2 > or = 90% DuoNebs and CPT as needed IS hourly while awake for pulmonary hygiene Out of bed to chair as tolerated VAP Bundle Vent settings: FiO2 60%, RR 12, peep 5, tidal volume 450 mL CARDIOVASCULAR: Follow hemodynamics. Titrate vasopressor to keep MAP >65 or systolic blood pressure >95mmHg GI & NUTRITION: Continue nutritional support Aspirations precautions Prokinetic agents and laxatives as needed KIDNEYS & ELECTROLYTES: Strict monitoring of intake and output Daily weights Avoid nephrotoxic agents Monitor electrolytes and replace as needed Goal urine output of 30mL/hr or 0.5mL/kg/hr ENDOCRINE: Maintain blood glucose between 100-180 at all times. Insulin sliding scale for blood glucose management INFECTIOUS DISEASE: Trend temperature. Go-culture if febrile. HEMATOLOGY & COAGULATION: Monitor H&H. Keep Hgb > 7 Transfuse 1 unit of PRBC for Hgb < 7 Transfuse 1 pack of platelets of platelets < 20, 000 Watch for any signs and symptoms of bleeding SKIN: Pressure ulcer prevention per facility protocol Code Status: Full Resuscitation Disposition: ALONDRA DESHPANDE Aug 06, 2025 09:35
[2025-08-06] MEDS: ALBUMIN HUMAN 25% 100 ML IV PRN (11:27)
[2025-08-06] MEDS: MEROPENEM 500MG 500 MG VIAL IVPB SCH (12:58)
--- NOTE | 2025-08-06 14:03 | NUR ---
Nutrition consult per TF recs Reviewed labs, notes, and medications. Pt on ESRD on HD, pressor support, intubated, Nepro 20 ml/hr, FWF 100Q6H, b-complex, CO2 WNL, Na 134(L), K 5.5(H), elevated BUN 85, Cr 8.6, BG 247 (H), Ca 7.2(L), elevated bilirubin 2, elevated AST 91 per chart review. Pt on insulin, Nepro 20 ml/hr x 24 hrs, wt via bed scale, no edema, well nourished, no wounds, 3L output on HD 08/04/25 per nursing. Continue trickle feeds while Pt on pressors. Do NOT provide goal rate if Pt on pressors and CO2 not WNL. Trickle feeds provide 50% of Pt's caloric needs. Provide goal rate of Nepro 1.8 @40 ml/hr x 24 hrs + FWF 100Q6H: provides: 1728 kcals, 78, 1097 ml per day. Provide goal rate till Pt off pressors and CO2 WNL. If residual >500 ml stop TF for 2 hours and then restart if residual continues to be >500 ml stop TF and notify MD Recommendations -Provide Nepro 1.8 @ 20 ml/hr x 22 hrs + FWF 100 Q6H Provides: 864 kcals, 39 gm pro, 748 ml per day -Monitor BM -If no BM >3 days consider stool softener -Monitor electrolytes -Replenish electrolytes per protocol -Monitor wts -Reweigh as able -Order Vit D, vit b12 labs to rule out deficiencies -Provide Nephro-EDNA QD -Monitor HD output -Monitor TF tolerance + need for TF adjustment -Monitor goals of care RD to follow + available for consult per protocol Addendum: 08/06/25 at [address] Amended: Links added.
--- NOTE | 2025-08-06 17:39 | PN ---
Acute myocardial infarct versus takotsubo syndrome Recent EF 65-70% with moderate aortic stenosis, DVI 0.27, current EF 40-45% with apical akinesia, DVI 0.27 Sepsis Renal failure is chronic; patient has been on dialysis and tolerated it well for 19 months according to her Acute respiratory failure Diabetes Hypertension Gastroesophageal reflux Gallstones Patient is still unable to communicate. Chest x-ray shows worsening infiltrates. Previously there were central hilar infiltrates but now extensive infiltrates on the left side. Dialysis is tolerated and 2.3 L fluid was removed in the last three. Although chest x-ray shows progressive infiltrates on the left, I do not appreciate any rales or rhonchi on either side and all zazueta are well aerated. S1 and S2 are diminished in intensity and there is a 2/6 aortic outflow murmur, but rhythm is stable and regular. I discussed the gravity of this illness with the patient's and son. I advised them that renal failure complicates other aspects of her care and respiratory failure is difficult to tree with concurrent heart failure and pneumonia, but aspiration pneumonia is common in the circumstance and can be treated. I made them aware that cardiac status is not so severe that by itself with limit her survival, and that fortunately we are able to support her with medication, ventilator support, and dialysis as we observe for signs of potential improvement. Vitals/Labs Vital Signs Date Time Temp Pulse Resp B/P (MAP) Pulse Ox O2 Delivery O2 Flow Rate FiO2 08/06/25 16:01 100.6 08/06/25 14:51 86 40 08/06/25 12:45 18 145/72 100 Ventilator 08/04/25 06:39 15 Laboratory Tests 08/06/25 05:09 Medications Current Medications Albuterol 2 udvial ONCE ONCE IH Last administered on 08/03/25at 23:50; Start 08/03/25 at 22:30; Stop 08/03/25 at 22:31; Status DC Albuterol 1 udvial STK-MED ONCE IH; Start 08/03/25 at 22:17; Stop 08/03/25 at 22:18; Status DC Acetaminophen 1,000 mg ONCE ONCE PO; Start 08/03/25 at 23:00; Stop 08/03/25 at 23:01; Status DC Fentanyl Citrate 100 ml @ As Directed STK-MED ONCE IV; Start 08/03/25 at 22:46; Stop 08/03/25 at 22:46; Status DC Ketamine HCl 50 mg STK-MED ONCE .ROUTE; Start 08/03/25 at 22:47; Stop 08/03/25 at 22:47; Status DC Rocuronium [place] 50 mg STK-MED ONCE .ROUTE Last administered on 08/03/25at 23:34; Start 08/03/25 at 22:47; Stop 08/03/25 at 22:47; Status DC Propofol 100 ml @ As Directed STK-MED ONCE IV; Start 08/03/25 at 22:50; Stop 08/03/25 at 22:50; Status DC Norepinephrine 250 ml @ As Directed STK-MED ONCE IV; Start 08/03/25 at 22:58; Stop 08/03/25 at 22:58; Status DC Vancomycin HCl 1 gm ONCE ONCE IV Last administered on 08/04/25at 00:06; Start 08/03/25 at 23:30; Stop 08/03/25 at 23:36; Status DC Albuterol Sulfate 2.5 mg [id number] PRN IH; Start 08/03/25 at 23:30; Stop 09/02/25 at 23:29 Ipratropium [place] 0.5 mg [id number] IH Last administered on 08/06/25at 11:52; Start 08/04/25 at 00:00; Stop 09/03/25 at 00:00 Acetaminophen 650 mg Q6H PRN PO Last administered on 08/06/25at 00:40; Start 08/03/25 at 23:30; Stop 09/02/25 at 23:29 Acetaminophen 650 mg Q6H PRN RC Last administered on 08/04/25at 04:08; Start 08/03/25 at 23:30; Stop 09/02/25 at 23:29 Lactulose 20 gm Q6H PRN PO; Start 08/03/25 at 23:30; Stop 09/02/25 at 23:29 Docusate Sodium 100 mg BID PRN PO; Start 08/03/25 at 23:30; Stop 09/02/25 at 23:29 Ondansetron HCl 4 mg Q6H PRN IVP; Start 08/03/25 at 23:30; Stop 09/02/25 at 23:29 Insulin Human Regular INSULIN SLIDING SCAL... ACHS SQ Last administered on 08/06/25at 06:34; Start 08/04/25 at 07:30; Stop 09/03/25 at 07:29 Ketamine HCl 100 mg ONCE ONCE IM Last administered on 08/03/25at 23:43; Start 08/03/25 at 23:30; Stop 08/03/25 at 23:39; Status DC Propofol 1,000 mg PROTOCOL PRN IV; Start 08/03/25 at 23:30; Stop 08/03/25 at 23:39; Status DC Fentanyl Citrate 100 ml @ 2.5 mls/hr PROTOCOL IV; Start 08/03/25 at 23:30; Stop 08/03/25 at 23:39; Status DC Norepinephrine 250 ml @ 0 mls/hr PROTOCOL IV; Start 08/03/25 at 23:30; Stop 08/03/25 at 23:39; Status DC Fentanyl/Sodium Chloride 250 ml @ 0.1 mls/hr PROTOCOL IV Last administered on 08/06/25at 13:11; Start 08/03/25 at 23:30; Stop 08/08/25 at 23:29 Propofol 1,000 mg PROTOCOL PRN IV Last administered on 08/06/25at 09:47; Start 08/03/25 at 23:30; Stop 09/02/25 at 23:29 Levofloxacin/ Dextrose 750 mg ONCE ONCE IV Last administered on 08/04/25at 02:13; Start 08/03/25 at 23:30; Stop 08/03/25 at 23:41; Status DC Norepinephrine 250 ml @ 37.425 mls/ hr PROTOCOL IV Last administered on 08/04/25at 14:11; Start 08/03/25 at 23:30; Stop 08/04/25 at 14:18; Status DC Levofloxacin/ Dextrose 100 ml @ 100 mls/hr Q48H IV; Start 08/05/25 at 23:00; Stop 08/04/25 at 16:22; Status DC Vasopressin 20 units STK-MED ONCE .ROUTE; Start 08/04/25 at 04:24; Stop 08/04/25 at 04:24; Status DC Vasopressin 20 units/Sodium Chloride 100 ml @ 0 mls/hr PROTOCOL IV Last administered on 08/05/25at 04:10; Start 08/04/25 at 05:00; Stop 09/03/25 at 04:59 Vancomycin HCl 1 each AD IV; Start 08/04/25 at 13:30; Stop 08/18/25 at 13:29 Albumin Human 50 ml @ 0 mls/hr AD ONCE IV; Start 08/04/25 at 13:30; Stop 08/04/25 at 13:47; Status DC Thiamine HCl 100 mg DAILY IVP Last administered on 08/06/25at 12:58; Start 08/05/25 at 09:00; Stop 09/04/25 at 08:59 Vancomycin HCl 250 ml @ 125 mls/hr ONCE ONCE IV; Start 08/04/25 at 14:00; Stop 08/04/25 at 13:33; Status DC Vancomycin HCl 750 mg [id number] IVPB Last administered on 08/06/25at 15:25; Start 08/04/25 at 16:00; Stop 08/14/25 at 15:59 Norepinephrine Bitartrate as protocol PROTOCOL IV Last administered on 08/06/25at 09:16; Start 08/04/25 at 14:30; Stop 09/03/25 at 14:29 Pharmacy Profile Note 1 each ONCE MISC; Start 08/04/25 at 15:30; Stop 08/04/25 at 16:16; Status DC Meropenem 500 mg Q24H IVPB Last administered on 08/05/25at 15:56; Start 08/04/25 at 16:30; Stop 08/06/25 at 07:37; Status DC Sodium Chloride 250 ml @ 0 mls/hr AD IV; Start 08/04/25 at 17:00; Stop 09/03/25 at 16:59 Albumin Human 100 ml ONCE IV; Start 08/04/25 at 17:00; Stop 08/05/25 at 16:59; Status DC Sodium Chloride 1,000 ml @ 0 mls/hr ONCE IV; Start 08/04/25 at 17:00; Stop 09/03/25 at 16:59 Dextrose 50 ml ONCE ONCE IV Last administered on 08/05/25at 09:12; Start 08/05/25 at 09:00; Stop 08/05/25 at 09:01; Status DC Insulin Human Regular 10 unit ONCE ONCE IV Last administered on 08/05/25at 09:21; Start 08/05/25 at 09:00; Stop 08/05/25 at 09:01; Status DC Pantoprazole Sodium 40 mg DAILY IVP Last administered on 08/06/25at 12:59; Start 08/06/25 at 09:00; Stop 09/05/25 at 08:59 Heparin Sodium (Porcine) 5,000 unit Q12H SQ; Start 08/05/25 at 12:00; Stop 08/05/25 at 16:11; Status DC Heparin Sodium (Porcine) 5,000 unit Q12H SQ Last administered on 08/06/25at 04:46; Start 08/05/25 at 16:00; Stop 08/06/25 at 07:37; Status DC Magnesium Sulfate 50 ml @ 0 mls/hr PROTOCOL PRN IV Last administered on 08/05/25at 18:34; Start 08/05/25 at 17:30; Stop 09/04/25 at 17:29 Heparin Sodium (Porcine) 5,000 unit Q12H9 SQ; Start 08/06/25 at 21:00; Stop 09/04/25 at 20:59 Meropenem 500 mg DAILY IVPB Last administered on 08/06/25at 12:58; Start 08/06/25 at 09:00; Stop 08/14/25 at 16:29 Albumin Human 100 ml @ 0 mls/hr ONCE PRN IV Last administered on 08/06/25at 11:27; Start 08/06/25 at 11:00; Stop 08/06/25 at 11:27; Status DC Phenylephrine HCl 100 mg/Sodium Chloride 250 ml @ 0 mls/hr PROTOCOL IV Last administered on 08/06/25at 12:02; Start 08/06/25 at 11:30; Stop 09/05/25 at 11:29 RUMA CLEMENTS MD Aug 06, 2025 17:39
[2025-08-06] MEDS: ARTIFICIAL TEARS 3.5 GM OINTMENT OD SCH (19:56)
--- NOTE | 2025-08-06 23:48 | NUR ---
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
--- NOTE | 2025-08-06 23:55 | NUR ---
MD PAGE RETURNED NEW ORDERS RECEIVED AND CARRIED OUT.
[2025-08-07] VITALS (96 sets, daily range): BP systolic 91–179; BP diastolic 42–82; PULSE 67–127; RESP 10–29; TEMP 97.4–99.9; O2SAT 96–99
[2025-08-07] MEDS: AMIOdarone 150MG/100ML BAG 100 ML ONE (00:16)
[2025-08-07] MEDS: AMIODARONE 360MG/200ML BAG 200 ML IV SCH (00:25)
[2025-08-07] MEDS ORDERED: AMIOdarone 150MG/100ML BAG 100 ML IV SCH (00:30)
[2025-08-07 05:15] LABS: IMMATURE GRANULOCYTE ABSOLUTE 0.58 K/uL (0-1); NUCLEATED RED BLOOD CELLS 0.0 % (0.0-0.19); PLATELET COUNT (AUTO) 36 K/uL (130-400); RED BLOOD CELL COUNT(AUTO) 3.26 MIL/uL (4.00-5.50); RED CELL DISTRIBUTION WIDTH 13.8 % (11.0-15.5); WHITE BLOOD COUNT (AUTO) 22.4 K/uL (4.8-10.8)
[2025-08-07 05:31] LABS: ASPARTATE AMINOTRANSFERASE 84.0 U/L (10-37); CREATININE 6.3 mg/dL (0.5-1.0); GLOMERULAR FILTR. RATE CALC 6.0 mL/min (>90); GLUCOSE,RANDOM 156.0 mg/dL (70-105); SODIUM SERUM 136.0 mmol/L (136-145); TOTAL PROTEIN, SERUM 5.5 g/dL (6.0-8.3); UREA NITROGEN, BLOOD 60.0 mg/dL (7-18)
--- NOTE | 2025-08-07 06:58 | PN ---
Acute myocardial infarct versus takotsubo syndrome (peak CPK was in the 1500 range, inconsistent with the size of the wall motion abnormality on the echo) Recent EF 65-70% with moderate aortic stenosis, DVI 0.27, current EF 40-45% with apical akinesia, moderate aortic stenosis with DVI 0.27 Sepsis Renal failure is chronic; patient has been on dialysis and tolerated it well for 19 months according to her Acute respiratory failure Probable aspiration pneumonia Diabetes Hypertension Gastroesophageal reflux Gallstones Paroxysmal atrial fibrillation Patient is unresponsive, even when sedation is lightened. Successfully weaning from pressors, currently on only low-dose of Anuj-Synephrine and probably we will wean from this today. Systolic blood pressures have been from 115-155 but occasionally mA P dips to 65. Chest x-ray showed pulmonary infiltrates, more on the left than the right, probable aspiration pneumonia. Physical exam shows adequate aeration bilaterally by auscultation, but no rales or rhonchi. Heart tones are somewhat muffled. No edema. Mental status to be evaluated later when the patient can be weaned from pressors. Impression and plan: Patient is here with septic shock, on dialysis for the last 19 months, and had elevation of troponin associated with a wall motion abnormality in the apex. The size of the apical wall motion abnormality is greater than expected, given a troponin peak in the 1500 range. Probably some of this we will be reversible, and EF is still 40-45% anyway. She developed atrial fibrillation in the night for the 1st time and responded to amiodarone. I think it is advisable to continue amiodarone but I would not reload aggressively if she breaks through again because of risk of hepatotoxicity in such a critically ill patient. Vitals/Labs Vital Signs Date Time Temp Pulse Resp B/P (MAP) Pulse Ox O2 Delivery O2 Flow Rate FiO2 08/07/25 06:35 70 12 08/07/25 06:34 40 08/07/25 06:15 149/65 (93) 98 08/07/25 04:00 99.0 08/07/25 00:00 Ventilator+ 08/04/25 06:39 15 Laboratory Tests 08/07/25 05:07 Medications Current Medications Albuterol 2 udvial ONCE ONCE IH Last administered on 08/03/25at 23:50; Start 08/03/25 at 22:30; Stop 08/03/25 at 22:31; Status DC Albuterol 1 udvial STK-MED ONCE IH; Start 08/03/25 at 22:17; Stop 08/03/25 at 22:18; Status DC Acetaminophen 1,000 mg ONCE ONCE PO; Start 08/03/25 at 23:00; Stop 08/03/25 at 23:01; Status DC Fentanyl Citrate 100 ml @ As Directed STK-MED ONCE IV; Start 08/03/25 at 22:46; Stop 08/03/25 at 22:46; Status DC Ketamine HCl 50 mg STK-MED ONCE .ROUTE; Start 08/03/25 at 22:47; Stop 08/03/25 at 22:47; Status DC Rocuronium [place] 50 mg STK-MED ONCE .ROUTE Last administered on 08/03/25at 23:34; Start 08/03/25 at 22:47; Stop 08/03/25 at 22:47; Status DC Propofol 100 ml @ As Directed STK-MED ONCE IV; Start 08/03/25 at 22:50; Stop 08/03/25 at 22:50; Status DC Norepinephrine 250 ml @ As Directed STK-MED ONCE IV; Start 08/03/25 at 22:58; Stop 08/03/25 at 22:58; Status DC Vancomycin HCl 1 gm ONCE ONCE IV Last administered on 08/04/25at 00:06; Start 08/03/25 at 23:30; Stop 08/03/25 at 23:36; Status DC Albuterol Sulfate 2.5 mg [id number] PRN IH; Start 08/03/25 at 23:30; Stop 09/02/25 at 23:29 Ipratropium [place] 0.5 mg [id number] IH Last administered on 08/07/25at 06:30; Start 08/04/25 at 00:00; Stop 09/03/25 at 00:00 Acetaminophen 650 mg Q6H PRN PO Last administered on 08/06/25at 19:55; Start 08/03/25 at 23:30; Stop 09/02/25 at 23:29 Acetaminophen 650 mg Q6H PRN RC Last administered on 08/04/25at 04:08; Start 08/03/25 at 23:30; Stop 09/02/25 at 23:29 Lactulose 20 gm Q6H PRN PO; Start 08/03/25 at 23:30; Stop 09/02/25 at 23:29 Docusate Sodium 100 mg BID PRN PO; Start 08/03/25 at 23:30; Stop 09/02/25 at 23:29 Ondansetron HCl 4 mg Q6H PRN IVP; Start 08/03/25 at 23:30; Stop 09/02/25 at 23:29 Insulin Human Regular INSULIN SLIDING SCAL... ACHS SQ Last administered on 08/06/25at 20:42; Start 08/04/25 at 07:30; Stop 08/07/25 at 03:37; Status DC Ketamine HCl 100 mg ONCE ONCE IM Last administered on 08/03/25at 23:43; Start 08/03/25 at 23:30; Stop 08/03/25 at 23:39; Status DC Propofol 1,000 mg PROTOCOL PRN IV; Start 08/03/25 at 23:30; Stop 08/03/25 at 23:39; Status DC Fentanyl Citrate 100 ml @ 2.5 mls/hr PROTOCOL IV; Start 08/03/25 at 23:30; Stop 08/03/25 at 23:39; Status DC Norepinephrine 250 ml @ 0 mls/hr PROTOCOL IV; Start 08/03/25 at 23:30; Stop 08/03/25 at 23:39; Status DC Fentanyl/Sodium Chloride 250 ml @ 0.1 mls/hr PROTOCOL IV Last administered on 08/06/25at 13:11; Start 08/03/25 at 23:30; Stop 08/08/25 at 23:29 Propofol 1,000 mg PROTOCOL PRN IV Last administered on 08/06/25at 09:47; Start 08/03/25 at 23:30; Stop 09/02/25 at 23:29 Levofloxacin/ Dextrose 750 mg ONCE ONCE IV Last administered on 08/04/25at 02:13; Start 08/03/25 at 23:30; Stop 08/03/25 at 23:41; Status DC Norepinephrine 250 ml @ 37.425 mls/ hr PROTOCOL IV Last administered on 08/04/25at 14:11; Start 08/03/25 at 23:30; Stop 08/04/25 at 14:18; Status DC Levofloxacin/ Dextrose 100 ml @ 100 mls/hr Q48H IV; Start 08/05/25 at 23:00; Stop 08/04/25 at 16:22; Status DC Vasopressin 20 units STK-MED ONCE .ROUTE; Start 08/04/25 at 04:24; Stop 08/04/25 at 04:24; Status DC Vasopressin 20 units/Sodium Chloride 100 ml @ 0 mls/hr PROTOCOL IV Last administered on 08/05/25at 04:10; Start 08/04/25 at 05:00; Stop 09/03/25 at 04:59 Vancomycin HCl 1 each AD IV; Start 08/04/25 at 13:30; Stop 08/18/25 at 13:29 Albumin Human 50 ml @ 0 mls/hr AD ONCE IV; Start 08/04/25 at 13:30; Stop 08/04/25 at 13:47; Status DC Thiamine HCl 100 mg DAILY IVP Last administered on 08/06/25at 12:58; Start 08/05/25 at 09:00; Stop 09/04/25 at 08:59 Vancomycin HCl 250 ml @ 125 mls/hr ONCE ONCE IV; Start 08/04/25 at 14:00; Stop 08/04/25 at 13:33; Status DC Vancomycin HCl 750 mg [id number] IVPB Last administered on 08/06/25at 15:25; Start 08/04/25 at 16:00; Stop 08/14/25 at 15:59 Norepinephrine Bitartrate as protocol PROTOCOL IV Last administered on 08/06/25at 09:16; Start 08/04/25 at 14:30; Stop 09/03/25 at 14:29 Pharmacy Profile Note 1 each ONCE MISC; Start 08/04/25 at 15:30; Stop 08/04/25 at 16:16; Status DC Meropenem 500 mg Q24H IVPB Last administered on 08/05/25at 15:56; Start 08/04/25 at 16:30; Stop 08/06/25 at 07:37; Status DC Sodium Chloride 250 ml @ 0 mls/hr AD IV; Start 08/04/25 at 17:00; Stop 09/03/25 at 16:59 Albumin Human 100 ml ONCE IV; Start 08/04/25 at 17:00; Stop 08/05/25 at 16:59; Status DC Sodium Chloride 1,000 ml @ 0 mls/hr ONCE IV; Start 08/04/25 at 17:00; Stop 09/03/25 at 16:59 Dextrose 50 ml ONCE ONCE IV Last administered on 08/05/25at 09:12; Start 08/05/25 at 09:00; Stop 08/05/25 at 09:01; Status DC Insulin Human Regular 10 unit ONCE ONCE IV Last administered on 08/05/25at 09:21; Start 08/05/25 at 09:00; Stop 08/05/25 at 09:01; Status DC Pantoprazole Sodium 40 mg DAILY IVP Last administered on 08/06/25at 12:59; Start 08/06/25 at 09:00; Stop 09/05/25 at 08:59 Heparin Sodium (Porcine) 5,000 unit Q12H SQ; Start 08/05/25 at 12:00; Stop 08/05/25 at 16:11; Status DC Heparin Sodium (Porcine) 5,000 unit Q12H SQ Last administered on 08/06/25at 04:46; Start 08/05/25 at 16:00; Stop 08/06/25 at 07:37; Status DC Magnesium Sulfate 50 ml @ 0 mls/hr PROTOCOL PRN IV Last administered on 08/05/25at 18:34; Start 08/05/25 at 17:30; Stop 09/04/25 at 17:29 Heparin Sodium (Porcine) 5,000 unit Q12H9 SQ Last administered on 08/06/25at 20:43; Start 08/06/25 at 21:00; Stop 09/04/25 at 20:59 Meropenem 500 mg DAILY IVPB Last administered on 08/06/25at 12:58; Start 08/06/25 at 09:00; Stop 08/14/25 at 16:29 Albumin Human 100 ml @ 0 mls/hr ONCE PRN IV Last administered on 08/06/25at 11:27; Start 08/06/25 at 11:00; Stop 08/06/25 at 11:27; Status DC Phenylephrine HCl 100 mg/Sodium Chloride 250 ml @ 0 mls/hr PROTOCOL IV Last administered on 08/06/25at 22:39; Start 08/06/25 at 11:30; Stop 09/05/25 at 11:29 Multi-Ingred Cream/Lotion/Oil/ Oint USE DIRECTED BID OD Last administered on 08/06/25at 19:56; Start 08/06/25 at 21:00; Stop 09/05/25 at 20:59 Metoprolol Tartrate 5 mg STK-MED ONCE IV Last administered on 08/07/25at 00:10; Start 08/07/25 at 00:02; Stop 08/07/25 at 00:02; Status DC Metoprolol Tartrate 25 mg ONCE ONCE IV Last administered on 08/07/25at 00:25; Start 08/07/25 at 00:00; Stop 08/07/25 at 00:24; Status DC Amiodarone HCl 150 mg/Dextrose 103 ml @ 618 mls/hr ONCE IV; Start 08/07/25 at 00:00; Stop 08/07/25 at 00:12; Status DC Amiodarone HCl 360 mg/Dextrose 207.2 ml @ 33.3 mls/hr AD IV; Start 08/07/25 at 00:00; Stop 08/07/25 at 00:12; Status DC Amiodarone HCl 540 mg/Dextrose 310.8 ml @ 16.7 mls/hr [id number] IV Last administered on 08/07/25at 06:07; Start 08/07/25 at 05:00; Stop 09/06/25 at 04:59 Amiodarone HCL/ Dextrose 100 ml @ As Directed STK-MED ONCE .ROUTE Last administered on 08/07/25at 00:16; Start 08/07/25 at 00:06; Stop 08/07/25 at 00:10; Status DC Amiodarone HCL/ Dextrose 100 ml @ 0 mls/hr PROTOCOL IV; Start 08/07/25 at 00:30; Stop 08/07/25 at 06:28; Status DC Amiodarone HCL/ Dextrose 200 ml @ 33.333 mls/ hr PROTOCOL IV Last administered on 08/07/25at 00:25; Start 08/07/25 at 00:30; Stop 08/07/25 at 06:28; Status DC Insulin Human Regular INSULIN SLIDING SCAL... Q6H6 SQ; Start 08/07/25 at 06:00; Stop 09/03/25 at 07:29 RUMA CLEMENTS MD Aug 07, 2025 06:58
--- NOTE | 2025-08-07 08:22 | HMCIMG ---
EXAMINATION: ULTRASOUND OF THE ABDOMEN WITH COLOR DOPPLER. CLINICAL HISTORY: To evaluate liver. COMPARISON: None. TECHNIQUE: Real-time grayscale ultrasound images of the abdomen. In addition, color Doppler is medically necessary to perform in order to evaluate vascularity and blood flow. FINDINGS: Liver: Bulky in caliber, the right hepatic lobe measures 18.4 cm in the craniocaudal dimension. There is increased echogenicity of the hepatic parenchyma. There is no focal hepatic abnormality or intrahepatic biliary ductal dilatation. There is normal spectral Doppler of the main portal vein. Gallbladder: Post cholecystectomy status. Common bile duct is normal in caliber, measuring 0.0 cm. Spleen is normal in caliber and measures 11.9 cm in craniocaudal dimension. No focal lesions. Pancreas: Normal in caliber and echotexture. No calcification or dilated pancreatic duct. The kidneys are smaller in caliber, the right kidney measures 7.7 x 3.1 x 4.1 cm and the left kidney measures 8.9 x 2.8 x 3.0 cm in craniocaudal, AP, and transverse dimensions respectively. There is renal cortical thinning and increased cortical echogenicity. There is no renal calculus or hydronephrosis. The proximal and mid abdominal aorta are normal in caliber with atherosclerosis. The distal aspect is obscured by overlying bowel gas. Visualized aspects of the inferior vena cava are unremarkable. IMPRESSION: Hepatomegaly with hepatic steatosis. Post cholecystectomy status. Bilateral renal parenchymal disease. /[place]
[2025-08-07 08:54] LABS: ABG BASE EXCESS -0.4 mmol/L (-2.0-3.0); ABG HCO3 24.7 mmol/L (21.0-28.0); ABG OXYGEN SATURATION 94.3 % (94.0-98.0); ABG PCO2 42 mmHg (32-45); ABG PH 7.385 (7.350-7.450); DEVICE COMMENT RR; PO2, ARTERIAL BG 72.2 mmHg (83.0-108.0); TEMPERATURE, CELSIUS BG 37.0 CELSIUS (35.5-37.0); VENT MODE, BG AC (ROOM AIR)
--- NOTE | 2025-08-07 10:39 | PN ---
SUBJECTIVE: The patient remains orally intubated with inotropics, IV antibiotics. She is sedated. OBJECTIVE: VITAL SIGNS: In the chart. HEENT: Normocephalic, atraumatic. LUNGS: Decreased breath sounds bilaterally. HEART: S1, S2 are distant. ABDOMEN: Soft, nontender. EXTREMITIES: No clubbing or cyanosis. LABORATORY DATA: WBC count increased to 20,000, hemoglobin 10.6, platelets 68,000. Sodium 134, potassium 5.5, BUN 85, creatinine 8.6, glucose 261, calcium 7.2, total bilirubin 2. AST 91, ALT 76, total protein 5.4, albumin 2.2. ASSESSMENT AND PLAN: * Respiratory failure with hypoxemia. Continue with mechanical ventilation. * Sepsis with septic shock. Continue with current antibiotics, pending results of cultures. * Blood cultures were positive for gram-positive cocci bacteremia. The patient will continue with vancomycin. * End-stage renal disease. Continue with hemodialysis. * Type 2 diabetes. Continue with insulin protocol. * Aortic stenosis. Continue supportive care. Continue to monitor. Monitor possible risk of endocarditis. * Follow up in a.m. with labs. DOS: 08/06/2025 TID: [id number] RECEIPT: [id number] [facility]
--- NOTE | 2025-08-07 11:04 | HMCIMG ---
CHEST 1VW REASON: pp COMPARISON: Prior chest radiograph from 08/06/2025 is available. FINDINGS: Single view of the chest was obtained. The cardiac silhouette is within the limits of normal. There is mild diffuse interstitial pulmonary edema.. This was not seen on the prior study. The support lines including endotracheal tube and nasogastric tube and right-sided PICC catheter to be in satisfactory position. There are surgical clips in the left axillary region. Mediastinum and bony thorax appear unremarkable. IMPRESSION: 1. Mild interstitial pulmonary edema 2. Support lines in satisfactory position..
--- NOTE | 2025-08-07 11:17 | CONS ---
NIYA EDWARDS MD 08/07/25 1117: CONSULT REASON FOR CONSULT: Thrombocytopenia HISTORY HPI: Patient is intubated and unresponsive. She has acute renal failure requiring dialysis and respiratory failure requiring ventilator support and septic shock that required multiple pressor therapy but today she was weaned off vasopressors and sedation. We will stop heparin due to possible HIT and start argatroban as per protocol. If extubated we can start oral anticoagulation. 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 PMH: Diabetes-Type II, Hypertension, Renal Disease, Renal Failure PSH: Appendectomy, Cholecystectomy ALLERGIES: Coded Allergies: Latex, Natural Rubber (Unverified Allergy, Severe, 05/18/23) Penicillins (Unverified Allergy, Unknown, 02/14/18) codeine (Unverified Allergy, Unknown, 02/14/18) iodine (Unverified Allergy, Unknown, 02/14/18) CURRENT MEDS: Current Medications Medications (Trade) Dose Ordered Sig/Benito Route PRN Reason Start Time Stop Time Status Last Admin Heparin Sodium (Porcine) (HEParin 5,000 UNIT VIAL) 5,000 unit Q12H9 SQ 08/06/25 21:00 09/04/25 20:59 08/06/25 20:43 Phenylephrine HCl 100 mg/Sodium Chloride 250 ml @ 0 mls/hr PROTOCOL IV 08/06/25 11:30 09/05/25 11:29 08/06/25 22:39 Multi-Ingred Cream/Lotion/Oil/ Oint (Artificial Tears Eye Oint) USE DIRECTED BID OD 08/06/25 21:00 09/05/25 20:59 08/07/25 08:35 Amiodarone HCl 540 mg/Dextrose 310.8 ml @ 16.7 mls/hr [id number] IV 08/07/25 05:00 09/06/25 04:59 08/07/25 06:07 Insulin Human Regular (humuLIN R 100 UNIT/ML 3ML) INSULIN SLIDING SCAL... Q6H6 SQ 08/07/25 06:00 09/03/25 07:29 PHYSICAL EXAM VITALS: Vital Signs Date Time Temp Pulse Resp B/P (MAP) Pulse Ox O2 Delivery O2 Flow Rate FiO2 08/07/25 10:00 78 22 150/60 (90) 97 40 08/07/25 07:45 98.8 08/07/25 04:00 Ventilator+ 08/04/25 06:39 15 DIAGNOSTIC STUDIES Signed PATIENT: ANDREI RODRÍGUEZ MR#: [id number] : 1945 SEX: F AGE: 79 LOCATION: [facility] ORDER 0830 STATUS: ADM IN REPORT#: [id number] SERVICE 0829 REASON: pp ORDERING PHYSICIAN: ALONDRA DESHPANDE PROCEDURE: CXR1VW - CHEST 1VW CHEST 1VW REASON: pp COMPARISON: Prior chest radiograph from 08/06/2025 is available. FINDINGS: Single view of the chest was obtained. The cardiac silhouette is within the limits of normal. There is mild diffuse interstitial pulmonary edema.. This was not seen on the prior study. The support lines including endotracheal tube and nasogastric tube and right-sided PICC catheter to be in satisfactory position. There are surgical clips in the left axillary region. Mediastinum and bony thorax appear unremarkable. IMPRESSION: 1. Mild interstitial pulmonary edema 2. Support lines in satisfactory position.. DICTATED BY: ROSA GONZALEZ MD DATE: 08/07/25 105 ELECTRONICALLY SIGNED BY: ROSA GONZALEZ MD DATE: 08/07/25 110 PATIENT: ANDREI RODRÍGUEZ MR#: [id number] : 1945 SEX: F AGE: 79 LOCATION: [facility] ORDER 185 STATUS: ADM IN REPORT#: [id number] SERVICE 1848 REASON: LIVER STATUS. ORDERING PHYSICIAN: ALONDRA DESHPANDE PROCEDURE: ABDOMEN - US ABDOMINAL COMPLETE EXAMINATION: ULTRASOUND OF THE ABDOMEN WITH COLOR DOPPLER. CLINICAL HISTORY: To evaluate liver. COMPARISON: None. TECHNIQUE: Real-time grayscale ultrasound images of the abdomen. In addition, color Doppler is medically necessary to perform in order to evaluate vascularity and blood flow. FINDINGS: Liver: Bulky in caliber, the right hepatic lobe measures 18.4 cm in the craniocaudal dimension. There is increased echogenicity of the hepatic parenchyma. There is no focal hepatic abnormality or intrahepatic biliary ductal dilatation. There is normal spectral Doppler of the main portal vein. Gallbladder: Post cholecystectomy status. Common bile duct is normal in caliber, measuring 0.0 cm. Spleen is normal in caliber and measures 11.9 cm in craniocaudal dimension. No focal lesions. Pancreas: Normal in caliber and echotexture. No calcification or dilated pancreatic duct. The kidneys are smaller in caliber, the right kidney measures 7.7 x 3.1 x 4.1 cm and the left kidney measures 8.9 x 2.8 x 3.0 cm in craniocaudal, AP, and transverse dimensions respectively. There is renal cortical thinning and increased cortical echogenicity. There is no renal calculus or hydronephrosis. The proximal and mid abdominal aorta are normal in caliber with atherosclerosis. The distal aspect is obscured by overlying bowel gas. Visualized aspects of the inferior vena cava are unremarkable. IMPRESSION: Hepatomegaly with hepatic steatosis. Post cholecystectomy status. Bilateral renal parenchymal disease. /[place] DICTATED BY: ADALBERTO ARELLANO MD DATE: 08/07/25920 ELECTRONICALLY SIGNED BY: ADALBERTO ARELLANO MD DATE: 08/07/25920 PATIENT: ANDREI RODRÍGUEZ MR#: [id number] : 1945 SEX: F AGE: 79 LOCATION: [facility] ORDER 13 STATUS: ADM IN REPORT#: [id number] SERVICE 09 REASON: respiratory failure ORDERING PHYSICIAN: EMERY RODRIGUEZ PROCEDURE: ECHO CMP - ECHO 2-D COMPLETE APPROVED REPORT EXAM: Two-dimensional and M-mode echocardiogram with Doppler and color Doppler. INDICATION ICD: Respiratory failure 2D Dimensions RVDd 4.0 cm LVEF(%) 50.2 (>50%) LVED Vol(simp.) 88.5 mL IVSd 1.2 (0.7-1.1cm) FS(%) 25 % LVES Vol(simp.) 47.5 mL LVDd 4.1 (3.8-5.6cm) LA (2D) 4.3 (1.6-4.0cm) LVEF(%, simp.) 46 % PWd 1.2 (0.7-1.1cm) Ao Root(2D) 2.9 (2.0-3.7cm) LA ESV INDEX (BP) 30.04 mL/m2 LVDs 3.1 (2.5-4.0cm) LVOT diam 1.9 (1.8-2.4cm) IVC diam 2.2 cm Deformation Strain Apical 4 -8.9 % Apical 2 -7.6 % Apical 3 -8.1 % Global Strain -8.2 % M-Mode Dimensions EPSS 1.2 cm LA (MM) 4.2 (1.6-4.0cm) Ao Root(MM) 3.2 (2.0-3.7cm) Aortic Valve AoV Vmax 3.5 m/s Ao Peak GR 49.3 mmHg LVOT Vmax 1.0 m/s AoV VTI 0.7 m Ao Mean GR 31.8 mmHg LVOT VTI 0.19 m MARIAELENA (VMAX) 0.79 cm2 MARIAELENA (VTI) 0.8 cm2 Mitral Valve MV E Vmax 82.3 cm/s DECEL Time 304 ms MV Peak GR 7 mmHg MV A Vmax 121.0 cm/s P 1/2 T 75 ms MV Mean GR 3 mmHg E/A ratio 0.7 MVA (PHT) 2.9 cm2 MVA (VTI) 1.41 cm2 TDI E/E' Medial 24.0 E/E' Lateral 11.6 Medial E' Peak V 3.43 cm/s Lateral E' Peak V 7.07 cm/s Pulmonary Valve PV Vmax 1.4 m/s PV VTI 0.25 m PV Mean GR 3.4 mmHg PV Peak GR 7.4 mmHg Tricuspid Valve TR Vmax 2.5 m/s RAP (EST) 15 mmHg RVSP 41.3 mmHg TR Peak GR 26.3 mmHg Left Ventricle The left ventricle is normal size. GLS -8.0%. Apical septal bounce. Apical severe hypokinesis. Mild concentric left ventricular hypertrophy. LVEF is 40- 45%. Stage I diastolic dysfunction. Right Ventricle The right ventricle is normal size. The right ventricular systolic function is normal. Atria The left atrium size is normal. The right atrium size is normal. Aortic Valve The aortic valve is trileaflet, heavily calcified, and shows severely restricted opening. Trace of aortic regurgitation is present. There is severe aortic valvular stenosis. Peak AV gradient is 48 mmHg; mean AV gradient is 32 mmHg; and AV area is 0.7 cm. Mitral Valve Mild posterior annular calcification noted. There is trace of mitral valve regurgitation noted. There is no mitral valve stenosis. Tricuspid Valve The tricuspid valve is normal in structure. There is trace of tricuspid valve regurgitation noted. Pulmonic Valve The pulmonary valve is normal in structure. There is mild pulmonic valvular regurgitation. Great Vessels The aortic root is normal in size. IVC is dilated and collapses <50% with inspiration. Pericardium There is no pericardial effusion. Other Information Quality : Adequate Conclusion The left atrium size is normal. Mild concentric left ventricular hypertrophy. GLS -8.0%. Early relaxation at the LV apex. Apical septal bounce. Apical severe hypokinesis. LVEF is 40-45%. Stage I diastolic dysfunction. The aortic valve is trileaflet, heavily calcified, and shows severely restricted opening. There is severe aortic valvular stenosis. Peak AV gradient is 48 mmHg; mean AV gradient is 32 mmHg; and AV area is 0.7 cm. DICTATED BY: GABRIEL CHINCHILLA MD DATE: 08/04/25 1015 ELECTRONICALLY SIGNED BY: GABRIEL CHINCHILLA MD DATE: 08/04/252254 PATIENT: ANDREI RODRÍGUEZ MR#: [id number] : 1945 SEX: F AGE: 79 LOCATION: [facility] ORDER 45 STATUS: ADM IN REPORT#: [id number] SERVICE 44 REASON: S/P INTUBATION ORDERING PHYSICIAN: MANSOOR CLEVELAND MD PROCEDURE: CXR1VW - CHEST 1VW EXAM: CR Chest, 1 view CLINICAL HISTORY: Endotracheal tube. COMPARISON: Chest radiograph dated 07/30/2025. FINDINGS: The endotracheal tube tip terminates within the right main bronchus, recommend at least 5 cm retrieval of the endotracheal tube. The gastric tube tip is probably around the distal stomach. Stable mild cardiomegaly and pulmonary vascular congestion. No pleural effusion or pneumothorax. No acute osseous abnormality. Surgical clips in the right chest wall. IMPRESSION: The endotracheal tube tip terminates within the right main bronchus, recommend at least 5 cm retrieval of the endotracheal tube. The gastric tube tip is probably around the distal stomach. Stable mild cardiomegaly and pulmonary vascular congestion. /[place] DICTATED BY: EREN YANES Jr., MD DATE: 08/04/25116 ELECTRONICALLY SIGNED BY: EREN YANES Jr., MD DATE: 08/04/25116 IMPRESSION New onset AFib with RVR Acute hypoxic and hypercapnic respiratory failure-intubated patient, 2nd 2 volume overload Sepsis with septic shock - Gram-positive cocci bacteremia, Staph aureus Volume overload in a end-stage renal disease patient on hemodialysis Electrolyte imbalance Hyperkalemia LVEF 40-45%, diastolic dysfunction, 55-60% per echo on 01/17/2025 Hyperglycemia in a type 2 diabetic Morbid obesity PLAN Stop heparin due to possible HIT Start Argatroban as per protocol No platelet transfusion Follow up on HIT Ab If extubated start on oral anticoagulation JACKELINE ANGULO MD 08/08/25 1103: PLAN I attest that I was physically present to evaluate the patient and I reviewed and discussed the case with the Resident and agree with the Resident's findings and plans of care as documented above with modifications. Case discussed with resident on the date stated at the beginning of note. Patient was first seen and evaluated by me during this hospitalization. NIYA EDWARDS MD Aug 07, 2025 11:17 JACKELINE ANGULO MD Aug 08, 2025 11:03
--- NOTE | 2025-08-07 11:49 | PN ---
[facility] PROGRESS NOTE Date Patient Seen: Aug 07, 2025 Time of Visit: 11:48 Supervising Physician: Osmar Butler Primary Care Physician: Dr. Cohen Outpatient Specialists: Inpatient Consults: BIS, critical care team PROBLEM LIST: New onset AFib with RVR Acute hypoxic and hypercapnic respiratory failure-intubated patient, 2nd 2 volume overload Sepsis with septic shock - Gram-positive cocci bacteremia, Staph aureus Volume overload in a end-stage renal disease patient on hemodialysis Electrolyte imbalance Hyperkalemia LVEF 40-45%, diastolic dysfunction, 55-60% per echo on 01/17/2025 Hyperglycemia in a type 2 diabetic Morbid obesity INTERVAL HISTORY: Patient seen and examined, patient is remains intubated, FiO2 is at 45%, Patient's pro count greater than 100, continues on antibiotics, repeat blood cultures obtained Cultures Gram-positive cocci, staph aureus Merrem and vancomycin Continues with fevers overnight, on Tylenol Patient on touch of Anuj, Platelets are 36, concern for hit Tolerating removal of 2.7 L yesterday hemodialysis requiring increase pressors support during hemodialysis Plan: Vent management, chest x-ray, ABG, s spontaneous breathing trials post hemodialysis today Continue to follow nephrology recommendations Continue to wean pressors Continue current antibiotics, following cultures Hematology recommendations, pending peripheral smear Follow coags Discussion with patient's and son at bedside. Total critical care time 55 minutes, vent management and pressor support. Patient remains critical REVIEW OF SYSTEMS: Unable to obtain ROS from patient due to patient is intubated and sedated. PHYSICAL EXAM: GENERAL: Intubated and sedated HEENT: EOMI, Sclera non icteric, moist mucosa NECK: Supple, no JVD, trachea midline LUNGS: Diminished breath sounds bilaterally. No wheezes HEART: Regular rate and rhythm. Normal S1 and S2, without murmurs ABD: Abdomen soft, nontender. Bowel sounds present. Obese EXT: No clubbing cyanosis or edema NEURO: Intubated and sedated Vital Signs (last 8hr) Date Time Temp Pulse Resp B/P (MAP) Pulse Ox O2 Delivery O2 Flow Rate FiO2 08/07/25 11:16 77 12 08/07/25 10:00 78 22 150/60 (90) 97 40 08/07/25 09:53 45 08/07/25 09:45 72 20 140/61 (87) 97 40 08/07/25 09:30 77 18 152/71 (98) 97 40 08/07/25 09:15 72 14 157/62 (93) 97 40 08/07/25 09:00 74 40 08/07/25 09:00 74 22 119/55 (76) 96 40 08/07/25 08:45 76 23 137/77 (97) 97 40 08/07/25 08:30 73 18 131/63 (85) 96 40 08/07/25 08:15 75 15 134/62 (86) 96 40 08/07/25 08:00 72 19 106/46 (66) 95 40 08/07/25 08:00 97 Ventilator+ 40 08/07/25 07:45 98.8 70 15 120/44 (69) 95 40 08/07/25 07:30 73 19 140/59 (86) 96 40 08/07/25 07:15 75 14 150/61 (90) 97 40 08/07/25 07:00 75 19 135/60 (85) 97 40 08/07/25 06:35 70 12 08/07/25 06:34 70 40 08/07/25 06:30 71 12 152/59 (90) 99 08/07/25 06:15 71 14 149/65 (93) 98 40 08/07/25 06:00 68 13 119/50 (73) 97 40 08/07/25 05:45 68 15 115/46 (69) 97 40 08/07/25 05:30 67 15 116/49 (71) 97 40 08/07/25 05:15 70 13 108/43 (64) 96 40 08/07/25 05:00 78 24 169/82 (111) 94 40 08/07/25 04:45 78 24 179/80 (113) 95 40 08/07/25 04:30 75 16 142/62 (88) 97 40 08/07/25 04:15 73 17 144/56 (85) 97 40 08/07/25 04:00 99.0 73 19 124/52 (76) 97 40 08/07/25 04:00 99 Ventilator+ 40 LABS: Hematology Labs: Test 08/07/25 05:07 08/06/25 05:09 Range/Units White Blood Count 22.4 H 4.8-10.8 K/uL Red Blood Count 3.26 L 4.00-5.50 MIL/uL Hemoglobin 10.0 L 12.0-16.0 g/dL Hematocrit 30.3 L 36-48 % Mean Corpuscular Volume 92.9 79-99 fL Mean Corpuscular Hemoglobin 30.7 27.0-33.0 pg Mean Corpuscular Hemoglobin Concent 33.0 32.0-36.0 g/dL Red Cell Distribution Width 13.8 11.0-15.5 % Platelet Count 36 #L 130-400 K/uL Mean Platelet Volume 11.6 H 7.5-10.5 fL Immature Granulocyte % (Auto) 2.6 H 0-1 % Neutrophils (%) (Auto) 81.3 H 40.0-77.0 % Lymphocytes (%) (Auto) 3.6 L 21.0-51.0 % Monocytes (%) (Auto) 7.4 3.0-13.0 % Eosinophils (%) (Auto) 4.7 0.0-8.0 % Basophils (%) (Auto) 0.4 0.0-5.0 % Neutrophils # (Auto) 18.2 H 1.8-7.7 K/uL Lymphocytes # (Auto) 0.8 L 1.0-4.8 K/uL Monocytes # (Auto) 1.7 H 0.1-1.0 K/uL Eosinophils # (Auto) 1.06 H 0.00-0.70 K/uL Basophils # (Auto) 0.08 0.00-0.20 K/uL Absolute Immature Granulocyte (auto 0.58 0-1 K/uL Nucleated Red Blood Cells 0.0 0.0-0.19 % Segmented Neutrophils % 70 40-70 % Band Neutrophils % 23 H 0-2 % Lymphocytes % (Manual) 3 L 22-44 % Eosinophils % (Manual) 4 1-6 % Differential Comment MANUAL DIFFERENTIAL White Cell Morphology Comment See comments Platelet Morphology Comment DECREASED Red Blood Cell Morphology ANISO 1+ Chemistry Labs: Test 08/07/25 05:07 08/06/25 19:39 08/06/25 18:04 08/06/25 05:09 Range/Units Sodium Level 136 136-145 mmol/L Potassium Level 4.3 3.5-5.1 mmol/L Chloride Level 96 L 101-111 mmol/L Carbon Dioxide Level 26 21-32 mmol/L Blood Urea Nitrogen 60 #H 7-18 mg/dL Creatinine 6.3 H 0.5-1.0 mg/dL Glomerular Filtration Rate Calc 6 >90 mL/min Random Glucose 156 H 70-105 mg/dL Total Calcium 7.5 L 8.5-10.1 mg/dL Total Bilirubin 2.0 H 0.2-1.0 mg/dL Aspartate Amino Transf (AST/SGOT) 84 H 10-37 U/L Alanine Aminotransferase (ALT/SGPT) 78 12-78 U/L Alkaline Phosphatase 247 H 50-136 U/L Total Protein 5.5 L 6.0-8.3 g/dL Albumin 2.2 L 3.5-5.0 g/dL Procalcitonin 118.98 H 0.05-0.5 ng/mL Whole Blood Glucose 197 H 70-110 MG/DL Troponin I High Sensitivity 235 *H 4-50 ng/L Phosphorus Level 4.6 2.5-4.9 mg/dL DIAGNOSTICS / RADIOLOGY RESULTS: [ ] PLAN NEURO: Minimize central acting medications as possible. Fall Precautions. Well lighted room through the day and minimize interruptions through the night to prevent acute delirium. PULMONARY: Supplemental 02 as needed Titrate Fio2 to keep Spo2 > or = 90% DuoNebs and CPT as needed IS hourly while awake for pulmonary hygiene Out of bed to chair as tolerated VAP Bundle Vent settings: FiO2 60%, RR 12, peep 5, tidal volume 450 mL CARDIOVASCULAR: Follow hemodynamics. Titrate vasopressor to keep MAP >65 or systolic blood pressure >95mmHg GI & NUTRITION: Continue nutritional support Aspirations precautions Prokinetic agents and laxatives as needed KIDNEYS & ELECTROLYTES: Strict monitoring of intake and output Daily weights Avoid nephrotoxic agents Monitor electrolytes and replace as needed Goal urine output of 30mL/hr or 0.5mL/kg/hr ENDOCRINE: Maintain blood glucose between 100-180 at all times. Insulin sliding scale for blood glucose management INFECTIOUS DISEASE: Trend temperature. Go-culture if febrile. HEMATOLOGY & COAGULATION: Monitor H&H. Keep Hgb > 7 Transfuse 1 unit of PRBC for Hgb < 7 Transfuse 1 pack of platelets of platelets < 20, 000 Watch for any signs and symptoms of bleeding SKIN: Pressure ulcer prevention per facility protocol Code Status: Full Resuscitation Disposition: ALONDRA DESHPANDE Aug 07, 2025 11:49
--- NOTE | 2025-08-07 13:46 | PN ---
[facility] PROGRESS NOTE Date Patient Seen: Aug 07, 2025 Time of Visit: 13:40 Supervising Physician: [ ] Primary Care Physician: Dr. Cohen Outpatient Specialists: Inpatient Consults: BIS, critical care team PROBLEM LIST: New onset AFib with RVR Acute hypoxic and hypercapnic respiratory failure-intubated patient, 2nd 2 volume overload Sepsis with septic shock - Gram-positive cocci bacteremia, Staph aureus Volume overload in a end-stage renal disease patient on hemodialysis Electrolyte imbalance Hyperkalemia LVEF 40-45%, diastolic dysfunction, 55-60% per echo on 01/17/2025 Hyperglycemia in a type 2 diabetic Morbid obesity INTERVAL HISTORY: Patient seen and examined, patient is remains intubated, FiO2 is at 45%, Patient's pro count greater than 100, continues on antibiotics, repeat blood cultures obtained Cultures Gram-positive cocci, staph aureus Merrem and vancomycin Continues with fevers overnight, on Tylenol Patient is off of pressors and sedation Platelets are 36, concern for hit Tolerating removal of 2.7 L yesterday hemodialysis requiring increase pressors support during hemodialysis Plan: Vent management, chest x-ray, ABG, spontaneous breathing trials. Continue to follow nephrology recommendations Continue to wean pressors. Continue current antibiotics, following cultures Hematology recommendations, pending peripheral smear,HIT antibody results. Follow on coagulation Discussion with patient's and son at bedside. Total critical care time 55 minutes, vent management and pressor support. Brittany ent remains critical REVIEW OF SYSTEMS: Unable to obtain ROS from patient due to patient is intubated and sedated. PHYSICAL EXAM: GENERAL: Intubated and sedated HEENT: EOMI, Sclera non icteric, moist mucosa NECK: Supple, no JVD, trachea midline LUNGS: Diminished breath sounds bilaterally. No wheezes HEART: Regular rate and rhythm. Normal S1 and S2, without murmurs ABD: Abdomen soft, nontender. Bowel sounds present. Obese EXT: No clubbing cyanosis or edema NEURO: Intubated and sedated Vital Signs (last 8hr) Date Time Temp Pulse Resp B/P (MAP) Pulse Ox O2 Delivery O2 Flow Rate FiO2 08/07/25 12:00 97.3 78 14 132/56 (81) 96 45 08/07/25 12:00 98 Ventilator+ 45 08/07/25 11:45 81 23 142/64 (90) 97 45 08/07/25 11:30 78 18 141/69 (93) 96 45 08/07/25 11:16 77 12 08/07/25 11:15 78 14 142/65 (90) 97 45 08/07/25 11:00 75 18 154/64 (94) 96 45 08/07/25 10:45 73 15 165/74 (104) 96 45 08/07/25 10:30 74 20 153/61 (91) 96 45 08/07/25 10:15 75 13 155/68 (97) 96 45 08/07/25 10:00 78 22 150/60 (90) 97 40 08/07/25 09:53 45 08/07/25 09:45 72 20 140/61 (87) 97 40 08/07/25 09:30 77 18 152/71 (98) 97 40 08/07/25 09:15 72 14 157/62 (93) 97 40 08/07/25 09:00 74 40 08/07/25 09:00 74 22 119/55 (76) 96 40 08/07/25 08:45 76 23 137/77 (97) 97 40 08/07/25 08:30 73 18 131/63 (85) 96 40 08/07/25 08:15 75 15 134/62 (86) 96 40 08/07/25 08:00 72 19 106/46 (66) 95 40 08/07/25 08:00 97 Ventilator+ 40 08/07/25 07:45 98.8 70 15 120/44 (69) 95 40 08/07/25 07:30 73 19 140/59 (86) 96 40 08/07/25 07:15 75 14 150/61 (90) 97 40 08/07/25 07:00 75 19 135/60 (85) 97 40 08/07/25 06:35 70 12 08/07/25 06:34 70 40 08/07/25 06:30 71 12 152/59 (90) 99 08/07/25 06:15 71 14 149/65 (93) 98 40 08/07/25 06:00 68 13 119/50 (73) 97 40 08/07/25 05:45 68 15 115/46 (69) 97 40 LABS: Hematology Labs: Test 08/07/25 05:07 08/06/25 05:09 Range/Units White Blood Count 22.4 H 4.8-10.8 K/uL Red Blood Count 3.26 L 4.00-5.50 MIL/uL Hemoglobin 10.0 L 12.0-16.0 g/dL Hematocrit 30.3 L 36-48 % Mean Corpuscular Volume 92.9 79-99 fL Mean Corpuscular Hemoglobin 30.7 27.0-33.0 pg Mean Corpuscular Hemoglobin Concent 33.0 32.0-36.0 g/dL Red Cell Distribution Width 13.8 11.0-15.5 % Platelet Count 36 #L 130-400 K/uL Mean Platelet Volume 11.6 H 7.5-10.5 fL Immature Granulocyte % (Auto) 2.6 H 0-1 % Neutrophils (%) (Auto) 81.3 H 40.0-77.0 % Lymphocytes (%) (Auto) 3.6 L 21.0-51.0 % Monocytes (%) (Auto) 7.4 3.0-13.0 % Eosinophils (%) (Auto) 4.7 0.0-8.0 % Basophils (%) (Auto) 0.4 0.0-5.0 % Neutrophils # (Auto) 18.2 H 1.8-7.7 K/uL Lymphocytes # (Auto) 0.8 L 1.0-4.8 K/uL Monocytes # (Auto) 1.7 H 0.1-1.0 K/uL Eosinophils # (Auto) 1.06 H 0.00-0.70 K/uL Basophils # (Auto) 0.08 0.00-0.20 K/uL Absolute Immature Granulocyte (auto 0.58 0-1 K/uL Nucleated Red Blood Cells 0.0 0.0-0.19 % Segmented Neutrophils % 70 40-70 % Band Neutrophils % 23 H 0-2 % Lymphocytes % (Manual) 3 L 22-44 % Eosinophils % (Manual) 4 1-6 % Differential Comment MANUAL DIFFERENTIAL White Cell Morphology Comment See comments Platelet Morphology Comment DECREASED Red Blood Cell Morphology ANISO 1+ Chemistry Labs: Test 08/07/25 12:57 08/07/25 12:02 08/07/25 05:07 08/06/25 18:04 Range/Units Magnesium Level 2.00 1.80-2.40 mg/dL Whole Blood Glucose 228 H 70-110 MG/DL Sodium Level 136 136-145 mmol/L Potassium Level 4.3 3.5-5.1 mmol/L Chloride Level 96 L 101-111 mmol/L Carbon Dioxide Level 26 21-32 mmol/L Blood Urea Nitrogen 60 #H 7-18 mg/dL Creatinine 6.3 H 0.5-1.0 mg/dL Glomerular Filtration Rate Calc 6 >90 mL/min Random Glucose 156 H 70-105 mg/dL Total Calcium 7.5 L 8.5-10.1 mg/dL Total Bilirubin 2.0 H 0.2-1.0 mg/dL Aspartate Amino Transf (AST/SGOT) 84 H 10-37 U/L Alanine Aminotransferase (ALT/SGPT) 78 12-78 U/L Alkaline Phosphatase 247 H 50-136 U/L Total Protein 5.5 L 6.0-8.3 g/dL Albumin 2.2 L 3.5-5.0 g/dL Procalcitonin 118.98 H 0.05-0.5 ng/mL Troponin I High Sensitivity 235 *H 4-50 ng/L Test 08/06/25 05:09 Range/Units Phosphorus Level 4.6 2.5-4.9 mg/dL DIAGNOSTICS / RADIOLOGY RESULTS: [ ] PLAN NEURO: Minimize central acting medications as possible. Fall Precautions. Well lighted room through the day and minimize interruptions through the night to prevent acute delirium. PULMONARY: Supplemental 02 as needed Titrate Fio2 to keep Spo2 > or = 90% DuoNebs and CPT as needed IS hourly while awake for pulmonary hygiene Out of bed to chair as tolerated VAP Bundle Vent settings: FiO2 45%, RR 12, peep 5, tidal volume 450 mL CARDIOVASCULAR: Follow hemodynamics. Titrate vasopressor to keep MAP >65 or systolic blood pressure >95mmHg. continue amiodarone follow on cardio recomm GI & NUTRITION: Continue nutritional support Aspirations precautions Prokinetic agents and laxatives as needed KIDNEYS & ELECTROLYTES: Strict monitoring of intake and output Daily weights Avoid nephrotoxic agents Monitor electrolytes and replace as needed Goal urine output of 30mL/hr or 0.5mL/kg/hr ENDOCRINE: Maintain blood glucose between 100-180 at all times. Insulin sliding scale for blood glucose management INFECTIOUS DISEASE: Trend temperature. Go-culture if febrile. HEMATOLOGY & COAGULATION: Monitor H&H. Keep Hgb > 7 Transfuse 1 unit of PRBC for Hgb < 7 Transfuse 1 pack of platelets of platelets < 20, 000 Watch for any signs and symptoms of bleeding SKIN: Pressure ulcer prevention per facility protocol Code Status: Full Resuscitation Disposition: ATTESTATION BY PHYSICIAN I have seen and examined the patient. I reviewed the documentation, medical decision making, and treatment plan as noted by the mid-level provider above. I agree with the findings and plan of care. [place] BARNETT MD, AISHWARYA MD Aug 07, 2025 13:46
--- NOTE | 2025-08-07 13:58 | PN ---
NEPHROLOGY PROGRESS NOTE Date/Time Patient Seen: Aug 07, 2025 SUBJECTIVE: This is an 79-year-old female with a past medical history of end-stage renal disease on hemodialysis Sunday, hypertension, cancer, coronary artery disease, anemia. She presented to the emergency room with complaints of shortness of breath, cough, fever and chills. She was intubated in the emergency room and transferred to the ICU. She continues to be intubated and sedated Continues to require multiple vasopressors to maintain blood pressure. Blood cultures are positive She has been started on antibiotics. Imaging studies were noted. She was seen in the ICU, intubated Multiple family members at the bedside Condition is critical and guarded REVIEW OF SYSTEMS: Difficult to obtain given status of the patient who remains intubated mechanically ventilated Vital Signs (last 8hr) Date Time Temp Pulse Resp B/P (MAP) Pulse Ox O2 Delivery O2 Flow Rate FiO2 08/07/25 13:54 77 45 08/07/25 12:00 97.3 78 14 132/56 (81) 96 45 08/07/25 12:00 98 Ventilator+ 45 08/07/25 11:45 81 23 142/64 (90) 97 45 08/07/25 11:30 78 18 141/69 (93) 96 45 08/07/25 11:16 77 12 08/07/25 11:15 78 14 142/65 (90) 97 45 08/07/25 11:00 75 18 154/64 (94) 96 45 08/07/25 10:45 73 15 165/74 (104) 96 45 08/07/25 10:30 74 20 153/61 (91) 96 45 08/07/25 10:15 75 13 155/68 (97) 96 45 08/07/25 10:00 78 22 150/60 (90) 97 40 08/07/25 09:53 45 08/07/25 09:45 72 20 140/61 (87) 97 40 08/07/25 09:30 77 18 152/71 (98) 97 40 08/07/25 09:15 72 14 157/62 (93) 97 40 08/07/25 09:00 74 40 08/07/25 09:00 74 22 119/55 (76) 96 40 08/07/25 08:45 76 23 137/77 (97) 97 40 08/07/25 08:30 73 18 131/63 (85) 96 40 08/07/25 08:15 75 15 134/62 (86) 96 40 08/07/25 08:00 72 19 106/46 (66) 95 40 08/07/25 08:00 97 Ventilator+ 40 08/07/25 07:45 98.8 70 15 120/44 (69) 95 40 08/07/25 07:30 73 19 140/59 (86) 96 40 08/07/25 07:15 75 14 150/61 (90) 97 40 08/07/25 07:00 75 19 135/60 (85) 97 40 08/07/25 06:35 70 12 08/07/25 06:34 70 40 08/07/25 06:30 71 12 152/59 (90) 99 08/07/25 06:15 71 14 149/65 (93) 98 40 08/07/25 06:00 68 13 119/50 (73) 97 40 PHYSICAL EXAM: General: acutely ill, sedated, intubated, and mechanically ventilated HEENT: head is atraumatic, pupils equal and reactive, ET tube in place Neck: supple, no masses, no lymphadenopathy, no thyromegaly, no JVD Lungs: decreased breath sounds bilaterally, symmetrical chest movement Cardio: regular rate, S1 and S2 normal, no rub or gallop Abdomen: soft, non tender, no distension, no organomegaly Extremities: trace edema bilateral lower extremities, no cyanosis or clubbing Skin: no rashes or suspicious lesions Neuro: sedated Current Medications Medications (Trade) Dose Ordered Sig/[facility] Route Start Time Stop Time Status Last Admin Dose Admin Albumin Human (Albumin (Human) 25%) 100 ml ONCE IV 08/04/25 17:00 08/05/25 16:59 DC Amiodarone HCl 150 mg/Dextrose 103 ml @ 618 mls/hr ONCE IV 08/07/25 00:00 08/07/25 00:12 DC Amiodarone HCl 360 mg/Dextrose 207.2 ml @ 33.3 mls/hr AD IV 08/07/25 00:00 08/07/25 00:12 DC Amiodarone HCl 540 mg/Dextrose 310.8 ml @ 16.7 mls/hr [id number] IV 08/07/25 05:00 09/06/25 04:59 08/07/25 06:07 16.7 MLS/HR Amiodarone HCL/ Dextrose 100 ml @ 0 mls/hr PROTOCOL IV 08/07/25 00:30 08/07/25 06:28 DC Amiodarone HCL/ Dextrose 200 ml @ 33.333 mls/ hr PROTOCOL IV 08/07/25 00:30 08/07/25 06:28 DC 08/07/25 00:25 33.333 MLS/HR Argatroban 50 mg/ Sodium Chloride 50 ml @ 0 mls/hr PROTOCOL IV 08/07/25 13:00 09/06/25 12:59 08/07/25 13:55 2.58 MLS/HR Fentanyl Citrate 100 ml @ 2.5 mls/hr PROTOCOL IV 08/03/25 23:30 08/03/25 23:39 DC Fentanyl/Sodium Chloride 250 ml @ 0.1 mls/hr PROTOCOL IV 08/03/25 23:30 08/08/25 23:29 08/06/25 13:11 0.1 MLS/HR Heparin Sodium (Porcine) (HEParin 5,000 UNIT VIAL) 5,000 unit Q12H SQ 08/05/25 12:00 08/05/25 16:11 DC Heparin Sodium (Porcine) (HEParin 5,000 UNIT VIAL) 5,000 unit Q12H SQ 08/05/25 16:00 08/06/25 07:37 DC 08/06/25 04:46 5,000 UNIT Heparin Sodium (Porcine) (HEParin 5,000 UNIT VIAL) 5,000 unit Q12H9 08/06/25 21:00 08/07/25 13:14 DC 08/06/25 20:43 5,000 UNIT Insulin Human Regular (humuLIN R 100 UNIT/ML 3ML) INSULIN SLIDING SCAL... ACHS SQ 08/04/25 07:30 08/07/25 03:37 DC 08/06/25 20:42 4 UNIT Insulin Human Regular (humuLIN R 100 UNIT/ML 3ML) INSULIN SLIDING SCAL... Q6H6 SQ 08/07/25 06:00 09/03/25 07:29 08/07/25 12:46 8 UNIT Ipratropium [place] (AtrovENT UD) 0.5 mg [id number] 08/04/25 00:00 09/03/25 00:00 08/07/25 11:16 0.5 MG Levofloxacin/ Dextrose 100 ml @ 100 mls/hr Q48H IV 08/05/25 23:00 08/04/25 16:22 DC Meropenem (Merrem 500mg) 500 mg DAILY IVPB 08/06/25 09:00 08/14/25 16:29 08/07/25 08:34 500 MG Meropenem (Merrem 500mg) 500 mg Q24H IVPB 08/04/25 16:30 08/06/25 07:37 DC 08/05/25 15:56 500 MG Multi-Ingred Cream/Lotion/Oil/ Oint (Artificial Tears Eye Oint) USE DIRECTED BID OD 08/06/25 21:00 09/05/25 20:59 08/07/25 08:35 1 APPL Norepinephrine 250 ml @ 37.425 mls/ hr PROTOCOL IV 08/03/25 23:30 08/04/25 14:18 DC 08/04/25 14:11 37.425 MLS/HR Norepinephrine 250 ml @ 0 mls/hr PROTOCOL IV 08/03/25 23:30 08/03/25 23:39 DC Norepinephrine Bitartrate (Norepineph 16 Mg/250ml NS Premix) as protocol PROTOCOL IV 08/04/25 14:30 09/03/25 14:29 08/06/25 09:16 16 MG Pantoprazole Sodium (PROTonix 40MG INJ) 40 mg DAILY IVP 08/06/25 09:00 09/05/25 08:59 08/07/25 08:34 40 MG Pharmacy Profile Note (Pharmacy Communication) 1 each ONCE MISC 08/04/25 15:30 08/04/25 16:16 DC Phenylephrine HCl 100 mg/Sodium Chloride 250 ml @ 0 mls/hr PROTOCOL IV 08/06/25 11:30 09/05/25 11:29 08/06/25 22:39 0 MLS/HR Sodium Chloride 250 ml @ 0 mls/hr AD IV 08/04/25 17:00 09/03/25 16:59 Sodium Chloride 1,000 ml @ 0 mls/hr ONCE IV 08/04/25 17:00 09/03/25 16:59 Thiamine HCl (Vitamin B-1) 100 mg DAILY IVP 08/05/25 09:00 10/31/25 08:59 08/07/25 08:34 100 MG Vancomycin HCl (Vancomycin 750mg) 750 mg TTHSPHD IVPB 08/04/25 16:00 08/14/25 15:59 08/06/25 15:25 750 MG Vancomycin HCl (Vancomycin Protocol) 1 each AD IV 08/04/25 13:30 08/18/25 13:29 Vasopressin 20 units/Sodium Chloride 100 ml @ 0 mls/hr PROTOCOL IV 08/04/25 05:00 09/03/25 04:59 08/05/25 04:10 9 MLS/HR LABORATORY: [ ] Hematology Labs: Test 08/07/25 05:07 08/06/25 05:09 Range/Units White Blood Count 22.4 H 4.8-10.8 K/uL Red Blood Count 3.26 L 4.00-5.50 MIL/uL Hemoglobin 10.0 L 12.0-16.0 g/dL Hematocrit 30.3 L 36-48 % Mean Corpuscular Volume 92.9 79-99 fL Mean Corpuscular Hemoglobin 30.7 27.0-33.0 pg Mean Corpuscular Hemoglobin Concent 33.0 32.0-36.0 g/dL Red Cell Distribution Width 13.8 11.0-15.5 % Platelet Count 36 #L 130-400 K/uL Mean Platelet Volume 11.6 H 7.5-10.5 fL Immature Granulocyte % (Auto) 2.6 H 0-1 % Neutrophils (%) (Auto) 81.3 H 40.0-77.0 % Lymphocytes (%) (Auto) 3.6 L 21.0-51.0 % Monocytes (%) (Auto) 7.4 3.0-13.0 % Eosinophils (%) (Auto) 4.7 0.0-8.0 % Basophils (%) (Auto) 0.4 0.0-5.0 % Neutrophils # (Auto) 18.2 H 1.8-7.7 K/uL Lymphocytes # (Auto) 0.8 L 1.0-4.8 K/uL Monocytes # (Auto) 1.7 H 0.1-1.0 K/uL Eosinophils # (Auto) 1.06 H 0.00-0.70 K/uL Basophils # (Auto) 0.08 0.00-0.20 K/uL Absolute Immature Granulocyte (auto 0.58 0-1 K/uL Nucleated Red Blood Cells 0.0 0.0-0.19 % Segmented Neutrophils % 70 40-70 % Band Neutrophils % 23 H 0-2 % Lymphocytes % (Manual) 3 L 22-44 % Eosinophils % (Manual) 4 1-6 % Differential Comment MANUAL DIFFERENTIAL White Cell Morphology Comment See comments Platelet Morphology Comment DECREASED Red Blood Cell Morphology ANISO 1+ Chemistry Labs: Test 08/07/25 12:57 08/07/25 12:02 08/07/25 05:07 08/06/25 18:04 Range/Units Magnesium Level 2.00 1.80-2.40 mg/dL Whole Blood Glucose 228 H 70-110 MG/DL Sodium Level 136 136-145 mmol/L Potassium Level 4.3 3.5-5.1 mmol/L Chloride Level 96 L 101-111 mmol/L Carbon Dioxide Level 26 21-32 mmol/L Blood Urea Nitrogen 60 #H 7-18 mg/dL Creatinine 6.3 H 0.5-1.0 mg/dL Glomerular Filtration Rate Calc 6 >90 mL/min Random Glucose 156 H 70-105 mg/dL Total Calcium 7.5 L 8.5-10.1 mg/dL Total Bilirubin 2.0 H 0.2-1.0 mg/dL Aspartate Amino Transf (AST/SGOT) 84 H 10-37 U/L Alanine Aminotransferase (ALT/SGPT) 78 12-78 U/L Alkaline Phosphatase 247 H 50-136 U/L Total Protein 5.5 L 6.0-8.3 g/dL Albumin 2.2 L 3.5-5.0 g/dL Procalcitonin 118.98 H 0.05-0.5 ng/mL Troponin I High Sensitivity 235 *H 4-50 ng/L Test 08/06/25 05:09 Range/Units Phosphorus Level 4.6 2.5-4.9 mg/dL DIAGNOSTICS / RADIOLOGY: [place] [address] [address] IMAGING REPORT Signed PATIENT: ANDREI RODRÍGUEZ MR#: [id number] : 1945 SEX: F AGE: 79 LOCATION: 2[facility] ORDER 0830 STATUS: ADM IN REPORT#: [id number] SERVICE 0829 REASON: pp ORDERING PHYSICIAN: ALONDRA DESHPANDE PROCEDURE: CXR1VW - CHEST 1VW CHEST 1VW REASON: pp COMPARISON: Prior chest radiograph from 08/06/2025 is available. FINDINGS: Single view of the chest was obtained. The cardiac silhouette is within the limits of normal. There is mild diffuse interstitial pulmonary edema.. This was not seen on the prior study. The support lines including endotracheal tube and nasogastric tube and right-sided PICC catheter to be in satisfactory position. There are surgical clips in the left axillary region. Mediastinum and bony thorax appear unremarkable. IMPRESSION: 1. Mild interstitial pulmonary edema 2. Support lines in satisfactory position.. DICTATED BY: ROSA GONZALEZ MD DATE: 08/07/25 1058 ELECTRONICALLY SIGNED BY: ROSA GONZALEZ MD DATE: 08/07/25 110 PATIENT: ANDREI RODRÍGUEZ MR#: [id number] : 1945 SEX: F AGE: 79 LOCATION: [facility] ORDER 1850 STATUS: ADM IN REPORT#: [id number] SERVICE 1848 REASON: LIVER STATUS. ORDERING PHYSICIAN: ALONDRA DESHPANDE PROCEDURE: ABDOMEN - US ABDOMINAL COMPLETE EXAMINATION: ULTRASOUND OF THE ABDOMEN WITH COLOR DOPPLER. CLINICAL HISTORY: To evaluate liver. COMPARISON: None. TECHNIQUE: Real-time grayscale ultrasound images of the abdomen. In addition, color Doppler is medically necessary to perform in order to evaluate vascularity and blood flow. FINDINGS: Liver: Bulky in caliber, the right hepatic lobe measures 18.4 cm in the craniocaudal dimension. There is increased echogenicity of the hepatic parenchyma. There is no focal hepatic abnormality or intrahepatic biliary ductal dilatation. There is normal spectral Doppler of the main portal vein. Gallbladder: Post cholecystectomy status. Common bile duct is normal in caliber, measuring 0.0 cm. Spleen is normal in caliber and measures 11.9 cm in craniocaudal dimension. No focal lesions. Pancreas: Normal in caliber and echotexture. No calcification or dilated pancreatic duct. The kidneys are smaller in caliber, the right kidney measures 7.7 x 3.1 x 4.1 cm and the left kidney measures 8.9 x 2.8 x 3.0 cm in craniocaudal, AP, and transverse dimensions respectively. There is renal cortical thinning and increased cortical echogenicity. There is no renal calculus or hydronephrosis. The proximal and mid abdominal aorta are normal in caliber with atherosclerosis. The distal aspect is obscured by overlying bowel gas. Visualized aspects of the inferior vena cava are unremarkable. IMPRESSION: Hepatomegaly with hepatic steatosis. Post cholecystectomy status. Bilateral renal parenchymal disease. /[place] DICTATED BY: ADALBERTO ARELLANO MD DATE: 08/07/25920 ELECTRONICALLY SIGNED BY: ADALBERTO ARELLANO MD DATE: 08/07/25920 PATIENT: ANDREI RODRÍGUEZ MR#: [id number] : 1945 SEX: F AGE: 79 LOCATION: [facility] ORDER 2300 STATUS: ADM IN REPORT#: [id number] SERVICE 0600 REASON: pn ORDERING PHYSICIAN: ALONDRA DESHPANDE PROCEDURE: CXR1VW - CHEST 1VW EXAM: CR Chest, 1 View. CLINICAL HISTORY: pn COMPARISON: 08/05. FINDINGS: LUNGS: Endotracheal tube adequately positioned below the maru. Multiple airspace opacities within the left lung. New compared to prior. PLEURAL SPACES: Small left pleural effusion. MEDIASTINUM: Cardiac size and mediastinal contours within normal limits. BONES: No acute osseous abnormality. MISCELLANEOUS: Enteric tube course below level of diaphragm, distal tip not within the [id number]. Right sided PICC. IMPRESSION: 1. New left lung airspace opacities, concerning for pneumonia. 2. Small left pleural effusion. 3. Endotracheal tube in adequate position. 4. Enteric tube extending below the diaphragm, tip not visualized. 5. Right-sided PICC line present. /[place] DICTATED BY: LUISITO HANSON MD DATE: 08/06/25917 ELECTRONICALLY SIGNED BY: LUISITO HANSON MD DATE: 08/06/25917 PATIENT: ANDREI RODRÍGUEZ MR#: [id number] : 1945 SEX: F AGE: 79 LOCATION: 2[facility] ORDER 5 STATUS: ADM IN REPORT#: [id number] SERVICE 3 REASON: congestion, intubated ORDERING PHYSICIAN: HARINDER VALENCIA MD PROCEDURE: CXR1VW - CHEST 1VW EXAM: XR Chest, 3 Views. CLINICAL HISTORY: 79-year-old female with a history of congestion and is intubated. COMPARISON: XR Chest dated 08/04/2025. FINDINGS: LUNGS: No consolidation. PLEURAL SPACES: Left lower lobe pleural effusion. HEART: The heart size is normal. BONES: No acute osseous abnormality. LINES AND TUBES: The endotracheal tube tip is 2.1 cm above the maru. The right upper extremity PICC line tip is in the SVC. IMPRESSION: 1. Left lower lobe pleural effusion, overall similar to prior XR Chest dated 08/04/2025. 2. Lines and tubes in satisfactory positioning. /[place] DICTATED BY: OSCAR SMITH MD DATE: 08/05/252117 ELECTRONICALLY SIGNED BY: OSCAR SMITH MD DATE: 08/05/252117 PATIENT: ANDREI RODRÍGUEZ MR#: [id number] : 1945 SEX: F AGE: 79 LOCATION: 2[facility] ORDER 13 STATUS: ADM IN REPORT#: [id number] SERVICE 09 REASON: respiratory failure ORDERING PHYSICIAN: EMERY RODRIGUEZ PROCEDURE: ECHO CMP - ECHO 2-D COMPLETE APPROVED REPORT EXAM: Two-dimensional and M-mode echocardiogram with Doppler and color Doppler. INDICATION ICD: Respiratory failure 2D Dimensions RVDd 4.0 cm LVEF(%) 50.2 (>50%) LVED Vol(simp.) 88.5 mL IVSd 1.2 (0.7-1.1cm) FS(%) 25 % LVES Vol(simp.) 47.5 mL LVDd 4.1 (3.8-5.6cm) LA (2D) 4.3 (1.6-4.0cm) LVEF(%, simp.) 46 % PWd 1.2 (0.7-1.1cm) Ao Root(2D) 2.9 (2.0-3.7cm) LA ESV INDEX (BP) 30.0 4 mL/m2 LVDs 3.1 (2.5-4.0cm) LVOT diam 1.9 (1.8-2.4cm) IVC diam 2.2 cm Deformation Strain Apical 4 -8.9 % Apical 2 -7.6 % Apical 3 -8.1 % Global Strain -8.2 % M-Mode Dimensions EPSS 1.2 cm LA (MM) 4.2 (1.6-4.0cm) Ao Root(MM) 3.2 (2.0-3.7cm) Aortic Valve AoV Vmax 3.5 m/s Ao Peak GR 49.3 mmHg LVOT Vmax 1.0 m/s AoV VTI 0.7 m Ao Mean GR 31.8 mmHg LVOT VTI 0.19 m MARIAELENA (VMAX) 0.79 cm2 MARIAELENA (VTI) 0.8 cm2 Mitral Valve MV E Vmax 82.3 cm/s DECEL Time 304 ms MV Peak GR 7 mmHg MV A Vmax 121.0 cm/s P 1/2 T 75 ms MV Mean GR 3 mmHg E/A ratio 0.7 MVA (PHT) 2.9 cm2 MVA (VTI) 1.41 cm2 TDI E/E' Medial 24.0 E/E' Lateral 11.6 Medial E' Peak V 3.43 cm/s Lateral E' Peak V 7.07 cm/s Pulmonary Valve PV Vmax 1.4 m/s PV VTI 0.25 m PV Mean GR 3.4 mmHg PV Peak GR 7.4 mmHg Tricuspid Valve TR Vmax 2.5 m/s RAP (EST) 15 mmHg RVSP 41.3 mmHg TR Peak GR 26.3 mmHg Left Ventricle The left ventricle is normal size. GLS -8.0%. Apical septal bounce. Apical severe hypokinesis. Mild concentric left ventricular hypertrophy. LVEF is 40- 45%. Stage I diastolic dysfunction. Right Ventricle The right ventricle is normal size. The right ventricular systolic function is normal. Atria The left atrium size is normal. The right atrium size is normal. Aortic Valve The aortic valve is trileaflet, heavily calcified, and shows severely restricted opening. Trace of aortic regurgitation is present. There is severe aortic valvular stenosis. Peak AV gradient is 48 mmHg; mean AV gradient is 32 mmHg; and AV area is 0.7 cm. Mitral Valve Mild posterior annular calcification noted. There is trace of mitral valve regu rgitation noted. There is no mitral valve stenosis. Tricuspid Valve The tricuspid valve is normal in structure. There is trace of tricuspid valve regurgitation noted. Pulmonic Valve The pulmonary valve is normal in structure. There is mild pulmonic valvular regurgitation. Great Vessels The aortic root is normal in size. IVC is dilated and collapses <50% with inspiration. Pericardium There is no pericardial effusion. Other Information Quality : Adequate Conclusion The left atrium size is normal. Mild concentric left ventricular hypertrophy. GLS -8.0%. Early relaxation at the LV apex. Apical septal bounce. Apical severe hypokinesis. LVEF is 40-45%. Stage I diastolic dysfunction. The aortic valve is trileaflet, heavily calcified, and shows severely restricted opening. There is severe aortic valvular stenosis. Peak AV gradient is 48 mmHg; mean AV gradient is 32 mmHg; and AV area is 0.7 cm. DICTATED BY: GABRIEL CHINCHILLA MD DATE: 08/04/25 1015 ELECTRONICALLY SIGNED BY: GABRIEL CHINCHILLA MD DATE: 08/04/25 5005 PATIENT: ANDREI RODRÍGUEZ MR#: [id number] : 1945 SEX: F AGE: 79 LOCATION: 2[facility] ORDER 1306 STATUS: ADM IN REPORT#: [id number] SERVICE 1304 REASON: repositioning of picc line ORDERING PHYSICIAN: ALONDRA DESHPANDE PROCEDURE: CXR1VW - CHEST 1VW EXAM: XR Chest, 3 View(s). CLINICAL HISTORY: 79-year-old female repositioning of PICC line. COMPARISON: Compared to XR chest from 08/03/2025 at 11:14 PM, similar findings are noted. FINDINGS: LUNGS: Minimal pulmonary vascular congestion. PLEURAL SPACES: No pleural effusion or pneumothorax. HEART: The heart size is normal. BONES: No acute osseous abnormality. IMPRESSION: 1. PICC line in a satisfactory position. 2. Minimal pulmonary vascular congestion, similar to prior study. 3. Similar findings compared to XR chest from 08/03/2025 at 11:14 PM. /[place] DICTATED BY: OSCAR SMITH MD DATE: 08/04/251946 ELECTRONICALLY SIGNED BY: OSCAR SMITH MD DATE: 08/04/251946 PATIENT: ANDREI RODRÍGUEZ MR#: [id number] : 1945 SEX: F AGE: 79 LOCATION: [facility] ORDER 1230 STATUS: ADM IN REPORT#: [id number] SERVICE 1229 REASON: PICC LINE INSERTION ORDERING PHYSICIAN: ALONDRA DESHPANDE PROCEDURE: CXR1VW - CHEST 1VW EXAM: CR Chest, 2 View. CLINICAL HISTORY: PICC LINE INSERTION COMPARISON: Radiograph dated August 04, 2025 Findings: AP view of the chest is submitted. Endotracheal and enteric tubes are in satisfactory positions. Right PICC terminates overlying the proximal right atrium. There is no pneumothorax appreciated. Relatively unchanged bilateral perihilar and bibasilar airspace disease. No pleural effusion. Heart size is stable. Mild central pulmonary vascular congestion. IMPRESSION: 1. Right PICC line terminates overlying the proximal right atrium. 2. Bilateral perihilar and bibasilar airspace disease, unchanged, with mild central pulmonary vascular congestion. /[place] DICTATED BY: EREN YANES Jr., MD DATE: 08/04/251503 ELECTRONICALLY SIGNED BY: EREN YANES Jr., MD DATE: 08/04/251503 PATIENT: ANDREI RODRÍGUEZ MR#: [id number] : 1945 SEX: F AGE: 79 LOCATION: [facility] ORDER 10 STATUS: ADM IN REPORT#: [id number] SERVICE 09 REASON: ET TUBE PLACEMENT RECHECK ORDERING PHYSICIAN: MANSOOR CLEVELAND MD PROCEDURE: CXR1VW - CHEST 1VW EXAM: CR Chest, 1 view CLINICAL HISTORY: Endotracheal tube. COMPARISON: Chest radiograph from the same date. FINDINGS: The endotracheal tube tip is 1.7 cm above the maru. The gastric tube tip is probably around the distal stomach. Stable mild cardiomegaly and pulmonary vascular congestion. No pleural effusion or pneumothorax. No acute osseous abnormality. Surgical clips in the right and left chest wall. Surgical clips in the right upper quadrant of the abdomen. IMPRESSION: The endotracheal tube tip is 1.7 cm above the maru. The gastric tube tip is probably around the distal stomach. Stable mild cardiomegaly and pulmonary vascular congestion. /[place] DICTATED BY: EREN YANES Jr., MD DATE: 08/04/25117 ELECTRONICALLY SIGNED BY: EREN YANES Jr., MD DATE: 08/04/25117 PATIENT: ANDREI RODRÍGUEZ MR#: [id number] : 1945 SEX: F AGE: 79 LOCATION: [facility] ORDER 45 STATUS: ADM IN REPORT#: [id number] SERVICE 44 REASON: S/P INTUBATION ORDERING PHYSICIAN: MANSOOR CLEVELAND MD PROCEDURE: CXR1VW - CHEST 1VW EXAM: CR Chest, 1 view CLINICAL HISTORY: Endotracheal tube. COMPARISON: Chest radiograph dated 07/30/2025. FINDINGS: The endotracheal tube tip terminates within the right main bronchus, recommend at least 5 cm retrieval of the endotracheal tube. The gastric tube tip is probably around the distal stomach. Stable mild cardiomegaly and pulmonary vascular congestion. No pleural effusion or pneumothorax. No acute osseous abnormality. Surgical clips in the right chest wall. IMPRESSION: The endotracheal tube tip terminates within the right main bronchus, recommend at least 5 cm retrieval of the endotracheal tube. The gastric tube tip is probably around the distal stomach. Stable mild cardiomegaly and pulmonary vascular congestion. /[place] DICTATED BY: EREN YANES Jr., MD DATE: 08/04/25116 ELECTRONICALLY SIGNED BY: EREN YANES Jr., MD DATE: 08/04/25116 ASSESSMENT: ESRD Hyperkalemia Fluid overload Acute respiratory failure, in need of emergent intubation Sepsis with septic shock, POA, in need of pressors Pneumonia Pulmonary vascular congestion LVEF 55-60%, stage I diastolic dysfunction, moderate left ventricular hypertrophy, per echo on 01/17/2025 Left atrium mildly dilated, posterior mitral valve annular calcification, per echo on 01/18/2024 Lactic acidosis Elevated troponin Electrolyte derangement (hypokalemia, hypochloremia, hypocalcemia) Elevated ALK PHOS Hypoalbuminemia Diabetes mellitus History of cancer Hypertension, currently hypotensive PLAN: Labs and Diagnostics/ Radiology personally reviewed and interpreted by myself and supervising physician We have reviewed dialysis and external records in detail. Continue with dialysis schedule Sunday Continue with the antibiotics Continue with mechanical ventilation Continue with the IV pressors Follow up blood culture results 1.5 L fluid restriction Continue with frequent monitoring of renal function, anemia, and electrolytes Order CBC, CMP, and electrolytes in the morning May use Dilaudid 0.5 mg IV every 6 hours as needed for severe pain Monitor blood pressure adjust medication doses as needed Maintain normotensive state Strict intake, output, and daily weight should be monitored Please renally adjust medications. Avoid nephrotoxics and nonsteroidal drugs. We will continue to monitor the patient closely We have discussed with the other team physicians in detail about the care plan Total critical care time spent with patient, nursing staff, critical care team over 35 minutes ATTESTATION BY PHYSICIAN I have seen and examined the patient. I reviewed the documentation, medical decision making, and treatment plan as noted by the mid-level provider above. I agree with the findings and plan of care. VIKA LONGO MD, [facility] Aug 07, 2025 13:58
--- NOTE | 2025-08-07 15:57 | NUR ---
Nutrition f/u Reviewed labs, notes, and medications. Pt's HD output 5.4L 08/07/25, NPO, OGT in place, off pressor support and sedation, last BM 08/05/25 per nursing. NPO, CO2 WNL, b-complex, insulin, Nepro 1.8 @ 20 ml/hr per chart review. Observed Nepro @ 20 ml/hr, MAP @ 82, daughter in room during visit. Continue trickle feeds while Pt on pressors. Do NOT provide goal rate if Pt on pressors and CO2 not WNL. Trickle feeds provide 50% of Pt's caloric needs. Provide goal rate of Nepro 1.8 @40 ml/hr x 24 hrs + FWF 100Q6H: provides: 1728 kcals, 78, 1097 ml per day. Provide goal rate till Pt off pressors and CO2 WNL. If residual >500 ml stop TF for 2 hours and then restart if residual continues to be >500 ml stop TF and notify MD. If extubated follow [employer] texture recs, consider renal + T2DM diet. Recommendations: -Provide Nepro 1.8 @ 20 ml/hr x 22 hrs + FWF 100 Q6H Provides: 864 kcals, 39 gm pro, 748 ml per day -Monitor BM -If no BM >3 days consider stool softener -Monitor electrolytes -Replenish electrolytes per protocol -Monitor wts -Reweigh as able -Order Vit D, vit b12 labs to rule out deficiencies -Provide Nephro-EDNA QD -Monitor HD output -Monitor TF tolerance + need for TF adjustment -Monitor goals of care RD to follow + available for consult per protocol Addendum: 08/07/25 at [address] Amended: Links added.
--- NOTE | 2025-08-07 17:51 | PN ---
NEPHROLOGY NOTE DATE OF SERVICE: 08/06/2025 BRIEF HISTORY: The patient has been evaluated and seen for dialysis and seen multiple times. This patient has respiratory failure. The patient is intubated and mechanically ventilated on pressors and has received dialysis with albumin support and pressor support. PHYSICAL EXAMINATION: VITAL SIGNS: Blood pressure 126/49, pulse 101 and respiratory rate . NECK: Supple. No masses or bruits. DIAGNOSTIC DATA: Labs have shown elevated white cell count and cultures pending. PROBLEMS: * Renal failure. * Sepsis. * Respiratory failure. PLAN: Continue dialysis in ICU. Continue monitoring of renal function. Electrolytes. I have discussed with other team members. We will follow up closely. Condition remains guarded. Seen several times. TID: [id number] RECEIPT: [id number]
--- NOTE | 2025-08-07 20:58 | PN ---
NEPHROLOGY NOTE SUBJECTIVE: The patient has been evaluated and seen several times for dialysis. No fevers, chills, or rigors. No cough, expectoration or hemoptysis. The patient has been intubated, mechanically ventilated, on pressors, received albumin. The patient has respiratory failure, sepsis, anemia, and other comorbidities. PHYSICAL EXAMINATION: GENERAL: Critically ill, in ICU intubated, mechanically ventilated. VITAL SIGNS: Blood pressure 137/48, pulse 102, respiratory rate is 19. HEENT: Pupils are equal, round and reactive. Sclerae are anicteric. Conjunctivae not pale. Oral mucosa is not dry. NECK: Without mass or bruits. Thyroid is palpable. Neck has no bruits. LABORATORY DATA: Labs have been reviewed from old records. IMAGING STUDIES: Reviewed. PROBLEMS: 1. Anemia. 2. Sepsis. 3. Rising WBC. PLAN: Continue dialysis, support in ICU. Condition is critically guarded. We will follow up closely. I will suggest to adjust the dose of medicine. Overall prognosis has been guarded. I thank you for this challenging patient and for letting me participate in the care of this patient. I have discussed with other team physicians. TID: [id number] RECEIPT: [id number]
[2025-08-08] VITALS (89 sets, daily range): BP systolic 81–164; BP diastolic 35–72; PULSE 62–83; RESP 11–36; TEMP 98.3–99.6; O2SAT 96–100
[2025-08-08 03:43] LABS: CREATININE 7.8 mg/dL (0.5-1.0); GLOMERULAR FILTR. RATE CALC 5.0 mL/min (>90); GLUCOSE,RANDOM 208.0 mg/dL (70-105); PHOSPHORUS 4.1 mg/dL (2.5-4.9); SODIUM SERUM 134.0 mmol/L (136-145); TOTAL PROTEIN, SERUM 5.0 g/dL (6.0-8.3); VANCOMYCIN LEVEL 22.6 mcg/mL (20.0-30.0)
[2025-08-08 03:46] LABS: NUCLEATED RED BLOOD CELLS 0.0 % (0.0-0.19); PLATELET COUNT (AUTO) 32 K/uL (130-400); RED BLOOD CELL COUNT(AUTO) 3.05 MIL/uL (4.00-5.50); RED CELL DISTRIBUTION WIDTH 13.5 % (11.0-15.5); WHITE BLOOD COUNT (AUTO) 15.0 K/uL (4.8-10.8)
[2025-08-08 03:54] LABS: UREA NITROGEN, BLOOD 88.0 mg/dL (7-18)
[2025-08-08 04:21] LABS: ASPARTATE AMINOTRANSFERASE 54.0 U/L (10-37)
[2025-08-08 04:22] LABS: ABG BASE EXCESS 2.0 mmol/L (-2.0-3.0); ABG HCO3 26.7 mmol/L (21.0-28.0); ABG OXYGEN SATURATION 96.1 % (94.0-98.0); ABG PCO2 42 mmHg (32-45); ABG PH 7.424 (7.350-7.450); DEVICE COMMENT JAMES RN, RR; PO2, ARTERIAL BG 80.3 mmHg (83.0-108.0); TEMPERATURE, CELSIUS BG 37.0 CELSIUS (35.5-37.0); VENT MODE, BG AC VC (ROOM AIR)
[2025-08-08 05:04] LABS: EOSINOPHILS % (MANUAL) 7 % (1-6); LYMPHOCYTES % (MANUAL) 6 % (22-44); MAN.DIFF COMMENT-IMPRESSION MANUAL DIFFERENTIAL; MONOCYTES % (MANUAL) 5 % (2-9); SEGMENTED NEUTROPHILS % 82 % (40-70)
[2025-08-08 05:05] LABS: PLATELET MORPHOLOGY COMMENT MARKED DECREASE
--- NOTE | 2025-08-08 05:19 | NUR ---
Luis E Davis stayed with patient overnight. As I was getting ready to bath the patient the asked me if we have an CHILD CARE GIVER to do the baths. I educated him on how in ICU we do total care of patients. Luis E looked visibly upset. I asked him why he was upset. He stated that he wanted a female to bath his . That his is out now but she would not want a male to bath her. I informed him that there is no female available to bath the patient.
--- NOTE | 2025-08-08 07:02 | NUR ---
Dr. Holley at the bedside. Informed of patient having to start oneyda. Physician ordered midodrine 10 mg bid.
--- NOTE | 2025-08-08 07:07 | PN ---
SUBJECTIVE: The patient will continue in ICU. She is orally intubated, sedated, with epinephrine IV. Vasopressin will be discontinued. Continue with IV antibiotics, the patient had an episode of atrial fibrillation with rapid ventricular response that did not respond to metoprolol and amiodarone was started. OBJECTIVE: GENERAL: Currently comfortable in bed, sedated, on mechanical ventilation. HEART: S1 and S2. LUNGS: decreased breath sounds bilaterally. ABDOMEN: Soft and nontender. LABORATORY DATA: Labs are pending. Blood cultures are positive for staph aureus. ASSESSMENT AND PLAN: * Respiratory failure with hypoxemia. Continue with mechanical ventilation. * Pneumonia. Continue current antibiotics. * Staph aureus bacteremia. Continue with vancomycin. * End-stage renal disease, on hemodialysis. Continue with nephrology recommendations. * Septic shock. Continue with inotropic antibiotics. * Abnormal cardiac enzymes and elevated troponin secondary to shock. Continue to monitor. * Aortic stenosis. Continue to monitor. * The patient family was informed of the patient's condition. * Follow up with me in the lab. DOS: 08/07/2025 TID: [id number] RECEIPT: [id number]
[2025-08-08 09:32] LABS: CREATININE 6.4 mg/dL (0.5-1.0); GLOMERULAR FILTR. RATE CALC 6.0 mL/min (>90); GLUCOSE,RANDOM 196.0 mg/dL (70-105); SODIUM SERUM 135.0 mmol/L (136-145); TOTAL PROTEIN, SERUM 4.9 g/dL (6.0-8.3); UREA NITROGEN, BLOOD 70.0 mg/dL (7-18)
[2025-08-08 10:04] LABS: ASPARTATE AMINOTRANSFERASE 74.0 U/L (10-37)
--- NOTE | 2025-08-08 10:14 | HMCIMG ---
CHEST 1VW REASON: pp COMPARISON: Prior chest radiograph from 08/07/2025 is available. FINDINGS: Single view of the chest was obtained. There is mild cardiomegaly with mild interstitial pulmonary edema. There is suspicion for small bilateral pleural effusion. Support lines including endotracheal tube and nasogastric tube and right-sided PICC catheter to be in satisfactory position.. Mediastinum and bony thorax appear unremarkable. There are surgical clips seen in the left axillary region. IMPRESSION: 1. Unchanged from prior study with mild cardiomegaly with interstitial pulmonary edema 2. Support lines are in satisfactory position..
[2025-08-08] MEDS: ALBUMIN (HUMAN) 25% 50 ML IV.SOLN. IV PRN (10:15)
--- NOTE | 2025-08-08 11:06 | PN ---
The patient has been evaluated and seen several times for dialysis. No fevers, chills, or rigors. No cough, expectoration or hemoptysis. The patient has been intubated, mechanically ventilated, on pressors, received albumin. The patient has respiratory failure, sepsis, anemia, and other comorbidities. Patient with thrombocytopenia. 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 This patient was started on argatroban. There is no obvious bleeding. Platelet count stable at 32K. PHYSICAL EXAMINATION: GENERAL: Critically ill, in ICU intubated, mechanically ventilated. VITAL SIGNS: Blood pressure 137/48, pulse 102, respiratory rate is 19. HEENT: ET tube in place.Pupils are equal, round and reactive. Sclerae are anicteric. Conjunctivae not pale. Oral mucosa is not dry. NECK: Without mass or bruits. Thyroid is palpable. Neck has no bruits. Neuro, patient is intubated sedated. LABORATORY DATA: Labs have been reviewed from old records. IMAGING STUDIES: Reviewed. PROBLEMS: 1. Anemia. 2. Thrombocytopenia with the patient is suspected of having heparin-induced thrombocytopenia with the patient was started on argatroban. 3. Leukocytosis 4. Acute renal failure with the patient in hemodialysis 5. Acute respiratory distress with the patient is intubated 6. Sepsis 7. Congestive heart failure Plan 1. We will continue argatroban with the goal for PTT to be done between 6090. If more than 90 to stop argatroban for 2-hour and decrease dose by 25%. 2. Please do not transfuse any platelet 3. Please do not give any heparin or heparin products 4. There was hypersegmented neutrophils. This patient to be started on folic acid 1 mg p.o. daily and vitamin B12 1000 mcg p.o. daily. 5. Continue care as per primary 6. Continue dialysis as per nephrology Patient to receive iron and Procrit during hemodialysis Vitals/Labs Vital Signs Date Time Temp Pulse Resp B/P (MAP) Pulse Ox O2 Delivery O2 Flow Rate FiO2 08/08/25 10:45 64 16 107/41 100 Ventilator 45 08/08/25 08:25 98.2 Laboratory Tests 08/08/25 03:23 08/08/25 08:43 Medications Current Medications Albuterol 2 udvial ONCE ONCE IH Last administered on 08/03/25at 23:50; Start 08/03/25 at 22:30; Stop 08/03/25 at 22:31; Status DC Albuterol 1 udvial STK-MED ONCE IH; Start 08/03/25 at 22:17; Stop 08/03/25 at 22:18; Status DC Acetaminophen 1,000 mg ONCE ONCE PO; Start 08/03/25 at 23:00; Stop 08/03/25 at 23:01; Status DC Fentanyl Citrate 100 ml @ As Directed STK-MED ONCE IV; Start 08/03/25 at 22:46; Stop 08/03/25 at 22:46; Status DC Ketamine HCl 50 mg STK-MED ONCE .ROUTE; Start 08/03/25 at 22:47; Stop 08/03/25 at 22:47; Status DC Rocuronium [place] 50 mg STK-MED ONCE .ROUTE Last administered on 08/03/25at 23:34; Start 08/03/25 at 22:47; Stop 08/03/25 at 22:47; Status DC Propofol 100 ml @ As Directed STK-MED ONCE IV; Start 08/03/25 at 22:50; Stop 08/03/25 at 22:50; Status DC Norepinephrine 250 ml @ As Directed STK-MED ONCE IV; Start 08/03/25 at 22:58; Stop 08/03/25 at 22:58; Status DC Vancomycin HCl 1 gm ONCE ONCE IV Last administered on 08/04/25at 00:06; Start 08/03/25 at 23:30; Stop 08/03/25 at 23:36; Status DC Albuterol Sulfate 2.5 mg [id number] PRN IH; Start 08/03/25 at 23:30; Stop 09/02/25 at 23:29 Ipratropium [place] 0.5 mg [id number] IH Last administered on 08/08/25at 07:18; Start 08/04/25 at 00:00; Stop 09/03/25 at 00:00 Acetaminophen 650 mg Q6H PRN PO Last administered on 08/06/25at 19:55; Start 08/03/25 at 23:30; Stop 09/02/25 at 23:29 Acetaminophen 650 mg Q6H PRN RC Last administered on 08/04/25at 04:08; Start 08/03/25 at 23:30; Stop 09/02/25 at 23:29 Lactulose 20 gm Q6H PRN PO; Start 08/03/25 at 23:30; Stop 09/02/25 at 23:29 Docusate Sodium 100 mg BID PRN PO; Start 08/03/25 at 23:30; Stop 09/02/25 at 23:29 Ondansetron HCl 4 mg Q6H PRN IVP; Start 08/03/25 at 23:30; Stop 09/02/25 at 23:29 Insulin Human Regular INSULIN SLIDING SCAL... ACHS SQ Last administered on 08/06/25at 20:42; Start 08/04/25 at 07:30; Stop 08/07/25 at 03:37; Status DC Ketamine HCl 100 mg ONCE ONCE IM Last administered on 08/03/25at 23:43; Start 08/03/25 at 23:30; Stop 08/03/25 at 23:39; Status DC Propofol 1,000 mg PROTOCOL PRN IV; Start 08/03/25 at 23:30; Stop 08/03/25 at 23:39; Status DC Fentanyl Citrate 100 ml @ 2.5 mls/hr PROTOCOL IV; Start 08/03/25 at 23:30; Stop 08/03/25 at 23:39; Status DC Norepinephrine 250 ml @ 0 mls/hr PROTOCOL IV; Start 08/03/25 at 23:30; Stop 08/03/25 at 23:39; Status DC Fentanyl/Sodium Chloride 250 ml @ 0.1 mls/hr PROTOCOL IV Last administered on 08/06/25at 13:11; Start 08/03/25 at 23:30; Stop 08/08/25 at 23:29 Propofol 1,000 mg PROTOCOL PRN IV Last administered on 08/07/25at 16:56; Start 08/03/25 at 23:30; Stop 09/02/25 at 23:29 Levofloxacin/ Dextrose 750 mg ONCE ONCE IV Last administered on 08/04/25at 02:13; Start 08/03/25 at 23:30; Stop 08/03/25 at 23:41; Status DC Norepinephrine 250 ml @ 37.425 mls/ hr PROTOCOL IV Last administered on 08/04/25at 14:11; Start 08/03/25 at 23:30; Stop 08/04/25 at 14:18; Status DC Levofloxacin/ Dextrose 100 ml @ 100 mls/hr Q48H IV; Start 08/05/25 at 23:00; Stop 08/04/25 at 16:22; Status DC Vasopressin 20 units STK-MED ONCE .ROUTE; Start 08/04/25 at 04:24; Stop 08/04/25 at 04:24; Status DC Vasopressin 20 units/Sodium Chloride 100 ml @ 0 mls/hr PROTOCOL IV Last administered on 08/05/25at 04:10; Start 08/04/25 at 05:00; Stop 09/03/25 at 04:59 Vancomycin HCl 1 each AD IV; Start 08/04/25 at 13:30; Stop 08/18/25 at 13:29 Albumin Human 50 ml @ 0 mls/hr AD ONCE IV; Start 08/04/25 at 13:30; Stop 08/04/25 at 13:47; Status DC Thiamine HCl 100 mg DAILY IVP Last administered on 08/08/25at 08:15; Start 08/05/25 at 09:00; Stop 09/04/25 at 08:59 Vancomycin HCl 250 ml @ 125 mls/hr ONCE ONCE IV; Start 08/04/25 at 14:00; Stop 08/04/25 at 13:33; Status DC Vancomycin HCl 750 mg [id number] IVPB Last administered on 08/06/25at 15:25; Start 08/04/25 at 16:00; Stop 08/14/25 at 15:59 Norepinephrine Bitartrate as protocol PROTOCOL IV Last administered on 08/06/25at 09:16; Start 08/04/25 at 14:30; Stop 09/03/25 at 14:29 Pharmacy Profile Note 1 each ONCE MISC; Start 08/04/25 at 15:30; Stop 08/04/25 at 16:16; Status DC Meropenem 500 mg Q24H IVPB Last administered on 08/05/25at 15:56; Start 08/04/25 at 16:30; Stop 08/06/25 at 07:37; Status DC Sodium Chloride 250 ml @ 0 mls/hr AD IV; Start 08/04/25 at 17:00; Stop 09/03/25 at 16:59 Albumin Human 100 ml ONCE IV; Start 08/04/25 at 17:00; Stop 08/05/25 at 16:59; Status DC Sodium Chloride 1,000 ml @ 0 mls/hr ONCE IV Last administered on 08/08/25at 10:14; Start 08/04/25 at 17:00; Stop 09/03/25 at 16:59 Dextrose 50 ml ONCE ONCE IV Last administered on 08/05/25at 09:12; Start 08/05/25 at 09:00; Stop 08/05/25 at 09:01; Status DC Insulin Human Regular 10 unit ONCE ONCE IV Last administered on 08/05/25at 09:21; Start 08/05/25 at 09:00; Stop 08/05/25 at 09:01; Status DC Pantoprazole Sodium 40 mg DAILY IVP Last administered on 08/08/25at 08:15; Start 08/06/25 at 09:00; Stop 09/05/25 at 08:59 Heparin Sodium (Porcine) 5,000 unit Q12H SQ; Start 08/05/25 at 12:00; Stop 08/05/25 at 16:11; Status DC Heparin Sodium (Porcine) 5,000 unit Q12H SQ Last administered on 08/06/25at 04:46; Start 08/05/25 at 16:00; Stop 08/06/25 at 07:37; Status DC Magnesium Sulfate 50 ml @ 0 mls/hr PROTOCOL PRN IV Last administered on 08/05/25at 18:34; Start 08/05/25 at 17:30; Stop 09/04/25 at 17:29 Heparin Sodium (Porcine) 5,000 unit Q12H9 SQ Last administered on 08/06/25at 20:43; Start 08/06/25 at 21:00; Stop 08/07/25 at 13:14; Status DC Meropenem 500 mg DAILY IVPB Last administered on 08/08/25at 08:15; Start 08/06/25 at 09:00; Stop 08/14/25 at 16:29 Albumin Human 100 ml @ 0 mls/hr ONCE PRN IV Last administered on 08/06/25at 11:27; Start 08/06/25 at 11:00; Stop 08/06/25 at 11:27; Status DC Phenylephrine HCl 100 mg/Sodium Chloride 250 ml @ 0 mls/hr PROTOCOL IV Last administered on 08/06/25at 22:39; Start 08/06/25 at 11:30; Stop 09/05/25 at 11:29 Multi-Ingred Cream/Lotion/Oil/ Oint USE DIRECTED BID OD Last administered on 08/08/25at 08:16; Start 08/06/25 at 21:00; Stop 09/05/25 at 20:59 Metoprolol Tartrate 5 mg STK-MED ONCE IV Last administered on 08/07/25at 00:10; Start 08/07/25 at 00:02; Stop 08/07/25 at 00:02; Status DC Metoprolol Tartrate 25 mg ONCE ONCE IV Last administered on 08/07/25at 00:25; Start 08/07/25 at 00:00; Stop 08/07/25 at 00:24; Status DC Amiodarone HCl 150 mg/Dextrose 103 ml @ 618 mls/hr ONCE IV; Start 08/07/25 at 00:00; Stop 08/07/25 at 00:12; Status DC Amiodarone HCl 360 mg/Dextrose 207.2 ml @ 33.3 mls/hr AD IV; Start 08/07/25 at 00:00; Stop 08/07/25 at 00:12; Status DC Amiodarone HCl 540 mg/Dextrose 310.8 ml @ 16.7 mls/hr [id number] IV Last administered on 08/08/25at 00:06; Start 08/07/25 at 05:00; Stop 09/06/25 at 04:59 Amiodarone HCL/ Dextrose 100 ml @ As Directed STK-MED ONCE .ROUTE Last administered on 08/07/25at 00:16; Start 08/07/25 at 00:06; Stop 08/07/25 at 00:10; Status DC Amiodarone HCL/ Dextrose 100 ml @ 0 mls/hr PROTOCOL IV; Start 08/07/25 at 00:30; Stop 08/07/25 at 06:28; Status DC Amiodarone HCL/ Dextrose 200 ml @ 33.333 mls/ hr PROTOCOL IV Last administered on 08/07/25at 00:25; Start 08/07/25 at 00:30; Stop 08/07/25 at 06:28; Status DC Insulin Human Regular INSULIN SLIDING SCAL... Q6H6 SQ Last administered on 08/08/25at 06:12; Start 08/07/25 at 06:00; Stop 08/08/25 at 10:28; Status DC Argatroban 50 mg/ Sodium Chloride 50 ml @ 0 mls/hr PROTOCOL IV Last administered on 08/08/25at 03:03; Start 08/07/25 at 13:00; Stop 09/06/25 at 12:59 Metoprolol Tartrate 12.5 mg BID PO Last administered on 08/08/25at 08:15; Start 08/07/25 at 21:00; Stop 09/06/25 at 20:59 Midodrine 10 mg BID NG Last administered on 08/08/25at 08:16; Start 08/08/25 at 09:00; Stop 09/07/25 at 08:59 Albumin Human 100 ml QTUTHSA[DIALYSIS] PRN IV Last administered on 08/08/25at 10:15; Start 08/08/25 at 08:15; Stop 08/09/25 at 08:14 Insulin Human Regular INSULIN SLIDING SCAL... ACHS SQ; Start 08/08/25 at 11:30; Stop 09/07/25 at 11:29 Insulin Glargine 10 units DAILY SQ; Start 08/08/25 at 11:30; Stop 09/07/25 at 11:29 Methylprednisolone Sodium Succinate 40 mg BID IVP; Start 08/08/25 at 11:30; Stop 09/07/25 at 11:29 JACKELINE ANGULO MD Aug 08, 2025 11:06
--- NOTE | 2025-08-08 11:57 | PN ---
[facility] PROGRESS NOTE Date Patient Seen: Aug 08, 2025 Time of Visit: 11:54 Supervising Physician: Dr Yung Butler Primary Care Physician: Dr. Cohen Outpatient Specialists: Inpatient Consults: BIS, critical care team PROBLEM LIST: New onset AFib with RVR Acute hypoxic and hypercapnic respiratory failure-intubated patient, 2nd 2 v olume overload Sepsis with septic shock - Gram-positive cocci bacteremia, Staph aureus Volume overload in a end-stage renal disease patient on hemodialysis Electrolyte imbalance Hyperkalemia LVEF 40-45%, diastolic dysfunction, 55-60% per echo on 01/17/2025 Hyperglycemia in a type 2 diabetic Morbid obesity Heparin induced thrombocytopenia INTERVAL HISTORY: Patient seen and examined, patient is remains intubated, Nursing reports that amnio was resumed overnight, cardiology gave metoprolol 12.5 this morning in amiodarone is off Afebrile, levo and new are both off On midodrine 10 mg t.i.d. Chest x-ray improved Currently in hemodialysis, the goal is to remove 3 L if her BP tolerates Plan: Patient seen by Hematology Thrombocytopenia with the patient is suspected of having heparin-induced thrombocytopenia with the patient was started on argat roban. Vent management, chest x-ray, ABG, spontaneous breathing trials. Continue to follow nephrology recommendations Continue current antibiotics, following cultures Hematology recommendations, pending peripheral smear,HIT antibody results. Follow on coagulation No family members available at bedside, discussion with nursing with rods treatment plan Total critical care time 49 minutes, vent management and pressor support. Patient remains critical REVIEW OF SYSTEMS: Unable to obtain ROS from patient due to patient is intubated and sedated. PHYSICAL EXAM: GENERAL: Intubated and sedated HEENT: EOMI, Sclera non icteric, moist mucosa NECK: Supple, no JVD, trachea midline LUNGS: Diminished breath sounds bilaterally. No wheezes HEART: Regular rate and rhythm. Normal S1 and S2, without murmurs ABD: Abdomen soft, nontender. Bowel sounds present. Obese EXT: No clubbing cyanosis or edema NEURO: Intubated and sedated Vital Signs (last 8hr) Date Time Temp Pulse Resp B/P (MAP) Pulse Ox O2 Delivery O2 Flow Rate FiO2 08/08/25 11:20 66 16 84/35 100 Ventilator 45 08/08/25 11:15 66 16 91/37 100 Ventilator 45 08/08/25 11:00 65 16 102/40 100 Ventilator 45 08/08/25 10:45 64 16 107/41 100 Ventilator 45 08/08/25 10:30 64 16 122/50 100 Ventilator 45 08/08/25 10:15 64 16 108/49 100 Ventilator 45 08/08/25 10:00 67 16 99/57 100 Ventilator 45 08/08/25 09:45 66 16 136/59 100 Ventilator 45 08/08/25 09:30 65 16 131/48 100 Ventilator 45 08/08/25 09:15 63 16 119/42 100 Ventilator 45 08/08/25 09:02 65 45 08/08/25 09:00 64 16 116/40 100 Ventilator 45 08/08/25 08:45 67 16 114/45 100 Ventilator 45 08/08/25 08:45 64 17 116/40 (65) 99 45 08/08/25 08:38 68 16 106/46 100 Ventilator 40 08/08/25 08:30 67 18 114/45 (68) 99 45 08/08/25 08:30 71 16 98/37 100 Ventilator 40 08/08/25 08:25 98.2 71 16 97/36 100 Ventilator 45 08/08/25 08:15 71 19 98/37 (57) 98 45 08/08/25 08:00 98.2 71 12 120/51 (74) 98 45 08/08/25 08:00 99 Ventilator+ 45 08/08/25 08:00 98.2 69 16 92/38 100 Ventilator 45 08/08/25 07:45 74 22 111/46 (67) 98 45 08/08/25 07:30 68 19 92/36 (54) 98 45 08/08/25 07:18 70 12 08/08/25 07:15 69 12 113/42 (65) 100 45 08/08/25 07:00 72 45 08/08/25 06:55 72 19 147/53 (84) 99 08/08/25 06:40 73 21 151/52 (85) 97 08/08/25 06:39 73 34 147/55 (85) 98 08/08/25 06:25 72 18 145/56 (85) 96 08/08/25 06:11 73 23 146/52 (83) 98 08/08/25 05:55 73 16 99/46 (63) 98 08/08/25 05:40 75 21 81/42 (55) 98 08/08/25 05:25 73 18 90/40 (57) 96 08/08/25 05:14 75 15 104/38 (60) 95 08/08/25 05:11 73 19 97/37 (57) 95 08/08/25 05:10 73 16 87/39 (55) 96 08/08/25 04:55 75 15 104/42 (62) 98 08/08/25 04:40 77 17 97/40 (59) 97 08/08/25 04:36 96 Ventilator+ 45 08/08/25 04:25 72 16 93/37 (55) 97 08/08/25 04:15 99.5 08/08/25 04:10 78 19 106/45 (65) 97 08/08/25 03:55 77 19 102/37 (58) 96 LABS: Hematology Labs: Test 08/08/25 03:23 08/07/25 05:07 Range/Units White Blood Count 15.0 #H 4.8-10.8 K/uL Red Blood Count 3.05 L 4.00-5.50 MIL/uL Hemoglobin 9.4 L 12.0-16.0 g/dL Hematocrit 27.0 L 36-48 % Mean Corpuscular Volume 88.5 79-99 fL Mean Corpuscular Hemoglobin 30.8 27.0-33.0 pg Mean Corpuscular Hemoglobin Concent 34.8 32.0-36.0 g/dL Red Cell Distribution Width 13.5 11.0-15.5 % Platelet Count 32 L 130-400 K/uL Mean Platelet Volume 12.8 H 7.5-10.5 fL Segmented Neutrophils % 82 H 40-70 % Lymphocytes % (Manual) 6 L 22-44 % Monocytes % (Manual) 5 2-9 % Eosinophils % (Manual) 7 H 1-6 % Nucleated Red Blood Cells 0.0 0.0-0.19 % Differential Comment MANUAL DIFFERENTIAL White Cell Morphology Comment See comments Platelet Morphology Comment MARKED DECREASE Red Blood Cell Morphology ANISO 1+ Immature Granulocyte % (Auto) 2.6 H 0-1 % Neutrophils (%) (Auto) 81.3 H 40.0-77.0 % Lymphocytes (%) (Auto) 3.6 L 21.0-51.0 % Monocytes (%) (Auto) 7.4 3.0-13.0 % Eosinophils (%) (Auto) 4.7 0.0-8.0 % Basophils (%) (Auto) 0.4 0.0-5.0 % Neutrophils # (Auto) 18.2 H 1.8-7.7 K/uL Lymphocytes # (Auto) 0.8 L 1.0-4.8 K/uL Monocytes # (Auto) 1.7 H 0.1-1.0 K/uL Eosinophils # (Auto) 1.06 H 0.00-0.70 K/uL Basophils # (Auto) 0.08 0.00-0.20 K/uL Absolute Immature Granulocyte (auto 0.58 0-1 K/uL Chemistry Labs: Test 08/08/25 11:14 08/08/25 08:43 08/08/25 03:23 08/07/25 05:07 Range/Units Whole Blood Glucose 119 H 70-110 MG/DL Sodium Level 135 L 136-145 mmol/L Potassium Level 3.6 3.5-5.1 mmol/L Chloride Level 95 L 101-111 mmol/L Carbon Dioxide Level 26 21-32 mmol/L Blood Urea Nitrogen 70 H 7-18 mg/dL Creatinine 6.4 H 0.5-1.0 mg/dL Glomerular Filtration Rate Calc 6 >90 mL/min Random Glucose 196 H 70-105 mg/dL Total Calcium 7.7 L 8.5-10.1 mg/dL Total Bilirubin 1.1 H 0.2-1.0 mg/dL Aspartate Amino Transf (AST/SGOT) 74 H 10-37 U/L Alanine Aminotransferase (ALT/SGPT) 69 12-78 U/L Alkaline Phosphatase 267 H 50-136 U/L Total Protein 4.9 L 6.0-8.3 g/dL Albumin 1.9 L 3.5-5.0 g/dL Phosphorus Level 4.1 2.5-4.9 mg/dL Magnesium Level 2.10 1.80-2.40 mg/dL Procalcitonin 118.98 H 0.05-0.5 ng/mL Test 08/06/25 18:04 Range/Units Troponin I High Sensitivity 235 *H 4-50 ng/L Coagulation Labs: Test 08/08/25 08:43 Range/Units Activated Partial Thromboplast Time 100.7 *H 26.3-35.5 SEC DIAGNOSTICS / RADIOLOGY RESULTS: [ ] PLAN NEURO: Minimize central acting medications as possible. Fall Precautions. Well lighted room through the day and minimize interruptions through the night to prevent acute delirium. PULMONARY: Supplemental 02 as needed Titrate Fio2 to keep Spo2 > or = 90% DuoNebs and CPT as needed IS hourly while awake for pulmonary hygiene Out of bed to chair as tolerated VAP Bundle Vent settings: FiO2 45%, RR 12, peep 5, tidal volume 450 mL CARDIOVASCULAR: Follow hemodynamics. Titrate vasopressor to keep MAP >65 or systolic blood pressure >95mmHg. continue amiodarone follow on cardio recomm GI & NUTRITION: Continue nutritional support Aspirations precautions Prokinetic agents and laxatives as needed KIDNEYS & ELECTROLYTES: Strict monitoring of intake and output Daily weights Avoid nephrotoxic agents Monitor electrolytes and replace as needed Goal urine output of 30mL/hr or 0.5mL/kg/hr ENDOCRINE: Maintain blood glucose between 100-180 at all times. Insulin sliding scale for blood glucose management INFECTIOUS DISEASE: Trend temperature. Go-culture if febrile. HEMATOLOGY & COAGULATION: Monitor H&H. Keep Hgb > 7 Transfuse 1 unit of PRBC for Hgb < 7 Transfuse 1 pack of platelets of platelets < 20, 000 Watch for any signs and symptoms of bleeding SKIN: Pressure ulcer prevention per facility protocol Code Status: Full Resuscitation Disposition: ALONDRA DESHPANDE Aug 08, 2025 11:57
[2025-08-08] MEDS: Solu-medROL 40MG VIAL IVP SCH (13:09)
--- NOTE | 2025-08-08 13:25 | PN ---
[facility] CARDIOLOGY PROGRESS NOTE Date Patient Seen: Aug 08, 2025 Time of Visit: 13:01 Interval History: This 79-year-old [place] female, has a history of hypertension, hyperlipidemia, type 2 diabetes mellitus with renal manifestations, breast cancer, obesity, cholelithiasis, and moderate aortic stenosis. She was hospitalized with generalized weakness and dyspnea 07/30/2025 and was released 07/31/2025. She presented on this occasion to the emergency room with symptoms of cough, shortness of breath, upper respiratory infection symptoms, and fever with chills. She failed BiPAP support and required intubation a short time after arrival in the emergency department. She has been managed for septic shock and respiratory failure. She has been off vasopressor therapy. Her admission blood cultures 08/03/2025 demonstrated staph aureus. Cardiology was involved due to rising pattern of troponins initially 82, 101, 208, 488 and peaking at 676. Her admission EKG demonstrated a sinus tachycardia at 120 beats per minute, left axis, IVCD and an early repolarization pattern into the anterior leads with repeat EKG shortly after that unchanged. She developed atrial fibrillation with RVR on 08/07/2025 treated with IV amiodarone. She converted back to a normal sinus rhythm and is maintaining a sinus rhythm this morning. She is off amiodarone. Has been restarted on beta- vipul therapy. A 2D echo March 2025 demonstrated an LVEF of 65-70% with concentric LVH and peak aortic valve gradient of 38 mm of mercury, mean gradient of 24 mm of mercury, DVI of 0.26, and an aortic valve area of 1.2 cm2. A follow-up 2D echocardiogram 08/04/2025 demonstrated apical severe hypokinesis, mild concentric LVH, LVEF of 40-45% and stage I diastolic dysfunction and evidence of severe aortic valve stenosis with peak AV gradient is 48 mmHg; mean AV gradient is 32 mmHg; and AV area is 0.7 cm, Dr. Valentino reviewed and follow-up and documented dimensionless index of 0.27. She remains intubated, on mechanical ventilation. She is off sedation and not responding to any verbal stimuli. Physical Examination: GENERAL: Intubated, on mechanical ventilation. HEAD: Normal with no signs of head trauma. EYES: PERRLA, EOMI, conjunctiva and sclera normal. NECK: Supple without JVD. There is no tenderness, lymphadenopathy, or masses. No thyromegaly. Normal carotid upstrokes without bruits. LUNGS: Clear breath sounds anteriorly with diminished breath sounds laterally at the bases. HEART: Normal rate and rhythm. Normal S1 and S2 with a 2/6 mid-peaking systolic ejection murmur at the right upper sternal border. VASC: Peripheral pulses +1 bilaterally. EXT: No clubbing, cyanosis or edema. NEURO: Intubated, on mechanical ventilation, off sedation and unresponsive to verbal command. Laboratory: Hematology Labs: Test 08/08/25 03:23 08/07/25 05:07 Range/Units White Blood Count 15.0 #H 4.8-10.8 K/uL Red Blood Count 3.05 L 4.00-5.50 MIL/uL Hemoglobin 9.4 L 12.0-16.0 g/dL Hematocrit 27.0 L 36-48 % Mean Corpuscular Volume 88.5 79-99 fL Mean Corpuscular Hemoglobin 30.8 27.0-33.0 pg Mean Corpuscular Hemoglobin Concent 34.8 32.0-36.0 g/dL Red Cell Distribution Width 13.5 11.0-15.5 % Platelet Count 32 L 130-400 K/uL Mean Platelet Volume 12.8 H 7.5-10.5 fL Segmented Neutrophils % 82 H 40-70 % Lymphocytes % (Manual) 6 L 22-44 % Monocytes % (Manual) 5 2-9 % Eosinophils % (Manual) 7 H 1-6 % Nucleated Red Blood Cells 0.0 0.0-0.19 % Differential Comment MANUAL DIFFERENTIAL White Cell Morphology Comment See comments Platelet Morphology Comment MARKED DECREASE Red Blood Cell Morphology ANISO 1+ Immature Granulocyte % (Auto) 2.6 H 0-1 % Neutrophils (%) (Auto) 81.3 H 40.0-77.0 % Lymphocytes (%) (Auto) 3.6 L 21.0-51.0 % Monocytes (%) (Auto) 7.4 3.0-13.0 % Eosinophils (%) (Auto) 4.7 0.0-8.0 % Basophils (%) (Auto) 0.4 0.0-5.0 % Neutrophils # (Auto) 18.2 H 1.8-7.7 K/uL Lymphocytes # (Auto) 0.8 L 1.0-4.8 K/uL Monocytes # (Auto) 1.7 H 0.1-1.0 K/uL Eosinophils # (Auto) 1.06 H 0.00-0.70 K/uL Basophils # (Auto) 0.08 0.00-0.20 K/uL Absolute Immature Granulocyte (auto 0.58 0-1 K/uL Chemistry Labs: Test 08/08/25 11:14 08/08/25 08:43 08/08/25 03:23 08/07/25 05:07 Range/Units Whole Blood Glucose 119 H 70-110 MG/DL Sodium Level 135 L 136-145 mmol/L Potassium Level 3.6 3.5-5.1 mmol/L Chloride Level 95 L 101-111 mmol/L Carbon Dioxide Level 26 21-32 mmol/L Blood Urea Nitrogen 70 H 7-18 mg/dL Creatinine 6.4 H 0.5-1.0 mg/dL Glomerular Filtration Rate Calc 6 >90 mL/min Random Glucose 196 H 70-105 mg/dL Total Calcium 7.7 L 8.5-10.1 mg/dL Total Bilirubin 1.1 H 0.2-1.0 mg/dL Aspartate Amino Transf (AST/SGOT) 74 H 10-37 U/L Alanine Aminotransferase (ALT/SGPT) 69 12-78 U/L Alkaline Phosphatase 267 H 50-136 U/L Total Protein 4.9 L 6.0-8.3 g/dL Albumin 1.9 L 3.5-5.0 g/dL Phosphorus Level 4.1 2.5-4.9 mg/dL Magnesium Level 2.10 1.80-2.40 mg/dL Procalcitonin 118.98 H 0.05-0.5 ng/mL Test 08/06/25 18:04 Range/Units Troponin I High Sensitivity 235 *H 4-50 ng/L Coagulation Labs: Test 08/08/25 08:43 Range/Units Activated Partial Thromboplast Time 100.7 *H 26.3-35.5 SEC Diagnostics / Radiology: 2D echocardiogram 08/04/2025: Conclusion The left atrium size is normal. Mild concentric left ventricular hypertrophy. GLS -8.0%. Early relaxation at the LV apex. Apical septal bounce. Apical severe hypokinesis. LVEF is 40-45%. Stage I diastolic dysfunction. The aortic valve is trileaflet, heavily calcified, and shows severely restricted opening. There is severe aortic valvular stenosis. Peak AV gradient is 48 mmHg; mean AV gradient is 32 mmHg; and AV area is 0.7 cm. Impression and Plan: Septic shock: Staph aureus bacteremia with staph aureus on blood cultures 08/03/2025: -currently off vasopressor support -continue antibiotic therapy -repeat blood cultures 08/07/2025 in progress Respiratory failure on mechanical ventilation: Concern for aspiration pneumonia: -continue management per critical care team Nonspecific troponin elevations in the setting of septic shock (supply demand): Troponin trend initially 82, 101, 208, and 481and peaking at 676: -recent 2D echocardiogram March 2025 demonstrated an LVEF of 65-70% -2D echocardiogram 08/04/2025 demonstrated an LVEF of 40-45% with apical akinesis -hold antiplatelet therapy, currently on argatroban Paroxysmal atrial fibrillation on this admission, currently in a sinus rhythm: CHADS VASc stroke risk score of 5: -the patient received IV amiodarone which was discontinued this morning -monitor for breakthrough atrial fibrillation and cautious use of amiodarone given risk of hepatotoxicity given her critical illness and already elevated LFTs -currently on IV argatroban -assess for long-term anticoagulation risk prior to discharge especially if atrial fibrillation recurs Thrombocytopenia [place] [address]: -possible HIT -HIT antibodies pending drawn 08/07/2025 Moderate to severe aortic stenosis on 2D echocardiogram 08/04/2025 with peak AV gradient is 48 mmHg; mean AV gradient is 32 mmHg; and AV area is 0.7 cm (dimensionless index of 0.27): Comorbidities: End-stage renal disease on chronic hemodialysis Type 2 diabetes mellitus with renal manifestations Hypertension Gastroesophageal reflux Gallstones Breast cancer Obesity Cholelithiasis status post cholecystectomy PHYSICIAN ATTESTATION OF PHYSICIAN TITLE ATTORNEY DOCUMENTATION: I attest that I was physically present for the so portions of the service and evaluated the patient with the Physician Accounts Receivable Executive, and I reviewed and discussed the case with the Physician Accounts Receivable Executive and made modifications to the Physician Accounts Receivable Executive's findings and plans of care as documented above EMY AVENDANO Aug 08, 2025 13:25 GABRIEL CHINCHILLA MD Aug 08, 2025 15:17
--- NOTE | 2025-08-08 22:35 | PN ---
SUBJECTIVE: The patient is on mechanical ventilator. The patient on Anuj-Synephrine drip. The patient's blood pressure is stable, thus the patient is on the weaning of the Anuj-Synephrine drip at this time. OBJECTIVE: VITAL SIGNS: Blood pressure 140/60, pulse 60, respirations 16. LUNGS: The patient has decreased breath sounds. . HEART: Irregularly irregular. ABDOMEN: Soft and nontender. ASSESSMENT AND PLAN: Respiratory failure, stable. Anemia, hemoglobin 9.4, and leukocytosis. The patient on broad-spectrum antibiotics and the patient also has thrombocytopenia at this time and needs to be monitored with platelets of 32,000. The patient is getting broad-spectrum antibiotics for sepsis. The patient has end-stage renal disease also. The patient regarding the patient's mechanical ventilator, pressor support at this time. TID: [id number] RECEIPT: [id number]
[2025-08-09] VITALS (64 sets, daily range): BP systolic 109–177; BP diastolic 41–84; PULSE 66–86; RESP 12–22; TEMP 97.6–98.8; O2SAT 7–100
[2025-08-09 04:40] LABS: IMMATURE GRANULOCYTE ABSOLUTE 0.35 K/uL (0-1); NUCLEATED RED BLOOD CELLS 0.0 % (0.0-0.19); PLATELET COUNT (AUTO) 53 K/uL (130-400); RED BLOOD CELL COUNT(AUTO) 3.26 MIL/uL (4.00-5.50); RED CELL DISTRIBUTION WIDTH 13.4 % (11.0-15.5); WHITE BLOOD COUNT (AUTO) 10.6 K/uL (4.8-10.8)
[2025-08-09 05:03] LABS: ASPARTATE AMINOTRANSFERASE 42.0 U/L (10-37); CREATININE 6.1 mg/dL (0.5-1.0); GLOMERULAR FILTR. RATE CALC 6.0 mL/min (>90); GLUCOSE,RANDOM 274.0 mg/dL (70-105); PHOSPHORUS 5.1 mg/dL (2.5-4.9); SODIUM SERUM 134.0 mmol/L (136-145); TOTAL PROTEIN, SERUM 5.9 g/dL (6.0-8.3); UREA NITROGEN, BLOOD 70.0 mg/dL (7-18)
--- NOTE | 2025-08-09 07:06 | HMCIMG ---
EXAM: CR Chest, 1 View. CLINICAL HISTORY: pp COMPARISON: Yesterday FINDINGS: LUNGS: Endotracheal tube adequately positioned above level maru. Pulmonary vascular congestion. PLEURAL SPACES: Bilateral pleural effusions. MEDIASTINUM: Cardiomegaly. BONES: No aggressive appearing osseous lesion seen. MISCELLANEOUS: Enteric tube course below level diaphragm, however distal tip not in the [id number]. Right sided PICC with tip at cavoatrial junction. IMPRESSION: 1. Pulmonary vascular congestion 2. Bilateral pleural effusions 3. Cardiomegaly 4. Endotracheal tube adequately positioned above maru 5. Right-sided PICC with tip at cavoatrial junction 6. Enteric tube course below diaphragm, distal tip not visualized /[place]
--- NOTE | 2025-08-09 07:49 | PN ---
NEPHROLOGY NOTE SUBJECTIVE: The patient has been evaluated and seen for dialysis, seen several times. The patient is critically ill, intubated and mechanically ventilated, septic with respiratory failure. PHYSICAL EXAMINATION: GENERAL: Pale, no other distress. VITAL SIGNS: Blood pressure has been 123/42, pulse 78, respiratory rate is 23. HEENT: Head is atraumatic, normocephalic. Pupils are round and reactive to light. Sclerae are anicteric. Conjunctivae not pale. Oral mucosa is not dry. NEUROLOGIC: Unchanged, sedated, difficult to assess. PROBLEMS: * Renal failure. * Anemia. * Multiple other comorbidities. PLAN: Continue dialysis support, continue monitoring of renal function, continue mechanical ventilation, continue pressors as needed. The patient was evaluated and seen for dialysis and seen several times. I have discussed with other team members. We will follow up closely. Condition is critical. I have discussed with the family. TID: [id number] RECEIPT: [id number]
--- NOTE | 2025-08-09 08:11 | PN ---
NEPHROLOGY NOTE SUBJECTIVE: The patient has been evaluated and seen for dialysis and seen several times. The patient is generally weak. No other associated findings. No other aggravating or alleviating factors. The patient is intubated, mechanically ventilated, and other comorbidities are present. No other associated findings. The patient is critically ill. All the other systemic review is unchanged and unremarkable. PHYSICAL EXAMINATION: GENERAL: Pale, in no other distress or deformities, lying in bed. VITAL SIGNS: Blood pressure is 138/70, respiratory rate is 18, afebrile. HEENT: Head is atraumatic and normocephalic. Pupils are round and reactive to light. Sclerae are anicteric. Conjunctivae not pale. Oral mucosa is not dry. NECK: Supple with no masses or bruits. Thyroid is palpable. Neck has no bruits. LUNGS: Shows equal thoracic percussion note being resonant in all areas. NEUROLOGIC: Sedated and difficult to assess. LABORATORY DATA: Labs have been reviewed. Old records have been reviewed. IMAGING STUDIES: Imaging studies are personally reviewed. PLAN: Plan is to continue dialysis support. All the labs have been reviewed and the patient's condition is guarded. We will be following up closely. The patient remains on mechanical ventilator. The patient is intubated, mechanically ventilated and critically ill and will be following up closely. I have discussed with other team members in detail. Thank you for this challenging patient for letting me to participate in the care of this patient. The patient has been seen on dialysis and seen several times today. Condition is critical and guarded. TID: [id number] RECEIPT: [id number]
--- NOTE | 2025-08-09 10:18 | PN ---
NEPHROLOGY PROGRESS NOTE Date/Time Patient Seen: Aug 09, 2025 SUBJECTIVE: This is an 79-year-old female with a past medical history of end-stage renal disease on hemodialysis Sunday, hypertension, cancer, coronary artery disease, anemia. She presented to the emergency room with complaints of shortness of breath, cough, fever and chills. She was intubated in the emergency room and transferred to the ICU. She continues to be intubated sedation has been discontinued Vasopressors have been discontinued Blood cultures are positive, continues on antibiotics. Imaging studies were noted. She continues on argatroban as per heme/Onc, platelets are improving. Leukocytosis is improving Repeat blood cultures has been negative Dialysis was done yesterday. She was seen in the ICU Family members at the bedside Condition is critical and guarded REVIEW OF SYSTEMS: Difficult to obtain given status of the patient who remains intubated mechanically ventilated Vital Signs (last 8hr) Date Time Temp Pulse Resp B/P (MAP) Pulse Ox O2 Delivery O2 Flow Rate FiO2 08/09/25 07:45 98.1 08/09/25 07:00 71 15 127/45 99 Ventilator 45 08/09/25 06:30 70 12 134/55 (81) 100 08/09/25 06:16 71 12 08/09/25 06:10 71 45 08/09/25 06:00 73 18 144/57 (86) 99 08/09/25 05:30 75 20 152/75 (100) 100 08/09/25 05:00 70 19 159/70 (99) 99 08/09/25 04:30 69 19 161/60 (93) 99 08/09/25 04:11 82 174/75 08/09/25 04:00 98 Ventilator+ 45 08/09/25 04:00 45 08/09/25 04:00 98.8 69 19 161/60 (93) 99 08/09/25 03:30 80 19 174/75 (108) 99 08/09/25 03:03 74 45 08/09/25 03:00 86 18 177/84 (115) 99 08/09/25 02:30 78 20 169/73 (105) 98 PHYSICAL EXAM: General: acutely ill, sedated, intubated, and mechanically ventilated HEENT: head is atraumatic, pupils equal and reactive, ET tube in place Neck: supple, no masses, no lymphadenopathy, no thyromegaly, no JVD Lungs: decreased breath sounds bilaterally, symmetrical chest movement Cardio: regular rate, S1 and S2 normal, no rub or gallop Abdomen: soft, non tender, no distension, no organomegaly Extremities: trace edema bilateral lower extremities, no cyanosis or clubbing Skin: no rashes or suspicious lesions Neuro: sedated Current Medications Medications (Trade) Dose Ordered Sig/Benito Route Start Time Stop Time Status Last Admin Dose Admin Albumin Human (Albumin (Human) 25%) 100 ml ONCE IV 08/04/25 17:00 08/05/25 16:59 DC Amiodarone HCl 150 mg/Dextrose 103 ml @ 618 mls/hr ONCE IV 08/07/25 00:00 08/07/25 00:12 DC Amiodarone HCl 360 mg/Dextrose 207.2 ml @ 33.3 mls/hr AD IV 08/07/25 00:00 08/07/25 00:12 DC Amiodarone HCl 540 mg/Dextrose 310.8 ml @ 16.7 mls/hr [id number] IV 08/07/25 05:00 09/06/25 04:59 08/07/25 06:07 16.7 MLS/HR Amiodarone HCL/ Dextrose 100 ml @ 0 mls/hr PROTOCOL IV 08/07/25 00:30 08/07/25 06:28 DC Amiodarone HCL/ Dextrose 200 ml @ 33.333 mls/ hr PROTOCOL IV 08/07/25 00:30 08/07/25 06:28 DC 08/07/25 00:25 33.333 MLS/HR Argatroban 50 mg/ Sodium Chloride 50 ml @ 0 mls/hr PROTOCOL IV 08/07/25 13:00 09/06/25 12:59 08/07/25 13:55 2.58 MLS/HR Fentanyl Citrate 100 ml @ 2.5 mls/hr PROTOCOL IV 08/03/25 23:30 08/03/25 23:39 DC Fentanyl/Sodium Chloride 250 ml @ 0.1 mls/hr PROTOCOL IV 08/03/25 23:30 08/08/25 23:29 08/06/25 13:11 0.1 MLS/HR Heparin Sodium (Porcine) (HEParin 5,000 UNIT VIAL) 5,000 unit Q12H SQ 08/05/25 12:00 08/05/25 16:11 DC Heparin Sodium (Porcine) (HEParin 5,000 UNIT VIAL) 5,000 unit Q12H SQ 08/05/25 16:00 08/06/25 07:37 DC 08/06/25 04:46 5,000 UNIT Heparin Sodium (Porcine) (HEParin 5,000 UNIT VIAL) 5,000 unit Q12H9 SQ 08/06/25 21:00 08/07/25 13:14 DC 08/06/25 20:43 5,000 UNIT Insulin Human Regular (humuLIN R 100 UNIT/ML 3ML) INSULIN SLIDING SCAL... ACHS SQ 08/04/25 07:30 08/07/25 03:37 DC 08/06/25 20:42 4 UNIT Insulin Human Regular (humuLIN R 100 UNIT/ML 3ML) INSULIN SLIDING SCAL... Q6H6 SQ 08/07/25 06:00 09/03/25 07:29 08/07/25 12:46 8 UNIT Ipratropium Knifley (AtrovENT UD) 0.5 mg [id number] IH 08/04/25 00:00 09/03/25 00:00 08/07/25 11:16 0.5 MG Levofloxacin/ Dextrose 100 ml @ 100 mls/hr Q48H IV 08/05/25 23:00 08/04/25 16:22 DC Meropenem (Merrem 500mg) 500 mg DAILY IVPB 08/06/25 09:00 08/14/25 16:29 08/07/25 08:34 500 MG Meropenem (Merrem 500mg) 500 mg Q24H IVPB 08/04/25 16:30 08/06/25 07:37 DC 08/05/25 15:56 500 MG Multi-Ingred Cream/Lotion/Oil/ Oint (Artificial Tears Eye Oint) USE DIRECTED BID OD 08/06/25 21:00 09/05/25 20:59 08/07/25 08:35 1 APPL Norepinephrine 250 ml @ 37.425 mls/ hr PROTOCOL IV 08/03/25 23:30 08/04/25 14:18 DC 08/04/25 14:11 37.425 MLS/HR Norepinephrine 250 ml @ 0 mls/hr PROTOCOL IV 08/03/25 23:30 08/03/25 23:39 DC Norepinephrine Bitartrate (Norepineph 16 Mg/250ml NS Premix) as protocol PROTOCOL IV 08/04/25 14:30 09/03/25 14:29 08/06/25 09:16 16 MG Pantoprazole Sodium (PROTonix 40MG INJ) 40 mg DAILY IVP 08/06/25 09:00 09/05/25 08:59 08/07/25 08:34 40 MG Pharmacy Profile Note (Pharmacy Communication) 1 each ONCE MISC 08/04/25 15:30 08/04/25 16:16 DC Phenylephrine HCl 100 mg/Sodium Chloride 250 ml @ 0 mls/hr PROTOCOL IV 08/06/25 11:30 09/05/25 11:29 08/06/25 22:39 0 MLS/HR Sodium Chloride 250 ml @ 0 mls/hr AD IV 08/04/25 17:00 09/03/25 16:59 Sodium Chloride 1,000 ml @ 0 mls/hr ONCE IV 08/04/25 17:00 09/03/25 16:59 Thiamine HCl (Vitamin B-1) 100 mg DAILY IVP 08/05/25 09:00 09/04/25 08:59 08/07/25 08:34 100 MG Vancomycin HCl (Vancomycin 750mg) 750 mg TTHSPHD IVPB 08/04/25 16:00 08/14/25 15:59 08/06/25 15:25 750 MG Vancomycin HCl (Vancomycin Protocol) 1 each AD IV 08/04/25 13:30 08/18/25 13:29 Vasopressin 20 units/Sodium Chloride 100 ml @ 0 mls/hr PROTOCOL IV 08/04/25 05:00 09/03/25 04:59 08/05/25 04:10 9 MLS/HR LABORATORY: [ ] Hematology Labs: Test 08/09/25 04:15 08/08/25 03:23 Range/Units White Blood Count 10.6 4.8-10.8 K/uL Red Blood Count 3.26 L 4.00-5.50 MIL/uL Hemoglobin 9.9 L 12.0-16.0 g/dL Hematocrit 29.2 L 36-48 % Mean Corpuscular Volume 89.6 79-99 fL Mean Corpuscular Hemoglobin 30.4 27.0-33.0 pg Mean Corpuscular Hemoglobin Concent 33.9 32.0-36.0 g/dL Red Cell Distribution Width 13.4 11.0-15.5 % Platelet Count 53 #L 130-400 K/uL Mean Platelet Volume 12.4 H 7.5-10.5 fL Immature Granulocyte % (Auto) 3.3 H 0-1 % Neutrophils (%) (Auto) 81.1 H 40.0-77.0 % Lymphocytes (%) (Auto) 7.2 L 21.0-51.0 % Monocytes (%) (Auto) 7.5 3.0-13.0 % Eosinophils (%) (Auto) 0.5 0.0-8.0 % Basophils (%) (Auto) 0.4 0.0-5.0 % Neutrophils # (Auto) 8.6 H 1.8-7.7 K/uL Lymphocytes # (Auto) 0.8 L 1.0-4.8 K/uL Monocytes # (Auto) 0.8 0.1-1.0 K/uL Eosinophils # (Auto) 0.05 0.00-0.70 K/uL Basophils # (Auto) 0.04 0.00-0.20 K/uL Absolute Immature Granulocyte (auto 0.35 0-1 K/uL Nucleated Red Blood Cells 0.0 0.0-0.19 % Segmented Neutrophils % 82 H 40-70 % Lymphocytes % (Manual) 6 L 22-44 % Monocytes % (Manual) 5 2-9 % Eosinophils % (Manual) 7 H 1-6 % Differential Comment MANUAL DIFFERENTIAL White Cell Morphology Comment See comments Platelet Morphology Comment MARKED DECREASE Red Blood Cell Morphology ANISO 1+ Chemistry Labs: Test 08/09/25 05:12 08/09/25 04:15 08/08/25 03:23 Range/Units Whole Blood Glucose 250 H 70-110 MG/DL Sodium Level 134 L 136-145 mmol/L Potassium Level 4.3 3.5-5.1 mmol/L Chloride Level 91 L 101-111 mmol/L Carbon Dioxide Level 27 21-32 mmol/L Blood Urea Nitrogen 70 H 7-18 mg/dL Creatinine 6.1 H 0.5-1.0 mg/dL Glomerular Filtration Rate Calc 6 >90 mL/min Random Glucose 274 H 70-105 mg/dL Total Calcium 8.3 L 8.5-10.1 mg/dL Phosphorus Level 5.1 H 2.5-4.9 mg/dL Total Bilirubin 1.1 H 0.2-1.0 mg/dL Aspartate Amino Transf (AST/SGOT) 42 H 10-37 U/L Alanine Aminotransferase (ALT/SGPT) 64 12-78 U/L Alkaline Phosphatase 277 H 50-136 U/L Total Protein 5.9 #L 6.0-8.3 g/dL Albumin 2.5 #L 3.5-5.0 g/dL Magnesium Level 2.10 1.80-2.40 mg/dL Coagulation Labs: Test 08/09/25 07:49 Range/Units Activated Partial Thromboplast Time 44.7 #H 26.3-35.5 [facility] RADIOLOGY: [place] [address] IMAGING REPORT Signed PATIENT: ANDREI RODRÍGUEZ MR#: [id number] : 1945 SEX: F AGE: 79 LOCATION: 2BH ORDER 2300 STATUS: ADM IN REPORT#: [id number] SERVICE 0600 REASON: pp ORDERING PHYSICIAN: ALONDRA DESHPANDE PROCEDURE: CXR1VW - CHEST 1VW EXAM: CR Chest, 1 View. CLINICAL HISTORY: pp COMPARISON: Yesterday FINDINGS: LUNGS: Endotracheal tube adequately positioned above level maru. Pulmonary vascular congestion. PLEURAL SPACES: Bilateral pleural effusions. MEDIASTINUM: Cardiomegaly. BONES: No aggressive appearing osseous lesion seen. MISCELLANEOUS: Enteric tube course below level diaphragm, however distal tip not in the [id number]. Right sided PICC with tip at cavoatrial junction. IMPRESSION: 1. Pulmonary vascular congestion 2. Bilateral pleural effusions 3. Cardiomegaly 4. Endotracheal tube adequately positioned above maru 5. Right-sided PICC with tip at cavoatrial junction 6. Enteric tube course below diaphragm, distal tip not visualized /[facility] DICTATED BY: LUISITO HANSON MD DATE: 08/09/25805 ELECTRONICALLY SIGNED BY: LUISITO HANSON MD DATE: 08/09/25 0806 PATIENT: ANDREI RODRÍGUEZ MR#: [id number] : 1945 SEX: F AGE: 79 LOCATION: 2BH ORDER 2300 STATUS: ADM IN REPORT#: [id number] SERVICE 0600 REASON: pp ORDERING PHYSICIAN: ALONDRA DESHPANDE PROCEDURE: CXR1VW - CHEST 1VW CHEST 1VW REASON: pp COMPARISON: Prior chest radiograph from 08/07/2025 is available. FINDINGS: Single view of the chest was obtained. There is mild cardiomegaly with mild interstitial pulmonary edema. There is suspicion for small bilateral pleural effusion. Support lines including endotracheal tube and nasogastric tube and right-sided PICC catheter to be in satisfactory position.. Mediastinum and bony thorax appear unremarkable. There are surgical clips seen in the left axillary region. IMPRESSION: 1. Unchanged from prior study with mild cardiomegaly with interstitial pulmonary edema 2. Support lines are in satisfactory position.. DICTATED BY: ROSA GONZALEZ MD DATE: 08/08/25 1010 ELECTRONICALLY SIGNED BY: ROSA GONZALEZ MD DATE: 08/08/25 1014 PATIENT: ANDREI RODRÍGUEZ MR#: [id number] : 1945 SEX: F AGE: 79 LOCATION: 2BH ORDER 0830 STATUS: ADM IN REPORT#: [id number] SERVICE 0829 REASON: pp ORDERING PHYSICIAN: ALONDRA DESHPANDE PROCEDURE: CXR1VW - CHEST 1VW CHEST 1VW REASON: pp COMPARISON: Prior chest radiograph from 08/06/2025 is available. FINDINGS: Single view of the chest was obtained. The cardiac silhouette is within the limits of normal. There is mild diffuse interstitial pulmonary edema.. This was not seen on the prior study. The support lines including endotracheal tube and nasogastric tube and right-sided PICC catheter to be in satisfactory position. There are surgical clips in the left axillary region. Mediastinum and bony thorax appear unremarkable. IMPRESSION: 1. Mild interstitial pulmonary edema 2. Support lines in satisfactory position.. DICTATED BY: ROSA GONZALEZ MD DATE: 08/07/251057 ELECTRONICALLY SIGNED BY: ROSA GONZALEZ MD DATE: 08/07/251103 PATIENT: ANDREI RODRÍGUEZ MR#: [id number] : 1945 SEX: F AGE: 79 LOCATION: 2BH ORDER 49 STATUS: ADM IN REPORT#: [id number] SERVICE 184 REASON: LIVER STATUS. ORDERING PHYSICIAN: ALONDRA DESHPANDE PROCEDURE: ABDOMEN - US ABDOMINAL COMPLETE EXAMINATION: ULTRASOUND OF THE ABDOMEN WITH COLOR DOPPLER. CLINICAL HISTORY: To evaluate liver. COMPARISON: None. TECHNIQUE: Real-time grayscale ultrasound images of the abdomen. In addition, color Doppler is medically necessary to perform in order to evaluate vascularity and blood flow. FINDINGS: Liver: Bulky in caliber, the right hepatic lobe measures 18.4 cm in the craniocaudal dimension. There is increased echogenicity of the hepatic parenchyma. There is no focal hepatic abnormality or intrahepatic biliary ductal dilatation. There is normal spectral Doppler of the main portal vein. Gallbladder: Post cholecystectomy status. Common bile duct is normal in caliber, measuring 0.0 cm. Spleen is normal in caliber and measures 11.9 cm in craniocaudal dimension. No focal lesions. Pancreas: Normal in caliber and echotexture. No calcification or dilated pancreatic duct. The kidneys are smaller in caliber, the right kidney measures 7.7 x 3.1 x 4.1 cm and the left kidney measures 8.9 x 2.8 x 3.0 cm in craniocaudal, AP, and transverse dimensions respectively. There is renal cortical thinning and increased cortical echogenicity. There is no renal calculus or hydronephrosis. The proximal and mid abdominal aorta are normal in caliber with atherosclerosis. The distal aspect is obscured by overlying bowel gas. Visualized aspects of the inferior vena cava are unremarkable. IMPRESSION: Hepatomegaly with hepatic steatosis. Post cholecystectomy status. Bilateral renal parenchymal disease. /[facility] DICTATED BY: ADALBERTO ARELLANO MD DATE: 08/07/25920 ELECTRONICALLY SIGNED BY: ADALBERTO ARELLANO MD DATE: 08/07/25920 PATIENT: ANDREI RODRÍGUEZ MR#: [id number] : 1945 SEX: F AGE: 79 LOCATION: 2BH ORDER 2300 STATUS: ADM IN REPORT#: [id number] SERVICE 06 REASON: pn ORDERING PHYSICIAN: ALONDRA DESHPANDE PROCEDURE: CXR1VW - CHEST 1VW EXAM: CR Chest, 1 View. CLINICAL HISTORY: pn COMPARISON: 08/05. FINDINGS: LUNGS: Endotracheal tube adequately positioned below the maru. Multiple airspace opacities within the left lung. New compared to prior. PLEURAL SPACES: Small left pleural effusion. MEDIASTINUM: Cardiac size and mediastinal contours within normal limits. BONES: No acute osseous abnormality. MISCELLANEOUS: Enteric tube course below level of diaphragm, distal tip not within the [id number]. Right sided PICC. IMPRESSION: 1. New left lung airspace opacities, concerning for pneumonia. 2. Small left pleural effusion. 3. Endotracheal tube in adequate position. 4. Enteric tube extending below the diaphragm, tip not visualized. 5. Right-sided PICC line present. /[facility] DICTATED BY: LUISITO HANSON MD DATE: 08/06/25917 ELECTRONICALLY SIGNED BY: LUISITO HANSON MD DATE: 08/06/25917 PATIENT: ANDREI RODRÍGUEZ MR#: [id number] : 1945 SEX: F AGE: 79 LOCATION: 2BH ORDER 5 STATUS: ADM IN REPORT#: [id number] SERVICE 3 REASON: congestion, intubated ORDERING PHYSICIAN: HARINDER VALENCIA MD PROCEDURE: CXR1VW - CHEST 1VW EXAM: XR Chest, 3 Views. CLINICAL HISTORY: 79-year-old female with a history of congestion and is intubated. COMPARISON: XR Chest dated 08/04/2025. FINDINGS: LUNGS: No consolidation. PLEURAL SPACES: Left lower lobe pleural effusion. HEART: The heart size is normal. BONES: No acute osseous abnormality. LINES AND TUBES: The endotracheal tube tip is 2.1 cm above the maru. The right upper extremity PICC line tip is in the SVC. IMPRESSION: 1. Left lower lobe pleural effusion, overall similar to prior XR Chest dated 08/04/2025. 2. Lines and tubes in satisfactory positioning. /[facility] DICTATED BY: OSCAR SMITH MD DATE: 08/05/252117 ELECTRONICALLY SIGNED BY: OSCAR SMITH MD DATE: 08/05/252117 PATIENT: ANDREI RODRÍGUEZ MR#: [id number] : 1945 SEX: F AGE: 79 LOCATION: [facility] ORDER 13 STATUS: ADM IN REPORT#: [id number] SERVICE 09 REASON: respiratory failure ORDERING PHYSICIAN: EMERY RODRIGUEZ PROCEDURE: ECHO CMP - ECHO 2-D COMPLETE APPROVED REPORT EXAM: Two-dimensional and M-mode echocardiogram with Doppler and color Doppler. INDICATION ICD: Respiratory failure 2D Dimensions RVDd 4.0 cm LVEF(%) 50.2 (>50%) LVED Vol(simp.) 88.5 mL IVSd 1.2 (0.7-1.1cm) FS(%) 25 % LVES Vol(simp.) 47.5 mL LVDd 4.1 (3.8-5.6cm) LA (2D) 4.3 (1.6-4.0cm) LVEF(%, simp.) 46 % PWd 1.2 (0.7-1.1cm) Ao Root(2D) 2.9 (2.0-3.7cm) LA ESV INDEX (BP) 30.04 mL/m2 LVDs 3.1 (2.5-4.0cm) LVOT diam 1.9 (1.8-2.4cm) IVC diam 2.2 cm Deformation Strain Apical 4 -8.9 % Apical 2 -7.6 % Apical 3 -8.1 % Global Strain -8.2 % M-Mode Dimensions EPSS 1.2 cm LA (MM) 4.2 (1.6-4.0cm) Ao Root(MM) 3.2 (2.0-3.7cm) Aortic Valve AoV Vmax 3.5 m/s Ao Peak GR 49.3 mmHg LVOT Vmax 1.0 m/s AoV VTI 0.7 m Ao Mean GR 31.8 mmHg LVOT VTI 0.19 m MARIAELENA (VMAX) 0.79 cm2 MARIAELENA (VTI) 0.8 cm2 Mitral Valve MV E Vmax 82.3 cm/s DECEL Time 304 ms MV Peak GR 7 mmHg MV A Vmax 121.0 cm/s P 1/2 T 75 ms MV Mean GR 3 mmHg E/A ratio 0.7 MVA (PHT) 2.9 cm2 MVA (VTI) 1.41 cm2 TDI E/E' Medial 24.0 E/E' Lateral 11.6 Medial E' Peak V 3.43 cm/s Lateral E' Peak V 7.07 cm/s Pulmonary Valve PV Vmax 1.4 m/s PV VTI 0.25 m PV Mean GR 3.4 mmHg PV Peak GR 7.4 mmHg Tricuspid Valve TR Vmax 2.5 m/s RAP (EST) 15 mmHg RVSP 41.3 mmHg TR Peak GR 26.3 mmHg Left Ventricle The left ventricle is normal size. GLS -8.0%. Apical septal bounce. Apical severe hypokinesis. Mild concentric left ventricular hypertrophy. LVEF is 40- 45%. Stage I diastolic dysfunction. Right Ventricle The right ventricle is normal size. The right ventricular systolic function is normal. Atria The left atrium size is normal. The right atrium size is normal. Aortic Valve The aortic valve is trileaflet, heavily calcified, and shows severely restricted opening. Trace of aortic regurgitation is present. There is severe aortic valvular stenosis. Peak AV gradient is 48 mmHg; mean AV gradient is 32 mmHg; and AV area is 0.7 cm. Mitral Valve Mild posterior annular calcification noted. There is trace of mitral valve regurgitation noted. There is no mitral valve stenosis. Tricuspid Valve The tricuspid valve is normal in structure. There is trace of tricuspid valve regurgitation noted. Pulmonic Valve The pulmonary valve is normal in structure. There is mild pulmonic valvular regurgitation. Great Vessels The aortic root is normal in size. IVC is dilated and collapses <50% with inspiration. Pericardium There is no pericardial effusion. Other Information Quality : Adequate Conclusion The left atrium size is normal. Mild concentric left ventricular hypertrophy. GLS -8.0%. Early relaxation at the LV apex. Apical septal bounce. Apical severe hypokinesis. LVEF is 40-45%. Stage I diastolic dysfunction. The aortic valve is trileaflet, heavily calcified, and shows severely restricted opening. There is severe aortic valvular stenosis. Peak AV gradient is 48 mmHg; mean AV gradient is 32 mmHg; and AV area is 0.7 cm. DICTATED BY: GABRIEL CHINCHILLA MD DATE: 08/04/25 1015 ELECTRONICALLY SIGNED BY: GABRIEL CHINCHILLA MD DATE: 08/04/25 6837 PATIENT: ANDREI RODRÍGUEZ MR#: [id number] : 1945 SEX: F AGE: 79 LOCATION: 2BH ORDER 1306 STATUS: ADM IN REPORT#: [id number] SERVICE 1304 REASON: repositioning of picc line ORDERING PHYSICIAN: ALONDRA DESHPANDE PROCEDURE: CXR1VW - CHEST 1VW EXAM: XR Chest, 3 View(s). CLINICAL HISTORY: 79-year-old female repositioning of PICC line. COMPARISON: Compared to XR chest from 08/03/2025 at 11:14 PM, similar findings are noted. FINDINGS: LUNGS: Minimal pulmonary vascular congestion. PLEURAL SPACES: No pleural effusion or pneumothorax. HEART: The heart size is normal. BONES: No acute osseous abnormality. IMPRESSION: 1. PICC line in a satisfactory position. 2. Minimal pulmonary vascular congestion, similar to prior study. 3. Similar findings compared to XR chest from 08/03/2025 at 11:14 PM. /[facility] BY: OSCAR SMITH MD DATE: 08/04/251946 ELECTRONICALLY SIGNED BY: OSCAR SMITH MD DATE: 08/04/251946 PATIENT: ANDREI RODRÍGUEZ MR#: [id number] : 1945 SEX: F AGE: 79 LOCATION: 2BH ORDER 1230 STATUS: ADM IN REPORT#: [id number] SERVICE 1229 REASON: PICC LINE INSERTION ORDERING PHYSICIAN: ALONRDA DESHPANDE PROCEDURE: CXR1VW - CHEST 1VW EXAM: CR Chest, 2 View. CLINICAL HISTORY: PICC LINE INSERTION COMPARISON: Radiograph dated August 04, 2025 Findings: AP view of the chest is submitted. Endotracheal and enteric tubes are in satisfactory positions. Right PICC terminates overlying the proximal right atrium. There is no pneumothorax appreciated. Relatively unchanged bilateral perihilar and bibasilar airspace disease. No pleural effusion. Heart size is stable. Mild central pulmonary vascular congestion. IMPRESSION: 1. Right PICC line terminates overlying the proximal right atrium. 2. Bilateral perihilar and bibasilar airspace disease, unchanged, with mild central pulmonary vascular congestion. [facility] DICTATED BY: EREN YANES Jr., MD DATE: 08/04/251503 ELECTRONICALLY SIGNED BY: EREN YANES Jr., MD DATE: 08/04/251503 PATIENT: ANDREI RODRÍGUEZ MR#: [id number] : 1945 SEX: F AGE: 79 LOCATION: [facility] ORDER 10 STATUS: ADM IN REPORT#: [id number] SERVICE 231 REASON: ET TUBE PLACEMENT RECHECK ORDERING PHYSICIAN: MANSOOR CLEVELAND MD PROCEDURE: CXR1VW - CHEST 1VW EXAM: CR Chest, 1 view CLINICAL HISTORY: Endotracheal tube. COMPARISON: Chest radiograph from the same date. FINDINGS: The endotracheal tube tip is 1.7 cm above the maru. The gastric tube tip is probably around the distal stomach. Stable mild cardiomegaly and pulmonary vascular congestion. No pleural effusion or pneumothorax. No acute osseous abnormality. Surgical clips in the right and left chest wall. Surgical clips in the right upper quadrant of the abdomen. IMPRESSION: The endotracheal tube tip is 1.7 cm above the maru. The gastric tube tip is probably around the distal stomach. Stable mild cardiomegaly and pulmonary vascular congestion. /[facility] DICTATED BY: EREN YANES Jr., MD DATE: 08/04/25117 ELECTRONICALLY SIGNED BY: EREN YANES Jr., MD DATE: 08/04/25117 PATIENT: ANDREI RODRÍGUEZ MR#: [id number] : 1945 SEX: F AGE: 79 LOCATION: [facility] ORDER 45 STATUS: ADM IN REPORT#: [id number] SERVICE 44 REASON: S/P INTUBATION ORDERING PHYSICIAN: MANSOOR CLEVELAND MD PROCEDURE: CXR1VW - CHEST 1VW EXAM: CR Chest, 1 view CLINICAL HISTORY: Endotracheal tube. COMPARISON: Chest radiograph dated 07/30/2025. FINDINGS: The endotracheal tube tip terminates within the right main bronchus, recommend at least 5 cm retrieval of the endotracheal tube. The gastric tube tip is probably around the distal stomach. Stable mild cardiomegaly and pulmonary vascular congestion. No pleural effusion or pneumothorax. No acute osseous abnormality. Surgical clips in the right chest wall. IMPRESSION: The endotracheal tube tip terminates within the right main bronchus, recommend at least 5 cm retrieval of the endotracheal tube. The gastric tube tip is probably around the distal stomach. Stable mild cardiomegaly and pulmonary vascular congestion. /[facility] DICTATED BY: EREN YANES Jr., MD DATE: 08/04/25116 ELECTRONICALLY SIGNED BY: EREN YANES Jr., MD DATE: 08/04/25 0117 ASSESSMENT: ESRD Hyperkalemia Fluid overload Acute respiratory failure, in need of emergent intubation Sepsis with septic shock, POA, in need of pressors Pneumonia Pulmonary vascular congestion LVEF 55-60%, stage I diastolic dysfunction, moderate left ventricular hypertrophy, per echo on 01/17/2025 Left atrium mildly dilated, posterior mitral valve annular calcification, per echo on 01/18/2024 Lactic acidosis Elevated troponin Electrolyte derangement (hypokalemia, hypochloremia, hypocalcemia) Elevated ALK PHOS Hypoalbuminemia Diabetes mellitus History of cancer Hypertension, currently hypotensive PLAN: Labs and Diagnostics/ Radiology personally reviewed and interpreted by myself and supervising physician We have reviewed dialysis and external records in detail. Continue with dialysis schedule Sunday Continue with the antibiotics Continue with mechanical ventilation Follow up blood culture results 1.5 L fluid restriction Continue with frequent monitoring of renal function, anemia, and electrolytes Order CBC, CMP, and electrolytes in the morning May use Dilaudid 0.5 mg IV every 6 hours as needed for severe pain Monitor blood pressure adjust medication doses as needed Maintain normotensive state Strict intake, output, and daily weight should be monitored Please renally adjust medications. Avoid nephrotoxics and nonsteroidal drugs. We will continue to monitor the patient closely We have discussed with the other team physicians in detail about the care plan Total critical care time spent with patient, nursing staff, critical care team over 35 minutes ATTESTATION BY PHYSICIAN I have seen and examined the patient. I reviewed the documentation, medical decision making, and treatment plan as noted by the mid-level provider above. I agree with the findings and plan of care. VIKA LONGO MD, ELIZABETH FNP Aug 09, 2025 10:18
--- NOTE | 2025-08-09 10:58 | PN ---
[facility] CARDIOLOGY PROGRESS NOTE Date Patient Seen: Aug 09, 2025 Time of Visit: 10:50 Interval History: This 79-year-old [place] female, has a history of hypertension, hyperlipidemia, type 2 diabetes mellitus with renal manifestations, breast cancer, obesity, cholelithiasis, and moderate aortic stenosis. She was hospitalized with generalized weakness and dyspnea 07/30/2025 and was released 07/31/2025. She presented on this occasion to the emergency room with symptoms of cough, shortness of breath, upper respiratory infection symptoms, and fever with chills. She failed BiPAP support and required intubation a short time after arrival in the emergency department. She has been managed for septic shock and respiratory failure. She has been successfully wean off vasopressor therapy. Her admission blood cultures 08/03/2025 demonstrated staph aureus and repeat blood cultures from 08/07/2025 demonstrate no growth thus far. Cardiology was involved due to rising pattern of troponins initially 82, 101, 208, 488 and peaking at 676. Her admission EKG demonstrated a sinus tachycardia at 120 beats per minute, left axis, IVCD and an early repolarization pattern into the anterior leads with repeat EKG shortly after that unchanged. A 2D echo March 2025 demonstrated an LVEF of 65-70% with concentric LVH and peak aortic valve gradient of 38 mm of mercury, mean gradient of 24 mm of mercury, DV I of 0.26, and an aortic valve area of 1.2 cm2. A follow-up 2D echocardiogram 08/04/2025 demonstrated apical severe hypokinesis, mild concentric LVH, LVEF of 40-45% and stage I diastolic dysfunction and evidence of severe aortic valve stenosis with peak AV gradient is 48 mmHg; mean AV gradient is 32 mmHg; and AV area is 0.7 cm, Dr. Valentino reviewed and follow-up and documented dimensionless index of 0.27. She developed atrial fibrillation with RVR on 08/07/2025 treated with IV amiodarone and subsequently discontinued after she converted back to a normal sinus rhythm and given concern for hepatotoxicity given her critical illness. She is maintaining a normal sinus rhythm this morning. She remains intubated, on mechanical ventilation with CPAP trials this morning. She is more responsive to verbal and tactile stimuli this morning. Physical Examination: GENERAL: Intubated, on mechanical ventilation. HEAD: Normal with no signs of head trauma. EYES: PERRLA, EOMI, conjunctiva and sclera normal. NECK: Supple without JVD. There is no tenderness, lymphadenopathy, or masses. No thyromegaly. Normal carotid upstrokes without bruits. LUNGS: Clear breath sounds anteriorly with diminished breath sounds laterally at the bases. HEART: Normal rate and rhythm. Normal S1 and S2 with a 2/6 mid-peaking systolic ejection murmur at the right upper sternal border. VASC: Peripheral pulses +1 bilaterally. EXT: No clubbing, cyanosis or edema. NEURO: Intubated, on mechanical ventilation, off sedation and response to tactile and verbal stimuli Laboratory: Hematology Labs: Test 08/09/25 04:15 08/08/25 03:23 Range/Units White Blood Count 10.6 4.8-10.8 K/uL Red Blood Count 3.26 L 4.00-5.50 MIL/uL Hemoglobin 9.9 L 12.0-16.0 g/dL Hematocrit 29.2 L 36-48 % Mean Corpuscular Volume 89.6 79-99 fL Mean Corpuscular Hemoglobin 30.4 27.0-33.0 pg Mean Corpuscular Hemoglobin Concent 33.9 32.0-36.0 g/dL Red Cell Distribution Width 13.4 11.0-15.5 % Platelet Count 53 #L 130-400 K/uL Mean Platelet Volume 12.4 H 7.5-10.5 fL Immature Granulocyte % (Auto) 3.3 H 0-1 % Neutrophils (%) (Auto) 81.1 H 40.0-77.0 % Lymphocytes (%) (Auto) 7.2 L 21.0-51.0 % Monocytes (%) (Auto) 7.5 3.0-13.0 % Eosinophils (%) (Auto) 0.5 0.0-8.0 % Basophils (%) (Auto) 0.4 0.0-5.0 % Neutrophils # (Auto) 8.6 H 1.8-7.7 K/uL Lymphocytes # (Auto) 0.8 L 1.0-4.8 K/uL Monocytes # (Auto) 0.8 0.1-1.0 K/uL Eosinophils # (Auto) 0.05 0.00-0.70 K/uL Basophils # (Auto) 0.04 0.00-0.20 K/uL Absolute Immature Granulocyte (auto 0.35 0-1 K/uL Nucleated Red Blood Cells 0.0 0.0-0.19 % Segmented Neutrophils % 82 H 40-70 % Lymphocytes % (Manual) 6 L 22-44 % Monocytes % (Manual) 5 2-9 % Eosinophils % (Manual) 7 H 1-6 % Differential Comment MANUAL DIFFERENTIAL White Cell Morphology Comment See comments Platelet Morphology Comment MARKED DECREASE Red Blood Cell Morphology ANISO 1+ Chemistry Labs: Test 08/09/25 05:12 08/09/25 04:15 08/08/25 03:23 Range/Units Whole Blood Glucose 250 H 70-110 MG/DL Sodium Level 134 L 136-145 mmol/L Potassium Level 4.3 3.5-5.1 mmol/L Chloride Level 91 L 101-111 mmol/L Carbon Dioxide Level 27 21-32 mmol/L Blood Urea Nitrogen 70 H 7-18 mg/dL Creatinine 6.1 H 0.5-1.0 mg/dL Glomerular Filtration Rate Calc 6 >90 mL/min Random Glucose 274 H 70-105 mg/dL Total Calcium 8.3 L 8.5-10.1 mg/dL Phosphorus Level 5.1 H 2.5-4.9 mg/dL Total Bilirubin 1.1 H 0.2-1.0 mg/dL Aspartate Amino Transf (AST/SGOT) 42 H 10-37 U/L Alanine Aminotransferase (ALT/SGPT) 64 12-78 U/L Alkaline Phosphatase 277 H 50-136 U/L Total Protein 5.9 #L 6.0-8.3 g/dL Albumin 2.5 #L 3.5-5.0 g/dL Magnesium Level 2.10 1.80-2.40 mg/dL Coagulation Labs: Test 08/09/25 07:49 Range/Units Activated Partial Thromboplast Time 44.7 #H 26.3-35.5 SEC Diagnostics / Radiology: 2D echocardiogram 08/04/2025: Conclusion The left atrium size is normal. Mild concentric left ventricular hypertrophy. GLS -8.0%. Early relaxation at the LV apex. Apical septal bounce. Apical severe hypokinesis. LVEF is 40-45%. Stage I diastolic dysfunction. The aortic valve is trileaflet, heavily calcified, and shows severely restricted opening. There is severe aortic valvular stenosis. Peak AV gradient is 48 mmHg; mean AV gradient is 32 mmHg; and AV area is 0.7 cm . Impression and Plan: Septic shock: Staph aureus bacteremia with staph aureus on blood cultures 08/03/2025: -has been successfully weaned off vasopressor support and blood pressure is maintaining -continue antibiotic therapy -repeat blood cultures 08/07/2025 negative thus far Respiratory failure on mechanical ventilation: Concern for aspiration pneumonia: -continue management per critical care team Nonspecific troponin elevations in the setting of septic shock (supply demand): Troponin trend initially 82, 101, 208, and 481and peaking at 676: -recent 2D echocardiogram March 2025 demonstrated an LVEF of 65-70% -2D echocardiogram 08/04/2025 demonstrated an LVEF of 40-45% with apical akinesis -hold antiplatelet therapy, currently on argatroban Paroxysmal atrial fibrillation on this admission, currently in a sinus rhythm: CHADS VASc stroke risk score of 5: -continue metoprolol 12.5 mg p.o. b.i.d. -monitor for breakthrough atrial fibrillation and cautious use of amiodarone given risk of hepatotoxicity given her critical illness and already elevated LFTs -currently on IV argatroban -assess for long-term anticoagulation risk prior to discharge especially if atrial fibrillation recurs Thrombocyt[place] [address]: -possible HIT -HIT antibodies pending drawn 08/07/2025 Moderate to severe aortic stenosis on 2D echocardiogram 08/04/2025 with peak AV gradient is 48 mmHg; mean AV gradient is 32 mmHg; and AV area is 0.7 cm (dimensionless index of 0.27): Comorbidities: End-stage renal disease on chronic hemodialysis Type 2 diabetes mellitus with renal manifestations Hypertension Gastroesophageal reflux Gallstones Breast cancer Obesity Cholelithiasis status post cholecystectomy PHYSICIAN ATTESTATION OF PHYSICIAN FACILITY MANAGER DOCUMENTATION: I attest that I was physically present for the so portions of the service and evaluated the patient with the Physician Senior Mechanical Development Engineer, and I reviewed and discussed the case with the Physician Senior Mechanical Development Engineer and made modifications to the Physician Senior Mechanical Development Engineer's findings and plans of care as documented above EMY AVENDANO Aug 09, 2025 10:58 GABRILE CHINCHILLA MD Aug 09, 2025 14:10
--- NOTE | 2025-08-09 11:03 | PN ---
[facility] PROGRESS NOTE Date Patient Seen: Aug 09, 2025 Time of Visit: 11:00 Supervising Physician: Dr Yung Butler Primary Care Physician: Dr. Cohen Outpatient Specialists: Inpatient Consults: BIS, critical care team PROBLEM LIST: New onset AFib with RVR Acute hypoxic and hypercapnic respiratory failure-intubated patient, 2nd 2 volume overload Sepsis with septic shock - Gram-positive cocci bacteremia, Staph aureus Volume overload in a end-stage renal disease patient on hemodialysis Electrolyte imbalance Hyperkalemia LVEF 40-45%, diastolic dysfunction, 55-60% per echo on 01/17/2025 Hyperglycemia in a type 2 diabetic Morbid obesity Heparin induced thrombocytopenia INTERVAL HISTORY: Patient seen and examined, all labs and imaging have been reviewed, patient remains intubated, vent settings 45% FiO2, peep of 5 ABG is pending, chest x-ray shows improvement, decreased congestion Platelets are up to 53, continues on argatroban per Heme-Onc White count down trending down, 10.6 this morning, hemoglobin up to 9.9 Patient afebrile No new growth on cultures Patient's son and updated at bedside Plan: Following nephrology recs Following Hematology recs, argatroban and following platelets holding any heparin Vent management Antibiotics and following cultures Daily labs, ABG pending, daily chest x-ray Discussion with family members at bedside Total critical care time 51 minutes, vent management and pressor support. Patient remains critical REVIEW OF SYSTEMS: Unable to obtain ROS from patient due to patient is intubated and sedated. PHYSICAL EXAM: GENERAL: Intubated and sedated HEENT: EOMI, Sclera non icteric, moist mucosa NECK: Supple, no JVD, trachea midline LUNGS: Diminished breath sounds bilaterally. No wheezes HEART: Regular rate and rhythm. Normal S1 and S2, without murmurs ABD: Abdomen soft, nontender. Bowel sounds present. Obese EXT: No clubbing cyanosis or edema NEURO: Intubated and sedated Vital Signs (last 8hr) Date Time Temp Pulse Resp B/P (MAP) Pulse Ox O2 Delivery O2 Flow Rate FiO2 08/09/25 09:50 80 08/09/25 07:45 98.1 08/09/25 07:00 71 15 127/45 99 Ventilator 45 08/09/25 06:30 70 12 134/55 (81) 100 08/09/25 06:16 71 12 08/09/25 06:10 71 45 08/09/25 06:00 73 18 144/57 (86) 99 08/09/25 05:30 75 20 152/75 (100) 100 08/09/25 05:00 70 19 159/70 (99) 99 08/09/25 04:30 69 19 161/60 (93) 99 08/09/25 04:11 82 174/75 08/09/25 04:00 98 Ventilator+ 45 08/09/25 04:00 45 08/09/25 04:00 98.8 69 19 161/60 (93) 99 08/09/25 03:30 80 19 174/75 (108) 99 08/09/25 03:03 74 45 LABS: Hematology Labs: Test 08/09/25 04:15 08/08/25 03:23 Range/Units White Blood Count 10.6 4.8-10.8 K/uL Red Blood Count 3.26 L 4.00-5.50 MIL/uL Hemoglobin 9.9 L 12.0-16.0 g/dL Hematocrit 29.2 L 36-48 % Mean Corpuscular Volume 89.6 79-99 fL Mean Corpuscular Hemoglobin 30.4 27.0-33.0 pg Mean Corpuscular Hemoglobin Concent 33.9 32.0-36.0 g/dL Red Cell Distribution Width 13.4 11.0-15.5 % Platelet Count 53 #L 130-400 K/uL Mean Platelet Volume 12.4 H 7.5-10.5 fL Immature Granulocyte % (Auto) 3.3 H 0-1 % Neutrophils (%) (Auto) 81.1 H 40.0-77.0 % Lymphocytes (%) (Auto) 7.2 L 21.0-51.0 % Monocytes (%) (Auto) 7.5 3.0-13.0 % Eosinophils (%) (Auto) 0.5 0.0-8.0 % Basophils (%) (Auto) 0.4 0.0-5.0 % Neutrophils # (Auto) 8.6 H 1.8-7.7 K/uL Lymphocytes # (Auto) 0.8 L 1.0-4.8 K/uL Monocytes # (Auto) 0.8 0.1-1.0 K/uL Eosinophils # (Auto) 0.05 0.00-0.70 K/uL Basophils # (Auto) 0.04 0.00-0.20 K/uL Absolute Immature Granulocyte (auto 0.35 0-1 K/uL Nucleated Red Blood Cells 0.0 0.0-0.19 % Segmented Neutrophils % 82 H 40-70 % Lymphocytes % (Manual) 6 L 22-44 % Monocytes % (Manual) 5 2-9 % Eosinophils % (Manual) 7 H 1-6 % Differential Comment MANUAL DIFFERENTIAL White Cell Morphology Comment See comments Platelet Morphology Comment MARKED DECREASE Red Blood Cell Morphology ANISO 1+ Chemistry Labs: Test 08/09/25 05:12 08/09/25 04:15 08/08/25 03:23 Range/Units Whole Blood Glucose 250 H 70-110 MG/DL Sodium Level 134 L 136-145 mmol/L Potassium Level 4.3 3.5-5.1 mmol/L Chloride Level 91 L 101-111 mmol/L Carbon Dioxide Level 27 21-32 mmol/L Blood Urea Nitrogen 70 H 7-18 mg/dL Creatinine 6.1 H 0.5-1.0 mg/dL Glomerular Filtration Rate Calc 6 >90 mL/min Random Glucose 274 H 70-105 mg/dL Total Calcium 8.3 L 8.5-10.1 mg/dL Phosphorus Level 5.1 H 2.5-4.9 mg/dL Total Bilirubin 1.1 H 0.2-1.0 mg/dL Aspartate Amino Transf (AST/SGOT) 42 H 10-37 U/L Alanine Aminotransferase (ALT/SGPT) 64 12-78 U/L Alkaline Phosphatase 277 H 50-136 U/L Total Protein 5.9 #L 6.0-8.3 g/dL Albumin 2.5 #L 3.5-5.0 g/dL Magnesium Level 2.10 1.80-2.40 mg/dL Coagulation Labs: Test 08/09/25 07:49 Range/Units Activated Partial Thromboplast Time 44.7 #H 26.3-35.5 SEC DIAGNOSTICS / RADIOLOGY RESULTS: [ ] PLAN NEURO: Minimize central acting medications as possible. Fall Precautions. Well lighted room through the day and minimize interruptions through the night to prevent acute delirium. PULMONARY: Supplemental 02 as needed Titrate Fio2 to keep Spo2 > or = 90% DuoNebs and CPT as needed IS hourly while awake for pulmonary hygiene Out of bed to chair as tolerated VAP Bundle Vent settings: FiO2 45%, RR 12, peep 5, tidal volume 450 mL CARDIOVASCULAR: Follow hemodynamics. Titrate vasopressor to keep MAP >65 or systolic blood pressure >95mmHg. continue amiodarone follow on cardio recomm GI & NUTRITION: Continue nutritional support Aspirations precautions Prokinetic agents and laxatives as needed KIDNEYS & ELECTROLYTES: Strict monitoring of intake and output Daily weights Avoid nephrotoxic agents Monitor electrolytes and replace as needed Goal urine output of 30mL/hr or 0.5mL/kg/hr ENDOCRINE: Maintain blood glucose between 100-180 at all times. Insulin sliding scale for blood glucose management INFECTIOUS DISEASE: Trend temperature. Go-culture if febrile. HEMATOLOGY & COAGULATION: Monitor H&H. Keep Hgb > 7 Transfuse 1 unit of PRBC for Hgb < 7 Transfuse 1 pack of platelets of platelets < 20, 000 Watch for any signs and symptoms of bleeding SKIN: Pressure ulcer prevention per facility protocol Code Status: Full Resuscitation Disposition: ALONDRA DESHPANDE Aug 09, 2025 11:03
[2025-08-09 11:53] LABS: ABG BASE EXCESS 1.8 mmol/L (-2.0-3.0); ABG HCO3 25.8 mmol/L (21.0-28.0); ABG OXYGEN SATURATION 98.3 % (94.0-98.0); ABG PCO2 39 mmHg (32-45); ABG PH 7.442 (7.350-7.450); DEVICE COMMENT RN MYRNA RR; PO2, ARTERIAL BG 113.7 mmHg (83.0-108.0); TEMPERATURE, CELSIUS BG 37.0 CELSIUS (35.5-37.0); VENT MODE, BG CPAP 5,10 (ROOM AIR)
[2025-08-09 12:12] LABS: ASPARTATE AMINOTRANSFERASE 32.0 U/L (10-37); CREATININE 6.4 mg/dL (0.5-1.0); GLOMERULAR FILTR. RATE CALC 6.0 mL/min (>90); GLUCOSE,RANDOM 308.0 mg/dL (70-105); SODIUM SERUM 134.0 mmol/L (136-145); TOTAL PROTEIN, SERUM 5.7 g/dL (6.0-8.3)
--- NOTE | 2025-08-09 12:15 | PN ---
The patient has been evaluated and seen several times for dialysis. No fevers, chills, or rigors. No cough, expectoration or hemoptysis. The patient has been intubated, mechanically ventilated, on pressors, received albumin. The patient has respiratory failure, sepsis, anemia, and other comorbidities. Patient with thrombocytopenia. 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 This patient was started on argatroban. There is no obvious bleeding. Platelet count stable at 53K. Patient actually off sedation with the patient communicating PHYSICAL EXAMINATION: GENERAL: Critically ill, in ICU intubated, mechanically ventilated. VITAL SIGNS: Blood pressure 137/48, pulse 102, respiratory rate is 19. HEENT: ET tube in place.Pupils are equal, round and reactive. Sclerae are anicteric. Conjunctivae not pale. Oral mucosa is not dry. NECK: Without mass or bruits. Thyroid is palpable. Neck has no bruits. Neuro, patient is intubated sedated. LABORATORY DATA: Labs have been reviewed from old records. IMAGING STUDIES: Reviewed. PROBLEMS: 1. Anemia. 2. Thrombocytopenia with the patient is suspected of having heparin-induced thrombocytopenia with the patient was started on argatroban. 3. Leukocytosis 4. Acute renal failure with the patient in hemodialysis 5. Acute respiratory distress with the patient is intubated 6. Sepsis 7. Congestive heart failure Plan 1. We will continue argatroban with the goal for PTT to be done between 6090. If more than 90 to stop argatroban for 2-hour and decrease dose by 25%. Platelet count improved to 53K. We will continue with argatroban until platelet count above 100,000 then we could switch to oral anticoagulation such as Pradaxa 150 mg p.o. twice daily 2. Please do not transfuse any platelet 3. Please do not give any heparin or heparin products 4. There was hypersegmented neutrophils. This patient to be started on folic acid 1 mg p.o. daily and vitamin B12 1000 mcg p.o. daily. 5. Continue care as per primary 6. Continue dialysis as per nephrology Patient to receive iron and Procrit during hemodialysis 7. Continue care as per strapper operator. There is plan for possible extubation today Vitals/Labs Vital Signs Date Time Temp Pulse Resp B/P (MAP) Pulse Ox O2 Delivery O2 Flow Rate FiO2 08/09/25 11:59 84 12 08/09/25 11:21 98.2 08/09/25 07:00 127/45 99 Ventilator 45 Laboratory Tests 08/09/25 04:15 Medications Current Medications Albuterol 2 udvial ONCE ONCE IH Last administered on 08/03/25at 23:50; Start 08/03/25 at 22:30; Stop 08/03/25 at 22:31; Status DC Albuterol 1 udvial STK-MED ONCE IH; Start 08/03/25 at 22:17; Stop 08/03/25 at 22:18; Status DC Acetaminophen 1,000 mg ONCE ONCE PO; Start 08/03/25 at 23:00; Stop 08/03/25 at 23:01; Status DC Fentanyl Citrate 100 ml @ As Directed STK-MED ONCE IV; Start 08/03/25 at 22:46; Stop 08/03/25 at 22:46; Status DC Ketamine HCl 50 mg STK-MED ONCE .ROUTE; Start 08/03/25 at 22:47; Stop 08/03/25 at 22:47; Status DC Rocuronium [place] 50 mg STK-MED ONCE .ROUTE Last administered on 08/03/25at 23:34; Start 08/03/25 at 22:47; Stop 08/03/25 at 22:47; Status DC Propofol 100 ml @ As Directed STK-MED ONCE IV; Start 08/03/25 at 22:50; Stop 08/03/25 at 22:50; Status DC Norepinephrine 250 ml @ As Directed STK-MED ONCE IV; Start 08/03/25 at 22:58; Stop 08/03/25 at 22:58; Status DC Vancomycin HCl 1 gm ONCE ONCE IV Last administered on 08/04/25at 00:06; Start 08/03/25 at 23:30; Stop 08/03/25 at 23:36; Status DC Albuterol Sulfate 2.5 mg [id number] PRN IH; Start 08/03/25 at 23:30; Stop 09/02/25 at 23:29 Ipratropium [place] 0.5 mg [id number] IH Last administered on 08/09/25at 11:55; Start 08/04/25 at 00:00; Stop 09/03/25 at 00:00 Acetaminophen 650 mg Q6H PRN PO Last administered on 08/06/25at 19:55; Start 08/03/25 at 23:30; Stop 09/02/25 at 23:29 Acetaminophen 650 mg Q6H PRN RC Last administered on 08/04/25at 04:08; Start 08/03/25 at 23:30; Stop 09/02/25 at 23:29 Lactulose 20 gm Q6H PRN PO; Start 08/03/25 at 23:30; Stop 09/02/25 at 23:29 Docusate Sodium 100 mg BID PRN PO; Start 08/03/25 at 23:30; Stop 09/02/25 at 23:29 Ondansetron HCl 4 mg Q6H PRN IVP; Start 08/03/25 at 23:30; Stop 09/02/25 at 23:29 Insulin Human Regular INSULIN SLIDING SCAL... ACHS SQ Last administered on 08/06/25at 20:42; Start 08/04/25 at 07:30; Stop 08/07/25 at 03:37; Status DC Ketamine HCl 100 mg ONCE ONCE IM Last administered on 08/03/25at 23:43; Start 08/03/25 at 23:30; Stop 08/03/25 at 23:39; Status DC Propofol 1,000 mg PROTOCOL PRN IV; Start 08/03/25 at 23:30; Stop 08/03/25 at 23:39; Status DC Fentanyl Citrate 100 ml @ 2.5 mls/hr PROTOCOL IV; Start 08/03/25 at 23:30; Stop 08/03/25 at 23:39; Status DC Norepinephrine 250 ml @ 0 mls/hr PROTOCOL IV; Start 08/03/25 at 23:30; Stop 08/03/25 at 23:39; Status DC Fentanyl/Sodium Chloride 250 ml @ 0.1 mls/hr PROTOCOL IV Last administered on 08/06/25at 13:11; Start 08/03/25 at 23:30; Stop 08/08/25 at 23:29; Status DC Propofol 1,000 mg PROTOCOL PRN IV Last administered on 08/07/25at 16:56; Start 08/03/25 at 23:30; Stop 09/02/25 at 23:29 Levofloxacin/ Dextrose 750 mg ONCE ONCE IV Last administered on 08/04/25at 02:13; Start 08/03/25 at 23:30; Stop 08/03/25 at 23:41; Status DC Norepinephrine 250 ml @ 37.425 mls/ hr PROTOCOL IV Last administered on 08/04/25at 14:11; Start 08/03/25 at 23:30; Stop 08/04/25 at 14:18; Status DC Levofloxacin/ Dextrose 100 ml @ 100 mls/hr Q48H IV; Start 08/05/25 at 23:00; Stop 08/04/25 at 16:22; Status DC Vasopressin 20 units STK-MED ONCE .ROUTE; Start 08/04/25 at 04:24; Stop 08/04/25 at 04:24; Status DC Vasopressin 20 units/Sodium Chloride 100 ml @ 0 mls/hr PROTOCOL IV Last administered on 08/05/25at 04:10; Start 08/04/25 at 05:00; Stop 09/03/25 at 04:59 Vancomycin HCl 1 each AD IV; Start 08/04/25 at 13:30; Stop 08/18/25 at 13:29 Albumin Human 50 ml @ 0 mls/hr AD ONCE IV; Start 08/04/25 at 13:30; Stop 08/04/25 at 13:47; Status DC Thiamine HCl 100 mg DAILY IVP Last administered on 08/09/25at 08:22; Start 08/05/25 at 09:00; Stop 09/04/25 at 08:59 Vancomycin HCl 250 ml @ 125 mls/hr ONCE ONCE IV; Start 08/04/25 at 14:00; Stop 08/04/25 at 13:33; Status DC Vancomycin HCl 750 mg [id number] IVPB Last administered on 08/08/25at 16:00; Start 08/04/25 at 16:00; Stop 08/14/25 at 15:59 Norepinephrine Bitartrate as protocol PROTOCOL IV Last administered on 08/06/25at 09:16; Start 08/04/25 at 14:30; Stop 09/03/25 at 14:29 Pharmacy Profile Note 1 each ONCE MISC; Start 08/04/25 at 15:30; Stop 08/04/25 at 16:16; Status DC Meropenem 500 mg Q24H IVPB Last administered on 08/05/25at 15:56; Start 08/04/25 at 16:30; Stop 08/06/25 at 07:37; Status DC Sodium Chloride 250 ml @ 0 mls/hr AD IV; Start 08/04/25 at 17:00; Stop 09/03/25 at 16:59 Albumin Human 100 ml ONCE IV; Start 08/04/25 at 17:00; Stop 08/05/25 at 16:59; Status DC Sodium Chloride 1,000 ml @ 0 mls/hr ONCE IV Last administered on 08/08/25at 10:14; Start 08/04/25 at 17:00; Stop 09/03/25 at 16:59 Dextrose 50 ml ONCE ONCE IV Last administered on 08/05/25at 09:12; Start 08/05/25 at 09:00; Stop 08/05/25 at 09:01; Status DC Insulin Human Regular 10 unit ONCE ONCE IV Last administered on 08/05/25at 09:21; Start 08/05/25 at 09:00; Stop 08/05/25 at 09:01; Status DC Pantoprazole Sodium 40 mg DAILY IVP Last administered on 08/09/25at 08:23; Start 08/06/25 at 09:00; Stop 09/05/25 at 08:59 Heparin Sodium (Porcine) 5,000 unit Q12H SQ; Start 08/05/25 at 12:00; Stop 08/05/25 at 16:11; Status DC Heparin Sodium (Porcine) 5,000 unit Q12H SQ Last administered on 08/06/25at 04:46; Start 08/05/25 at 16:00; Stop 08/06/25 at 07:37; Status DC Magnesium Sulfate 50 ml @ 0 mls/hr PROTOCOL PRN IV Last administered on 08/05/25at 18:34; Start 08/05/25 at 17:30; Stop 09/04/25 at 17:29 Heparin Sodium (Porcine) 5,000 unit Q12H9 SQ Last administered on 08/06/25at 20:43; Start 08/06/25 at 21:00; Stop 08/07/25 at 13:14; Status DC Meropenem 500 mg DAILY IVPB Last administered on 08/09/25at 08:21; Start 08/06/25 at 09:00; Stop 08/14/25 at 16:29 Albumin Human 100 ml @ 0 mls/hr ONCE PRN IV Last administered on 08/06/25at 11:27; Start 08/06/25 at 11:00; Stop 08/06/25 at 11:27; Status DC Phenylephrine HCl 100 mg/Sodium Chloride 250 ml @ 0 mls/hr PROTOCOL IV Last administered on 08/06/25at 22:39; Start 08/06/25 at 11:30; Stop 09/05/25 at 11:29 Multi-Ingred Cream/Lotion/Oil/ Oint USE DIRECTED BID OD Last administered on 08/09/25at 08:23; Start 08/06/25 at 21:00; Stop 09/05/25 at 20:59 Metoprolol Tartrate 5 mg STK-MED ONCE IV Last administered on 08/07/25at 00:10; Start 08/07/25 at 00:02; Stop 08/07/25 at 00:02; Status DC Metoprolol Tartrate 25 mg ONCE ONCE IV Last administered on 08/07/25at 00:25; Start 08/07/25 at 00:00; Stop 08/07/25 at 00:24; Status DC Amiodarone HCl 150 mg/Dextrose 103 ml @ 618 mls/hr ONCE IV; Start 08/07/25 at 00:00; Stop 08/07/25 at 00:12; Status DC Amiodarone HCl 360 mg/Dextrose 207.2 ml @ 33.3 mls/hr AD IV; Start 08/07/25 at 00:00; Stop 08/07/25 at 00:12; Status DC Amiodarone HCl 540 mg/Dextrose 310.8 ml @ 16.7 mls/hr [id number] IV Last administered on 08/08/25at 00:06; Start 08/07/25 at 05:00; Stop 09/06/25 at 04:59 Amiodarone HCL/ Dextrose 100 ml @ As Directed STK-MED ONCE .ROUTE Last administered on 08/07/25at 00:16; Start 08/07/25 at 00:06; Stop 08/07/25 at 00:10; Status DC Amiodarone HCL/ Dextrose 100 ml @ 0 mls/hr PROTOCOL IV; Start 08/07/25 at 00:30; Stop 08/07/25 at 06:28; Status DC Amiodarone HCL/ Dextrose 200 ml @ 33.333 mls/ hr PROTOCOL IV Last administered on 08/07/25at 00:25; Start 08/07/25 at 00:30; Stop 08/07/25 at 06:28; Status DC Insulin Human Regular INSULIN SLIDING SCAL... Q6H6 SQ Last administered on 08/08/25at 06:12; Start 08/07/25 at 06:00; Stop 08/08/25 at 10:28; Status DC Argatroban 50 mg/ Sodium Chloride 50 ml @ 0 mls/hr PROTOCOL IV Last administered on 08/08/25at 03:03; Start 08/07/25 at 13:00; Stop 09/06/25 at 12:59 Metoprolol Tartrate 12.5 mg BID PO Last administered on 08/09/25at 08:22; Start 08/07/25 at 21:00; Stop 09/06/25 at 20:59 Midodrine 10 mg BID NG Last administered on 08/08/25at 08:16; Start 08/08/25 at 09:00; Stop 09/07/25 at 08:59 Albumin Human 100 ml [id number][DIALYSIS] PRN IV Last administered on 08/08/25at 10:15; Start 08/08/25 at 08:15; Stop 08/09/25 at 08:14; Status DC Insulin Human Regular INSULIN SLIDING SCAL... ACHS SQ; Start 08/08/25 at 11:30; Stop 08/08/25 at 13:51; Status DC Insulin Glargine 10 units DAILY SQ Last administered on 08/09/25at 08:17; Start 08/08/25 at 11:30; Stop 09/07/25 at 11:29 Methylprednisolone Sodium Succinate 40 mg BID IVP Last administered on 08/09/25at 08:22; Start 08/08/25 at 11:30; Stop 09/07/25 at 11:29 Insulin Human Regular INSULIN SLIDING SCAL... Q6H6 SQ Last administered on 08/09/25at 11:35; Start 08/08/25 at 18:00; Stop 09/07/25 at 17:59 Labetalol HCl 10 mg Q2HPRN PRN IV Last administered on 08/09/25at 04:11; Start 08/09/25 at 04:00; Stop 09/08/25 at 03:59 JACKELINE ANGULO MD Aug 09, 2025 12:15
[2025-08-09 12:16] LABS: UREA NITROGEN, BLOOD 87.0 mg/dL (7-18)
--- NOTE | 2025-08-09 23:43 | NUR ---
REPORT GIVEN TO JYOTI SHEPARD
--- NOTE | 2025-08-09 23:45 | NUR ---
PATIENT COMPLAINING PAIN TO RIGHT LEG WHEN MANIPULATED ON REPOSITIONING, AND ABD DISCOMFORT UNABLE TO DESCRIBE PAIN OR SPECIFIC LOCATION, REPORTED TO [facility] SENIOR MANUFACTURING TEST ENGINEER - KUB ABD AND X-RAY TO RIGHT LEG - NO PAIN MED NEEDED PER PT DECISION ONLY WITH MANIPULATION NO REDNESS NO SWELLING NOTED TO THAT LEG. WILL CONT TO MONITOR
[2025-08-10] VITALS (27 sets, daily range): BP systolic 119–165; BP diastolic 48–69; PULSE 59–82; RESP 12–20; TEMP 97.3–98.4; O2SAT 96–99
--- NOTE | 2025-08-10 00:50 | HMCIMG ---
EXAM: CR Right Femur, 1 view. CLINICAL HISTORY: Pain. COMPARISON: None provided. FINDINGS: No acute fracture or aggressive appearing osseous lesion. Mild osteoarthritis in the right hip joint. Mild osteopenia. Right knee joint replacement prosthesis in place. The soft tissues are unremarkable. IMPRESSION: No acute bony abnormality is evident. Mild osteoarthritis in the right hip joint. Mild osteopenia. Right knee joint replacement prosthesis in place. /[place]
--- NOTE | 2025-08-10 00:51 | HMCIMG ---
EXAM: CR Right Tibia and Fibula, 2 views. CLINICAL HISTORY: Pain. COMPARISON: None provided. FINDINGS: No acute fracture or aggressive appearing osseous lesion. Mild osteopenia. Total knee joint replacement prosthesis in place. Grossly unremarkable included ankle joint. Atherosclerotic vascular calcifications. IMPRESSION: No acute bony abnormality is evident. Mild osteopenia. Total knee joint replacement prosthesis in place. /[place]
--- NOTE | 2025-08-10 01:01 | HMCIMG ---
EXAM: CR Right Knee, 2 views. CLINICAL HISTORY: Pain. COMPARISON: None provided. FINDINGS: No acute fracture or aggressive appearing osseous lesion. Mild osteopenia. Total knee joint replacement prosthesis in place, no evidence of hardware failure. Gross unremarkable soft tissues. IMPRESSION: No acute fracture. Mild osteopenia. Total knee joint replacement prosthesis in place, no evidence of hardware failure. /[place]
--- NOTE | 2025-08-10 01:05 | HMCIMG ---
EXAM: CR Abdomen, 2 views CLINICAL HISTORY: Pain. COMPARISON: None provided. FINDINGS: Nonobstructed nonspecific bowel gas pattern. No free air is evident. No abnormal calcification. No aggressive appearing osseous lesion. Mild levocurvature of the lumbar spine. Degenerative osseous changes. Surgical clips in the right upper quadrant of the abdomen. Metal objects or sutures overlie the right side of the hip. IMPRESSION: No acute process. /[place]
[2025-08-10 03:30] LABS: ABG BASE EXCESS 0.6 mmol/L (-2.0-3.0); ABG HCO3 24.6 mmol/L (21.0-28.0); ABG OXYGEN SATURATION 98.1 % (94.0-98.0); ABG PCO2 38 mmHg (32-45); ABG PH 7.432 (7.350-7.450); DEVICE COMMENT JESSY RN,RB; PO2, ARTERIAL BG 109.3 mmHg (83.0-108.0); TEMPERATURE, CELSIUS BG 37.0 CELSIUS (35.5-37.0); VENT MODE, BG CAFM (ROOM AIR)
[2025-08-10 04:00] LABS: IMMATURE GRANULOCYTE ABSOLUTE 0.46 K/uL (0-1); NUCLEATED RED BLOOD CELLS 0.0 % (0.0-0.19); PLATELET COUNT (AUTO) 60 K/uL (130-400); RED BLOOD CELL COUNT(AUTO) 3.29 MIL/uL (4.00-5.50); RED CELL DISTRIBUTION WIDTH 13.2 % (11.0-15.5); WHITE BLOOD COUNT (AUTO) 12.0 K/uL (4.8-10.8)
--- NOTE | 2025-08-10 04:13 | PN ---
SUBJECTIVE: The patient is on mechanical ventilator and opens his eyes, but does not follow commands. OBJECTIVE: VITAL SIGNS: Blood pressure is 160/90, pulse is 60, respirations are 16. LUNGS: Mostly decreased breath sounds with rhonchi. HEART: Regular rate and rhythm. ABDOMEN: Soft and nontender. ASSESSMENT AND PLAN: Acute respiratory failure, mechanical ventilation. Pneumonia is stable. Urinary tract infection is stable. pneumonia on antibiotics. The patient is getting treated for sepsis at this time. Thrombocytopenia is secondary to the heparin. Hypertension. The patient is off the Anuj-Synephrine at this time. TID: [id number] RECEIPT: [id number]
[2025-08-10 04:30] LABS: ASPARTATE AMINOTRANSFERASE 15.0 U/L (10-37); CREATININE 7.6 mg/dL (0.5-1.0); GLOMERULAR FILTR. RATE CALC 5.0 mL/min (>90); GLUCOSE,RANDOM 207.0 mg/dL (70-105); SODIUM SERUM 134.0 mmol/L (136-145); TOTAL PROTEIN, SERUM 5.5 g/dL (6.0-8.3)
[2025-08-10 04:33] LABS: UREA NITROGEN, BLOOD 117.0 mg/dL (7-18)
[2025-08-10 08:04] LABS: ASPARTATE AMINOTRANSFERASE 15.0 U/L (10-37); CREATININE 7.8 mg/dL (0.5-1.0); GLOMERULAR FILTR. RATE CALC 5.0 mL/min (>90); GLUCOSE,RANDOM 210.0 mg/dL (70-105); SODIUM SERUM 134.0 mmol/L (136-145); TOTAL PROTEIN, SERUM 5.4 g/dL (6.0-8.3)
--- NOTE | 2025-08-10 08:09 | PN ---
Acute myocardial infarct versus takotsubo syndrome (peak CPK was in the 1500 range, inconsistent with the size of the wall motion abnormality on the echo) Recent EF 65-70% with moderate aortic stenosis, DVI 0.27, current EF 40-45% with apical akinesia, moderate aortic stenosis with DVI 0.27 Sepsis Renal failure is chronic; patient has been on dialysis and tolerated it well for 19 months according to her Acute respiratory failure Probable aspiration pneumonia Diabetes Hypertension Gastroesophageal reflux Gallstones Paroxysmal atrial fibrillation Thrombocytopenia, possible HIT, attended by Dr. Yeboah Staphylococcus aureus sepsis Patient is now alert, recognizes me, smiles, complains of pain in her legs and some generalized pain and stiffness, but mentally appears appropriate. I do not appreciate rales, respiratory pattern is nonlabored, 1st heart sound is preserved, 2nd heart sound is a bit diminished, grade 1 parasternal systolic murmur from aortic stenosis noted, ecchymosis on arms and hands appreciated, no edema. Chest x-ray shows persistent infiltrates but they are improving. Renal function is still poor but hemodynamically the patient is more stable and currently she is in sinus rhythm, has not reverted to atrial fibrillation. Impression and plan: Improving after septic shock, Staphylococcus aureus isolated from blood so we will observe carefully for potential development of endocarditis, thrombocytopenia is under treatment, volume overload is improving. Vitals/Labs Vital Signs Date Time Temp Pulse Resp B/P (MAP) Pulse Ox O2 Delivery O2 Flow Rate FiO2 08/10/25 06:47 65 12 08/10/25 06:30 161/62 100 08/10/25 04:00 Aerosol Mask+ 40 08/10/25 04:00 97.9 08/09/25 13:55 10.0 Laboratory Tests 08/09/25 11:37 08/10/25 03:29 Medications Current Medications Albuterol 2 udvial ONCE ONCE IH Last administered on 08/03/25at 23:50; Start 08/03/25 at 22:30; Stop 08/03/25 at 22:31; Status DC Albuterol 1 udvial STK-MED ONCE IH; Start 08/03/25 at 22:17; Stop 08/03/25 at 22:18; Status DC Acetaminophen 1,000 mg ONCE ONCE PO; Start 08/03/25 at 23:00; Stop 08/03/25 at 23:01; Status DC Fentanyl Citrate 100 ml @ As Directed STK-MED ONCE IV; Start 08/03/25 at 22:46; Stop 08/03/25 at 22:46; Status DC Ketamine HCl 50 mg STK-MED ONCE .ROUTE; Start 08/03/25 at 22:47; Stop 08/03/25 at 22:47; Status DC Rocuronium [place] 50 mg STK-MED ONCE .ROUTE Last administered on 08/03/25at 23:34; Start 08/03/25 at 22:47; Stop 08/03/25 at 22:47; Status DC Propofol 100 ml @ As Directed STK-MED ONCE IV; Start 08/03/25 at 22:50; Stop 08/03/25 at 22:50; Status DC Norepinephrine 250 ml @ As Directed STK-MED ONCE IV; Start 08/03/25 at 22:58; Stop 08/03/25 at 22:58; Status DC Vancomycin HCl 1 gm ONCE ONCE IV Last administered on 08/04/25at 00:06; Start 08/03/25 at 23:30; Stop 08/03/25 at 23:36; Status DC Albuterol Sulfate 2.5 mg [id number] PRN IH; Start 08/03/25 at 23:30; Stop 09/02/25 at 23:29 Ipratropium [place] 0.5 mg [id number] IH Last administered on 08/10/25at 06:47; Start 08/04/25 at 00:00; Stop 09/03/25 at 00:00 Acetaminophen 650 mg Q6H PRN PO Last administered on 08/06/25at 19:55; Start 08/03/25 at 23:30; Stop 09/02/25 at 23:29 Acetaminophen 650 mg Q6H PRN RC Last administered on 08/04/25at 04:08; Start 08/03/25 at 23:30; Stop 09/02/25 at 23:29 Lactulose 20 gm Q6H PRN PO; Start 08/03/25 at 23:30; Stop 09/02/25 at 23:29 Docusate Sodium 100 mg BID PRN PO; Start 08/03/25 at 23:30; Stop 09/02/25 at 23:29 Ondansetron HCl 4 mg Q6H PRN IVP; Start 08/03/25 at 23:30; Stop 09/02/25 at 23:29 Insulin Human Regular INSULIN SLIDING SCAL... ACHS SQ Last administered on 08/06/25at 20:42; Start 08/04/25 at 07:30; Stop 08/07/25 at 03:37; Status DC Ketamine HCl 100 mg ONCE ONCE IM Last administered on 08/03/25at 23:43; Start 08/03/25 at 23:30; Stop 08/03/25 at 23:39; Status DC Propofol 1,000 mg PROTOCOL PRN IV; Start 08/03/25 at 23:30; Stop 08/03/25 at 23:39; Status DC Fentanyl Citrate 100 ml @ 2.5 mls/hr PROTOCOL IV; Start 08/03/25 at 23:30; Stop 08/03/25 at 23:39; Status DC Norepinephrine 250 ml @ 0 mls/hr PROTOCOL IV; Start 08/03/25 at 23:30; Stop 08/03/25 at 23:39; Status DC Fentanyl/Sodium Chloride 250 ml @ 0.1 mls/hr PROTOCOL IV Last administered on 08/06/25at 13:11; Start 08/03/25 at 23:30; Stop 08/08/25 at 23:29; Status DC Propofol 1,000 mg PROTOCOL PRN IV Last administered on 08/07/25at 16:56; Start 08/03/25 at 23:30; Stop 09/02/25 at 23:29 Levofloxacin/ Dextrose 750 mg ONCE ONCE IV Last administered on 08/04/25at 02:13; Start 08/03/25 at 23:30; Stop 08/03/25 at 23:41; Status DC Norepinephrine 250 ml @ 37.425 mls/ hr PROTOCOL IV Last administered on 08/04/25at 14:11; Start 08/03/25 at 23:30; Stop 08/04/25 at 14:18; Status DC Levofloxacin/ Dextrose 100 ml @ 100 mls/hr Q48H IV; Start 08/05/25 at 23:00; Stop 08/04/25 at 16:22; Status DC Vasopressin 20 units STK-MED ONCE .ROUTE; Start 08/04/25 at 04:24; Stop 08/04/25 at 04:24; Status DC Vasopressin 20 units/Sodium Chloride 100 ml @ 0 mls/hr PROTOCOL IV Last administered on 08/05/25at 04:10; Start 08/04/25 at 05:00; Stop 09/03/25 at 04:59 Vancomycin HCl 1 each AD IV; Start 08/04/25 at 13:30; Stop 08/18/25 at 13:29 Albumin Human 50 ml @ 0 mls/hr AD ONCE IV; Start 08/04/25 at 13:30; Stop 08/04/25 at 13:47; Status DC Thiamine HCl 100 mg DAILY IVP Last administered on 08/09/25at 08:22; Start 08/05/25 at 09:00; Stop 09/04/25 at 08:59 Vancomycin HCl 250 ml @ 125 mls/hr ONCE ONCE IV; Start 08/04/25 at 14:00; Stop 08/04/25 at 13:33; Status DC Vancomycin HCl 750 mg [id number] IVPB Last administered on 08/08/25at 16:00; Start 08/04/25 at 16:00; Stop 08/14/25 at 15:59 Norepinephrine Bitartrate as protocol PROTOCOL IV Last administered on 08/06/25at 09:16; Start 08/04/25 at 14:30; Stop 09/03/25 at 14:29 Pharmacy Profile Note 1 each ONCE MISC; Start 08/04/25 at 15:30; Stop 08/04/25 at 16:16; Status DC Meropenem 500 mg Q24H IVPB Last administered on 08/05/25at 15:56; Start 08/04/25 at 16:30; Stop 08/06/25 at 07:37; Status DC Sodium Chloride 250 ml @ 0 mls/hr AD IV; Start 08/04/25 at 17:00; Stop 09/03/25 at 16:59 Albumin Human 100 ml ONCE IV; Start 08/04/25 at 17:00; Stop 08/05/25 at 16:59; Status DC Sodium Chloride 1,000 ml @ 0 mls/hr ONCE IV Last administered on 08/08/25at 10:14; Start 08/04/25 at 17:00; Stop 09/03/25 at 16:59 Dextrose 50 ml ONCE ONCE IV Last administered on 08/05/25at 09:12; Start 08/05/25 at 09:00; Stop 08/05/25 at 09:01; Status DC Insulin Human Regular 10 unit ONCE ONCE IV Last administered on 08/05/25at 09:21; Start 08/05/25 at 09:00; Stop 08/05/25 at 09:01; Status DC Pantoprazole Sodium 40 mg DAILY IVP Last administered on 08/09/25at 08:23; Start 08/06/25 at 09:00; Stop 09/05/25 at 08:59 Heparin Sodium (Porcine) 5,000 unit Q12H SQ; Start 08/05/25 at 12:00; Stop 08/05/25 at 16:11; Status DC Heparin Sodium (Porcine) 5,000 unit Q12H SQ Last administered on 08/06/25at 04:46; Start 08/05/25 at 16:00; Stop 08/06/25 at 07:37; Status DC Magnesium Sulfate 50 ml @ 0 mls/hr PROTOCOL PRN IV Last administered on 08/05/25at 18:34; Start 08/05/25 at 17:30; Stop 09/04/25 at 17:29 Heparin Sodium (Porcine) 5,000 unit Q12H9 SQ Last administered on 08/06/25at 20:43; Start 08/06/25 at 21:00; Stop 08/07/25 at 13:14; Status DC Meropenem 500 mg DAILY IVPB Last administered on 08/09/25at 08:21; Start 08/06/25 at 09:00; Stop 08/14/25 at 16:29 Albumin Human 100 ml @ 0 mls/hr ONCE PRN IV Last administered on 08/06/25at 11:27; Start 08/06/25 at 11:00; Stop 08/06/25 at 11:27; Status DC Phenylephrine HCl 100 mg/Sodium Chloride 250 ml @ 0 mls/hr PROTOCOL IV Last administered on 08/06/25at 22:39; Start 08/06/25 at 11:30; Stop 09/05/25 at 11:29 Multi-Ingred Cream/Lotion/Oil/ Oint USE DIRECTED BID OD Last administered on 08/09/25at 21:00; Start 08/06/25 at 21:00; Stop 09/05/25 at 20:59 Metoprolol Tartrate 5 mg STK-MED ONCE IV Last administered on 08/07/25at 00:10; Start 08/07/25 at 00:02; Stop 08/07/25 at 00:02; Status DC Metoprolol Tartrate 25 mg ONCE ONCE IV Last administered on 08/07/25at 00:25; Start 08/07/25 at 00:00; Stop 08/07/25 at 00:24; Status DC Amiodarone HCl 150 mg/Dextrose 103 ml @ 618 mls/hr ONCE IV; Start 08/07/25 at 00:00; Stop 08/07/25 at 00:12; Status DC Amiodarone HCl 360 mg/Dextrose 207.2 ml @ 33.3 mls/hr AD IV; Start 08/07/25 at 00:00; Stop 08/07/25 at 00:12; Status DC Amiodarone HCl 540 mg/Dextrose 310.8 ml @ 16.7 mls/hr [id number] IV Last administered on 08/08/25at 00:06; Start 08/07/25 at 05:00; Stop 09/06/25 at 04:59 Amiodarone HCL/ Dextrose 100 ml @ As Directed STK-MED ONCE .ROUTE Last administered on 08/07/25at 00:16; Start 08/07/25 at 00:06; Stop 08/07/25 at 00:10; Status DC Amiodarone HCL/ Dextrose 100 ml @ 0 mls/hr PROTOCOL IV; Start 08/07/25 at 00:30; Stop 08/07/25 at 06:28; Status DC Amiodarone HCL/ Dextrose 200 ml @ 33.333 mls/ hr PROTOCOL IV Last administered on 08/07/25at 00:25; Start 08/07/25 at 00:30; Stop 08/07/25 at 06:28; Status DC Insulin Human Regular INSULIN SLIDING SCAL... Q6H6 SQ Last administered on 08/08/25at 06:12; Start 08/07/25 at 06:00; Stop 08/08/25 at 10:28; Status DC Argatroban 50 mg/ Sodium Chloride 50 ml @ 0 mls/hr PROTOCOL IV Last administered on 08/08/25at 03:03; Start 08/07/25 at 13:00; Stop 09/06/25 at 12:59 Metoprolol Tartrate 12.5 mg BID PO Last administered on 08/09/25at 20:51; Start 08/07/25 at 21:00; Stop 09/06/25 at 20:59 Midodrine 10 mg BID NG Last administered on 08/08/25at 08:16; Start 08/08/25 at 09:00; Stop 09/07/25 at 08:59 Albumin Human 100 ml QTUTHSA[DIALYSIS] PRN IV Last administered on 08/08/25at 10:15; Start 08/08/25 at 08:15; Stop 08/09/25 at 08:14; Status DC Insulin Human Regular INSULIN SLIDING SCAL... ACHS SQ; Start 08/08/25 at 11:30; Stop 08/08/25 at 13:51; Status DC Insulin Glargine 10 units DAILY SQ Last administered on 08/09/25at 08:17; Start 08/08/25 at 11:30; Stop 09/07/25 at 11:29 Methylprednisolone Sodium Succinate 40 mg BID IVP Last administered on 08/09/25at 20:53; Start 08/08/25 at 11:30; Stop 09/07/25 at 11:29 Insulin Human Regular INSULIN SLIDING SCAL... Q6H6 SQ Last administered on 08/10/25at 05:25; Start 08/08/25 at 18:00; Stop 09/07/25 at 17:59 Labetalol HCl 10 mg Q2HPRN PRN IV Last administered on 08/09/25at 13:56; Start 08/09/25 at 04:00; Stop 09/08/25 at 03:59 RUMA CLEMENTS MD Aug 10, 2025 08:09
[2025-08-10 08:13] LABS: UREA NITROGEN, BLOOD 123.0 mg/dL (7-18)
[2025-08-10 08:45] LABS: PHOSPHORUS 7.2 mg/dL (2.5-4.9)
--- NOTE | 2025-08-10 10:07 | PN ---
[facility] PROGRESS NOTE Date Patient Seen: Aug 10, 2025 Time of Visit: 10:04 Supervising Physician: Dr Favian Conley Primary Care Physician: Dr. Cohen Outpatient Specialists: Inpatient Consults: BIS, critical care team PROBLEM LIST: New onset AFib with RVR Acute hypoxic and hypercapnic respiratory failure-intubated patient, 2nd 2 volume overload Sepsis with septic shock - Gram-positive cocci bacteremia, Staph aureus Volume overload in a end-stage renal disease patient on hemodialysis Electrolyte imbalance Hyperkalemia LVEF 40-45%, diastolic dysfunction, 55-60% per echo on 01/17/2025 Hyperglycemia in a type 2 diabetic Morbid obesity Heparin induced thrombocytopenia INTERVAL HISTORY: Patient seen and examined, all labs and imaging have been reviewed, patient was successfully extubated yesterday, Now with good saturations on nasal cannula, she is awake alert and following commands, responding appropriately We are pending a speech/swallow test so we can resume her diet Patient's platelets are up trending, she continues on the argatroban per Heme- Onc We are off pressors Chest x-ray improved No changes to cultures Patient's family members updated at bedside. Plan: Following nephrology recs Following Hematology recs, argatroban and following platelets holding any heparin Supplemental O2, neb treatments Antibiotics and following cultures continue to follow labs and x-ray Discussion with family members at bedside Total care time 53 minutes, this excludes any time spent on procedures or education. REVIEW OF SYSTEMS: Unable to obtain ROS from patient due to patient is intubated and sedated. PHYSICAL EXAM: GENERAL: Intubated and sedated HEENT: EOMI, Sclera non icteric, moist mucosa NECK: Supple, no JVD, trachea midline LUNGS: Diminished breath sounds bilaterally. No wheezes HEART: Regular rate and rhythm. Normal S1 and S2, without murmurs ABD: Abdomen soft, nontender. Bowel sounds present. Obese EXT: No clubbing cyanosis or edema NEURO: Intubated and sedated Vital Signs (last 8hr) Date Time Temp Pulse Resp B/P (MAP) Pulse Ox O2 Delivery O2 Flow Rate FiO2 08/10/25 06:47 65 12 08/10/25 06:30 63 17 161/62 100 08/10/25 06:00 65 17 157/68 100 08/10/25 05:30 65 17 161/60 99 08/10/25 05:00 66 14 164/58 100 08/10/25 04:30 62 16 152/54 99 08/10/25 04:00 99 Aerosol Mask+ 40 08/10/25 04:00 97.9 64 18 165/54 98 Aerosol Face Mask 40 08/10/25 03:30 67 16 153/57 98 08/10/25 03:00 69 19 143/61 99 08/10/25 02:30 68 16 144/69 99 LABS: Hematology Labs: Test 08/10/25 03:29 Range/Units White Blood Count 12.0 H 4.8-10.8 K/uL Red Blood Count 3.29 L 4.00-5.50 MIL/uL Hemoglobin 9.8 L 12.0-16.0 g/dL Hematocrit 28.5 L 36-48 % Mean Corpuscular Volume 86.6 79-99 fL Mean Corpuscular Hemoglobin 29.8 27.0-33.0 pg Mean Corpuscular Hemoglobin Concent 34.4 32.0-36.0 g/dL Red Cell Distribution Width 13.2 11.0-15.5 % Platelet Count 60 L 130-400 K/uL Mean Platelet Volume 11.9 H 7.5-10.5 fL Immature Granulocyte % (Auto) 3.8 H 0-1 % Neutrophils (%) (Auto) 78.8 H 40.0-77.0 % Lymphocytes (%) (Auto) 9.0 L 21.0-51.0 % Monocytes (%) (Auto) 8.0 3.0-13.0 % Eosinophils (%) (Auto) 0.2 0.0-8.0 % Basophils (%) (Auto) 0.2 0.0-5.0 % Neutrophils # (Auto) 9.5 H 1.8-7.7 K/uL Lymphocytes # (Auto) 1.1 1.0-4.8 K/uL Monocytes # (Auto) 1.0 0.1-1.0 K/uL Eosinophils # (Auto) 0.02 0.00-0.70 K/uL Basophils # (Auto) 0.03 0.00-0.20 K/uL Absolute Immature Granulocyte (auto 0.46 0-1 K/uL Nucleated Red Blood Cells 0.0 0.0-0.19 % Chemistry Labs: Test 08/10/25 07:34 08/10/25 07:23 08/10/25 03:29 08/09/25 04:15 Range/Units Sodium Level 134 L 136-145 mmol/L Potassium Level 5.0 3.5-5.1 mmol/L Chloride Level 92 L 101-111 mmol/L Carbon Dioxide Level 26 21-32 mmol/L Blood Urea Nitrogen 123 *H 7-18 mg/dL Creatinine 7.8 H 0.5-1.0 mg/dL Glomerular Filtration Rate Calc 5 >90 mL/min Random Glucose 210 H 70-105 mg/dL Total Calcium 7.3 L 8.5-10.1 mg/dL Phosphorus Level 7.2 H 2.5-4.9 mg/dL Magnesium Level 2.40 1.80-2.40 mg/dL Total Bilirubin 0.9 0.2-1.0 mg/dL Aspartate Amino Transf (AST/SGOT) 15 10-37 U/L Alanine Aminotransferase (ALT/SGPT) 42 12-78 U/L Alkaline Phosphatase 209 H 50-136 U/L Total Protein 5.4 L 6.0-8.3 g/dL Albumin 2.3 L 3.5-5.0 g/dL Whole Blood Glucose 192 H 70-110 MG/DL Procalcitonin 31.90 H 0.05-0.5 ng/mL B-Type Natriuretic Peptide 1050 H 0-100 pg/mL Coagulation Labs: Test 08/10/25 07:34 Range/Units Activated Partial Thromboplast Time 55.8 #H 26.3-35.5 SEC DIAGNOSTICS / RADIOLOGY RESULTS: [ ] PLAN NEURO: Minimize central acting medications as possible. Fall Precautions. Well lighted room through the day and minimize interruptions through the night to prevent acute delirium. PULMONARY: Supplemental 02 as needed Titrate Fio2 to keep Spo2 > or = 90% DuoNebs and CPT as needed IS hourly while awake for pulmonary hygiene Out of bed to chair as tolerated VAP Bundle Vent settings: FiO2 45%, RR 12, peep 5, tidal volume 450 mL CARDIOVASCULAR: Follow hemodynamics. Titrate vasopressor to keep MAP >65 or systolic blood pressure >95mmHg. continue amiodarone follow on cardio recomm GI & NUTRITION: Continue nutritional support Aspirations precautions Prokinetic agents and laxatives as needed KIDNEYS & ELECTROLYTES: Strict monitoring of intake and output Daily weights Avoid nephrotoxic agents Monitor electrolytes and replace as needed Goal urine output of 30mL/hr or 0.5mL/kg/hr ENDOCRINE: Maintain blood glucose between 100-180 at all times. Insulin sliding scale for blood glucose management INFECTIOUS DISEASE: Trend temperature. Go-culture if febrile. HEMATOLOGY & COAGULATION: Monitor H&H. Keep Hgb > 7 Transfuse 1 unit of PRBC for Hgb < 7 Transfuse 1 pack of platelets of platelets < 20, 000 Watch for any signs and symptoms of bleeding SKIN: Pressure ulcer prevention per facility protocol Code Status: Full Resuscitation Disposition: ALONDRA DESHPANDE Aug 10, 2025 10:07
--- NOTE | 2025-08-10 10:55 | NUR ---
TRANSFER PT TRANSFERRED TO [facility] VIA BED. PT TOLERATED WELL. NO DISTRESS NOTED. PT'S FAMILY INFORMED OF PT BEING TRANSFERRED TO 231. REPORT GIVEN TO CLAIRE SHEPARD.
--- NOTE | 2025-08-10 14:10 | NUR ---
CM note Spoke to Daughter and Mr. Davis about discharge plan and order obtained for [facility] facility. Informed Daughter and Spouse that Dr Cohen goes to [facility] and [facility]. Daughter asked if those were the only two facilities and asked about [facility]. Informed them order was not obtained for that facility. Provided list requested by spouse for additional skilled facilities. Mr Davis stated he will call Dr Cohen office for request to [facility]. Release of information obtained for [facility] and second choice [facility]. CM to follow up.
--- NOTE | 2025-08-10 14:20 | NUR ---
BEDSIDE SWALLOW EVAL COMPLETED. +s/s of oropharyngeal dysphagia post extubation. RECOMMEND: Pureed solids, mildly thick liquids (NO STRAWS) and pills crushed. COMPENSATORY STRATEGIES: 1. sit upright during oral intake 2. small bites/sips 3. slow oral intake 4. extra dry swallows [employer]ESSOR [employer] reviewed results and recommendations with patient, family (daughter), and nurse Kelli. PROFESSOR [employer] educated patient/family on risks and consequences of aspiration. Aspiration precaution sign posted in patient's room with compensatory strategies for safe swallows. Speech therapy warranted at this time. All questions answered. RECOMMENDATIONS: Dysphagia Therapy 1-3X week to increase oral motor strength and pharyngeal swallow: LTG#1: Pt will tolerate least restrictive diet to meet nutrition/hydration with no s/s of aspiration. LTG#2: Skilled education Pt/family/staff STG#1: Pt will participate in laryngeal elevation/excursion exercises with 90% accuracy and min A. STG#2: Pt will participate in tongue base retraction exercises with 90% acc/with Min A. STG#3: Pt will participate in oral motor exercises with 90% acc/with Min A. STG#4: Pt will tolerate modified diet of pureed solids and mildly thick liquids with no overt s/s of aspiration. STG#5: Pt will participate in advanced trials of thin liquids and minced and moist solids with no overt s/s of aspiration. STG#6: Skilled education Pt/family/staff. Addendum: 08/10/[address] [facility] Amended: Links added.
--- NOTE | 2025-08-10 16:25 | PN ---
The patient has been evaluated and seen several times for dialysis. No fevers, chills, or rigors. No cough, expectoration or hemoptysis. The patient has been intubated, mechanically ventilated, on pressors, received albumin. The patient has respiratory failure, sepsis, anemia, and other comorbidities. Patient with thrombocytopenia. 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 This patient was started on argatroban. There is no obvious bleeding. Platelet count stable at 60K. Patient is extubated today. The patient was transferred to medical floor. PHYSICAL EXAMINATION: GENERAL: Critically ill, in ICU intubated, mechanically ventilated. VITAL SIGNS: Blood pressure 137/48, pulse 102, respiratory rate is 19. HEENT: ET tube in place.Pupils are equal, round and reactive. Sclerae are anicteric. Conjunctivae not pale. Oral mucosa is not dry. NECK: Without mass or bruits. Thyroid is palpable. Neck has no bruits. Neuro, patient is intubated sedated. LABORATORY DATA: Labs have been reviewed from old records. IMAGING STUDIES: Reviewed. PROBLEMS: 1. Anemia.Hemoglobin level 9.8 g/deciliter 2. Thrombocytopenia with the patient is suspected of having heparin-induced thrombocytopenia with the patient was started on argatroban. 3. Leukocytosis 4. Acute renal failure with the patient in hemodialysis 5. Acute respiratory distress with the patient is intubated 6. Sepsis 7. Congestive heart failure Plan 1. We will continue argatroban with the goal for PTT to be done between 6090. If more than 90 to stop argatroban for 2-hour and decrease dose by 25%. Platelet count improved to 60K. We will continue with argatroban until platelet count above 100,000 then we could switch to oral anticoagulation such as Pradaxa 150 mg p.o. twice daily 2. Please do not transfuse any platelet 3. Please do not give any heparin or heparin products 4. There was hypersegmented neutrophils. This patient to be started on folic acid 1 mg p.o. daily and vitamin B12 1000 mcg p.o. daily. 5. Continue care as per primary 6. Continue dialysis as per nephrology Patient to receive iron and Procrit during hemodialysis 7. Continue care as per primary. Vitals/Labs Vital Signs Date Time Temp Pulse Resp B/P (MAP) Pulse Ox O2 Delivery O2 Flow Rate FiO2 10/6/25 11:40 60 16 N/Cannula Low lpm 3.0 32 08/10/25 10:45 97.3 119/54 99 Laboratory Tests 08/10/25 03:29 08/10/25 07:34 Medications Current Medications Albuterol 2 udvial ONCE ONCE IH Last administered on 08/03/25at 23:50; Start 08/03/25 at 22:30; Stop 08/03/25 at 22:31; Status DC Albuterol 1 udvial STK-MED ONCE IH; Start 08/03/25 at 22:17; Stop 08/03/25 at 22:18; Status DC Acetaminophen 1,000 mg ONCE ONCE PO; Start 08/03/25 at 23:00; Stop 08/03/25 at 23:01; Status DC Fentanyl Citrate 100 ml @ As Directed STK-MED ONCE IV; Start 08/03/25 at 22:46; Stop 08/03/25 at 22:46; Status DC Ketamine HCl 50 mg STK-MED ONCE .ROUTE; Start 08/03/25 at 22:47; Stop 08/03/25 at 22:47; Status DC Rocuronium Manson 50 mg STK-MED ONCE .ROUTE Last administered on 08/03/25at 23:34; Start 08/03/25 at 22:47; Stop 08/03/25 at 22:47; Status DC Propofol 100 ml @ As Directed STK-MED ONCE IV; Start 08/03/25 at 22:50; Stop 08/03/25 at 22:50; Status DC Norepinephrine 250 ml @ As Directed STK-MED ONCE IV; Start 08/03/25 at 22:58; Stop 08/03/25 at 22:58; Status DC Vancomycin HCl 1 gm ONCE ONCE IV Last administered on 08/04/25at 00:06; Start 08/03/25 at 23:30; Stop 08/03/25 at 23:36; Status DC Albuterol Sulfate 2.5 mg [id number] PRN IH; Start 08/03/25 at 23:30; Stop 09/02/25 at 23:29 Ipratropium Manson 0.5 mg [id number] IH Last administered on 08/10/25at 11:28; Start 08/04/25 at 00:00; Stop 09/03/25 at 00:00 Acetaminophen 650 mg Q6H PRN PO Last administered on 08/10/25at 09:09; Start 08/03/25 at 23:30; Stop 09/02/25 at 23:29 Acetaminophen 650 mg Q6H PRN RC Last administered on 08/04/25at 04:08; Start 08/03/25 at 23:30; Stop 09/02/25 at 23:29 Lactulose 20 gm Q6H PRN PO; Start 08/03/25 at 23:30; Stop 09/02/25 at 23:29 Docusate Sodium 100 mg BID PRN PO; Start 08/03/25 at 23:30; Stop 09/02/25 at 23:29 Ondansetron HCl 4 mg Q6H PRN IVP; Start 08/03/25 at 23:30; Stop 09/02/25 at 23:29 Insulin Human Regular INSULIN SLIDING SCAL... ACHS SQ Last administered on 08/06/25at 20:42; Start 08/04/25 at 07:30; Stop 08/07/25 at 03:37; Status DC Ketamine HCl 100 mg ONCE ONCE IM Last administered on 08/03/25at 23:43; Start 08/03/25 at 23:30; Stop 08/03/25 at 23:39; Status DC Propofol 1,000 mg PROTOCOL PRN IV; Start 08/03/25 at 23:30; Stop 08/03/25 at 23:39; Status DC Fentanyl Citrate 100 ml @ 2.5 mls/hr PROTOCOL IV; Start 08/03/25 at 23:30; Stop 08/03/25 at 23:39; Status DC Norepinephrine 250 ml @ 0 mls/hr PROTOCOL IV; Start 08/03/25 at 23:30; Stop 08/03/25 at 23:39; Status DC Fentanyl/Sodium Chloride 250 ml @ 0.1 mls/hr PROTOCOL IV Last administered on 08/06/25at 13:11; Start 08/03/25 at 23:30; Stop 08/08/25 at 23:29; Status DC Propofol 1,000 mg PROTOCOL PRN IV Last administered on 08/07/25at 16:56; Start 08/03/25 at 23:30; Stop 09/02/25 at 23:29 Levofloxacin/ Dextrose 750 mg ONCE ONCE IV Last administered on 08/04/25at 02:13; Start 08/03/25 at 23:30; Stop 08/03/25 at 23:41; Status DC Norepinephrine 250 ml @ 37.425 mls/ hr PROTOCOL IV Last administered on 08/04/25at 14:11; Start 08/03/25 at 23:30; Stop 08/04/25 at 14:18; Status DC Levofloxacin/ Dextrose 100 ml @ 100 mls/hr Q48H IV; Start 08/05/25 at 23:00; Stop 08/04/25 at 16:22; Status DC Vasopressin 20 units STK-MED ONCE .ROUTE; Start 08/04/25 at 04:24; Stop 08/04/25 at 04:24; Status DC Vasopressin 20 units/Sodium Chloride 100 ml @ 0 mls/hr PROTOCOL IV Last administered on 08/05/25at 04:10; Start 08/04/25 at 05:00; Stop 09/03/25 at 04:59 Vancomycin HCl 1 each AD IV; Start 08/04/25 at 13:30; Stop 08/18/25 at 13:29 Albumin Human 50 ml @ 0 mls/hr AD ONCE IV; Start 08/04/25 at 13:30; Stop 08/04/25 at 13:47; Status DC Thiamine HCl 100 mg DAILY IVP Last administered on 08/10/25at 09:07; Start 08/05/25 at 09:00; Stop 09/04/25 at 08:59 Vancomycin HCl 250 ml @ 125 mls/hr ONCE ONCE IV; Start 08/04/25 at 14:00; Stop 08/04/25 at 13:33; Status DC Vancomycin HCl 750 mg [id number] IVPB Last administered on 08/08/25at 16:00; Start 08/04/25 at 16:00; Stop 08/14/25 at 15:59 Norepinephrine Bitartrate as protocol PROTOCOL IV Last administered on 08/06/25at 09:16; Start 08/04/25 at 14:30; Stop 09/03/25 at 14:29 Pharmacy Profile Note 1 each ONCE MISC; Start 08/04/25 at 15:30; Stop 08/04/25 at 16:16; Status DC Meropenem 500 mg Q24H IVPB Last administered on 08/05/25at 15:56; Start 08/04/25 at 16:30; Stop 08/06/25 at 07:37; Status DC Sodium Chloride 250 ml @ 0 mls/hr AD IV; Start 08/04/25 at 17:00; Stop 09/03/25 at 16:59 Albumin Human 100 ml ONCE IV; Start 08/04/25 at 17:00; Stop 08/05/25 at 16:59; Status DC Sodium Chloride 1,000 ml @ 0 mls/hr ONCE IV Last administered on 08/08/25at 10:14; Start 08/04/25 at 17:00; Stop 09/03/25 at 16:59 Dextrose 50 ml ONCE ONCE IV Last administered on 08/05/25at 09:12; Start 08/05/25 at 09:00; Stop 08/05/25 at 09:01; Status DC Insulin Human Regular 10 unit ONCE ONCE IV Last administered on 08/05/25at 09:21; Start 08/05/25 at 09:00; Stop 08/05/25 at 09:01; Status DC Pantoprazole Sodium 40 mg DAILY IVP Last administered on 08/10/25at 09:07; Start 08/06/25 at 09:00; Stop 09/05/25 at 08:59 Heparin Sodium (Porcine) 5,000 unit Q12H SQ; Start 08/05/25 at 12:00; Stop 08/05/25 at 16:11; Status DC Heparin Sodium (Porcine) 5,000 unit Q12H SQ Last administered on 08/06/25at 04:46; Start 08/05/25 at 16:00; Stop 08/06/25 at 07:37; Status DC Magnesium Sulfate 50 ml @ 0 mls/hr PROTOCOL PRN IV Last administered on 08/05/25at 18:34; Start 08/05/25 at 17:30; Stop 09/04/25 at 17:29 Heparin Sodium (Porcine) 5,000 unit Q12H9 SQ Last administered on 08/06/25at 20:43; Start 08/06/25 at 21:00; Stop 08/07/25 at 13:14; Status DC Meropenem 500 mg DAILY IVPB Last administered on 08/10/25at 09:07; Start 08/06/25 at 09:00; Stop 08/14/25 at 16:29 Albumin Human 100 ml @ 0 mls/hr ONCE PRN IV Last administered on 08/06/25at 11:27; Start 08/06/25 at 11:00; Stop 08/06/25 at 11:27; Status DC Phenylephrine HCl 100 mg/Sodium Chloride 250 ml @ 0 mls/hr PROTOCOL IV Last administered on 08/06/25at 22:39; Start 08/06/25 at 11:30; Stop 09/05/25 at 11:29 Multi-Ingred Cream/Lotion/Oil/ Oint USE DIRECTED BID OD Last administered on 08/10/25at 09:17; Start 08/06/25 at 21:00; Stop 09/05/25 at 20:59 Metoprolol Tartrate 5 mg STK-MED ONCE IV Last administered on 08/07/25at 00:10; Start 08/07/25 at 00:02; Stop 08/07/25 at 00:02; Status DC Metoprolol Tartrate 25 mg ONCE ONCE IV Last administered on 08/07/25at 00:25; Start 08/07/25 at 00:00; Stop 08/07/25 at 00:24; Status DC Amiodarone HCl 150 mg/Dextrose 103 ml @ 618 mls/hr ONCE IV; Start 08/07/25 at 00:00; Stop 08/07/25 at 00:12; Status DC Amiodarone HCl 360 mg/Dextrose 207.2 ml @ 33.3 mls/hr AD IV; Start 08/07/25 at 00:00; Stop 08/07/25 at 00:12; Status DC Amiodarone HCl 540 mg/Dextrose 310.8 ml @ 16.7 mls/hr [id number] IV Last administered on 08/08/25at 00:06; Start 08/07/25 at 05:00; Stop 09/06/25 at 04:59 Amiodarone HCL/ Dextrose 100 ml @ As Directed STK-MED ONCE .ROUTE Last administered on 08/07/25at 00:16; Start 08/07/25 at 00:06; Stop 08/07/25 at 00:10; Status DC Amiodarone HCL/ Dextrose 100 ml @ 0 mls/hr PROTOCOL IV; Start 08/07/25 at 00:30; Stop 08/07/25 at 06:28; Status DC Amiodarone HCL/ Dextrose 200 ml @ 33.333 mls/ hr PROTOCOL IV Last administered on 08/07/25at 00:25; Start 08/07/25 at 00:30; Stop 08/07/25 at 06:28; Status DC Insulin Human Regular INSULIN SLIDING SCAL... Q6H6 SQ Last administered on 08/08/25at 06:12; Start 08/07/25 at 06:00; Stop 08/08/25 at 10:28; Status DC Argatroban 50 mg/ Sodium Chloride 50 ml @ 0 mls/hr PROTOCOL IV Last administered on 08/10/25at 14:06; Start 08/07/25 at 13:00; Stop 09/06/25 at 12:59 Metoprolol Tartrate 12.5 mg BID PO Last administered on 08/10/25at 09:08; Start 08/07/25 at 21:00; Stop 09/06/25 at 20:59 Midodrine 10 mg BID NG Last administered on 08/10/25at 09:08; Start 08/08/25 at 09:00; Stop 08/10/25 at 09:13; Status DC Albumin Human 100 ml QTUTHSA[DIALYSIS] PRN IV Last administered on 08/08/25at 10:15; Start 08/08/25 at 08:15; Stop 08/09/25 at 08:14; Status DC Insulin Human Regular INSULIN SLIDING SCAL... ACHS SQ; Start 08/08/25 at 11:30; Stop 08/08/25 at 13:51; Status DC Insulin Glargine 10 units DAILY SQ Last administered on 08/10/25at 09:11; Start 08/08/25 at 11:30; Stop 09/07/25 at 11:29 Methylprednisolone Sodium Succinate 40 mg BID IVP Last administered on 08/10/25at 09:08; Start 08/08/25 at 11:30; Stop 09/07/25 at 11:29 Insulin Human Regular INSULIN SLIDING SCAL... Q6H6 SQ Last administered on 08/10/25at 05:25; Start 08/08/25 at 18:00; Stop 09/07/25 at 17:59 Labetalol HCl 10 mg Q2HPRN PRN IV Last administered on 08/09/25at 13:56; Start 08/09/25 at 04:00; Stop 09/08/25 at 03:59 Hydromorphone HCl 0.2 mg Q6H PRN IVP; Start 08/10/25 at 09:00; Stop 08/15/25 at 08:59 Epoetin [id number]-epbx 10,000 unit QTUTHSA[DIALYSIS] SQ; Start 08/11/25 at 16:00; Stop 09/10/25 at 15:59 JACKELINE ANGULO MD Aug 10, 2025 16:25
--- NOTE | 2025-08-10 21:02 | HMCIMG ---
EXAM: XR Chest, 1 View(s). CLINICAL HISTORY: 79-year-old female with pleural pain. COMPARISON: XR Chest 04:23 08/09/2025. FINDINGS: LUNGS: Bilateral atelectasis at the lung bases. No consolidation. PLEURAL SPACES: Small left effusion. No pneumothorax. HEART: The heart size is normal. BONES: No acute osseous abnormality. LINES AND TUBES: Right upper extremity PICC line tip in the SVC. Interval removal of endotracheal and nasogastric tubes. IMPRESSION: 1. Small left effusion. No pneumothorax. 2. Bilateral atelectasis at the lung bases. No consolidation. /[place]
[2025-08-11] VITALS (30 sets, daily range): BP systolic 92–159; BP diastolic 48–74; PULSE 61–78; RESP 12–20; TEMP 97.2–98.3; O2SAT 96–99
--- NOTE | 2025-08-11 01:17 | PN ---
FOLLOWUP PROGRESS NOTE SUBJECTIVE: 79-year-old female with a history of mild hypertension. She has a history of end-stage renal disease, on dialysis 3 times a week. The patient is admitted to the hospital with sepsis. The patient has positive blood culture. She remains on antibiotics. The patient has been successfully extubated and she is being seen as a followup visit for all of the above. The patient does receive dialysis on a Sunday, , and Sunday schedule. All pressors have been removed. REVIEW OF SYSTEMS: GENERAL: She is feeling improved. HEENT: No change in vision. No change in hearing. CARDIOVASCULAR: There are no current chest pains or palpitations. PULMONARY: As described above. GASTROINTESTINAL: The patient is to be started on a diet. MUSCULOSKELETAL: Complains of weakness. PHYSICAL EXAMINATION: VITAL SIGNS: Blood pressure 157/68, pulse 60. She is afebrile. GENERAL: She is a chronically old female, elderly, lying in bed on the medical floor. HEENT: Head is atraumatic. Pupils are equal, round, reactive to light. Oropharynx is without exudate. Nares clear. NECK: There is no JVP. There is no thyromegaly, no mass. CARDIOVASCULAR: Regular. There is no S3 or S4 gallop. LUNGS: Coarse with equal thoracic movement. ABDOMEN: Soft, nondistended, and nontender. EXTREMITIES: Reveal no clubbing, no cyanosis. NEUROLOGICAL: She is awake. She is alert. She is oriented. LABORATORY DATA: Sodium 134, potassium 5, BUN 123, creatinine 7.8, hemoglobin 9.8, and hematocrit 28. IMPRESSION: * Sepsis. * Respiratory failure, now extubated. * Hypertension. * Anemia. * End-stage renal disease. PLAN: The patient has been successfully extubated. The patient is to be seen by physical therapy as well as speech. Midodrine continues to be discontinued. The patient now with hypertension, is resumed on metoprolol. She will be started on Epogen for anemia. Iron levels will be checked in the a.m. She will continue dialysis 3 times per week. TID: [id number] RECEIPT: [id number]
[2025-08-11 04:36] LABS: IMMATURE GRANULOCYTE ABSOLUTE 0.70 K/uL (0-1); NUCLEATED RED BLOOD CELLS 0.0 % (0.0-0.19); PLATELET COUNT (AUTO) 61 K/uL (130-400); RED BLOOD CELL COUNT(AUTO) 3.44 MIL/uL (4.00-5.50); RED CELL DISTRIBUTION WIDTH 13.2 % (11.0-15.5); WHITE BLOOD COUNT (AUTO) 14.0 K/uL (4.8-10.8)
[2025-08-11 04:59] LABS: ASPARTATE AMINOTRANSFERASE 12.0 U/L (10-37); GLOMERULAR FILTR. RATE CALC 4.0 mL/min (>90); GLUCOSE,RANDOM 192.0 mg/dL (70-105); PHOSPHORUS 8.9 mg/dL (2.5-4.9); SODIUM SERUM 134.0 mmol/L (136-145); TOTAL PROTEIN, SERUM 5.6 g/dL (6.0-8.3)
[2025-08-11 05:05] LABS: % IRON SATURATION 106.7 % (22-44); IRON, SERUM 127.0 mcg/dL (50-170)
[2025-08-11 05:07] LABS: UREA NITROGEN, BLOOD 162.0 mg/dL (7-18)
[2025-08-11 05:08] LABS: CREATININE 9.0 mg/dL (0.5-1.0)
--- NOTE | 2025-08-11 07:21 | PN ---
SUBJECTIVE: The patient was successfully extubated yesterday. She is not inotropic IV, only on midodrine. Continue with IV vancomycin. OBJECTIVE: GENERAL: Currently, she is awake, alert, oriented in person and place, comfortable in bed. VITAL SIGNS: Blood pressure 139/53, pulse 64, respirations 18. HEENT: Normocephalic, atraumatic. LUNGS: Clear to auscultation. HEART: S1, S2 are distant. ABDOMEN: Soft, nontender. EXTREMITIES: No clubbing or cyanosis. LABORATORY DATA: WBC count 12,000, hemoglobin 9.8, platelets 60,000. Sodium 134, potassium 5, BUN 123, creatinine 7.8, glucose 210, albumin 2.3. ASSESSMENT AND PLAN: 1. Respiratory failure with hypoxemia, hypercapnia, intubated with successful extubation yesterday. Continue with oxygen current rate. Follow recommendations by ICU team. 2. Sepsis with septic shock, gram positive cocci, Staph aureus on blood. Continue vancomycin. 3. New onset atrial fibrillation with rapid ventricular response. Continue amiodarone. 4. Type 2 diabetes. Continue with ICU protocol. 5. Hypertension. Continue current treatment. 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 The patient is being followed by Hematology-Oncology. 7. End-stage renal disease. Continue hemodialysis. 8. Follow up in a.m. with labs. We will discuss with family if SNF placement is needed. TID: [id number] RECEIPT: [id number]
[2025-08-11] MEDS: LACTULOSE 20 GM/30 ML UDCUP PO PRN (07:28)
--- NOTE | 2025-08-11 08:41 | PN ---
Acute myocardial infarct versus takotsubo syndrome (peak CPK was in the 1500 range, inconsistent with the size of the wall motion abnormality on the echo) Recent EF 65-70% with moderate aortic stenosis, DVI 0.27, current EF 40-45% with apical akinesia, moderate aortic stenosis with DVI 0.27 Sepsis Renal failure is chronic; patient has been on dialysis and tolerated it well for 19 months according to her Acute respiratory failure Probable aspiration pneumonia Diabetes Hypertension Gastroesophageal reflux Gallstones Paroxysmal atrial fibrillation Thrombocytopenia, possible HIT, attended by Dr. Yeboah Staphylococcus aureus sepsis Patient is alert, recognizes me, is cheerful and ask questions about my family (she knows some of my family). She seems oriented and lucid and appropriate. She offers no specific cardiac complaints at this time. I do not appreciate JVD nor rales or rhonchi. Respiratory pattern is nonlabored. Heart tones are distant, no murmur, regular rhythm today. Bowel sounds are normal. Impression and plan: Recovering from septic shock, atrial fibrillation was observed but has resolved. Anticoagulation is managed by Dr. Yeboah. No specific cardiac issues for me to address today. Vitals/Labs Vital Signs Date Time Temp Pulse Resp B/P (MAP) Pulse Ox O2 Delivery O2 Flow Rate FiO2 08/11/25 07:00 97.7 61 20 142/52 97 Nasal Cannula 2.0 08/10/25 20:00 28 Laboratory Tests 08/11/25 04:23 Medications Current Medications Albuterol 2 udvial ONCE ONCE IH Last administered on 08/03/25at 23:50; Start 08/03/25 at 22:30; Stop 08/03/25 at 22:31; Status DC Albuterol 1 udvial STK-MED ONCE IH; Start 08/03/25 at 22:17; Stop 08/03/25 at 22:18; Status DC Acetaminophen 1,000 mg ONCE ONCE PO; Start 08/03/25 at 23:00; Stop 08/03/25 at 23:01; Status DC Fentanyl Citrate 100 ml @ As Directed STK-MED ONCE IV; Start 08/03/25 at 22:46; Stop 08/03/25 at 22:46; Status DC Ketamine HCl 50 mg STK-MED ONCE .ROUTE; Start 08/03/25 at 22:47; Stop 08/03/25 at 22:47; Status DC Rocuronium [place] 50 mg STK-MED ONCE .ROUTE Last administered on 08/03/25at 23:34; Start 08/03/25 at 22:47; Stop 08/03/25 at 22:47; Status DC Propofol 100 ml @ As Directed STK-MED ONCE IV; Start 08/03/25 at 22:50; Stop 08/03/25 at 22:50; Status DC Norepinephrine 250 ml @ As Directed STK-MED ONCE IV; Start 08/03/25 at 22:58; Stop 08/03/25 at 22:58; Status DC Vancomycin HCl 1 gm ONCE ONCE IV Last administered on 08/04/25at 00:06; Start 08/03/25 at 23:30; Stop 08/03/25 at 23:36; Status DC Albuterol Sulfate 2.5 mg [id number] PRN IH; Start 08/03/25 at 23:30; Stop 09/02/25 at 23:29 Ipratropium [place] 0.5 mg [id number] IH Last administered on 08/11/25at 06:29; Start 08/04/25 at 00:00; Stop 09/03/25 at 00:00 Acetaminophen 650 mg Q6H PRN PO Last administered on 08/10/25at 09:09; Start 08/03/25 at 23:30; Stop 09/02/25 at 23:29 Acetaminophen 650 mg Q6H PRN RC Last administered on 08/04/25at 04:08; Start 08/03/25 at 23:30; Stop 09/02/25 at 23:29 Lactulose 20 gm Q6H PRN PO Last administered on 08/11/25at 07:28; Start 08/03/25 at 23:30; Stop 09/02/25 at 23:29 Docusate Sodium 100 mg BID PRN PO; Start 08/03/25 at 23:30; Stop 09/02/25 at 23:29 Ondansetron HCl 4 mg Q6H PRN IVP; Start 08/03/25 at 23:30; Stop 09/02/25 at 23:29 Insulin Human Regular INSULIN SLIDING SCAL... ACHS SQ Last administered on 08/06/25at 20:42; Start 08/04/25 at 07:30; Stop 08/07/25 at 03:37; Status DC Ketamine HCl 100 mg ONCE ONCE IM Last administered on 08/03/25at 23:43; Start 08/03/25 at 23:30; Stop 08/03/25 at 23:39; Status DC Propofol 1,000 mg PROTOCOL PRN IV; Start 08/03/25 at 23:30; Stop 08/03/25 at 23:39; Status DC Fentanyl Citrate 100 ml @ 2.5 mls/hr PROTOCOL IV; Start 08/03/25 at 23:30; Stop 08/03/25 at 23:39; Status DC Norepinephrine 250 ml @ 0 mls/hr PROTOCOL IV; Start 08/03/25 at 23:30; Stop 08/03/25 at 23:39; Status DC Fentanyl/Sodium Chloride 250 ml @ 0.1 mls/hr PROTOCOL IV Last administered on 08/06/25at 13:11; Start 08/03/25 at 23:30; Stop 08/08/25 at 23:29; Status DC Propofol 1,000 mg PROTOCOL PRN IV Last administered on 08/07/25at 16:56; Start 08/03/25 at 23:30; Stop 09/02/25 at 23:29 Levofloxacin/ Dextrose 750 mg ONCE ONCE IV Last administered on 08/04/25at 02:13; Start 08/03/25 at 23:30; Stop 08/03/25 at 23:41; Status DC Norepinephrine 250 ml @ 37.425 mls/ hr PROTOCOL IV Last administered on 08/04/25at 14:11; Start 08/03/25 at 23:30; Stop 08/04/25 at 14:18; Status DC Levofloxacin/ Dextrose 100 ml @ 100 mls/hr Q48H IV; Start 08/05/25 at 23:00; Stop 08/04/25 at 16:22; Status DC Vasopressin 20 units STK-MED ONCE .ROUTE; Start 08/04/25 at 04:24; Stop 08/04/25 at 04:24; Status DC Vasopressin 20 units/Sodium Chloride 100 ml @ 0 mls/hr PROTOCOL IV Last administered on 08/05/25at 04:10; Start 08/04/25 at 05:00; Stop 09/03/25 at 04:59 Vancomycin HCl 1 each AD IV; Start 08/04/25 at 13:30; Stop 08/18/25 at 13:29 Albumin Human 50 ml @ 0 mls/hr AD ONCE IV; Start 08/04/25 at 13:30; Stop 08/04/25 at 13:47; Status DC Thiamine HCl 100 mg DAILY IVP Last administered on 08/10/25at 09:07; Start 08/05/25 at 09:00; Stop 09/04/25 at 08:59 Vancomycin HCl 250 ml @ 125 mls/hr ONCE ONCE IV; Start 08/04/25 at 14:00; Stop 08/04/25 at 13:33; Status DC Vancomycin HCl 750 mg [id number] IVPB Last administered on 08/08/25at 16:00; Start 08/04/25 at 16:00; Stop 08/14/25 at 15:59 Norepinephrine Bitartrate as protocol PROTOCOL IV Last administered on 08/06/25at 09:16; Start 08/04/25 at 14:30; Stop 09/03/25 at 14:29 Pharmacy Profile Note 1 each ONCE MISC; Start 08/04/25 at 15:30; Stop 08/04/25 at 16:16; Status DC Meropenem 500 mg Q24H IVPB Last administered on 08/05/25at 15:56; Start 08/04/25 at 16:30; Stop 08/06/25 at 07:37; Status DC Sodium Chloride 250 ml @ 0 mls/hr AD IV; Start 08/04/25 at 17:00; Stop 09/03/25 at 16:59 Albumin Human 100 ml ONCE IV; Start 08/04/25 at 17:00; Stop 08/05/25 at 16:59; Status DC Sodium Chloride 1,000 ml @ 0 mls/hr ONCE IV Last administered on 08/08/25at 10:14; Start 08/04/25 at 17:00; Stop 09/03/25 at 16:59 Dextrose 50 ml ONCE ONCE IV Last administered on 08/05/25at 09:12; Start 08/05/25 at 09:00; Stop 08/05/25 at 09:01; Status DC Insulin Human Regular 10 unit ONCE ONCE IV Last administered on 08/05/25at 09:21; Start 08/05/25 at 09:00; Stop 08/05/25 at 09:01; Status DC Pantoprazole Sodium 40 mg DAILY IVP Last administered on 08/10/25at 09:07; Start 08/06/25 at 09:00; Stop 09/05/25 at 08:59 Heparin Sodium (Porcine) 5,000 unit Q12H SQ; Start 08/05/25 at 12:00; Stop 08/05/25 at 16:11; Status DC Heparin Sodium (Porcine) 5,000 unit Q12H SQ Last administered on 08/06/25at 04:46; Start 08/05/25 at 16:00; Stop 08/06/25 at 07:37; Status DC Magnesium Sulfate 50 ml @ 0 mls/hr PROTOCOL PRN IV Last administered on 08/05/25at 18:34; Start 08/05/25 at 17:30; Stop 09/04/25 at 17:29 Heparin Sodium (Porcine) 5,000 unit Q12H9 SQ Last administered on 08/06/25at 20:43; Start 08/06/25 at 21:00; Stop 08/07/25 at 13:14; Status DC Meropenem 500 mg DAILY IVPB Last administered on 08/10/25at 09:07; Start 08/06/25 at 09:00; Stop 08/14/25 at 16:29 Albumin Human 100 ml @ 0 mls/hr ONCE PRN IV Last administered on 08/06/25at 11:27; Start 08/06/25 at 11:00; Stop 08/06/25 at 11:27; Status DC Phenylephrine HCl 100 mg/Sodium Chloride 250 ml @ 0 mls/hr PROTOCOL IV Last administered on 08/06/25at 22:39; Start 08/06/25 at 11:30; Stop 09/05/25 at 11:29 Multi-Ingred Cream/Lotion/Oil/ Oint USE DIRECTED BID OD Last administered on 08/10/25at 21:31; Start 08/06/25 at 21:00; Stop 09/05/25 at 20:59 Metoprolol Tartrate 5 mg STK-MED ONCE IV Last administered on 08/07/25at 00:10; Start 08/07/25 at 00:02; Stop 08/07/25 at 00:02; Status DC Metoprolol Tartrate 25 mg ONCE ONCE IV Last administered on 08/07/25at 00:25; Start 08/07/25 at 00:00; Stop 08/07/25 at 00:24; Status DC Amiodarone HCl 150 mg/Dextrose 103 ml @ 618 mls/hr ONCE IV; Start 08/07/25 at 00:00; Stop 08/07/25 at 00:12; Status DC Amiodarone HCl 360 mg/Dextrose 207.2 ml @ 33.3 mls/hr AD IV; Start 08/07/25 at 00:00; Stop 08/07/25 at 00:12; Status DC Amiodarone HCl 540 mg/Dextrose 310.8 ml @ 16.7 mls/hr [id number] IV Last administered on 08/08/25at 00:06; Start 08/07/25 at 05:00; Stop 09/06/25 at 04:59 Amiodarone HCL/ Dextrose 100 ml @ As Directed STK-MED ONCE .ROUTE Last administered on 08/07/25at 00:16; Start 08/07/25 at 00:06; Stop 08/07/25 at 00:10; Status DC Amiodarone HCL/ Dextrose 100 ml @ 0 mls/hr PROTOCOL IV; Start 08/07/25 at 00:30; Stop 08/07/25 at 06:28; Status DC Amiodarone HCL/ Dextrose 200 ml @ 33.333 mls/ hr PROTOCOL IV Last administered on 08/07/25at 00:25; Start 08/07/25 at 00:30; Stop 08/07/25 at 06:28; Status DC Insulin Human Regular INSULIN SLIDING SCAL... Q6H6 SQ Last administered on 08/08/25at 06:12; Start 08/07/25 at 06:00; Stop 08/08/25 at 10:28; Status DC Argatroban 50 mg/ Sodium Chloride 50 ml @ 0 mls/hr PROTOCOL IV Last administered on 08/10/25at 14:06; Start 08/07/25 at 13:00; Stop 09/06/25 at 12:59 Metoprolol Tartrate 12.5 mg BID PO Last administered on 08/10/25at 21:28; Start 08/07/25 at 21:00; Stop 09/06/25 at 20:59 Midodrine 10 mg BID NG Last administered on 08/10/25at 09:08; Start 08/08/25 at 09:00; Stop 08/10/25 at 09:13; Status DC Albumin Human 100 ml QTUTHSA[DIALYSIS] PRN IV Last administered on 08/08/25at 10:15; Start 08/08/25 at 08:15; Stop 08/09/25 at 08:14; Status DC Insulin Human Regular INSULIN SLIDING SCAL... ACHS SQ; Start 08/08/25 at 11:30; Stop 08/08/25 at 13:51; Status DC Insulin Glargine 10 units DAILY SQ Last administered on 08/10/25at 09:11; Start 08/08/25 at 11:30; Stop 09/07/25 at 11:29 Methylprednisolone Sodium Succinate 40 mg BID IVP Last administered on 08/10/25at 21:28; Start 08/08/25 at 11:30; Stop 09/07/25 at 11:29 Insulin Human Regular INSULIN SLIDING SCAL... Q6H6 SQ Last administered on 08/10/25at 23:43; Start 08/08/25 at 18:00; Stop 09/07/25 at 17:59 Labetalol HCl 10 mg Q2HPRN PRN IV Last administered on 08/09/25at 13:56; Start 08/09/25 at 04:00; Stop 09/08/25 at 03:59 Hydromorphone HCl 0.2 mg Q6H PRN IVP; Start 08/10/25 at 09:00; Stop 08/15/25 at 08:59 Epoetin Jorje-epbx 10,000 unit QTUTHSA[DIALYSIS] SQ; Start 08/11/25 at 16:00; Stop 09/10/25 at 15:59 RUMA CLEMENTS MD Aug 11, 2025 08:41
[2025-08-11] MEDS: LIDOCAINE/PRILOCAINE CREAM 5GM TUBE TP SCH (08:49)
--- NOTE | 2025-08-11 13:00 | NUR ---
SPEECH NOTE: FIRE PREVENTION SPECIALIST arrived to patient's room; however patient having dialysis at this time. FIRE PREVENTION SPECIALIST will return another day/time to address dysphagia treatment. Nurse notified. All questions answered. Addendum: 08/11/[address] [facility] Amended: Links added.
--- NOTE | 2025-08-11 13:41 | PN ---
The patient has been evaluated and seen several times for dialysis. No fevers, chills, or rigors. No cough, expectoration or hemoptysis. The patient has been intubated, mechanically ventilated, on pressors, received albumin. The patient has respiratory failure, sepsis, anemia, and other comorbidities. Patient with thrombocytopenia. 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 This patient was started on argatroban. There is no obvious bleeding. Platelet count stable at 60K. Patient is extubated today. The patient was transferred to medical floor. PHYSICAL EXAMINATION: GENERAL: Critically ill, in ICU intubated, mechanically ventilated. VITAL SIGNS: Blood pressure 137/48, pulse 102, respiratory rate is 19. HEENT: ET tube in place.Pupils are equal, round and reactive. Sclerae are anicteric. Conjunctivae not pale. Oral mucosa is not dry. NECK: Without mass or bruits. Thyroid is palpable. Neck has no bruits. Neuro, patient is intubated sedated. LABORATORY DATA: Labs have been reviewed from old records. IMAGING STUDIES: Reviewed. PROBLEMS: 1. Anemia.Hemoglobin level 9.8 g/deciliter 2. Thrombocytopenia with the patient is suspected of having heparin-induced thrombocytopenia with the patient was started on argatroban. 3. Leukocytosis 4. Acute renal failure with the patient in hemodialysis 5. Acute respiratory distress with the patient is intubated 6. Sepsis 7. Congestive heart failure Plan 1. We will continue argatroban with the goal for PTT to be done between 6090. If more than 90 to stop argatroban for 2-hour and decrease dose by 25%. Platelet count improved to 61K. We will continue with argatroban until platelet count above 100,000 then we could switch to oral anticoagulation such as Pradaxa 150 mg p.o. twice daily But if this patient is going to be sent to rehab center we could start this patient on Eliquis 5 mg p.o. twice daily to be treated for 1 month 2. Please do not transfuse any platelet 3. Please do not give any heparin or heparin products 4. There was hypersegmented neutrophils. This patient to be started on folic acid 1 mg p.o. daily and vitamin B12 1000 mcg p.o. daily. 5. Continue care as per primary 6. Continue dialysis as per nephrology Patient to receive iron and Procrit during hemodialysis 7. Continue care as per primary. Vitals/Labs Vital Signs Date Time Temp Pulse Resp B/P (MAP) Pulse Ox O2 Delivery O2 Flow Rate FiO2 08/11/25 13:00 71 16 96/53 Nasal Cannula 2.0 08/11/25 11:00 97.2 97 08/10/25 20:00 28 Laboratory Tests 08/11/25 04:23 Medications Current Medications Albuterol 2 udvial ONCE ONCE IH Last administered on 08/03/25at 23:50; Start 08/03/25 at 22:30; Stop 08/03/25 at 22:31; Status DC Albuterol 1 udvial STK-MED ONCE IH; Start 08/03/25 at 22:17; Stop 08/03/25 at 22:18; Status DC Acetaminophen 1,000 mg ONCE ONCE PO; Start 08/03/25 at 23:00; Stop 08/03/25 at 23:01; Status DC Fentanyl Citrate 100 ml @ As Directed STK-MED ONCE IV; Start 08/03/25 at 22:46; Stop 08/03/25 at 22:46; Status DC Ketamine HCl 50 mg STK-MED ONCE .ROUTE; Start 08/03/25 at 22:47; Stop 08/03/25 at 22:47; Status DC Rocuronium [place] 50 mg STK-MED ONCE .ROUTE Last administered on 08/03/25at 23:34; Start 08/03/25 at 22:47; Stop 08/03/25 at 22:47; Status DC Propofol 100 ml @ As Directed STK-MED ONCE IV; Start 08/03/25 at 22:50; Stop 08/03/25 at 22:50; Status DC Norepinephrine 250 ml @ As Directed STK-MED ONCE IV; Start 08/03/25 at 22:58; Stop 08/03/25 at 22:58; Status DC Vancomycin HCl 1 gm ONCE ONCE IV Last administered on 08/04/25at 00:06; Start 08/03/25 at 23:30; Stop 08/03/25 at 23:36; Status DC Albuterol Sulfate 2.5 mg [id number] PRN IH; Start 08/03/25 at 23:30; Stop 09/02/25 at 23:29 Ipratropium [place] 0.5 mg [id number] IH Last administered on 08/11/25at 11:24; Start 08/04/25 at 00:00; Stop 09/03/25 at 00:00 Acetaminophen 650 mg Q6H PRN PO Last administered on 08/11/25at 09:27; Start 08/03/25 at 23:30; Stop 09/02/25 at 23:29 Acetaminophen 650 mg Q6H PRN RC Last administered on 08/04/25at 04:08; Start 08/03/25 at 23:30; Stop 09/02/25 at 23:29 Lactulose 20 gm Q6H PRN PO Last administered on 08/11/25at 07:28; Start 08/03/25 at 23:30; Stop 09/02/25 at 23:29 Docusate Sodium 100 mg BID PRN PO; Start 08/03/25 at 23:30; Stop 09/02/25 at 23:29 Ondansetron HCl 4 mg Q6H PRN IVP; Start 08/03/25 at 23:30; Stop 09/02/25 at 23:29 Insulin Human Regular INSULIN SLIDING SCAL... ACHS SQ Last administered on 08/06/25at 20:42; Start 08/04/25 at 07:30; Stop 08/07/25 at 03:37; Status DC Ketamine HCl 100 mg ONCE ONCE IM Last administered on 08/03/25at 23:43; Start 08/03/25 at 23:30; Stop 08/03/25 at 23:39; Status DC Propofol 1,000 mg PROTOCOL PRN IV; Start 08/03/25 at 23:30; Stop 08/03/25 at 23:39; Status DC Fentanyl Citrate 100 ml @ 2.5 mls/hr PROTOCOL IV; Start 08/03/25 at 23:30; Stop 08/03/25 at 23:39; Status DC Norepinephrine 250 ml @ 0 mls/hr PROTOCOL IV; Start 08/03/25 at 23:30; Stop 08/03/25 at 23:39; Status DC Fentanyl/Sodium Chloride 250 ml @ 0.1 mls/hr PROTOCOL IV Last administered on 08/06/25at 13:11; Start 08/03/25 at 23:30; Stop 08/08/25 at 23:29; Status DC Propofol 1,000 mg PROTOCOL PRN IV Last administered on 08/07/25at 16:56; Start 08/03/25 at 23:30; Stop 08/11/25 at 09:58; Status DC Levofloxacin/ Dextrose 750 mg ONCE ONCE IV Last administered on 08/04/25at 02:13; Start 08/03/25 at 23:30; Stop 08/03/25 at 23:41; Status DC Norepinephrine 250 ml @ 37.425 mls/ hr PROTOCOL IV Last administered on 08/04/25at 14:11; Start 08/03/25 at 23:30; Stop 08/04/25 at 14:18; Status DC Levofloxacin/ Dextrose 100 ml @ 100 mls/hr Q48H IV; Start 08/05/25 at 23:00; Stop 08/04/25 at 16:22; Status DC Vasopressin 20 units STK-MED ONCE .ROUTE; Start 08/04/25 at 04:24; Stop 08/04/25 at 04:24; Status DC Vasopressin 20 units/Sodium Chloride 100 ml @ 0 mls/hr PROTOCOL IV Last administered on 08/05/25at 04:10; Start 08/04/25 at 05:00; Stop 08/11/25 at 09:58; Status DC Vancomycin HCl 1 each AD IV; Start 08/04/25 at 13:30; Stop 08/18/25 at 13:29 Albumin Human 50 ml @ 0 mls/hr AD ONCE IV; Start 08/04/25 at 13:30; Stop 08/04/25 at 13:47; Status DC Thiamine HCl 100 mg DAILY IVP Last administered on 08/11/25at 08:41; Start 08/05/25 at 09:00; Stop 09/04/25 at 08:59 Vancomycin HCl 250 ml @ 125 mls/hr ONCE ONCE IV; Start 08/04/25 at 14:00; Stop 08/04/25 at 13:33; Status DC Vancomycin HCl 750 mg [id number] IVPB Last administered on 08/08/25at 16:00; Start 08/04/25 at 16:00; Stop 08/14/25 at 15:59 Norepinephrine Bitartrate as protocol PROTOCOL IV Last administered on 08/06/25at 09:16; Start 08/04/25 at 14:30; Stop 08/11/25 at 09:58; Status DC Pharmacy Profile Note 1 each ONCE MISC; Start 08/04/25 at 15:30; Stop 08/04/25 at 16:16; Status DC Meropenem 500 mg Q24H IVPB Last administered on 08/05/25at 15:56; Start 08/04/25 at 16:30; Stop 08/06/25 at 07:37; Status DC Sodium Chloride 250 ml @ 0 mls/hr AD IV; Start 08/04/25 at 17:00; Stop 09/03/25 at 16:59 Albumin Human 100 ml ONCE IV; Start 08/04/25 at 17:00; Stop 08/05/25 at 16:59; Status DC Sodium Chloride 1,000 ml @ 0 mls/hr ONCE IV Last administered on 08/08/25at 10:14; Start 08/04/25 at 17:00; Stop 09/03/25 at 16:59 Dextrose 50 ml ONCE ONCE IV Last administered on 08/05/25at 09:12; Start 08/05/25 at 09:00; Stop 08/05/25 at 09:01; Status DC Insulin Human Regular 10 unit ONCE ONCE IV Last administered on 08/05/25at 09:21; Start 08/05/25 at 09:00; Stop 08/05/25 at 09:01; Status DC Pantoprazole Sodium 40 mg DAILY IVP Last administered on 08/11/25at 08:41; Start 08/06/25 at 09:00; Stop 09/05/25 at 08:59 Heparin Sodium (Porcine) 5,000 unit Q12H SQ; Start 08/05/25 at 12:00; Stop 08/05/25 at 16:11; Status DC Heparin Sodium (Porcine) 5,000 unit Q12H SQ Last administered on 08/06/25at 04:46; Start 08/05/25 at 16:00; Stop 08/06/25 at 07:37; Status DC Magnesium Sulfate 50 ml @ 0 mls/hr PROTOCOL PRN IV Last administered on 08/05/25at 18:34; Start 08/05/25 at 17:30; Stop 09/04/25 at 17:29 Heparin Sodium (Porcine) 5,000 unit Q12H9 SQ Last administered on 08/06/25at 20:43; Start 08/06/25 at 21:00; Stop 08/07/25 at 13:14; Status DC Meropenem 500 mg DAILY IVPB Last administered on 08/11/25at 08:40; Start 08/06/25 at 09:00; Stop 08/14/25 at 16:29 Albumin Human 100 ml @ 0 mls/hr ONCE PRN IV Last administered on 08/06/25at 11:27; Start 08/06/25 at 11:00; Stop 08/06/25 at 11:27; Status DC Phenylephrine HCl 100 mg/Sodium Chloride 250 ml @ 0 mls/hr PROTOCOL IV Last administered on 08/06/25at 22:39; Start 08/06/25 at 11:30; Stop 08/11/25 at 09:58; Status DC Multi-Ingred Cream/Lotion/Oil/ Oint USE DIRECTED BID OD Last administered on 08/11/25at 08:42; Start 08/06/25 at 21:00; Stop 09/05/25 at 20:59 Metoprolol Tartrate 5 mg STK-MED ONCE IV Last administered on 08/07/25at 00:10; Start 08/07/25 at 00:02; Stop 08/07/25 at 00:02; Status DC Metoprolol Tartrate 25 mg ONCE ONCE IV Last administered on 08/07/25at 00:25; Start 08/07/25 at 00:00; Stop 08/07/25 at 00:24; Status DC Amiodarone HCl 150 mg/Dextrose 103 ml @ 618 mls/hr ONCE IV; Start 08/07/25 at 00:00; Stop 08/07/25 at 00:12; Status DC Amiodarone HCl 360 mg/Dextrose 207.2 ml @ 33.3 mls/hr AD IV; Start 08/07/25 at 00:00; Stop 08/07/25 at 00:12; Status DC Amiodarone HCl 540 mg/Dextrose 310.8 ml @ 16.7 mls/hr [id number] IV Last administered on 08/08/25at 00:06; Start 08/07/25 at 05:00; Stop 08/11/25 at 08:41; Status DC Amiodarone HCL/ Dextrose 100 ml @ As Directed STK-MED ONCE .ROUTE Last administered on 08/07/25at 00:16; Start 08/07/25 at 00:06; Stop 08/07/25 at 00:10; Status DC Amiodarone HCL/ Dextrose 100 ml @ 0 mls/hr PROTOCOL IV; Start 08/07/25 at 00:30; Stop 08/07/25 at 06:28; Status DC Amiodarone HCL/ Dextrose 200 ml @ 33.333 mls/ hr PROTOCOL IV Last administered on 08/07/25at 00:25; Start 08/07/25 at 00:30; Stop 08/07/25 at 06:28; Status DC Insulin Human Regular INSULIN SLIDING SCAL... Q6H6 SQ Last administered on 08/08/25at 06:12; Start 08/07/25 at 06:00; Stop 08/08/25 at 10:28; Status DC Argatroban 50 mg/ Sodium Chloride 50 ml @ 0 mls/hr PROTOCOL IV Last administered on 08/10/25at 14:06; Start 08/07/25 at 13:00; Stop 09/06/25 at 12:59 Metoprolol Tartrate 12.5 mg BID PO Last administered on 08/10/25at 21:28; Start 08/07/25 at 21:00; Stop 09/06/25 at 20:59 Midodrine 10 mg BID NG Last administered on 08/10/25at 09:08; Start 08/08/25 at 09:00; Stop 08/10/25 at 09:13; Status DC Albumin Human 100 ml QTUTHSA[DIALYSIS] PRN IV Last administered on 08/08/25at 10:15; Start 08/08/25 at 08:15; Stop 08/09/25 at 08:14; Status DC Insulin Human Regular INSULIN SLIDING SCAL... ACHS SQ; Start 08/08/25 at 11:30; Stop 08/08/25 at 13:51; Status DC Insulin Glargine 10 units DAILY SQ Last administered on 08/11/25at 08:47; Start 08/08/25 at 11:30; Stop 09/07/25 at 11:29 Methylprednisolone Sodium Succinate 40 mg BID IVP Last administered on 08/11/25at 08:41; Start 08/08/25 at 11:30; Stop 09/07/25 at 11:29 Insulin Human Regular INSULIN SLIDING SCAL... Q6H6 SQ Last administered on 08/10/25at 23:43; Start 08/08/25 at 18:00; Stop 09/07/25 at 17:59 Labetalol HCl 10 mg Q2HPRN PRN IV Last administered on 08/09/25at 13:56; Start 08/09/25 at 04:00; Stop 09/08/25 at 03:59 Hydromorphone HCl 0.2 mg Q6H PRN IVP; Start 08/10/25 at 09:00; Stop 08/15/25 at 08:59 Epoetin Jorje-epbx 10,000 unit QTUTHSA[DIALYSIS] SQ; Start 08/11/25 at 16:00; Stop 09/10/25 at 15:59 Lidocaine/ Prilocaine 1 appl ONCE TP Last administered on 08/11/25at 08:49; Start 08/11/25 at 09:00; Stop 08/11/25 at 09:01; Status DC JACKELINE ANGULO MD Aug 11, 2025 13:41
--- NOTE | 2025-08-11 15:48 | NUR ---
Nutrition f/u Reviewed labs, notes, and medications. Pt with thiamine, insulin, TF d/c, Na 134(L), K 5.9(H), elevated BUN 162, elevated Cr 9, BG 168(H), Ca 6.8(L), phos 8.9(H), Mg 2.60(H), A1C 8.7 per chart review. 3L output HD 08/08/25, last BM 08/05/25 constipated, wt via bed scale, BSE per [employer] 08/10/25, 228 ml balance, pureed+ mildly thick texture, ~50 %PO intake per nursing. Recommendations: -Provide renal + 65 gm ch + HH diet -Monitor PO intake -Encourage PO intake as able -Monitor BM -If no BM >3 days consider stool softener if medically feasible -Monitor electrolytes -Replenish electrolytes per protocol -Monitor wts -Reweigh as able -Order Vit D, vit b12 labs to rule out deficiencies -Provide Nephro-EDNA QD -Monitor HD output -Texture per [employer] recs -Recommend Pt to follow up with PCP -Monitor goals of care RD to follow + available for consult per protocol Addendum: 08/11/25 at [address] Amended: Links added.
[2025-08-11] MEDS: EPOETIN ALFA-EPBX (NON-ESRD) 10,000 UNIT/ML VIAL SQ SCH (17:36)
--- NOTE | 2025-08-11 17:50 | PN ---
[facility] PROGRESS NOTE Date Patient Seen: Aug 11, 2025 Time of Visit: 1243 Supervising Physician: Dr. Garcia Primary Care Physician: Dr. Cohen Outpatient Specialists: Inpatient Consults: BIS, critical care team PROBLEM LIST: New onset AFib with RVR Acute hypoxic and hypercapnic respiratory failure-intubated patient, 2nd 2 volume overload Sepsis with septic shock - Gram-positive cocci bacteremia, Staph aureus Volume overload in a end-stage renal disease patient on hemodialysis Electrolyte imbalance Hyperkalemia LVEF 40-45%, diastolic dysfunction, 55-60% per echo on 01/17/2025 Hyperglycemia in a type 2 diabetic Morbid obesity Heparin induced thrombocytopenia INTERVAL HISTORY: 08/11 patient was seen and examined by bedside during hemodialysis appears to be tolerating well. At time of visit patient is currently on2 L nasal cannula tolerating well. Patient denies any chest pain or shortness of breadth. Denies any nausea vomiting or abdominal pain. At this time we will discontinue patient's vancomycin. Patient to continue with meropenem. As per primary nurse no acute events to be reported. We will continue to monitor patient closely. Dispo per primary team Plan: Following nephrology recs Following Hematology recs, argatroban and following platelets holding any heparin Supplemental O2, neb treatments Antibiotics and following cultures continue to follow labs and x-ray Discontinue vancomycin Dispo per primary team REVIEW OF SYSTEMS: 12 point review of system reviewed with patient all permanent positives mentioned above otherwise negative PHYSICAL EXAM: GENERAL: Chronically ill 79-year-old female lying in bed no obvious signs and symptoms of distress HEENT: EOMI, Sclera non icteric, moist mucosa NECK: Supple, no JVD, trachea midline LUNGS: Diminished breath sounds bilaterally. No wheezes HEART: Regular rate and rhythm. Normal S1 and S2, without murmurs ABD: Abdomen soft, nontender. Bowel sounds present. Obese EXT: No clubbing cyanosis or edema NEURO: Awake alert answers questions appropriately Vital Signs (last 8hr) Date Time Temp Pulse Resp B/P (MAP) Pulse Ox O2 Delivery O2 Flow Rate FiO2 08/11/25 16:00 97.3 72 20 139/63 99 Nasal Cannula 2.0 08/11/25 13:40 98.1 70 16 149/71 Nasal Cannula 2.0 08/11/25 13:20 98.1 74 16 124/64 Nasal Cannula 2.0 08/11/25 13:00 71 16 96/53 Nasal Cannula 2.0 08/11/25 12:48 72 16 107/62 Nasal Cannula 2.0 08/11/25 12:45 74 16 98/55 Nasal Cannula 2.0 08/11/25 12:30 69 16 112/58 Nasal Cannula 2.0 08/11/25 12:20 70 14 92/48 Nasal Cannula 2.0 08/11/25 12:05 69 14 128/65 Nasal Cannula 2.0 08/11/25 11:50 65 16 156/72 Nasal Cannula 2.0 08/11/25 11:35 65 16 153/59 Nasal Cannula 2.0 08/11/25 11:27 66 20 08/11/25 11:27 66 20 N/Cannula Low lpm 2.0 08/11/25 11:00 97.2 67 12 135/74 97 Nasal Cannula 2.0 08/11/25 10:45 69 16 110/51 Nasal Cannula 2.0 08/11/25 10:20 73 16 111/61 Nasal Cannula 2.0 08/11/25 10:05 69 16 126/57 Nasal Cannula 2.0 08/11/25 09:50 67 16 146/65 Nasal Cannula 2.0 LABS: Hematology Labs: Test 08/11/25 04:23 Range/Units White Blood Count 14.0 H 4.8-10.8 K/uL Red Blood Count 3.44 L 4.00-5.50 MIL/uL Hemoglobin 10.2 L 12.0-16.0 g/dL Hematocrit 29.9 L 36-48 % Mean Corpuscular Volume 86.9 79-99 fL Mean Corpuscular Hemoglobin 29.7 27.0-33.0 pg Mean Corpuscular Hemoglobin Concent 34.1 32.0-36.0 g/dL Red Cell Distribution Width 13.2 11.0-15.5 % Platelet Count 61 L 130-400 K/uL Mean Platelet Volume 11.8 H 7.5-10.5 fL Immature Granulocyte % (Auto) 5.0 H 0-1 % Neutrophils (%) (Auto) 78.9 H 40.0-77.0 % Lymphocytes (%) (Auto) 8.9 L 21.0-51.0 % Monocytes (%) (Auto) 6.9 3.0-13.0 % Eosinophils (%) (Auto) 0.1 0.0-8.0 % Basophils (%) (Auto) 0.2 0.0-5.0 % Neutrophils # (Auto) 11.0 H 1.8-7.7 K/uL Lymphocytes # (Auto) 1.3 1.0-4.8 K/uL Monocytes # (Auto) 1.0 0.1-1.0 K/uL Eosinophils # (Auto) 0.02 0.00-0.70 K/uL Basophils # (Auto) 0.03 0.00-0.20 K/uL Absolute Immature Granulocyte (auto 0.70 0-1 K/uL Nucleated Red Blood Cells 0.0 0.0-0.19 % Chemistry Labs: Test 08/11/25 17:24 08/11/25 04:23 08/10/25 03:29 Range/Units Whole Blood Glucose 212 H 70-110 MG/DL Bedside Glucose Comment Notified Nurse Sodium Level 134 L 136-145 mmol/L Potassium Level 5.9 H 3.5-5.1 mmol/L Chloride Level 91 L 101-111 mmol/L Carbon Dioxide Level 21 21-32 mmol/L Blood Urea Nitrogen 162 #*H 7-18 mg/dL Creatinine 9.0 *H 0.5-1.0 mg/dL Glomerular Filtration Rate Calc 4 >90 mL/min Random Glucose 192 H 70-105 mg/dL Total Calcium 6.8 L 8.5-10.1 mg/dL Phosphorus Level 8.9 H 2.5-4.9 mg/dL Magnesium Level 2.60 H 1.80-2.40 mg/dL Iron Level 127 # 50-170 mcg/dL Total Iron Binding Capacity 119 L 250-450 mcg/dL Percent Iron Saturation 106.7 H 22-44 % Total Bilirubin 0.9 0.2-1.0 mg/dL Aspartate Amino Transf (AST/SGOT) 12 10-37 U/L Alanine Aminotransferase (ALT/SGPT) 33 # 12-78 U/L Alkaline Phosphatase 185 H 50-136 U/L Total Protein 5.6 L 6.0-8.3 g/dL Albumin 2.4 L 3.5-5.0 g/dL Procalcitonin 31.90 H 0.05-0.5 ng/mL Coagulation Labs: Test 08/11/25 10:00 Range/Units Activated Partial Thromboplast Time 48.6 H 26.3-35.5 SEC DIAGNOSTICS / RADIOLOGY RESULTS: na PLAN NEURO: Minimize central acting medications as possible. Maintain fall precautions, adequate lighting during the day PULMONARY: Supplemental 02 as needed. Maintain aspiration precautions at all times CARDIOVASCULAR: Follow hemodynamics. Vital signs per facility protocol GI & NUTRITION: Continue with nutritional support. Continue stool softeners and laxatives as needed. KIDNEYS & ELECTROLYTES: Strict monitoring of intake, output and overall fluid balance. Avoid nephrotoxic medications to the extent possible. Medications to be dosed according to renal function. Monitor electrolytes and replace as needed ENDOCRINE: Maintain blood glucose between 100-180 at all times. Hypoglycemia protocol in place INFECTIOUS DISEASE: Trend temperature, WBC and procalcitonin level Follow cultures, deescalate antibiotics as soon as possible. Panculture if new onset fever ONCOLOGY/HEMATOLOGY/COAGULATION: Monitor for s/s of bleeding Monitor hemoglobin, coagulation studies as needed SKIN: Pressure ulcer prevention per facility protocol Specialty mattress ORTHO/REHAB: Continue PT/OT Prophylaxis: Continue GI and DVT prophylaxis Code Status: Full Resuscitation Disposition: Per primary team Other: Case discussed with supervising physician plan of care agreed upon WARD PITTS Aug 11, 2025 17:50
[2025-08-12] VITALS (14 sets, daily range): BP systolic 94–198; BP diastolic 46–89; PULSE 68–94; RESP 17–18; TEMP 97.1–98.5; O2SAT 95–99
--- NOTE | 2025-08-12 | NUR ---
Attempted to change picc line dressing but patient uncooperative and asked to leave room.
--- NOTE | 2025-08-12 01:42 | NUR ---
Linnette lockhart. Pending call back. Patient has increase in agitation and signs of delirium. Patient choosing not to answer questions such as her name or . Unable to assess mentation at this time. Aggressive with [employer]. Pulling arm away and swinging arm aggressively when attempting to check vitals. Patient is moving/ swinging both arms without issue.When speaking, there is no slur. Patient does not have droop.
--- NOTE | 2025-08-12 03:00 | NUR ---
Informed TAHA DB2 DBA of patient's changed in behavior and mentation. No new orders given.
--- NOTE | 2025-08-12 06:01 | HMCIMG ---
EXAM: CR Chest, 1 View. CLINICAL HISTORY: pp COMPARISON: Aug 10, 2025. FINDINGS: LUNGS: There is no mass or infiltrate. Low lung volumes. Bilateral atelectasis at the lung bases. PLEURAL SPACES: Small stable left effusion. No pneumothorax. MEDIASTINUM: Cardiomegaly with pulmonary venous congestion. Right PICC line with distal tip in the right atrium. BONES: No aggressive appearing osseous lesion seen. IMPRESSION: Cardiomegaly with pulmonary venous congestion. Low lung volumes. Right PICC line with distal tip in the right atrium (appears more advanced on today's study). Small stable left effusion. /[place]
--- NOTE | 2025-08-12 06:13 | PN ---
FOLLOWUP PROGRESS NOTE SUBJECTIVE: The patient was seen and evaluated on hemodialysis. Prescription noted. OBJECTIVE: VITAL SIGNS: Blood pressure 149/71. CARDIOVASCULAR: Regular. LUNGS: Coarse. IMPRESSION: End-stage renal disease. PLAN: The patient will continue with maximum ultra-infiltration as blood pressure allows. The patient is encouraged with her therapy. All labs can be repeated in the morning. TID: [id number] RECEIPT: [id number]
[2025-08-12 06:52] LABS: IMMATURE GRANULOCYTE ABSOLUTE 0.76 K/uL (0-1); NUCLEATED RED BLOOD CELLS 0.0 % (0.0-0.19); PLATELET COUNT (AUTO) 74 K/uL (130-400); RED BLOOD CELL COUNT(AUTO) 3.69 MIL/uL (4.00-5.50); RED CELL DISTRIBUTION WIDTH 13.2 % (11.0-15.5); WHITE BLOOD COUNT (AUTO) 16.3 K/uL (4.8-10.8)
--- NOTE | 2025-08-12 07:05 | HMCIMG ---
EXAM: CR Abdomen, 1 view. CLINICAL HISTORY: Pain. COMPARISON: None provided. FINDINGS: Nonobstructed nonspecific bowel gas pattern. No free air is evident. No abnormal calcification. No aggressive appearing osseous lesion. IMPRESSION: 1. No acute process. /[place]
[2025-08-12 07:10] LABS: ASPARTATE AMINOTRANSFERASE 12.0 U/L (10-37); CREATININE 6.5 mg/dL (0.5-1.0); GLOMERULAR FILTR. RATE CALC 6.0 mL/min (>90); GLUCOSE,RANDOM 199.0 mg/dL (70-105); SODIUM SERUM 133.0 mmol/L (136-145); TOTAL PROTEIN, SERUM 5.8 g/dL (6.0-8.3)
[2025-08-12 07:19] LABS: UREA NITROGEN, BLOOD 112.0 mg/dL (7-18)
--- NOTE | 2025-08-12 09:01 | PN ---
[facility] CARDIOLOGY PROGRESS NOTE Cardiology progress note dictated for Ryan Valentino MD Date Patient Seen: Aug 12, 2025 Interval History: 12 hr SBPs 130-198mmHg PLT 74 K/uL WBC elevated at 16.3 K/uL The patient denied chest pain, chest pressure, palpitations, dizziness, or jb rtness of breath. Physical Examination: GENERAL: No acute distress noted. HEAD: Normal with no signs of head trauma. EYES: Conjunctiva and sclera normal. NECK: Supple without JVD. Normal carotid upstrokes without bruits. LUNGS: Fine rales to left base, clear right lung. HEART: Normal rate and rhythm. Normal S1 and S2. 2/6 ÁNGEL at the RUSB that radiates to the carotids. VASC: Peripheral pulses +1 bilaterally. EXT: No clubbing, cyanosis or edema. NEURO: Awake and alert, poor memory, slow to speak. Laboratory: Hematology Labs: Test 08/12/25 06:40 Range/Units White Blood Count 16.3 H 4.8-10.8 K/uL Red Blood Count 3.69 L 4.00-5.50 MIL/uL Hemoglobin 11.1 L 12.0-16.0 g/dL Hematocrit 31.7 L 36-48 % Mean Corpuscular Volume 85.9 79-99 fL Mean Corpuscular Hemoglobin 30.1 27.0-33.0 pg Mean Corpuscular Hemoglobin Concent 35.0 32.0-36.0 g/dL Red Cell Distribution Width 13.2 11.0-15.5 % Platelet Count 74 L 130-400 K/uL Mean Platelet Volume 12.0 H 7.5-10.5 fL Immature Granulocyte % (Auto) 4.7 H 0-1 % Neutrophils (%) (Auto) 78.3 H 40.0-77.0 % Lymphocytes (%) (Auto) 7.7 L 21.0-51.0 % Monocytes (%) (Auto) 8.9 3.0-13.0 % Eosinophils (%) (Auto) 0.2 0.0-8.0 % Basophils (%) (Auto) 0.2 0.0-5.0 % Neutrophils # (Auto) 12.8 H 1.8-7.7 K/uL Lymphocytes # (Auto) 1.3 1.0-4.8 K/uL Monocytes # (Auto) 1.5 H 0.1-1.0 K/uL Eosinophils # (Auto) 0.03 0.00-0.70 K/uL Basophils # (Auto) 0.03 0.00-0.20 K/uL Absolute Immature Granulocyte (auto 0.76 0-1 K/uL Nucleated Red Blood Cells 0.0 0.0-0.19 % Chemistry Labs: Test 08/12/25 06:42 08/12/25 06:40 08/11/25 17:24 08/11/25 04:23 Range/Units Whole Blood Glucose 151 #H 70-110 MG/DL Sodium Level 133 L 136-145 mmol/L Potassium Level 5.4 H 3.5-5.1 mmol/L Chloride Level 89 *L 101-111 mmol/L Carbon Dioxide Level 26 21-32 mmol/L Blood Urea Nitrogen 112 *H 7-18 mg/dL Creatinine 6.5 H 0.5-1.0 mg/dL Glomerular Filtration Rate Calc 6 >90 mL/min Random Glucose 199 H 70-105 mg/dL Total Calcium 7.5 L 8.5-10.1 mg/dL Total Bilirubin 1.1 H 0.2-1.0 mg/dL Aspartate Amino Transf (AST/SGOT) 12 10-37 U/L Alanine Aminotransferase (ALT/SGPT) 26 12-78 U/L Alkaline Phosphatase 176 H 50-136 U/L Total Protein 5.8 L 6.0-8.3 g/dL Albumin 2.6 L 3.5-5.0 g/dL Bedside Glucose Comment Notified Nurse Phosphorus Level 8.9 H 2.5-4.9 mg/dL Magnesium Level 2.60 H 1.80-2.40 mg/dL Iron Level 127 # 50-170 mcg/dL Total Iron Binding Capacity 119 L 250-450 mcg/dL Percent Iron Saturation 106.7 H 22-44 % Coagulation Labs: Test 08/11/25 22:33 Range/Units Activated Partial Thromboplast Time 49.9 H 26.3-35.5 SEC Diagnostics / Radiology: 2D echocardiogram 08/04/2025: Conclusion The left atrium size is normal. Mild concentric left ventricular hypertrophy. GLS -8.0%. Early relaxation at the LV apex. Apical septal bounce. Apical severe hypokinesis. LVEF is 40-45%. Stage I diastolic dysfunction. The aortic valve is trileaflet, heavily calcified, and shows severely restricted opening. There is severe aortic valvular stenosis. Peak AV gradient is 48 mmHg; mean AV gradient is 32 mmHg; and AV area is 0.7 cm. Impression and Plan: Acute myocardial infarct versus takotsubo syndrome (peak CPK was in the 1500 range, inconsistent with the size of the wall motion abnormality on the echo) Recent EF 65-70% with moderate aortic stenosis, DVI 0.27, current EF 40-45% with apical akinesia, moderate aortic stenosis with DVI 0.27 Sepsis Renal failure is chronic; patient has been on dialysis and tolerated it well for 19 months according to her Acute respiratory failure Probable aspiration pneumonia Diabetes Hypertension Gastroesophageal reflux Gallstones Paroxysmal atrial fibrillation Thrombocytopenia, possible HIT, attended by Dr. Yeboah Staphylococcus aureus sepsis NSTEMI, Type II vs Takotsubo syndrome Troponin peaked at 676 Previous LVEF of 65-70% in 03/2025 decreased to an LVEF of 40-45% with apical akinesis on 08/04/2025 -Hold antiplatelet therapy, currently on argatroban -Increase Metoprolol tartrate to 25mg bid and start Losartan 25mg daily, assess BP response Paroxysmal atrial fibrillation CHADS VASc stroke risk score of 5: -continue metoprolol 25mg bid -currently on IV argatroban -assess for long-term anticoagulation risk prior to discharge especially if atrial fibrillation recurs Thrombocytopenia, possible HIT -Per Hematology: The patient will continue on Argatroban gtt until platelet count above 100,000 then can to oral anticoagulation such as Pradaxa 150 mg p.o. twice daily or Eliquis 5 mg p.o. 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
[2025-08-12] MEDS: NA ZIRCON CYCLOSIL(LOKELMA 10GM) PO ONE (11:21)
--- NOTE | 2025-08-12 12:27 | PN ---
SUBJECTIVE: The patient continues with IV antibiotics. She is on oxygen through nasal cannula. No inotropics. She is also on amiodarone. Currently awake, alert and oriented in person, time and place. Not in distress. OBJECTIVE: VITAL SIGNS: In the chart. HEENT: Normocephalic, atraumatic. LUNGS: Decreased breath sounds bilaterally. HEART: S1, S2 are distant. ABDOMEN: Soft, nontender. EXTREMITIES: No clubbing or cyanosis. LABORATORY DATA: WBC count 14,000, hemoglobin 10.2, platelets up to 61,000, sodium 134, potassium 5.9, BUN 162, creatinine 9, random glucose 192, magnesium 2.5, albumin 2.4. Blood cultures were positive for staph aureus, sensitive to oxacillin, Bactrim, Levaquin, vancomycin. Repeated blood cultures on 08/07 are negative. ASSESSMENT AND PLAN: * Respiratory failure with hypoxemia. Continue with oxygen at current rate. * Bilateral pulmonary infiltrates, improving. Continue with current antibiotic therapy. * Bacteremia with positive cultures for Staph aureus, methicillin sensitive. Continue current antibiotics. * Sepsis with septic shock, resolved. * New onset atrial fibrillation with rapid ventricular response. Continue amiodarone. Current rate control. * Aortic stenosis is severe. Continue to monitor. * Heparin-induced thrombocytopenia. Continue with recommendation by Hematology/Oncology. The patient is currently on methylprednisolone 40 mg b.i.d. as well as argatroban. * End-stage renal disease. Continue hemodialysis. * Anemia chronic, stable, secondary to chronic kidney disease. Continue to monitor. Follow up in a.m. with results. TID: [id number] RECEIPT: [id number]
--- NOTE | 2025-08-12 14:56 | PN ---
PROGRESS NOTE Date of Service: Aug 12, 2025 Time of Service: 14:34 SUBJECTIVE: This 79-year-old [place] female, with PMH of hypertension, hyperl ipidemia, type 2 diabetes mellitus ,ESRD, breast cancer, obesity, cholelithiasis, and moderate aortic stenosis. She presented to the emergency room via EMS with symptoms of cough, shortness of breath, upper respiratory infection symptoms, and fever with chills. She was admitted with Septic shock ,Acute respiratory failure .She failed BiPAP support and required intubation a short time after arrival in the emergency department.She is s/p extubation - day3 .She was found to have Heparin induced thrombocytopenia and is being treated with Argatroban drip - day5 . [place] [address] today and denies any bleeding symptoms and signs .She is in NAD. REVIEW OF SYSTEMS CONSTITUTIONAL: Denies fever, chills, or fatigue. HEAD/FACE: No signs of trauma. EENT: Denies eye pain, blurred vision, double vision, or light sensitivity. RESPIRATORY: Denies shortness of breath, cough, wheezing CARDIOVASCULAR: Denies chest pain, palpitation, syncope GASTROINTESTINAL/ABDOMINAL: Denies abdominal pain, constipation, diarrhea, nausea or vomiting GENITOURINARY: Denies dysuria or hematuria. MUSCULOSKELETAL: Denies joint pain, tenderness, or trauma. INTEGUMENTARY: Denies rash or itchiness NEUROLOGICAL/PSYCH: Denies anxiety, depression, heat or cold intolerance. PHYSICAL EXAM EYES: Anicteric. Pupils equal and reactive. HENT: No oral thrush seen, moist Oral mucosa NECK: Supple, no JVD or thyromegaly. LUNGS: Good air entry. No rales, no rhonchi. CARDIOVASCULAR: S1, S2 regular. No murmur heard. ABDOMEN: Soft, non tender, bowel sounds present, no organomegaly CENTRAL NERVOUS SYSTEM: Awake, alert, oriented x 3. No focal deficits. SKIN: No rashes, no swelling. LYMPHATICS: No peripheral lymphadenopathy Vital Signs (last 8hr) Date Time Temp Pulse Resp B/P (MAP) Pulse Ox O2 Delivery O2 Flow Rate FiO2 08/12/25 11:55 97.9 81 18 136/60 95 Nasal Cannula 2.0 08/12/25 11:23 76 18 08/12/25 11:23 76 18 N/Cannula Low lpm 2.0 28 08/12/25 07:46 98.1 76 18 134/62 97 Nasal Cannula 2.0 LABS: Laboratory: Test 08/12/25 11:33 08/12/25 10:34 08/12/25 06:40 08/11/25 17:24 Range/Units Whole Blood Glucose 201 H 70-110 MG/DL Activated Partial Thromboplast Time 49.3 H 26.3-35.5 SEC White Blood Count 16.3 H 4.8-10.8 K/uL Red Blood Count 3.69 L 4.00-5.50 MIL/uL Hemoglobin 11.1 L 12.0-16.0 g/dL Hematocrit 31.7 L 36-48 % Mean Corpuscular Volume 85.9 79-99 fL Mean Corpuscular Hemoglobin 30.1 27.0-33.0 pg Mean Corpuscular Hemoglobin Concent 35.0 32.0-36.0 g/dL Red Cell Distribution Width 13.2 11.0-15.5 % Platelet Count 74 L 130-400 K/uL Mean Platelet Volume 12.0 H 7.5-10.5 fL Immature Granulocyte % (Auto) 4.7 H 0-1 % Neutrophils (%) (Auto) 78.3 H 40.0-77.0 % Lymphocytes (%) (Auto) 7.7 L 21.0-51.0 % Monocytes (%) (Auto) 8.9 3.0-13.0 % Eosinophils (%) (Auto) 0.2 0.0-8.0 % Basophils (%) (Auto) 0.2 0.0-5.0 % Neutrophils # (Auto) 12.8 H 1.8-7.7 K/uL Lymphocytes # (Auto) 1.3 1.0-4.8 K/uL Monocytes # (Auto) 1.5 H 0.1-1.0 K/uL Eosinophils # (Auto) 0.03 0.00-0.70 K/uL Basophils # (Auto) 0.03 0.00-0.20 K/uL Absolute Immature Granulocyte (auto 0.76 0-1 K/uL Nucleated Red Blood Cells 0.0 0.0-0.19 % Sodium Level 133 L 136-145 mmol/L Potassium Level 5.4 H 3.5-5.1 mmol/L Chloride Level 89 *L 101-111 mmol/L Carbon Dioxide Level 26 21-32 mmol/L Blood Urea Nitrogen 112 *H 7-18 mg/dL Creatinine 6.5 H 0.5-1.0 mg/dL Glomerular Filtration Rate Calc 6 >90 mL/min Random Glucose 199 H 70-105 mg/dL Total Calcium 7.5 L 8.5-10.1 mg/dL Total Bilirubin 1.1 H 0.2-1.0 mg/dL Aspartate Amino Transf (AST/SGOT) 12 10-37 U/L Alanine Aminotransferase (ALT/SGPT) 26 12-78 U/L Alkaline Phosphatase 176 H 50-136 U/L Total Protein 5.8 L 6.0-8.3 g/dL Albumin 2.6 L 3.5-5.0 g/dL Bedside Glucose Comment Notified Nurse Test 08/11/25 04:23 Range/Units Phosphorus Level 8.9 H 2.5-4.9 mg/dL Magnesium Level 2.60 H 1.80-2.40 mg/dL Iron Level 127 # 50-170 mcg/dL Total Iron Binding Capacity 119 L 250-450 mcg/dL Percent Iron Saturation 106.7 H 22-44 % DIAGNOSTICS / RADIOLOGY: [ ] PROBLEMS: 1. Anemia.Hemoglobin level11.1 g/deciliter 2. Thrombocytopenia with the patient is suspected of having heparin-induced thrombocytopenia with the patient was started on argatroban. 3. Leukocytosis 4. Acute renal failure with the patient in hemodialysis 5. Acute respiratory faikure s/p intubation and mechanical ventilation - post - exteubation day 6. Sepsis 7. Congestive heart failure Plan 1. We will continue argatroban with the goal for PTT to be done between 6090. If more than 90 to stop argatroban for 2-hour and decrease dose by 25%. Platelet count improved to 74K. But if this patient is going to be sent to rehab center we could start this patient on Eliquis 5 mg p.o. twice daily or Pradexa 150 mg p.o twice daily to be treated for 1 month.This can be started today . 2. Please do not transfuse any platelet 3. Please do not give any heparin or heparin products 4. There was hypersegmented neutrophils. This patient to be started on folic acid 1 mg p.o. daily and vitamin B12 1000 mcg p.o. daily. 5. Continue care as per primary 6. Continue dialysis as per nephrology Patient to receive iron and Procrit during hemodialysis 7. Continue care as per primary. ATTESTATION BY PHYSICIAN I have seen and examined the patient. I reviewed the documentation, medical decision making, and treatment plan as noted by the mid-level provider above. I agree with the findings and plan of care. VANIA APARICIO MD, MD Aug 12, 2025 14:56
--- NOTE | 2025-08-12 15:37 | PN ---
[facility] PROGRESS NOTE Date Patient Seen: Aug 12, 2025 Time of Visit: 1047 Supervising Physician: Dr. Sousa Primary Care Physician: Dr. Cohen Outpatient Specialists: Inpatient Consults: B[facility], critical care team PROBLEM LIST: New onset AFib with RVR Acute hypoxic and hypercapnic respiratory failure-intubated patient, 2nd 2 volume overload Sepsis with septic shock - Gram-positive cocci bacteremia, Staph aureus Volume overload in a end-stage renal disease patient on hemodialysis Electrolyte imbalance Hyperkalemia LVEF 40-45%, diastolic dysfunction, 55-60% per echo on 01/17/2025 Hyperglycemia in a type 2 diabetic Morbid obesity Heparin induced thrombocytopenia INTERVAL HISTORY: 08/11 patient was seen and examined by bedside during hemodialysis appears to be tolerating well. At time of visit patient is currently on2 L nasal cannula tolerating well. Patient denies any chest pain or shortness of breadth. Denies any nausea vomiting or abdominal pain. At this time we will discontinue patient's vancomycin. Patient to continue with meropenem. As per primary nurse no acute events to be reported. We will continue to monitor patient closely. Dispo per primary team 08/12 patient was seen and examined at bedside with present. Patient remains on 2 L nasal cannula is tolerating well. At time of visit patient has no specific complaints. At this time we will discontinue patient's Solu-Medrol and transition patient to oral prednisone 40 mg daily to complete a total of five days. We will continue to follow recommendations from Hematology. Patient's platelets trending up today 74 yesterday 61 as per Hematology to remain on argatroban until platelets reach [id number]. As per primary nurse no acute events to be reported. Dispo per primary team Plan: Following nephrology recs Following Hematology recs, argatroban and following platelets holding any heparin Supplemental O2, neb treatments Antibiotics and following cultures continue to follow labs and x-ray Discontinue IV Solu-Medrol transitioned to prednisone 40 mg daily to complete a total of five days Dispo per primary team REVIEW OF SYSTEMS: 12 point review of system reviewed with patient all permanent positives mentioned above otherwise negative PHYSICAL EXAM: GENERAL: Chronically ill 79-year-old female lying in bed no obvious signs and symptoms of distress HEENT: EOMI, Sclera non icteric, moist mucosa NECK: Supple, no JVD, trachea midline LUNGS: Diminished breath sounds bilaterally. No wheezes HEART: Regular rate and rhythm. Normal S1 and S2, without murmurs ABD: Abdomen soft, nontender. Bowel sounds present. Obese EXT: No clubbing cyanosis or edema NEURO: Awake alert answers questions appropriately Vital Signs (last 8hr) Date Time Temp Pulse Resp B/P (MAP) Pulse Ox O2 Delivery O2 Flow Rate FiO2 08/12/25 11:55 97.9 81 18 136/60 95 Nasal Cannula 2.0 08/12/25 11:23 76 18 08/12/25 11:23 76 18 N/Cannula Low lpm 2.0 28 08/12/25 08:00 95 Nasal Cannula* 2 28 08/12/25 07:46 98.1 76 18 134/62 97 Nasal Cannula 2.0 LABS: Hematology Labs: Test 08/12/25 06:40 Range/Units White Blood Count 16.3 H 4.8-10.8 K/uL Red Blood Count 3.69 L 4.00-5.50 MIL/uL Hemoglobin 11.1 L 12.0-16.0 g/dL Hematocrit 31.7 L 36-48 % Mean Corpuscular Volume 85.9 79-99 fL Mean Corpuscular Hemoglobin 30.1 27.0-33.0 pg Mean Corpuscular Hemoglobin Concent 35.0 32.0-36.0 g/dL Red Cell Distribution Width 13.2 11.0-15.5 % Platelet Count 74 L 130-400 K/uL Mean Platelet Volume 12.0 H 7.5-10.5 fL Immature Granulocyte % (Auto) 4.7 H 0-1 % Neutrophils (%) (Auto) 78.3 H 40.0-77.0 % Lymphocytes (%) (Auto) 7.7 L 21.0-51.0 % Monocytes (%) (Auto) 8.9 3.0-13.0 % Eosinophils (%) (Auto) 0.2 0.0-8.0 % Basophils (%) (Auto) 0.2 0.0-5.0 % Neutrophils # (Auto) 12.8 H 1.8-7.7 K/uL Lymphocytes # (Auto) 1.3 1.0-4.8 K/uL Monocytes # (Auto) 1.5 H 0.1-1.0 K/uL Eosinophils # (Auto) 0.03 0.00-0.70 K/uL Basophils # (Auto) 0.03 0.00-0.20 K/uL Absolute Immature Granulocyte (auto 0.76 0-1 K/uL Nucleated Red Blood Cells 0.0 0.0-0.19 % Chemistry Labs: Test 08/12/25 11:33 08/12/25 06:40 08/11/25 17:24 08/11/25 04:23 Range/Units Whole Blood Glucose 201 H 70-110 MG/DL Sodium Level 133 L 136-145 mmol/L Potassium Level 5.4 H 3.5-5.1 mmol/L Chloride Level 89 *L 101-111 mmol/L Carbon Dioxide Level 26 21-32 mmol/L Blood Urea Nitrogen 112 *H 7-18 mg/dL Creatinine 6.5 H 0.5-1.0 mg/dL Glomerular Filtration Rate Calc 6 >90 mL/min Random Glucose 199 H 70-105 mg/dL Total Calcium 7.5 L 8.5-10.1 mg/dL Total Bilirubin 1.1 H 0.2-1.0 mg/dL Aspartate Amino Transf (AST/SGOT) 12 10-37 U/L Alanine Aminotransferase (ALT/SGPT) 26 12-78 U/L Alkaline Phosphatase 176 H 50-136 U/L Total Protein 5.8 L 6.0-8.3 g/dL Albumin 2.6 L 3.5-5.0 g/dL Bedside Glucose Comment Notified Nurse Phosphorus Level 8.9 H 2.5-4.9 mg/dL Magnesium Level 2.60 H 1.80-2.40 mg/dL Iron Level 127 # 50-170 mcg/dL Total Iron Binding Capacity 119 L 250-450 mcg/dL Percent Iron Saturation 106.7 H 22-44 % Coagulation Labs: Test 08/12/25 10:34 Range/Units Activated Partial Thromboplast Time 49.3 H 26.3-35.5 [facility] / RADIOLOGY RESULTS: na PLAN NEURO: Minimize central acting medications as possible. Maintain fall precautions, adequate lighting during the day PULMONARY: Supplemental 02 as needed. Maintain aspiration precautions at all times CARDIOVASCULAR: Follow hemodynamics. Vital signs per facility protocol GI & NUTRITION: Continue with nutritional support. Continue stool softeners and laxatives as needed. KIDNEYS & ELECTROLYTES: Strict monitoring of intake, output and overall fluid balance. Avoid nephrotoxic medications to the extent possible. Medications to be dosed according to renal function. Monitor electrolytes and replace as needed ENDOCRINE: Maintain blood glucose between 100-180 at all times. Hypoglycemia protocol in place INFECTIOUS DISEASE: Trend temperature, WBC and procalcitonin level Follow cultures, deescalate antibiotics as soon as possible. Panculture if new onset fever ONCOLOGY/HEMATOLOGY/COAGULATION: Monitor for s/s of bleeding Monitor hemoglobin, coagulation studies as needed SKIN: Pressure ulcer prevention per facility protocol Specialty mattress ORTHO/REHAB: Continue PT/OT Prophylaxis: Continue GI and DVT prophylaxis Code Status: Full Resuscitation Disposition: Per primary team Other: Case discussed with supervising physician plan of care agreed upon WARD PITTS Aug 12, 2025 15:37
--- NOTE | 2025-08-12 16:45 | NUR ---
SPEECH THERAPY COMPLETED. RECOMMEND MINCED AND MOIST SOLIDS, THIN LIQUIDS S: Pt SITTING UPRIGHT IN BED UPON PATIENT OBSERVATION ASSISTANT ARRIVAL. FAMILY PRESENT AT TIME OF VISIT. Pt ON 2LO2 VIA NC AND IN NO RESPIRATORY DISTRESS. Pt ALERT AND AGREEABLE TO SPEECH THERAPY. PATIENT OBSERVATION ASSISTANT REPOSITIONED PATIENT IN BED TO 90 DEGREES BEFORE STARTING P.O. THERAPEUTIC TRIALS. Pt ON PUREED SOLIDS AND MILDLY THICK LIQUIDS. PER NURSE FELIZ AND PATIENT, PATIENT TOLERATING DIET RECOMMENDATIONS WITH NO OVERT S/S OF ASPIRATION; HOWEVER DOES NOT EAT MUCH DUE TO DISLIKING THE TEXTURE. O: Pt PARTICIPATED IN TRIALS OF MINCED AND MOIST SOLIDS X5 WITH NO OVERT S/S OF ASPIRATION. Pt PARTICIPATED IN TRIALS OF THIN LIQUIDS VIA CUP SIP X5 WITH NO OVERT S/S OF ASPIRATION. A: Pt COOPERATIVE WITH ALL THERAPEUTIC TRIALS. PATIENT NOTED WITH DECREASED ORAL MOTOR STRENGTH DURING MASTICATION. ON FIRST TRIAL, PATIENT SPIT FRUIT ON [place]. CLINICIAN ENCOURAGED PATIENT TO SWALLOW FOOD AFTER CHEWING IT WELL. PATIENT ABLE TO SWALLOW FRUIT ON ALL OTHER TRIALS WITH NO S/S OF ASPIRATION. RECOMMEND MINCED AND MOIST SOLIDS TO COMPENSATE. P: RECOMMEND ADVANCE DIET TO MINCED AND MOIST, THIN LIQUIDS, AND PILLS CRUSHED WITH APPLESAUCE OR WHOLE 1 PER SWALLOW TOLERATED. PATIENT OBSERVATION ASSISTANT WILL CONTINUE TO FOLLOW PATIENT TO ADDRESS DYSPHAGIA GOALS. PATIENT OBSERVATION ASSISTANT COORDINATED WITH NURSE FELIZ ABOUT TREATMENT RESULTS. Addendum: 08/12/[address] [facility] Amended: Links added.
--- NOTE | 2025-08-12 21:51 | PN ---
FOLLOWUP PROGRESS NOTE SUBJECTIVE: An 79-year-old female with history of diabetes mellitus, hypertension. She initially presented with underlying sepsis. The patient with underlying bacteremia, remains on the antibiotics. The patient has been extubated and transferred out to the medical floor. She has a history of end-stage renal disease on dialysis on a Sunday, , and Sunday schedule, and she is being seen as a followup visit for all of the above. REVIEW OF SYSTEMS: GENERAL: She is feeling somewhat improved. HEENT: No change in vision. No change in hearing. CARDIOVASCULAR: There is no current chest pain or palpitations. PULMONARY: Her shortness of breath has improved. GASTROINTESTINAL: She is tolerating diet. MUSCULOSKELETAL: She complains of weakness. PHYSICAL EXAMINATION: VITAL SIGNS: Blood pressure 134/62, pulse 70, afebrile. GENERAL: Chronically old female, elderly, lying in bed on the medical floor. HEENT: Head is atraumatic. Pupils are equal, round and reactive to light. Oropharynx is without exudate. Nares clear. NECK: There is no JVP. There is no thyromegaly, no mass. CARDIOVASCULAR: Regular. There is no S3 or S4 gallop. LUNGS: Coarse with equal thoracic movement. ABDOMEN: Soft, nondistended, and nontender. EXTREMITIES: Reveal no clubbing, no cyanosis. NEUROLOGICAL: She is awake. She is alert. LABORATORY DATA: Hemoglobin 11, hematocrit 31, white blood cell count 16,000. Sodium 133, potassium 5.4, BUN 112, creatinine 6.5. IMPRESSION: 1. Sepsis. 2. Respiratory failure, now extubated. 3. Diabetes mellitus. 4. Hypertension. 5. Hyperkalemia. PLAN: The patient will be given a dose of Lokelma for the hyperkalemia. She will continue dialysis on a Sunday, , and Sunday schedule. We will have therapy come and evaluate the patient as she most likely will need rehab upon discharge. We will continue to follow closely with the patient and family at the bedside. Multiple questions were all answered. TID: [id number] RECEIPT: [id number]
[2025-08-13] VITALS (32 sets, daily range): BP systolic 96–163; BP diastolic 47–79; PULSE 62–87; RESP 16–20; TEMP 97.2–98.7; O2SAT 95–100
--- NOTE | 2025-08-13 02:26 | PN ---
SUBJECTIVE: The patient continue with IV antibiotics. Continue with steroids. Tolerating physical therapy minimally. She is complaining of constipation. OBJECTIVE: GENERAL: Awake, alert, oriented in person, time, and place. Intermittently confused. VITAL SIGNS: Blood pressure 139/55, pulse 95. HEENT: Normocephalic, atraumatic. LUNGS: Clear to auscultation. HEART: S1, S2 are distant. ABDOMEN: Soft and nontender. EXTREMITIES: No clubbing or cyanosis. LABORATORY DATA: White blood cell count 16,000, hemoglobin 11.1, platelets up to 74,000. Sodium 133, potassium 5.4, chloride 89, BUN 112, creatinine 6.5, glucose 199, albumin 2.6. ASSESSMENT AND PLAN: * Sepsis with positive cultures for Staph aureus, methicillin sensitive. Continue current antibiotics. * We are planning on discontinue meropenem. * Respiratory failure with hypoxemia and hypercarbia. Successful extubation. Continue with oxygen through nasal cannula. Follow recommendation by Intensive Care Unit team. * Sepsis with septic shock, resolved. * New onset atrial fibrillation with rapid ventricular response. Continue amiodarone. The patient might need to be started on anticoagulation with Eliquis. * Type 2 diabetes. Continue Intensive Care Unit protocol. * Hypertension. Continue with current treatment. * End-stage renal disease. Continue hemodialysis. * Heparin-induced thrombocytopenia. Continue steroids. * Platelet count is improving. * Follow up with results of tests. * Blood cultures negative. TID: [id number] RECEIPT: [id number]
[2025-08-13 06:47] LABS: ASPARTATE AMINOTRANSFERASE 11.0 U/L (10-37); GLOMERULAR FILTR. RATE CALC 5.0 mL/min (>90); GLUCOSE,RANDOM 119.0 mg/dL (70-105); SODIUM SERUM 134.0 mmol/L (136-145); TOTAL PROTEIN, SERUM 5.5 g/dL (6.0-8.3)
[2025-08-13 06:52] LABS: UREA NITROGEN, BLOOD 148.0 mg/dL (7-18)
[2025-08-13 06:53] LABS: CREATININE 8.2 mg/dL (0.5-1.0)
--- NOTE | 2025-08-13 07:02 | HMCIMG ---
EXAM: CR Chest, single view. CLINICAL HISTORY: PP COMPARISON: Prior chest radiograph dated August 11, 2025. FINDINGS: Right-sided PICC catheter with tip in the cavoatrial junction. Borderline cardiomegaly with bilateral pulmonary congestion. Subsegmental atelectasis in the left lower lobe. No evidence of pneumothorax. The cardiomediastinal silhouette is within normal limits. No acute osseous abnormality. Degenerative changes in the mid and lower thoracic spine. IMPRESSION: Right-sided PICC catheter with tip in the cavoatrial junction. Borderline cardiomegaly with bilateral pulmonary congestion. Subsegmental atelectasis in the left lower lobe. No evidence of pneumothorax. Compared to the prior study, there is a mild reduction in cardiomegaly. /[place]
[2025-08-13 11:20] LABS: IMMATURE GRANULOCYTE ABSOLUTE 0.66 K/uL (0-1); NUCLEATED RED BLOOD CELLS 0.0 % (0.0-0.19); PLATELET COUNT (AUTO) 86 K/uL (130-400); RED BLOOD CELL COUNT(AUTO) 3.85 MIL/uL (4.00-5.50); RED CELL DISTRIBUTION WIDTH 13.2 % (11.0-15.5); WHITE BLOOD COUNT (AUTO) 21.0 K/uL (4.8-10.8)
--- NOTE | 2025-08-13 11:35 | NUR ---
SPEECH NOTE: CENTERLESS GRINDER OPERATOR coordinated with nurse Ezekiel. Pt tolerating diet recommendations of minced and moist solids, thin liquids with no s/s of aspiration. CENTERLESS GRINDER OPERATOR will follow up with patient to address dysphagia treatment. All questions answered. Addendum: 08/13/[address] [facility] Amended: Links added.
--- NOTE | 2025-08-13 13:32 | PN ---
The patient has been evaluated and seen several times for dialysis. No fevers, chills, or rigors. No cough, expectoration or hemoptysis. The patient has been intubated, mechanically ventilated, on pressors, received albumin. The patient has respiratory failure, sepsis, anemia, and other comorbidities. Patient with thrombocytopenia. 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 This patient was started on argatroban. There is no obvious bleeding. Platelet count stable at 86K. Patient is extubated today. The patient was transferred to medical floor. PHYSICAL EXAMINATION: GENERAL: Critically ill, in ICU intubated, mechanically ventilated. VITAL SIGNS: Blood pressure 137/48, pulse 102, respiratory rate is 19. HEENT: ET tube in place.Pupils are equal, round and reactive. Sclerae are anicteric. Conjunctivae not pale. Oral mucosa is not dry. NECK: Without mass or bruits. Thyroid is palpable. Neck has no bruits. Neuro, patient is intubated sedated. LABORATORY DATA: Labs have been reviewed from old records. IMAGING STUDIES: Reviewed. PROBLEMS: 1. Anemia.Hemoglobin level 9.8 g/deciliter 2. Thrombocytopenia with the patient is suspected of having heparin-induced thrombocytopenia with the patient was started on argatroban. 3. Leukocytosis 4. Acute renal failure with the patient in hemodialysis 5. Acute respiratory distress with the patient is intubated 6. Sepsis 7. Congestive heart failure Plan 1. We will continue argatroban with the goal for PTT to be done between 6090. If more than 90 to stop argatroban for 2-hour and decrease dose by 25%. Platelet count improved to 86K. Argatroban could be stopped at 8:00 PM. Plavix 5 mg p.o. twice daily could be started at 6 PM. Patient to receive Eliquis 5 mg p.o. twice daily for 1 month 2. Please do not transfuse any platelet 3. Please do not give any heparin or heparin products 4. There was hypersegmented neutrophils. This patient to be started on folic acid 1 mg p.o. daily and vitamin B12 1000 mcg p.o. daily. 5. Continue care as per primary 6. Continue dialysis as per nephrology Patient to receive iron and Procrit during hemodialysis 7. Continue care as per primary. Vitals/Labs Vital Signs Date Time Temp Pulse Resp B/P (MAP) Pulse Ox O2 Delivery O2 Flow Rate FiO2 08/13/25 12:00 97.9 65 20 140/68 90 Nasal Cannula 2.0 08/13/25 10:58 28 Laboratory Tests 08/13/25 04:46 08/13/25 11:08 Medications Current Medications Albuterol 2 udvial ONCE ONCE IH Last administered on 08/03/25at 23:50; Start 08/03/25 at 22:30; Stop 08/03/25 at 22:31; Status DC Albuterol 1 udvial STK-MED ONCE IH; Start 08/03/25 at 22:17; Stop 08/03/25 at 22:18; Status DC Acetaminophen 1,000 mg ONCE ONCE PO; Start 08/03/25 at 23:00; Stop 08/03/25 at 23:01; Status DC Fentanyl Citrate 100 ml @ As Directed STK-MED ONCE IV; Start 08/03/25 at 22:46; Stop 08/03/25 at 22:46; Status DC Ketamine HCl 50 mg STK-MED ONCE .ROUTE; Start 08/03/25 at 22:47; Stop 08/03/25 at 22:47; Status DC Rocuronium [place] 50 mg STK-MED ONCE .ROUTE Last administered on 08/03/25at 23:34; Start 08/03/25 at 22:47; Stop 08/03/25 at 22:47; Status DC Propofol 100 ml @ As Directed STK-MED ONCE IV; Start 08/03/25 at 22:50; Stop 08/03/25 at 22:50; Status DC Norepinephrine 250 ml @ As Directed STK-MED ONCE IV; Start 08/03/25 at 22:58; Stop 08/03/25 at 22:58; Status DC Vancomycin HCl 1 gm ONCE ONCE IV Last administered on 08/04/25at 00:06; Start 08/03/25 at 23:30; Stop 08/03/25 at 23:36; Status DC Albuterol Sulfate 2.5 mg [id number] PRN IH; Start 08/03/25 at 23:30; Stop 09/02/25 at 23:29 Ipratropium [place] 0.5 mg [id number] IH Last administered on 08/13/25at 10:56; Start 08/04/25 at 00:00; Stop 09/03/25 at 00:00 Acetaminophen 650 mg Q6H PRN PO Last administered on 08/11/25at 09:27; Start 08/03/25 at 23:30; Stop 09/02/25 at 23:29 Acetaminophen 650 mg Q6H PRN RC Last administered on 08/04/25at 04:08; Start 08/03/25 at 23:30; Stop 09/02/25 at 23:29 Lactulose 20 gm Q6H PRN PO Last administered on 08/11/25at 07:28; Start 08/03/25 at 23:30; Stop 09/02/25 at 23:29 Docusate Sodium 100 mg BID PRN PO; Start 08/03/25 at 23:30; Stop 09/02/25 at 23:29 Ondansetron HCl 4 mg Q6H PRN IVP; Start 08/03/25 at 23:30; Stop 09/02/25 at 23:29 Insulin Human Regular INSULIN SLIDING SCAL... ACHS SQ Last administered on 08/06/25at 20:42; Start 08/04/25 at 07:30; Stop 08/07/25 at 03:37; Status DC Ketamine HCl 100 mg ONCE ONCE IM Last administered on 08/03/25at 23:43; Start 08/03/25 at 23:30; Stop 08/03/25 at 23:39; Status DC Propofol 1,000 mg PROTOCOL PRN IV; Start 08/03/25 at 23:30; Stop 08/03/25 at 23:39; Status DC Fentanyl Citrate 100 ml @ 2.5 mls/hr PROTOCOL IV; Start 08/03/25 at 23:30; Stop 08/03/25 at 23:39; Status DC Norepinephrine 250 ml @ 0 mls/hr PROTOCOL IV; Start 08/03/25 at 23:30; Stop 08/03/25 at 23:39; Status DC Fentanyl/Sodium Chloride 250 ml @ 0.1 mls/hr PROTOCOL IV Last administered on 08/06/25at 13:11; Start 08/03/25 at 23:30; Stop 08/08/25 at 23:29; Status DC Propofol 1,000 mg PROTOCOL PRN IV Last administered on 08/07/25at 16:56; Start 08/03/25 at 23:30; Stop 08/11/25 at 09:58; Status DC Levofloxacin/ Dextrose 750 mg ONCE ONCE IV Last administered on 08/04/25at 02:13; Start 08/03/25 at 23:30; Stop 08/03/25 at 23:41; Status DC Norepinephrine 250 ml @ 37.425 mls/ hr PROTOCOL IV Last administered on 08/04/25at 14:11; Start 08/03/25 at 23:30; Stop 08/04/25 at 14:18; Status DC Levofloxacin/ Dextrose 100 ml @ 100 mls/hr Q48H IV; Start 08/05/25 at 23:00; Stop 08/04/25 at 16:22; Status DC Vasopressin 20 units STK-MED ONCE .ROUTE; Start 08/04/25 at 04:24; Stop 08/04/25 at 04:24; Status DC Vasopressin 20 units/Sodium Chloride 100 ml @ 0 mls/hr PROTOCOL IV Last administered on 08/05/25at 04:10; Start 08/04/25 at 05:00; Stop 08/11/25 at 09:58; Status DC Vancomycin HCl 1 each AD IV; Start 08/04/25 at 13:30; Stop 08/11/25 at 16:41; Status DC Albumin Human 50 ml @ 0 mls/hr AD ONCE IV; Start 08/04/25 at 13:30; Stop 08/04/25 at 13:47; Status DC Thiamine HCl 100 mg DAILY IVP Last administered on 08/12/25at 11:21; Start 08/05/25 at 09:00; Stop 09/04/25 at 08:59 Vancomycin HCl 250 ml @ 125 mls/hr ONCE ONCE IV; Start 08/04/25 at 14:00; Stop 08/04/25 at 13:33; Status DC Vancomycin HCl 750 mg [id number] IVPB Last administered on 08/08/25at 16:00; Start 08/04/25 at 16:00; Stop 08/11/25 at 16:41; Status DC Norepinephrine Bitartrate as protocol PROTOCOL IV Last administered on 08/06/25at 09:16; Start 08/04/25 at 14:30; Stop 08/11/25 at 09:58; Status DC Pharmacy Profile Note 1 each ONCE MISC; Start 08/04/25 at 15:30; Stop 08/04/25 at 16:16; Status DC Meropenem 500 mg Q24H IVPB Last administered on 08/05/25at 15:56; Start 08/04/25 at 16:30; Stop 08/06/25 at 07:37; Status DC Sodium Chloride 250 ml @ 0 mls/hr AD IV; Start 08/04/25 at 17:00; Stop 09/03/25 at 16:59 Albumin Human 100 ml ONCE IV; Start 08/04/25 at 17:00; Stop 08/05/25 at 16:59; Status DC Sodium Chloride 1,000 ml @ 0 mls/hr ONCE IV Last administered on 08/08/25at 10:14; Start 08/04/25 at 17:00; Stop 09/03/25 at 16:59 Dextrose 50 ml ONCE ONCE IV Last administered on 08/05/25at 09:12; Start 08/05/25 at 09:00; Stop 08/05/25 at 09:01; Status DC Insulin Human Regular 10 unit ONCE ONCE IV Last administered on 08/05/25at 09:21; Start 08/05/25 at 09:00; Stop 08/05/25 at 09:01; Status DC Pantoprazole Sodium 40 mg DAILY IVP Last administered on 08/12/25at 11:21; Start 08/06/25 at 09:00; Stop 08/13/25 at 10:46; Status DC Heparin Sodium (Porcine) 5,000 unit Q12H SQ; Start 08/05/25 at 12:00; Stop 08/05/25 at 16:11; Status DC Heparin Sodium (Porcine) 5,000 unit Q12H SQ Last administered on 08/06/25at 04:46; Start 08/05/25 at 16:00; Stop 08/06/25 at 07:37; Status DC Magnesium Sulfate 50 ml @ 0 mls/hr PROTOCOL PRN IV Last administered on 08/05/25at 18:34; Start 08/05/25 at 17:30; Stop 09/04/25 at 17:29 Heparin Sodium (Porcine) 5,000 unit Q12H9 SQ Last administered on 08/06/25at 20:43; Start 08/06/25 at 21:00; Stop 08/07/25 at 13:14; Status DC Meropenem 500 mg DAILY IVPB Last administered on 08/12/25at 11:22; Start 08/06/25 at 09:00; Stop 08/14/25 at 16:29 Albumin Human 100 ml @ 0 mls/hr ONCE PRN IV Last administered on 08/06/25at 11:27; Start 08/06/25 at 11:00; Stop 08/06/25 at 11:27; Status DC Phenylephrine HCl 100 mg/Sodium Chloride 250 ml @ 0 mls/hr PROTOCOL IV Last administered on 08/06/25at 22:39; Start 08/06/25 at 11:30; Stop 08/11/25 at 09:58; Status DC Multi-Ingred Cream/Lotion/Oil/ Oint USE DIRECTED BID OD Last administered on 08/13/25at 11:24; Start 08/06/25 at 21:00; Stop 09/05/25 at 20:59 Metoprolol Tartrate 5 mg STK-MED ONCE IV Last administered on 08/07/25at 00:10; Start 08/07/25 at 00:02; Stop 08/07/25 at 00:02; Status DC Metoprolol Tartrate 25 mg ONCE ONCE IV Last administered on 08/07/25at 00:25; Start 08/07/25 at 00:00; Stop 08/07/25 at 00:24; Status DC Amiodarone HCl 150 mg/Dextrose 103 ml @ 618 mls/hr ONCE IV; Start 08/07/25 at 00:00; Stop 08/07/25 at 00:12; Status DC Amiodarone HCl 360 mg/Dextrose 207.2 ml @ 33.3 mls/hr AD IV; Start 08/07/25 at 00:00; Stop 08/07/25 at 00:12; Status DC Amiodarone HCl 540 mg/Dextrose 310.8 ml @ 16.7 mls/hr [id number] IV Last administered on 08/08/25at 00:06; Start 08/07/25 at 05:00; Stop 08/11/25 at 08:41; Status DC Amiodarone HCL/ Dextrose 100 ml @ As Directed STK-MED ONCE .ROUTE Last administered on 08/07/25at 00:16; Start 08/07/25 at 00:06; Stop 08/07/25 at 00:10; Status DC Amiodarone HCL/ Dextrose 100 ml @ 0 mls/hr PROTOCOL IV; Start 08/07/25 at 00:30; Stop 08/07/25 at 06:28; Status DC Amiodarone HCL/ Dextrose 200 ml @ 33.333 mls/ hr PROTOCOL IV Last administered on 08/07/25at 00:25; Start 08/07/25 at 00:30; Stop 08/07/25 at 06:28; Status DC Insulin Human Regular INSULIN SLIDING SCAL... Q6H6 SQ Last administered on 08/08/25at 06:12; Start 08/07/25 at 06:00; Stop 08/08/25 at 10:28; Status DC Argatroban 50 mg/ Sodium Chloride 50 ml @ 0 mls/hr PROTOCOL IV Last administered on 08/13/25at 00:38; Start 08/07/25 at 13:00; Stop 09/06/25 at 12:59 Metoprolol Tartrate 12.5 mg BID PO Last administered on 08/11/25at 21:11; Start 08/07/25 at 21:00; Stop 08/12/25 at 08:59; Status DC Midodrine 10 mg BID NG Last administered on 08/10/25at 09:08; Start 08/08/25 at 09:00; Stop 08/10/25 at 09:13; Status DC Albumin Human 100 ml QTUTHSA[DIALYSIS] PRN IV Last administered on 08/08/25at 10:15; Start 08/08/25 at 08:15; Stop 08/09/25 at 08:14; Status DC Insulin Human Regular INSULIN SLIDING SCAL... ACHS SQ; Start 08/08/25 at 11:30; Stop 08/08/25 at 13:51; Status DC Insulin Glargine 10 units DAILY SQ Last administered on 08/12/25at 13:48; Start 08/08/25 at 11:30; Stop 09/07/25 at 11:29 Methylprednisolone Sodium Succinate 40 mg BID IVP Last administered on 08/12/25at 11:21; Start 08/08/25 at 11:30; Stop 08/12/25 at 15:35; Status DC Insulin Human Regular INSULIN SLIDING SCAL... Q6H6 SQ Last administered on 08/12/25at 18:07; Start 08/08/25 at 18:00; Stop 09/07/25 at 17:59 Labetalol HCl 10 mg Q2HPRN PRN IV Last administered on 08/12/25at 04:31; Start 08/09/25 at 04:00; Stop 09/08/25 at 03:59 Hydromorphone HCl 0.2 mg Q6H PRN IVP; Start 08/10/25 at 09:00; Stop 08/15/25 at 08:59 Epoetin [id number]-epbx 10,000 unit QTUTHSA[DIALYSIS] SQ Last administered on 08/11/25at 17:36; Start 08/11/25 at 16:00; Stop 09/10/25 at 15:59 Lidocaine/ Prilocaine 1 appl ONCE TP Last administered on 08/11/25at 08:49; Start 08/11/25 at 09:00; Stop 08/11/25 at 09:01; Status DC Metoprolol Tartrate 25 mg BID PO Last administered on 08/12/25at 20:01; Start 08/12/25 at 09:00; Stop 09/11/25 at 08:59 Losartan Potassium 25 mg DAILY PO Last administered on 08/12/25at 11:21; Start 08/12/25 at 09:00; Stop 09/11/25 at 08:59 Sodium Zirconium Cyclosilicate 10 gm ONCE ONCE PO Last administered on 08/12/25at 11:21; Start 08/12/25 at 09:30; Stop 08/12/25 at 09:31; Status DC Prednisone 40 mg DAILY PO; Start 08/13/25 at 09:00; Stop 09/12/25 at 08:59 Lidocaine/ Prilocaine 1 appl ONCE TP; Start 08/13/25 at 11:30; Stop 08/13/25 at 11:31; Status DC Pantoprazole Sodium 40 mg DAILY PO; Start 08/14/25 at 09:00; Stop 09/13/25 at 08:59 Pantoprazole Sodium 40 mg ONCE ONCE PO Last administered on 08/13/25at 11:19; Start 08/13/25 at 10:30; Stop 08/13/25 at 10:47; Status DC JACKELINE ANGULO MD Aug 13, 2025 13:32
[2025-08-13] MEDS: LIDOCAINE/PRILOCAINE CREAM 5GM TUBE TP SCH (14:02)
[2025-08-13] MEDS: ALBUMIN HUMAN 25% 100 ML IV.SOLN IV ONE (14:29)
--- NOTE | 2025-08-13 14:46 | PN ---
[facility] PROGRESS NOTE Date Patient Seen: Aug 13, 2025 Time of Visit: 1031 Supervising Physician: Dr. Sousa Primary Care Physician: Dr. Cohen Outpatient Specialists: Inpatient Consults: BIS, critical care team PROBLEM LIST: New onset AFib with RVR Acute hypoxic and hypercapnic respiratory failure-intubated patient, 2nd 2 volume overload Sepsis with septic shock - Gram-positive cocci bacteremia, Staph aureus Volume overload in a end-stage renal disease patient on hemodialysis Electrolyte imbalance Hyperkalemia LVEF 40-45%, diastolic dysfunction, 55-60% per echo on 01/17/2025 Hyperglycemia in a type 2 diabetic Morbid obesity Heparin induced thrombocytopenia INTERVAL HISTORY: 08/11 patient was seen and examined by bedside during hemodialysis appears to be tolerating well. At time of visit patient is currently on2 L nasal cannula tolerating well. Patient denies any chest pain or shortness of breadth. Denies any nausea vomiting or abdominal pain. At this time we will discontinue patient's vancomycin. Patient to continue with meropenem. As per primary nurse no acute events to be reported. We will continue to monitor patient closely. Dispo per primary team 08/12 patient was seen and examined at bedside with present. Patient remains on 2 L nasal cannula is tolerating well. At time of visit patient has no specific complaints. At this time we will discontinue patient's Solu-Medrol and transition patient to oral prednisone 40 mg daily to complete a total of five days. We will continue to follow recommendations from Hematology. Patient's platelets trending up today 74 yesterday 61 as per Hematology to remain on argatroban until platelets reach [id number]. As per primary nurse no acute events to be reported. Dispo per primary team 08/13 patient was seen and examined at bedside no family present. Patient remains on2 L nasal cannula. Patient has remained hemodynamically stable. Patient has been transitioned to p.o. steroids yesterday appears to be tolerating. As per primary nurse no acute events to be reported at this time. Dispo per primary team. Continue to follow recommendations from Hematology Plan: Following nephrology recs Following Hematology recs, argatroban and following platelets holding any heparin Supplemental O2, neb treatments Antibiotics and following cultures continue to follow labs and x-ray Continue prednisone 40 mg daily to complete a total of five days Dispo per primary team REVIEW OF SYSTEMS: 12 point review of system reviewed with patient all permanent positives mentioned above otherwise negative PHYSICAL EXAM: GENERAL: Chronically ill 79-year-old female lying in bed no obvious signs and symptoms of distress HEENT: EOMI, Sclera non icteric, moist mucosa NECK: Supple, no JVD, trachea midline LUNGS: Diminished breath sounds bilaterally. No wheezes HEART: Regular rate and rhythm. Normal S1 and S2, without murmurs ABD: Abdomen soft, nontender. Bowel sounds present. Obese EXT: No clubbing cyanosis or edema NEURO: Awake alert answers questions appropriately Vital Signs (last 8hr) Date Time Temp Pulse Resp B/P (MAP) Pulse Ox O2 Delivery O2 Flow Rate FiO2 08/13/25 12:25 97.3 71 16 124/67 Nasal Cannula 2.0 08/13/25 12:00 97.9 65 20 140/68 90 Nasal Cannula 2.0 08/13/25 10:58 18 N/Cannula Low lpm 2.0 28 08/13/25 10:58 77 18 08/13/25 08:00 98.8 64 20 154/73 98 Nasal Cannula 2.0 LABS: Hematology Labs: Test 08/13/25 11:08 Range/Units White Blood Count 21.0 H 4.8-10.8 K/uL Red Blood Count 3.85 L 4.00-5.50 MIL/uL Hemoglobin 11.5 L 12.0-16.0 g/dL Hematocrit 34.2 L 36-48 % Mean Corpuscular Volume 88.8 79-99 fL Mean Corpuscular Hemoglobin 29.9 27.0-33.0 pg Mean Corpuscular Hemoglobin Concent 33.6 32.0-36.0 g/dL Red Cell Distribution Width 13.2 11.0-15.5 % Platelet Count 86 L 130-400 K/uL Mean Platelet Volume 11.3 H 7.5-10.5 fL Immature Granulocyte % (Auto) 3.1 H 0-1 % Neutrophils (%) (Auto) 71.9 40.0-77.0 % Lymphocytes (%) (Auto) 11.0 L 21.0-51.0 % Monocytes (%) (Auto) 9.8 3.0-13.0 % Eosinophils (%) (Auto) 3.9 0.0-8.0 % Basophils (%) (Auto) 0.3 0.0-5.0 % Neutrophils # (Auto) 15.1 H 1.8-7.7 K/uL Lymphocytes # (Auto) 2.3 1.0-4.8 K/uL Monocytes # (Auto) 2.1 H 0.1-1.0 K/uL Eosinophils # (Auto) 0.81 H 0.00-0.70 K/uL Basophils # (Auto) 0.07 0.00-0.20 K/uL Absolute Immature Granulocyte (auto 0.66 0-1 K/uL Nucleated Red Blood Cells 0.0 0.0-0.19 % Chemistry Labs: Test 08/13/25 11:30 08/13/25 04:46 08/11/25 17:24 Range/Units Whole Blood Glucose 97 70-110 MG/DL Sodium Level 134 L 136-145 mmol/L Potassium Level 5.9 H 3.5-5.1 mmol/L Chloride Level 90 *L 101-111 mmol/L Carbon Dioxide Level 22 21-32 mmol/L Blood Urea Nitrogen 148 #*H 7-18 mg/dL Creatinine 8.2 *H 0.5-1.0 mg/dL Glomerular Filtration Rate Calc 5 >90 mL/min Random Glucose 119 H 70-105 mg/dL Total Calcium 6.9 L 8.5-10.1 mg/dL Total Bilirubin 0.9 0.2-1.0 mg/dL Aspartate Amino Transf (AST/SGOT) 11 10-37 U/L Alanine Aminotransferase (ALT/SGPT) 16 # 12-78 U/L Alkaline Phosphatase 154 H 50-136 U/L Total Protein 5.5 L 6.0-8.3 g/dL Albumin 2.4 L 3.5-5.0 g/dL Bedside Glucose Comment Notified Nurse Coagulation Labs: Test 08/13/25 11:08 Range/Units Activated Partial Thromboplast Time 45.9 H 26.3-35.5 SEC DIAGNOSTICS / RADIOLOGY RESULTS: na PLAN NEURO: Minimize central acting medications as possible. Maintain fall precautions, adequate lighting during the day PULMONARY: Supplemental 02 as needed. Maintain aspiration precautions at all times CARDIOVASCULAR: Follow hemodynamics. Vital signs per facility protocol GI & NUTRITION: Continue with nutritional support. Continue stool softeners and laxatives as needed. KIDNEYS & ELECTROLYTES: Strict monitoring of intake, output and overall fluid balance. Avoid nephrotoxic medications to the extent possible. Medications to be dosed according to renal function. Monitor electrolytes and replace as needed ENDOCRINE: Maintain blood glucose between 100-180 at all times. Hypoglycemia protocol in place INFECTIOUS DISEASE: Trend temperature, WBC and procalcitonin level Follow cultures, deescalate antibiotics as soon as possible. Panculture if new onset fever ONCOLOGY/HEMATOLOGY/COAGULATION: Monitor for s/s of bleeding Monitor hemoglobin, coagulation studies as needed SKIN: Pressure ulcer prevention per facility protocol Specialty mattress ORTHO/REHAB: Continue PT/OT Prophylaxis: Continue GI and DVT prophylaxis Code Status: Full Resuscitation Disposition: Per primary team Other: Case discussed with supervising physician plan of care agreed upon WARD PITTSP Aug 13, 2025 14:46
--- NOTE | 2025-08-13 20:57 | PN ---
No angina or dyspnea, no palpitations or shortness of breath. Patient is complaining about back pain. She had intense, severe back pain before she took ill, came to the hospital partly because of the pain, and then was found to be septic. The pain improved while she was treated for sepsis but has now recurred and she experiences radicular pain from her back radiating around both sides to the front of her chest. This is approximately T5 dermatome. Physical exam shows an overweight patient with clear lungs, irregular rhythm, normal S1 and S2, soft systolic parasternal murmur, no edema. She appears uncomfortable. Impression and recommendation: Cardiac status is stable but I am concerned with the patient could have a compression fracture and radiculopathy. I would strongly encourage other colleagues on the case to pursue evaluation of the back pain. Vitals/Labs Vital Signs Date Time Temp Pulse Resp B/P (MAP) Pulse Ox O2 Delivery O2 Flow Rate FiO2 08/13/25 19:34 97.3 78 16 133/62 100 Nasal Cannula 2.0 08/13/25 19:11 28 Laboratory Tests 08/13/25 04:46 08/13/25 11:08 Medications Current Medications Albuterol 2 udvial ONCE ONCE IH Last administered on 08/03/25at 23:50; Start 08/03/25 at 22:30; Stop 08/03/25 at 22:31; Status DC Albuterol 1 udvial STK-MED ONCE IH; Start 08/03/25 at 22:17; Stop 08/03/25 at 22:18; Status DC Acetaminophen 1,000 mg ONCE ONCE PO; Start 08/03/25 at 23:00; Stop 08/03/25 at 23:01; Status DC Fentanyl Citrate 100 ml @ As Directed STK-MED ONCE IV; Start 08/03/25 at 22:46; Stop 08/03/25 at 22:46; Status DC Ketamine HCl 50 mg STK-MED ONCE .ROUTE; Start 08/03/25 at 22:47; Stop 08/03/25 at 22:47; Status DC Rocuronium [place] 50 mg STK-MED ONCE .ROUTE Last administered on 08/03/25at 23:34; Start 08/03/25 at 22:47; Stop 08/03/25 at 22:47; Status DC Propofol 100 ml @ As Directed STK-MED ONCE IV; Start 08/03/25 at 22:50; Stop 08/03/25 at 22:50; Status DC Norepinephrine 250 ml @ As Directed STK-MED ONCE IV; Start 08/03/25 at 22:58; Stop 08/03/25 at 22:58; Status DC Vancomycin HCl 1 gm ONCE ONCE IV Last administered on 08/04/25at 00:06; Start 08/03/25 at 23:30; Stop 08/03/25 at 23:36; Status DC Albuterol Sulfate 2.5 mg [id number] PRN IH; Start 08/03/25 at 23:30; Stop 09/02/25 at 23:29 Ipratropium [place] 0.5 mg [id number] IH Last administered on 08/13/25at 19:07; Start 08/04/25 at 00:00; Stop 09/03/25 at 00:00 Acetaminophen 650 mg Q6H PRN PO Last administered on 08/13/25at 13:56; Start 08/03/25 at 23:30; Stop 09/02/25 at 23:29 Acetaminophen 650 mg Q6H PRN RC Last administered on 08/04/25at 04:08; Start 08/03/25 at 23:30; Stop 09/02/25 at 23:29 Lactulose 20 gm Q6H PRN PO Last administered on 08/11/25at 07:28; Start 08/03/25 at 23:30; Stop 09/02/25 at 23:29 Docusate Sodium 100 mg BID PRN PO; Start 08/03/25 at 23:30; Stop 09/02/25 at 23:29 Ondansetron HCl 4 mg Q6H PRN IVP; Start 08/03/25 at 23:30; Stop 09/02/25 at 23:29 Insulin Human Regular INSULIN SLIDING SCAL... ACHS SQ Last administered on 08/06/25at 20:42; Start 08/04/25 at 07:30; Stop 08/07/25 at 03:37; Status DC Ketamine HCl 100 mg ONCE ONCE IM Last administered on 08/03/25at 23:43; Start 08/03/25 at 23:30; Stop 08/03/25 at 23:39; Status DC Propofol 1,000 mg PROTOCOL PRN IV; Start 08/03/25 at 23:30; Stop 08/03/25 at 23:39; Status DC Fentanyl Citrate 100 ml @ 2.5 mls/hr PROTOCOL IV; Start 08/03/25 at 23:30; Stop 08/03/25 at 23:39; Status DC Norepinephrine 250 ml @ 0 mls/hr PROTOCOL IV; Start 08/03/25 at 23:30; Stop 08/03/25 at 23:39; Status DC Fentanyl/Sodium Chloride 250 ml @ 0.1 mls/hr PROTOCOL IV Last administered on 08/06/25at 13:11; Start 08/03/25 at 23:30; Stop 08/08/25 at 23:29; Status DC Propofol 1,000 mg PROTOCOL PRN IV Last administered on 08/07/25at 16:56; Start 08/03/25 at 23:30; Stop 08/11/25 at 09:58; Status DC Levofloxacin/ Dextrose 750 mg ONCE ONCE IV Last administered on 08/04/25at 02:13; Start 08/03/25 at 23:30; Stop 08/03/25 at 23:41; Status DC Norepinephrine 250 ml @ 37.425 mls/ hr PROTOCOL IV Last administered on 08/04/25at 14:11; Start 08/03/25 at 23:30; Stop 08/04/25 at 14:18; Status DC Levofloxacin/ Dextrose 100 ml @ 100 mls/hr Q48H IV; Start 08/05/25 at 23:00; Stop 08/04/25 at 16:22; Status DC Vasopressin 20 units STK-MED ONCE .ROUTE; Start 08/04/25 at 04:24; Stop 08/04/25 at 04:24; Status DC Vasopressin 20 units/Sodium Chloride 100 ml @ 0 mls/hr PROTOCOL IV Last administered on 08/05/25at 04:10; Start 08/04/25 at 05:00; Stop 08/11/25 at 09:58; Status DC Vancomycin HCl 1 each AD IV; Start 08/04/25 at 13:30; Stop 08/11/25 at 16:41; Status DC Albumin Human 50 ml @ 0 mls/hr AD ONCE IV; Start 08/04/25 at 13:30; Stop 08/04/25 at 13:47; Status DC Thiamine HCl 100 mg DAILY IVP Last administered on 08/12/25at 11:21; Start 08/05/25 at 09:00; Stop 09/04/25 at 08:59 Vancomycin HCl 250 ml @ 125 mls/hr ONCE ONCE IV; Start 08/04/25 at 14:00; Stop 08/04/25 at 13:33; Status DC Vancomycin HCl 750 mg [id number] IVPB Last administered on 08/08/25at 16:00; Start 08/04/25 at 16:00; Stop 08/11/25 at 16:41; Status DC Norepinephrine Bitartrate as protocol PROTOCOL IV Last administered on 08/06/25at 09:16; Start 08/04/25 at 14:30; Stop 08/11/25 at 09:58; Status DC Pharmacy Profile Note 1 each ONCE [facility] [place] Start 08/04/25 at 15:30; Stop 08/04/25 at 16:16; Status DC Meropenem 500 mg Q24H IVPB Last administered on 08/05/25at 15:56; Start 08/04/25 at 16:30; Stop 08/06/25 at 07:37; Status DC Sodium Chloride 250 ml @ 0 mls/hr AD IV; Start 08/04/25 at 17:00; Stop 09/03/25 at 16:59 Albumin Human 100 ml ONCE IV; Start 08/04/25 at 17:00; Stop 08/05/25 at 16:59; Status DC Sodium Chloride 1,000 ml @ 0 mls/hr ONCE IV Last administered on 08/13/25at 14:02; Start 08/04/25 at 17:00; Stop 09/03/25 at 16:59 Dextrose 50 ml ONCE ONCE IV Last administered on 08/05/25at 09:12; Start 08/05/25 at 09:00; Stop 08/05/25 at 09:01; Status DC Insulin Human Regular 10 unit ONCE ONCE IV Last administered on 08/05/25at 09:21; Start 08/05/25 at 09:00; Stop 08/05/25 at 09:01; Status DC Pantoprazole Sodium 40 mg DAILY IVP Last administered on 08/12/25at 11:21; Start 08/06/25 at 09:00; Stop 08/13/25 at 10:46; Status DC Heparin Sodium (Porcine) 5,000 unit Q12H SQ; Start 08/05/25 at 12:00; Stop 08/05/25 at 16:11; Status DC Heparin Sodium (Porcine) 5,000 unit Q12H SQ Last administered on 08/06/25at 04:46; Start 08/05/25 at 16:00; Stop 08/06/25 at 07:37; Status DC Magnesium Sulfate 50 ml @ 0 mls/hr PROTOCOL PRN IV Last administered on 08/05/25at 18:34; Start 08/05/25 at 17:30; Stop 09/04/25 at 17:29 Heparin Sodium (Porcine) 5,000 unit Q12H9 SQ Last administered on 08/06/25at 20:43; Start 08/06/25 at 21:00; Stop 08/07/25 at 13:14; Status DC Meropenem 500 mg DAILY IVPB Last administered on 08/12/25at 11:22; Start 08/06/25 at 09:00; Stop 08/14/25 at 16:29 Albumin Human 100 ml @ 0 mls/hr ONCE PRN IV Last administered on 08/06/25at 11:27; Start 08/06/25 at 11:00; Stop 08/06/25 at 11:27; Status DC Phenylephrine HCl 100 mg/Sodium Chloride 250 ml @ 0 mls/hr PROTOCOL IV Last administered on 08/06/25at 22:39; Start 08/06/25 at 11:30; Stop 08/11/25 at 09:58; Status DC Multi-Ingred Cream/Lotion/Oil/ Oint USE DIRECTED BID OD Last administered on 08/13/25at 11:24; Start 08/06/25 at 21:00; Stop 09/05/25 at 20:59 Metoprolol Tartrate 5 mg STK-MED ONCE IV Last administered on 08/07/25at 00:10; Start 08/07/25 at 00:02; Stop 08/07/25 at 00:02; Status DC Metoprolol Tartrate 25 mg ONCE ONCE IV Last administered on 08/07/25at 00:25; Start 08/07/25 at 00:00; Stop 08/07/25 at 00:24; Status DC Amiodarone HCl 150 mg/Dextrose 103 ml @ 618 mls/hr ONCE IV; Start 08/07/25 at 00:00; Stop 08/07/25 at 00:12; Status DC Amiodarone HCl 360 mg/Dextrose 207.2 ml @ 33.3 mls/hr AD IV; Start 08/07/25 at 00:00; Stop 08/07/25 at 00:12; Status DC Amiodarone HCl 540 mg/Dextrose 310.8 ml @ 16.7 mls/hr [id number] IV Last administered on 08/08/25at 00:06; Start 08/07/25 at 05:00; Stop 08/11/25 at 08:41; Status DC Amiodarone HCL/ Dextrose 100 ml @ As Directed STK-MED ONCE .ROUTE Last administered on 08/07/25at 00:16; Start 08/07/25 at 00:06; Stop 08/07/25 at 00:10; Status DC Amiodarone HCL/ Dextrose 100 ml @ 0 mls/hr PROTOCOL IV; Start 08/07/25 at 00:30; Stop 08/07/25 at 06:28; Status DC Amiodarone HCL/ Dextrose 200 ml @ 33.333 mls/ hr PROTOCOL IV Last administered on 08/07/25at 00:25; Start 08/07/25 at 00:30; Stop 08/07/25 at 06:28; Status DC Insulin Human Regular INSULIN SLIDING SCAL... Q6H6 SQ Last administered on 08/08/25at 06:12; Start 08/07/25 at 06:00; Stop 08/08/25 at 10:28; Status DC Argatroban 50 mg/ Sodium Chloride 50 ml @ 0 mls/hr PROTOCOL IV Last administered on 08/13/25at 00:38; Start 08/07/25 at 13:00; Stop 08/13/25 at 20:00; Status DC Metoprolol Tartrate 12.5 mg BID PO Last administered on 08/11/25at 21:11; Start 08/07/25 at 21:00; Stop 08/12/25 at 08:59; Status DC Midodrine 10 mg BID NG Last administered on 08/10/25at 09:08; Start 08/08/25 at 09:00; Stop 08/10/25 at 09:13; Status DC Albumin Human 100 ml QTUTHSA[DIALYSIS] PRN IV Last administered on 08/08/25at 10:15; Start 08/08/25 at 08:15; Stop 08/09/25 at 08:14; Status DC Insulin Human Regular INSULIN SLIDING SCAL... ACHS SQ; Start 08/08/25 at 11:30; Stop 08/08/25 at 13:51; Status DC Insulin Glargine 10 units DAILY SQ Last administered on 08/12/25at 13:48; Start 08/08/25 at 11:30; Stop 09/07/25 at 11:29 Methylprednisolone Sodium Succinate 40 mg BID IVP Last administered on 08/12/25at 11:21; Start 08/08/25 at 11:30; Stop 08/12/25 at 15:35; Status DC Insulin Human Regular INSULIN SLIDING SCAL... Q6H6 SQ Last administered on 08/12/25at 18:07; Start 08/08/25 at 18:00; Stop 09/07/25 at 17:59 Labetalol HCl 10 mg Q2HPRN PRN IV Last administered on 08/12/25at 04:31; Start 08/09/25 at 04:00; Stop 09/08/25 at 03:59 Hydromorphone HCl 0.2 mg Q6H PRN IVP Last administered on 08/13/25at 17:59; Start 08/10/25 at 09:00; Stop 08/15/25 at 08:59 Epoetin [id number]-epbx 10,000 unit QTUTHSA[DIALYSIS] SQ Last administered on 08/13/25at 17:59; Start 08/11/25 at 16:00; Stop 09/10/25 at 15:59 Lidocaine/ Prilocaine 1 appl ONCE TP Last administered on 08/11/25at 08:49; Start 08/11/25 at 09:00; Stop 08/11/25 at 09:01; Status DC Metoprolol Tartrate 25 mg BID PO Last administered on 08/12/25at 20:01; Start 08/12/25 at 09:00; Stop 09/11/25 at 08:59 Losartan Potassium 25 mg DAILY PO Last administered on 08/12/25at 11:21; Start 08/12/25 at 09:00; Stop 09/11/25 at 08:59 Sodium Zirconium Cyclosilicate 10 gm ONCE ONCE PO Last administered on 08/12/25at 11:21; Start 08/12/25 at 09:30; Stop 08/12/25 at 09:31; Status DC Prednisone 40 mg DAILY PO; Start 08/13/25 at 09:00; Stop 09/12/25 at 08:59 Lidocaine/ Prilocaine 1 appl ONCE TP Last administered on 08/13/25at 14:02; Start 08/13/25 at 11:30; Stop 08/13/25 at 11:31; Status DC Pantoprazole Sodium 40 mg DAILY PO; Start 08/14/25 at 09:00; Stop 09/13/25 at 08:59 Pantoprazole Sodium 40 mg ONCE ONCE PO Last administered on 08/13/25at 11:19; Start 08/13/25 at 10:30; Stop 08/13/25 at 10:47; Status DC Albumin Human 100 ml ONCE ONCE IV Last administered on 08/13/25at 14:29; Start 08/13/25 at 14:30; Stop 08/13/25 at 14:31; Status DC Apixaban 5 mg BID PO; Start 08/13/25 at 21:00; Stop 09/12/25 at 20:59 RUMA CLEMENTS MD Aug 13, 2025 20:57
--- NOTE | 2025-08-13 22:39 | PN ---
FOLLOWUP PROGRESS NOTE SUBJECTIVE: The patient was seen and evaluated on hemodialysis. Prescription noted. PHYSICAL EXAMINATION: VITAL SIGNS: Blood pressure 154/73. CARDIOVASCULAR: Regular. LUNGS: Coarse. IMPRESSION: End-stage renal disease. PLAN: The patient will continue with maximal ultrafiltration if blood pressure allows. The patient is encouraged with her therapy. I did discuss with the patient's family. TID: [id number] RECEIPT: [id number]
[2025-08-14] VITALS (10 sets, daily range): BP systolic 137–157; BP diastolic 53–76; PULSE 80–88; RESP 18–20; TEMP 97.6–98.7; O2SAT 97
[2025-08-14 04:08] LABS: IMMATURE GRANULOCYTE ABSOLUTE 0.31 K/uL (0-1); NUCLEATED RED BLOOD CELLS 0.0 % (0.0-0.19); PLATELET COUNT (AUTO) 75 K/uL (130-400); RED BLOOD CELL COUNT(AUTO) 3.40 MIL/uL (4.00-5.50); RED CELL DISTRIBUTION WIDTH 13.2 % (11.0-15.5); WHITE BLOOD COUNT (AUTO) 16.1 K/uL (4.8-10.8)
[2025-08-14 04:30] LABS: CREATININE 5.8 mg/dL (0.5-1.0); GLOMERULAR FILTR. RATE CALC 7.0 mL/min (>90); GLUCOSE,RANDOM 167.0 mg/dL (70-105); SODIUM SERUM 131.0 mmol/L (136-145)
[2025-08-14 04:53] LABS: UREA NITROGEN, BLOOD 82.0 mg/dL (7-18)
--- NOTE | 2025-08-14 07:38 | PN ---
Acute myocardial infarct versus takotsubo syndrome (peak CPK was in the 1500 range, inconsistent with the size of the wall motion abnormality on the echo) Recent EF 65-70% with moderate aortic stenosis, DVI 0.27, current EF 40-45% with apical akinesia, moderate aortic stenosis with DVI 0.27 Sepsis Renal failure is chronic; patient has been on dialysis and tolerated it well for 19 months according to her Acute respiratory failure Probable aspiration pneumonia Diabetes Hypertension Gastroesophageal reflux Gallstones Paroxysmal atrial fibrillation Thrombocytopenia, possible HIT, attended by Dr. Yeboah Staphylococcus aureus sepsis Patient offers no cardiac complaints. She had not experienced any cardiac symptoms prior to hospitalization but was followed for moderate aortic stenosis. She was hospitalized with sepsis, having presented with intense back pain, and her pain disappeared during the time that she was unconscious, ventilated for respiratory failure and septic shock. She developed a coagulopathy which was treated with argatroban and she has a known history of paroxysmal atrial fibrillation but has had thrombocytopenia and so has not been treated with heparin. She has been treated with argatroban during this hospitalization. She has had about five days of lucid mental status, has been extubated earlier in the week and now has severe, intense back pain again. With her current back pain she also experiences radicular pain around both sides in the same dermatome distribution; I fear she may have a compression fracture, disc herniation, or other serious spine problem. Although the patient did suffer a small non-STEMI by chemical analysis, the apical wall motion abnormalities larger than would have been expected in the EF is in the mid 40s. It is unclear to me whether she experienced a true atherosclerotic ischemic event associated with generalized inflammation (during sepsis) and plaque disruption, versus whether this could be some variant of Takotsubo's syndrome related to the intense biological stress of septic shock. She has been on dialysis for about 19 months, and she has had general medical instability that precluded any invasive coronary evaluation during this stay. Physical exam today shows an overweight female with no JVD, no rales, nonlabored respiration, preserved S1 and P2, soft parasternal aortic outflow murmur, protuberant abdomen with normal bowel sounds, and appropriate mental status. She is very frail, but was not prior to this illness. Impression and recommendation: Cardiac status is generally stable and we can pursue further coronary evaluation later, after full recovery. If she experiences cardiac instability we could of course adjust this plan. Meanwhile, continuation of dialysis and recovery from septic shock and evaluation of severe back pain or the dominant clinical considerations. I continue to follow the patient because of the non-STEMI earlier in her stay and debrief atrial fibrillation that was encountered during septic shock. -2D echocardiogram 08/04/2025: Conclusion The left atrium size is normal. Mild concentric left ventricular hypertrophy. GLS -8.0%. Early relaxation at the LV apex. Apical septal bounce. Apical severe hypokinesis. LVEF is 40-45%. Stage I diastolic dysfunction. The aortic valve is trileaflet, heavily calcified, and shows severely restricted opening. There is severe aortic valvular stenosis. Peak AV gradient is 48 mmHg; mean AV gradient is 32 mmHg; and AV area is 0.7 cm. Vitals/Labs Vital Signs Date Time Temp Pulse Resp B/P (MAP) Pulse Ox O2 Delivery O2 Flow Rate FiO2 08/14/25 07:04 84 18 N/Cannula Low lpm 2.0 28 08/14/25 03:36 97.7 153/69 96 Laboratory Tests 08/13/25 11:08 08/14/25 04:02 Medications Current Medications Albuterol 2 udvial ONCE ONCE IH Last administered on 08/03/25at 23:50; Start 08/03/25 at 22:30; Stop 08/03/25 at 22:31; Status DC Albuterol 1 udvial STK-MED ONCE IH; Start 08/03/25 at 22:17; Stop 08/03/25 at 22:18; Status DC Acetaminophen 1,000 mg ONCE ONCE PO; Start 08/03/25 at 23:00; Stop 08/03/25 at 23:01; Status DC Fentanyl Citrate 100 ml @ As Directed STK-MED ONCE IV; Start 08/03/25 at 22:46; Stop 08/03/25 at 22:46; Status DC Ketamine HCl 50 mg STK-MED ONCE .ROUTE; Start 08/03/25 at 22:47; Stop 08/03/25 at 22:47; Status DC Rocuronium Burke 50 mg STK-MED ONCE .ROUTE Last administered on 08/03/25at 23:34; Start 08/03/25 at 22:47; Stop 08/03/25 at 22:47; Status DC Propofol 100 ml @ As Directed STK-MED ONCE IV; Start 08/03/25 at 22:50; Stop 08/03/25 at 22:50; Status DC Norepinephrine 250 ml @ As Directed STK-MED ONCE IV; Start 08/03/25 at 22:58; Stop 08/03/25 at 22:58; Status DC Vancomycin HCl 1 gm ONCE ONCE IV Last administered on 08/04/25at 00:06; Start 08/03/25 at 23:30; Stop 08/03/25 at 23:36; Status DC Albuterol Sulfate 2.5 mg [id number] PRN IH; Start 08/03/25 at 23:30; Stop 09/02/25 at 23:29 Ipratropium Burke 0.5 mg [id number] IH Last administered on 08/14/25at 07:00; Start 08/04/25 at 00:00; Stop 09/03/25 at 00:00 Acetaminophen 650 mg Q6H PRN PO Last administered on 08/13/25at 13:56; Start 08/03/25 at 23:30; Stop 09/02/25 at 23:29 Acetaminophen 650 mg Q6H PRN RC Last administered on 08/04/25at 04:08; Start 08/03/25 at 23:30; Stop 09/02/25 at 23:29 Lactulose 20 gm Q6H PRN PO Last administered on 08/14/25at 03:26; Start 08/03/25 at 23:30; Stop 09/02/25 at 23:29 Docusate Sodium 100 mg BID PRN PO; Start 08/03/25 at 23:30; Stop 09/02/25 at 23:29 Ondansetron HCl 4 mg Q6H PRN IVP; Start 08/03/25 at 23:30; Stop 09/02/25 at 23:29 Insulin Human Regular INSULIN SLIDING SCAL... ACHS SQ Last administered on 08/06/25at 20:42; Start 08/04/25 at 07:30; Stop 08/07/25 at 03:37; Status DC Ketamine HCl 100 mg ONCE ONCE IM Last administered on 08/03/25at 23:43; Start 08/03/25 at 23:30; Stop 08/03/25 at 23:39; Status DC Propofol 1,000 mg PROTOCOL PRN IV; Start 08/03/25 at 23:30; Stop 08/03/25 at 23:39; Status DC Fentanyl Citrate 100 ml @ 2.5 mls/hr PROTOCOL IV; Start 08/03/25 at 23:30; Stop 08/03/25 at 23:39; Status DC Norepinephrine 250 ml @ 0 mls/hr PROTOCOL IV; Start 08/03/25 at 23:30; Stop 08/03/25 at 23:39; Status DC Fentanyl/Sodium Chloride 250 ml @ 0.1 mls/hr PROTOCOL IV Last administered on 08/06/25at 13:11; Start 08/03/25 at 23:30; Stop 08/08/25 at 23:29; Status DC Propofol 1,000 mg PROTOCOL PRN IV Last administered on 08/07/25at 16:56; Start 08/03/25 at 23:30; Stop 08/11/25 at 09:58; Status DC Levofloxacin/ Dextrose 750 mg ONCE ONCE IV Last administered on 08/04/25at 02:13; Start 08/03/25 at 23:30; Stop 08/03/25 at 23:41; Status DC Norepinephrine 250 ml @ 37.425 mls/ hr PROTOCOL IV Last administered on 08/04/25at 14:11; Start 08/03/25 at 23:30; Stop 08/04/25 at 14:18; Status DC Levofloxacin/ Dextrose 100 ml @ 100 mls/hr Q48H IV; Start 08/05/25 at 23:00; Stop 08/04/25 at 16:22; Status DC Vasopressin 20 units STK-MED ONCE .ROUTE; Start 08/04/25 at 04:24; Stop 08/04/25 at 04:24; Status DC Vasopressin 20 units/Sodium Chloride 100 ml @ 0 mls/hr PROTOCOL IV Last administered on 08/05/25at 04:10; Start 08/04/25 at 05:00; Stop 08/11/25 at 09:58; Status DC Vancomycin HCl 1 each AD IV; Start 08/04/25 at 13:30; Stop 08/11/25 at 16:41; Status DC Albumin Human 50 ml @ 0 mls/hr AD ONCE IV; Start 08/04/25 at 13:30; Stop 08/04/25 at 13:47; Status DC Thiamine HCl 100 mg DAILY IVP Last administered on 08/12/25at 11:21; Start 08/05/25 at 09:00; Stop 09/04/25 at 08:59 Vancomycin HCl 250 ml @ 125 mls/hr ONCE ONCE IV; Start 08/04/25 at 14:00; Stop 08/04/25 at 13:33; Status DC Vancomycin HCl 750 mg [id number] IVPB Last administered on 08/08/25at 16:00; Start 08/04/25 at 16:00; Stop 08/11/25 at 16:41; Status DC Norepinephrine Bitartrate as protocol PROTOCOL IV Last administered on 08/06/25at 09:16; Start 08/04/25 at 14:30; Stop 08/11/25 at 09:58; Status DC Pharmacy Profile Note 1 each ONCE MISC; Start 08/04/25 at 15:30; Stop 08/04/25 at 16:16; Status DC Meropenem 500 mg Q24H IVPB Last administered on 08/05/25at 15:56; Start 08/04/25 at 16:30; Stop 08/06/25 at 07:37; Status DC Sodium Chloride 250 ml @ 0 mls/hr AD IV; Start 08/04/25 at 17:00; Stop 09/03/25 at 16:59 Albumin Human 100 ml ONCE IV; Start 08/04/25 at 17:00; Stop 08/05/25 at 16:59; Status DC Sodium Chloride 1,000 ml @ 0 mls/hr ONCE IV Last administered on 08/13/25at 14:02; Start 08/04/25 at 17:00; Stop 09/03/25 at 16:59 Dextrose 50 ml ONCE ONCE IV Last administered on 08/05/25at 09:12; Start 08/05/25 at 09:00; Stop 08/05/25 at 09:01; Status DC Insulin Human Regular 10 unit ONCE ONCE IV Last administered on 08/05/25at 09:21; Start 08/05/25 at 09:00; Stop 08/05/25 at 09:01; Status DC Pantoprazole Sodium 40 mg DAILY IVP Last administered on 08/12/25at 11:21; Start 08/06/25 at 09:00; Stop 08/13/25 at 10:46; Status DC Heparin Sodium (Porcine) 5,000 unit Q12H SQ; Start 08/05/25 at 12:00; Stop 08/05/25 at 16:11; Status DC Heparin Sodium (Porcine) 5,000 unit Q12H SQ Last administered on 08/06/25at 04:46; Start 08/05/25 at 16:00; Stop 08/06/25 at 07:37; Status DC Magnesium Sulfate 50 ml @ 0 mls/hr PROTOCOL PRN IV Last administered on 08/05/25at 18:34; Start 08/05/25 at 17:30; Stop 09/04/25 at 17:29 Heparin Sodium (Porcine) 5,000 unit Q12H9 SQ Last administered on 08/06/25at 20:43; Start 08/06/25 at 21:00; Stop 08/07/25 at 13:14; Status DC Meropenem 500 mg DAILY IVPB Last administered on 08/12/25at 11:22; Start 08/06/25 at 09:00; Stop 08/14/25 at 16:29 Albumin Human 100 ml @ 0 mls/hr ONCE PRN IV Last administered on 08/06/25at 11:27; Start 08/06/25 at 11:00; Stop 08/06/25 at 11:27; Status DC Phenylephrine HCl 100 mg/Sodium Chloride 250 ml @ 0 mls/hr PROTOCOL IV Last administered on 08/06/25at 22:39; Start 08/06/25 at 11:30; Stop 08/11/25 at 09:58; Status DC Multi-Ingred Cream/Lotion/Oil/ Oint USE DIRECTED BID OD Last administered on 08/13/25at 21:30; Start 08/06/25 at 21:00; Stop 09/05/25 at 20:59 Metoprolol Tartrate 5 mg STK-MED ONCE IV Last administered on 08/07/25at 00:10; Start 08/07/25 at 00:02; Stop 08/07/25 at 00:02; Status DC Metoprolol Tartrate 25 mg ONCE ONCE IV Last administered on 08/07/25at 00:25; Start 08/07/25 at 00:00; Stop 08/07/25 at 00:24; Status DC Amiodarone HCl 150 mg/Dextrose 103 ml @ 618 mls/hr ONCE IV; Start 08/07/25 at 00:00; Stop 08/07/25 at 00:12; Status DC Amiodarone HCl 360 mg/Dextrose 207.2 ml @ 33.3 mls/hr AD IV; Start 08/07/25 at 00:00; Stop 08/07/25 at 00:12; Status DC Amiodarone HCl 540 mg/Dextrose 310.8 ml @ 16.7 mls/hr [id number] IV Last administered on 08/08/25at 00:06; Start 08/07/25 at 05:00; Stop 08/11/25 at 08:41; Status DC Amiodarone HCL/ Dextrose 100 ml @ As Directed STK-MED ONCE .ROUTE Last administered on 08/07/25at 00:16; Start 08/07/25 at 00:06; Stop 08/07/25 at 00:10; Status DC Amiodarone HCL/ Dextrose 100 ml @ 0 mls/hr PROTOCOL IV; Start 08/07/25 at 00:30; Stop 08/07/25 at 06:28; Status DC Amiodarone HCL/ Dextrose 200 ml @ 33.333 mls/ hr PROTOCOL IV Last administered on 08/07/25at 00:25; Start 08/07/25 at 00:30; Stop 08/07/25 at 06:28; Status DC Insulin Human Regular INSULIN SLIDING SCAL... Q6H6 SQ Last administered on 08/08/25at 06:12; Start 08/07/25 at 06:00; Stop 08/08/25 at 10:28; Status DC Argatroban 50 mg/ Sodium Chloride 50 ml @ 0 mls/hr PROTOCOL IV Last administered on 08/13/25at 00:38; Start 08/07/25 at 13:00; Stop 08/13/25 at 20:00; Status DC Metoprolol Tartrate 12.5 mg BID PO Last administered on 08/11/25at 21:11; Start 08/07/25 at 21:00; Stop 08/12/25 at 08:59; Status DC Midodrine 10 mg BID NG Last administered on 08/10/25at 09:08; Start 08/08/25 at 09:00; Stop 08/10/25 at 09:13; Status DC Albumin Human 100 ml QTUTHSA[DIALYSIS] PRN IV Last administered on 08/08/25at 10:15; Start 08/08/25 at 08:15; Stop 08/09/25 at 08:14; Status DC Insulin Human Regular INSULIN SLIDING SCAL... ACHS SQ; Start 08/08/25 at 11:30; Stop 08/08/25 at 13:51; Status DC Insulin Glargine 10 units DAILY SQ Last administered on 08/12/25at 13:48; Start 08/08/25 at 11:30; Stop 09/07/25 at 11:29 Methylprednisolone Sodium Succinate 40 mg BID IVP Last administered on 08/12/25at 11:21; Start 08/08/25 at 11:30; Stop 08/12/25 at 15:35; Status DC Insulin Human Regular INSULIN SLIDING SCAL... Q6H6 SQ Last administered on 08/12/25at 18:07; Start 08/08/25 at 18:00; Stop 09/07/25 at 17:59 Labetalol HCl 10 mg Q2HPRN PRN IV Last administered on 08/12/25at 04:31; Start 08/09/25 at 04:00; Stop 09/08/25 at 03:59 Hydromorphone HCl 0.2 mg Q6H PRN IVP Last administered on 08/14/25at 05:46; Start 08/10/25 at 09:00; Stop 08/15/25 at 08:59 Epoetin [id number]-epbx 10,000 unit QTUTHSA[DIALYSIS] SQ Last administered on 08/13/25at 17:59; Start 08/11/25 at 16:00; Stop 09/10/25 at 15:59 Lidocaine/ Prilocaine 1 appl ONCE TP Last administered on 08/11/25at 08:49; Start 08/11/25 at 09:00; Stop 08/11/25 at 09:01; Status DC Metoprolol Tartrate 25 mg BID PO Last administered on 08/13/25at 21:30; Start 08/12/25 at 09:00; Stop 09/11/25 at 08:59 Losartan Potassium 25 mg DAILY PO Last administered on 08/12/25at 11:21; Start 08/12/25 at 09:00; Stop 09/11/25 at 08:59 Sodium Zirconium Cyclosilicate 10 gm ONCE ONCE PO Last administered on 08/12/25at 11:21; Start 08/12/25 at 09:30; Stop 08/12/25 at 09:31; Status DC Prednisone 40 mg DAILY PO; Start 08/13/25 at 09:00; Stop 09/12/25 at 08:59 Lidocaine/ Prilocaine 1 appl ONCE TP Last administered on 08/13/25at 14:02; Start 08/13/25 at 11:30; Stop 08/13/25 at 11:31; Status DC Pantoprazole Sodium 40 mg DAILY PO; Start 08/14/25 at 09:00; Stop 09/13/25 at 08:59 Pantoprazole Sodium 40 mg ONCE ONCE PO Last administered on 08/13/25at 11:19; Start 08/13/25 at 10:30; Stop 08/13/25 at 10:47; Status DC Albumin Human 100 ml ONCE ONCE IV Last administered on 08/13/25at 14:29; Start 08/13/25 at 14:30; Stop 08/13/25 at 14:31; Status DC Apixaban 5 mg BID PO Last administered on 08/13/25at 21:30; Start 08/13/25 at 21:00; Stop 09/12/25 at 20:59 RUMA CLEMENTS MD Aug 14, 2025 07:38
--- NOTE | 2025-08-14 11:08 | HMCIMG ---
CHEST 1VW REASON: pp COMPARISON: Prior study from 08/13/2025 is available. FINDINGS: Single view of the chest was obtained. Lungs are clear. Heart size is normal. There is no pulmonary vascular congestion. Mediastinum and bony thorax appear unremarkable. There is a right-sided PIC catheter with tip in caval atrial junction. There are surgical clips seen in the left axillary region. IMPRESSION: 1. No acute cardiopulmonary process and unchanged from prior study..
--- NOTE | 2025-08-14 11:13 | PN ---
SUBJECTIVE: The patient is feeling significantly improved. Continue with IV antibiotics, hemodialysis. She was unable to tolerate physical therapy yesterday. She was only sitting on the chair. There has been no chest pain, palpitations. No nausea or vomiting. OBJECTIVE: GENERAL: Currently, she is awake, alert, oriented in person, time and place. VITAL SIGNS: Blood pressure 154/73, pulse 64, respiratory 20. HEENT: Normocephalic, atraumatic. LUNGS: Decreased breath sounds bilaterally. HEART: S1, S2 are distant. ABDOMEN: Soft, nontender. EXTREMITIES: No clubbing or cyanosis. LABORATORY DATA: White blood cell count is 16.3, hemoglobin 11.1, platelets 74,000. This is from yesterday, pending today's CBC. Chem 7 from today: Sodium 134, potassium 5.9, BUN 148, creatinine 8.2, albumin 2.4. ASSESSMENT AND PLAN: * Respiratory failure with hypoxemia and hypercarbia. Continue with oxygen at current rate. * Urinary tract infection. We are going to discontinue meropenem. * Sepsis with positive cultures for Staph aureus methicillin sensitive. Continue current antibiotics. * Septic shock, resolved. * New onset atrial fibrillation with rapid ventricular response. Continue amiodarone. Eliquis may need to be started. * Anemia, chronic, stable. 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 * Thrombocytopenia improving. * End-stage renal disease, continue hemodialysis. * Follow up in a.m. with labs. TID: [id number] RECEIPT: [id number]
--- NOTE | 2025-08-14 14:02 | PN ---
[facility] PROGRESS NOTE Date Patient Seen: Aug 14, 2025 Time of Visit: 0953 Supervising Physician: Dr. Sousa Primary Care Physician: Dr. Cohen Outpatient Specialists: Inpatient Consults: BIS, critical care team PROBLEM LIST: New onset AFib with RVR Acute hypoxic and hypercapnic respiratory failure-intubated patient, 2nd 2 volume overload Intractable lower back pain Sepsis with septic shock - Gram-positive cocci bacteremia, Staph aureus Volume overload in a end-stage renal disease patient on hemodialysis Electrolyte imbalance Hyperkalemia LVEF 40-45%, diastolic dysfunction, 55-60% per echo on 01/17/2025 Hyperglycemia in a type 2 diabetic Morbid obesity Heparin induced thrombocytopenia INTERVAL HISTORY: 08/11 patient was seen and examined by bedside during hemodialysis appears to be tolerating well. At time of visit patient is currently on2 L nasal cannula tolerating well. Patient denies any chest pain or shortness of breadth. Denies any nausea vomiting or abdominal pain. At this time we will discontinue patient's vancomycin. Patient to continue with meropenem. As per primary nurse no acute events to be reported. We will continue to monitor patient closely. Dispo per primary team 08/12 patient was seen and examined at bedside with present. Patient remains on 2 L nasal cannula is tolerating well. At time of visit patient has no specific complaints. At this time we will discontinue patient's Solu-Medrol and transition patient to oral prednisone 40 mg daily to complete a total of five days. We will continue to follow recommendations from Hematology. Patient's platelets trending up today 74 yesterday 61 as per Hematology to remain on argatroban until platelets reach [id number]. As per primary nurse no acute events to be reported. Dispo per primary team 08/13 patient was seen and examined at bedside no family present. Patient remains on2 L nasal cannula. Patient has remained hemodynamically stable. Patient has been transitioned to p.o. steroids yesterday appears to be tolerating. As per primary nurse no acute events to be reported at this time. Dispo per primary team. Continue to follow recommendations from Hematology 08/14 patient was seen and examined at bedside with present. Patient remains on2 L nasal cannula appears to be tolerating well. At time of visit has a concern due to patient's persistent lower back pain. As per patient initially was brought to the emergency room due to having this intractable lower back pain, however due to patient becoming septic, he feels like the back pain, that time got ignored but now that patient is no longer intubated and is completely awake she is still suffering from lower back pain, at this time we will order a CT of lumbar spine, and thoracic spine and follow up with results. As per primary nurse no acute events to be reported. Dispo per primary team Plan: Follow up with CT of lumbar and thoracic spine Following nephrology recs Following Hematology recs, argatroban and following platelets holding any hepar in Supplemental O2, neb treatments Antibiotics and following cultures continue to follow labs and x-ray Continue prednisone 40 mg daily to complete a total of five days Dispo per primary team REVIEW OF SYSTEMS: 12 point review of system reviewed with patient all permanent positives mentioned above otherwise negative PHYSICAL EXAM: GENERAL: Chronically ill 79-year-old female lying in bed no obvious signs and symptoms of distress HEENT: EOMI, Sclera non icteric, moist mucosa NECK: Supple, no JVD, trachea midline LUNGS: Diminished breath sounds bilaterally. No wheezes HEART: Regular rate and rhythm. Normal S1 and S2, without murmurs ABD: Abdomen soft, nontender. Bowel sounds present. Obese EXT: No clubbing cyanosis or edema NEURO: Awake alert answers questions appropriately Vital Signs (last 8hr) Date Time Temp Pulse Resp B/P (MAP) Pulse Ox O2 Delivery O2 Flow Rate FiO2 08/14/25 11:30 97.5 83 20 151/59 97 Room Air 08/14/25 11:26 82 18 08/14/25 07:45 98.6 88 20 137/53 98 Room Air 08/14/25 07:04 84 18 N/Cannula Low lpm 2.0 28 08/14/25 07:01 84 18 LABS: Hematology Labs: Test 08/14/25 04:02 Range/Units White Blood Count 16.1 H 4.8-10.8 K/uL Red Blood Count 3.40 L 4.00-5.50 MIL/uL Hemoglobin 10.1 L 12.0-16.0 g/dL Hematocrit 30.7 L 36-48 % Mean Corpuscular Volume 90.3 79-99 fL Mean Corpuscular Hemoglobin 29.7 27.0-33.0 pg Mean Corpuscular Hemoglobin Concent 32.9 32.0-36.0 g/dL Red Cell Distribution Width 13.2 11.0-15.5 % Platelet Count 75 L 130-400 K/uL Mean Platelet Volume 10.9 H 7.5-10.5 fL Immature Granulocyte % (Auto) 1.9 H 0-1 % Neutrophils (%) (Auto) 80.5 H 40.0-77.0 % Lymphocytes (%) (Auto) 6.6 L 21.0-51.0 % Monocytes (%) (Auto) 7.6 3.0-13.0 % Eosinophils (%) (Auto) 3.2 0.0-8.0 % Basophils (%) (Auto) 0.2 0.0-5.0 % Neutrophils # (Auto) 12.9 H 1.8-7.7 K/uL Lymphocytes # (Auto) 1.1 1.0-4.8 K/uL Monocytes # (Auto) 1.2 H 0.1-1.0 K/uL Eosinophils # (Auto) 0.52 0.00-0.70 K/uL Basophils # (Auto) 0.03 0.00-0.20 K/uL Absolute Immature Granulocyte (auto 0.31 0-1 K/uL Nucleated Red Blood Cells 0.0 0.0-0.19 % Chemistry Labs: Test 08/14/25 11:15 08/14/25 04:02 08/13/25 04:46 Range/Units Whole Blood Glucose 176 H 70-110 MG/DL Sodium Level 131 L 136-145 mmol/L Potassium Level 4.9 3.5-5.1 mmol/L Chloride Level 91 L 101-111 mmol/L Carbon Dioxide Level 21 21-32 mmol/L Blood Urea Nitrogen 82 #*H 7-18 mg/dL Creatinine 5.8 H 0.5-1.0 mg/dL Glomerular Filtration Rate Calc 7 >90 mL/min Random Glucose 167 H 70-105 mg/dL Total Calcium 7.0 L 8.5-10.1 mg/dL Total Bilirubin 0.9 0.2-1.0 mg/dL Aspartate Amino Transf (AST/SGOT) 11 10-37 U/L Alanine Aminotransferase (ALT/SGPT) 16 # 12-78 U/L Alkaline Phosphatase 154 H 50-136 U/L Total Protein 5.5 L 6.0-8.3 g/dL Albumin 2.4 L 3.5-5.0 g/dL Coagulation Labs: Test 08/13/25 11:08 Range/Units Activated Partial Thromboplast Time 45.9 H 26.3-35.5 SEC DIAGNOSTICS / RADIOLOGY RESULTS: na PLAN NEURO: Minimize central acting medications as possible. Maintain fall precautions, adequate lighting during the day PULMONARY: Supplemental 02 as needed. Maintain aspiration precautions at all times CARDIOVASCULAR: Follow hemodynamics. Vital signs per facility protocol GI & NUTRITION: Continue with nutritional support. Continue stool softeners and laxatives as needed. KIDNEYS & ELECTROLYTES: Strict monitoring of intake, output and overall fluid balance. Avoid nephrotoxic medications to the extent possible. Medications to be dosed according to renal function. Monitor electrolytes and replace as needed ENDOCRINE: Maintain blood glucose between 100-180 at all times. Hypoglycemia protocol in place INFECTIOUS DISEASE: Trend temperature, WBC and procalcitonin level Follow cultures, deescalate antibiotics as soon as possible. Panculture if new onset fever ONCOLOGY/HEMATOLOGY/COAGULATION: Monitor for s/s of bleeding Monitor hemoglobin, coagulation studies as needed SKIN: Pressure ulcer prevention per facility protocol Specialty mattress ORTHO/REHAB: Continue PT/OT Prophylaxis: Continue GI and DVT prophylaxis Code Status: Full Resuscitation Disposition: Per primary team Other: Case discussed with supervising physician plan of care agreed upon WARD PITTS Aug 14, 2025 14:02
--- NOTE | 2025-08-14 16:36 | PN ---
PROGRESS NOTE Date of Service: Aug 14, 2025 Time of Service: 16:32 SUBJECTIVE: This 79-year-old [place] female, with PMH of hypertension, hyper lipidemia, type 2 diabetes mellitus ,ESRD, breast cancer, obesity, cholelithiasis, and moderate aortic stenosis. She presented to the emergency room via EMS with symptoms of cough, shortness of breath, upper respiratory infection symptoms, and fever with chills. 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 [place] [address] today and denies any bleeding symptoms and signs .She is in NAD. REVIEW OF SYSTEMS CONSTITUTIONAL: Denies fever, chills, or fatigue. HEAD/FACE: No signs of trauma. EENT: Denies eye pain, blurred vision, double vision, or light sensitivity. RESPIRATORY: Denies shortness of breath, cough, wheezing CARDIOVASCULAR: Denies chest pain, palpitation, syncope GASTROINTESTINAL/ABDOMINAL: Denies abdominal pain, constipation, diarrhea, nausea or vomiting GENITOURINARY: Denies dysuria or hematuria. MUSCULOSKELETAL: Denies joint pain, tenderness, or trauma. INTEGUMENTARY: Denies rash or itchiness NEUROLOGICAL/PSYCH: Denies anxiety, depression, heat or cold intolerance. PHYSICAL EXAM EYES: Anicteric. Pupils equal and reactive. HENT: No oral thrush seen, moist Oral mucosa NECK: Supple, no JVD or thyromegaly. LUNGS: Good air entry. No rales, no rhonchi. CARDIOVASCULAR: S1, S2 regular. No murmur heard. ABDOMEN: Soft, non tender, bowel sounds present, no organomegaly CENTRAL NERVOUS SYSTEM: Awake, alert, oriented x 3. No focal deficits. SKIN: No rashes, no swelling. LYMPHATICS: No peripheral lymphadenopathy Vital Signs (last 8hr) Date Time Temp Pulse Resp B/P (MAP) Pulse Ox O2 Delivery O2 Flow Rate FiO2 08/14/25 16:00 98.8 80 20 157/71 96 Room Air 08/14/25 11:30 97.5 83 20 151/59 97 Room Air 08/14/25 11:26 82 18 LABS: Laboratory: Test 08/14/25 16:07 08/14/25 04:02 08/13/25 11:08 08/13/25 04:48 Range/Units Whole Blood Glucose 243 H 70-110 MG/DL White Blood Count 16.1 H 4.8-10.8 K/uL Red Blood Count 3.40 L 4.00-5.50 MIL/uL Hemoglobin 10.1 L 12.0-16.0 g/dL Hematocrit 30.7 L 36-48 % Mean Corpuscular Volume 90.3 79-99 fL Mean Corpuscular Hemoglobin 29.7 27.0-33.0 pg Mean Corpuscular Hemoglobin Concent 32.9 32.0-36.0 g/dL Red Cell Distribution Width 13.2 11.0-15.5 % Platelet Count 75 L 130-400 K/uL Mean Platelet Volume 10.9 H 7.5-10.5 fL Immature Granulocyte % (Auto) 1.9 H 0-1 % Neutrophils (%) (Auto) 80.5 H 40.0-77.0 % Lymphocytes (%) (Auto) 6.6 L 21.0-51.0 % Monocytes (%) (Auto) 7.6 3.0-13.0 % Eosinophils (%) (Auto) 3.2 0.0-8.0 % Basophils (%) (Auto) 0.2 0.0-5.0 % Neutrophils # (Auto) 12.9 H 1.8-7.7 K/uL Lymphocytes # (Auto) 1.1 1.0-4.8 K/uL Monocytes # (Auto) 1.2 H 0.1-1.0 K/uL Eosinophils # (Auto) 0.52 0.00-0.70 K/uL Basophils # (Auto) 0.03 0.00-0.20 K/uL Absolute Immature Granulocyte (auto 0.31 0-1 K/uL Nucleated Red Blood Cells 0.0 0.0-0.19 % Sodium Level 131 L 136-145 mmol/L Potassium Level 4.9 3.5-5.1 mmol/L Chloride Level 91 L 101-111 mmol/L Carbon Dioxide Level 21 21-32 mmol/L Blood Urea Nitrogen 82 #*H 7-18 mg/dL Creatinine 5.8 H 0.5-1.0 mg/dL Glomerular Filtration Rate Calc 7 >90 mL/min Random Glucose 167 H 70-105 mg/dL Total Calcium 7.0 L 8.5-10.1 mg/dL Activated Partial Thromboplast Time 45.9 H 26.3-35.5 SEC Vancomycin Level 18.1 L 20.0-30.0 mcg/mL Test 08/13/25 04:46 Range/Units Total Bilirubin 0.9 0.2-1.0 mg/dL Aspartate Amino Transf (AST/SGOT) 11 10-37 U/L Alanine Aminotransferase (ALT/SGPT) 16 # 12-78 U/L Alkaline Phosphatase 154 H 50-136 U/L Total Protein 5.5 L 6.0-8.3 g/dL Albumin 2.4 L 3.5-5.0 g/dL DIAGNOSTICS / RADIOLOGY: [ ] PROBLEMS: 1. Anemia.Hemoglobin level11.1 g/deciliter 2. Thrombocytopenia with the patient is suspected of having heparin-induced thrombocytopenia 3. Leukocytosis 4. Acute renal failure with the patient in hemodialysis 5. Acute respiratory faikure s/p mechanical ventilation 6. Sepsis 7. Congestive heart failure Plan 1. Argatroban is discontinued , Patient is started on Eliquis 5 mg bid which is to be continued for atleast 1 month if patient is ambulating adequately . Platelet count improved to 74K. 2. Please do not transfuse any platelet 3. Please do not give any heparin or heparin products. Avoid Heparin flush during dialysis sessions . 4. There was hypersegmented neutrophils. This patient to be started on folic acid 1 mg p.o. daily and vitamin B12 1000 mcg p.o. daily. 5. Continue care as per primary 6. Continue dialysis as per nephrology Patient to receive iron and Procrit during hemodialysis 7. Continue care as per primary. We will sign off . Thankyou for involving us in this patients care . ATTESTATION BY PHYSICIAN I have seen and examined the patient. I reviewed the documentation, medical decision making, and treatment plan as noted by the resident physician above. I agree with the findings and plan of care. VANIA APARICIO MD, MD Aug 14, 2025 16:36
--- NOTE | 2025-08-14 17:00 | NUR ---
WAS ADVISED THAT PT WOULD BE DISCHARGED TO SNF AND WAS TO [facility]ISE [facility]. THANKED NURSING STAFF AND STARTED TO PREPARE TO TAKE PT'S ITEMS TO CAR. WAS ADVISED THAT THE PATIENT WOULD BE GOING BY AMBULANCE DUE TO HER UNABLE TO SIT IN W/C FOR THE RIDE TO SNF. AGREED AND ADVISED PT THAT SHE WOULD BE MORE COMFORTABLE IN AN AMBULANCE.
--- NOTE | 2025-08-14 18:30 | NUR ---
DR. ANGULO CALLED TO ASK IF PT COULD BE DISCHARGED AND WAS ADVISED THAT PT WOULD BE GOING TO SNF.
--- NOTE | 2025-08-14 20:45 | NUR ---
REPORT GIVEN TO NURSE JOSEPH RIVERS LVN, AT [facility] PENDING EMS TO TRANSFER TO ROOM 603 AT [facility] WILL CONT TO MONITOR
--- NOTE | 2025-08-14 20:57 | PN ---
FOLLOWUP PROGRESS NOTE SUBJECTIVE: This is an 79-year-old female with a history of diabetes mellitus, hypertension. She initially presented with sepsis. The patient requiring short course on the ventilator. She has been successfully extubated and transferred out to a medical floor. The patient is being seen as a followup visit for all of the above. She does continue dialysis on a Sunday, , and Sunday schedule. She remains with significant debilitation. REVIEW OF SYSTEMS: CONSTITUTIONAL: She is feeling weak and tired. HEENT: No change in vision. No change in hearing. CARDIOVASCULAR: There is no current chest pain or palpitations. PULMONARY: There is no shortness of breath. GASTROINTESTINAL: She is tolerating a diet. MUSCULOSKELETAL: Complains of weakness. PHYSICAL EXAMINATION: VITAL SIGNS: Blood pressure 137/53, pulse 80, he is afebrile. GENERAL: Chronically ill, elderly female, lying in bed on the medical floor. HEENT: Head is atraumatic. Pupils are equal, round and reactive to light. Oropharynx is without exudate. Nares are clear. NECK: There is no JVP. There is no thyromegaly. No mass. CARDIOVASCULAR: Regular. There is no S3 or S4 gallop. LUNGS: Coarse with equal thoracic movement. ABDOMEN: Soft, nondistended, and nontender. EXTREMITIES: Reveal no clubbing, no cyanosis. NEUROLOGICAL: She is awake. She is alert. LABORATORY DATA: Sodium 131, potassium 4.9, BUN 82, creatinine 5.8, hemoglobin 10, hematocrit 30. IMPRESSION: Sepsis. Diabetes mellitus. Hypertension. End-stage renal disease. Debilitation. PLAN: The patient continues with the antibiotics as prescribed. The patient remains on dialysis three times a week. Blood pressure is under adequate control. The patient with significant debilitation, is being seen by case management in regard to placement in SNF. The patient's family at the bedside. Multiple questions were all answered. TID: [id number] RECEIPT: [id number]
--- NOTE | 2025-08-14 22:05 | NUR ---
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
--- NOTE | 2025-08-15 00:43 | PN ---
SUBJECTIVE: The patient is feeling improved, barely tolerating any physical therapy. Continue with IV vancomycin and meropenem. Repeated blood cultures are negative. OBJECTIVE: GENERAL: She is currently awake, alert, oriented to person, time, and place. Intermittently confused. VITAL SIGNS: Blood pressure 137/53, pulse 88, respiratory rate 20. HEENT: Normocephalic, atraumatic. LUNGS: Clear to auscultation. HEART: S1, S2 are distant. ABDOMEN: Soft and nontender. EXTREMITIES: No clubbing or cyanosis. IMAGING STUDIES: Chest x-ray shows no acute cardiopulmonary processes. LABORATORY DATA: WBC count 16,000; hemoglobin 10.1, platelets 75,000. Sodium 131, potassium 4.9, BUN 82, creatinine 5.8, glucose 167. ASSESSMENT AND PLAN: * Respiratory failure with hypoxemia and hypercarbia, controlled. Continue with oxygen at current rate. * Urinary tract infection, resolved. Discontinue meropenem after 10 days. * Sepsis with septic shock and positive culture for Staph aureus, methicillin sensitive, on vancomycin. Continue treatment for now. * New-onset atrial fibrillation with rapid ventricular response, controlled on amiodarone. The patient is on Eliquis 2.5 p.o. b.i.d. Adjust doses to age and kidney function. * Anemia, chronic, stable. 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 * Thrombocytopenia 75,000. Continue to monitor. * End-stage renal disease. Continue hemodialysis. * Plan to discharge to SNF once the patient is cleared by Hematology/Oncology. She might be able to be discharged without antibiotics. TID: [id number] RECEIPT: [id number]
--- NOTE | 2025-08-15 10:53 | HMCIMG ---
CLINICAL INDICATION: Back pain COMPARISON: None TECHNIQUE: Multiple computed tomographic axial images were obtained through the thoracic spine using a helical technique without intravenous contrast. Coronal and sagittal reformatted images were produced and submitted for interpretation. Dose optimization technique was used including automated exposure control and adjustment of mA and/or kV based on patient's size. FINDINGS: SPINE: Normal alignment. Vertebral body heights preserved. No lesion. There is osteopenia of the osseous structure. DISCS: There is severe osteoarthritic changes with sclerotic endplate seen at T10-T11 and T7-T8. SOFT TISSUES: The paraspinal soft tissue are normal. OTHER: Visualized lung zazueta demonstrate fibrosis with pleural effusion seen in both lower lung posteriorly. Intra-abdominal contents are normal. IMPRESSION: 1. Severe osteoarthritic changes with sclerotic endplates seen at T10-T11 and T7-T8. There is no associated spinal canal stenosis.
--- NOTE | 2025-08-17 21:49 | DS ---
Discharge Summary DIAGNOSE(S): [ * Respiratory failure with hypoxemia and hypercarbia, co ntrolled. Continue with oxygen at current rate. * Urinary tract infection, resolved. Discontinue meropenem after 10 days. * Sepsis with septic shock and positive culture for Staph aureus, methicillin sensitive, on vancomycin. Continue treatment for now. * New-onset atrial fibrillation with rapid ventricular response, controlled on amiodarone. The patient is on Eliquis 2.5 p.o. b.i.d. Adjust doses to age and kidney function. * Anemia, chronic, stable. 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 * Thrombocytopenia 75,000. Continue to monitor. * End-stage renal disease. Continue hemodialysis. * discharge to SNF once the patient is cleared by Hematology/Oncology] HOSPITAL COURSE SUMMARY: [Patient had a prolonged hospital stay] OFFICE EMPLOYEE(S): [] PROCEDURE(S)/TREATMENT(S): [] PROBLEM(S): [] FOLLOW-UP TEST(S): [None] DISCHARGE INSTRUCTIONS: [Follow up with PCP next week] Home Meds Reported Medications Cholecalciferol (Vitd3)/Vit K2 (Vit D3-Vit K2 125-100 Mcg Sfgl) 125 Mcg (5000 Unit)-100 Mcg Capsule, 1 EACH PO DAILY, CAP 08/04/25 Lisinopril (Lisinopril) 40 Mg Tablet, 1 TAB PO DAILY for 30 Days, #30 TAB 0 Refills 08/04/25 Rosuvastatin Calcium (Rosuvastatin Calcium) 40 Mg Tablet, 1 TAB PO DAILY for high cholesterol for 30 Days, #30 TAB 0 Refills 25 Rosuvastatin Calcium (Rosuvastatin Calcium) 40 Mg Tablet, 1 TAB PO DAILY for 30 Days, #30 TAB 0 Refills 25 Omeprazole (Omeprazole) 20 Mg Capsule.dr, 1 CAP PO DAILY for 30 Days, #30 CAP 0 Refills 25 Amlodipine Besylate (Amlodipine Besylate) 2.5 Mg Tablet, 1 TAB PO DAILY for 30 Days, #30 TAB 0 Refills 25 Gabapentin (Gabapentin) 100 Mg Capsule, 100 MG PO DAILY, CAP 08/04/25 Folic Acid/Vitamin B Comp W-C (Rosa-Shikha Tablet) 0.8 Mg Tablet, 1 TAB PO DAILY for 30 Days, #30 TAB 0 Refills 9/30/25 Furosemide (Lasix 20Mg Tab) 20 Mg Tablet, 1 TAB PO DAILY for 30 Days, #30 TAB 0 Refills 08/04/25 Carvedilol (Carvedilol) 12.5 Mg Tablet, 1 TAB PO BID for 30 Days, #60 TAB 0 Refills 08/04/25 Carvedilol (Carvedilol) 25 Mg Tablet, 25 MG PO TAKE 1/2 TAB BID , TAB 05/18/23 KEISHA GREGORY MD Aug 17, 2025 21:49
== END 2025-08-14 22:07 | DRG 870 ==
LOC: EDH 22:02 → EDHIP 23:07 → 2BH 08-04 08:19 → 2AH 08-10 10:45
PROVIDERS: ADMIT Internal Medicine; ATTEND Internal Medicine
PROC: 5A1955Z Respiratory Ventilation, Greater than 96 Consecutive Hours (ICD-10-PCS; principal; 2025-08-03)
PROC: 0BH17EZ Insertion of Endotracheal Airway into Trachea, Via Natural or Artificial Opening (ICD-10-PCS; 2025-08-03)
PROC: 02HV33Z Insertion of Infusion Device into Superior Vena Cava, Percutaneous Approach (ICD-10-PCS; 2025-08-04)
PROC: 5A1D70Z Performance of Urinary Filtration, Intermittent, Less than 6 Hours Per Day (ICD-10-PCS; 2025-08-04)
PROC: 5A1D70Z Performance of Urinary Filtration, Intermittent, Less than 6 Hours Per Day (ICD-10-PCS; 2025-08-06)
PROC: 5A1D70Z Performance of Urinary Filtration, Intermittent, Less than 6 Hours Per Day (ICD-10-PCS; 2025-08-08)
PROC: 5A09357 Assistance with Respiratory Ventilation, Less than 24 Consecutive Hours, Continuous Positive Airway Pressure (ICD-10-PCS; 2025-08-09)
PROC: 5A1D70Z Performance of Urinary Filtration, Intermittent, Less than 6 Hours Per Day (ICD-10-PCS; 2025-08-11)
PROC: 5A1D70Z Performance of Urinary Filtration, Intermittent, Less than 6 Hours Per Day (ICD-10-PCS; 2025-08-13)
DX: A41.9 Sepsis, unspecified organism (principal); J18.9 Pneumonia, unspecified organism; J96.01 Acute respiratory failure with hypoxia; N18.6 End stage renal disease; R65.21 Severe sepsis with septic shock; J96.02 Acute respiratory failure with hypercapnia; E87.20 Acidosis, unspecified; I16.1 Hypertensive emergency; I13.2 Hypertensive heart and chronic kidney disease with heart failure and with stage 5 chronic kidney disease, or end stage renal disease; N17.9 Acute kidney failure, unspecified; N39.0 Urinary tract infection, site not specified; D63.1 Anemia in chronic kidney disease; E11.65 Type 2 diabetes mellitus with hyperglycemia; E78.5 Hyperlipidemia, unspecified; E83.51 Hypocalcemia; E87.5 Hyperkalemia; E87.6 Hypokalemia; E87.8 Other disorders of electrolyte and fluid balance, not elsewhere classified; E87.70 Fluid overload, unspecified; E88.09 Other disorders of plasma-protein metabolism, not elsewhere classified; I08.0 Rheumatic disorders of both mitral and aortic valves; I25.10 Atherosclerotic heart disease of native coronary artery without angina pectoris; Z96.651 Presence of right artificial knee joint; B95.61 Methicillin susceptible Staphylococcus aureus infection as the cause of diseases classified elsewhere; B96.89 Other specified bacterial agents as the cause of diseases classified elsewhere; I48.91 Unspecified atrial fibrillation; D75.829 Heparin-induced thrombocytopenia, unspecified; E11.22 Type 2 diabetes mellitus with diabetic chronic kidney disease; E66.01 Morbid (severe) obesity due to excess calories; I50.9 Heart failure, unspecified; K76.0 Fatty (change of) liver, not elsewhere classified; I37.1 Nonrheumatic pulmonary valve insufficiency; K59.00 Constipation, unspecified; T45.515A Adverse effect of anticoagulants, initial encounter; Z85.3 Personal history of malignant neoplasm of breast; Z90.49 Acquired absence of other specified parts of digestive tract; Z99.2 Dependence on renal dialysis; Z79.01 Long term (current) use of anticoagulants; Z79.899 Other long term (current) drug therapy; Z88.0 Allergy status to penicillin; Z68.33 Body mass index [BMI] 33.0-33.9, adult
CPT/HCPCS: 31500; 36415; 36569; 36600; 71045; 72128; 72131; 73551; 73562; 73590; 74018; 76700; 80048; 80053; 80076; 80202; 81001; 82435; 82550; 82803; 82947; 82948; 83036; 83540; 83550; 83605; 83735; 83880; 84100; 84132; 84145; 84295; 84443; 84484; 85018; 85025; 85027; 85730; 86022; 86704; 86706; 87040; 87071; 87086; 87186; 87205; 87340; 87635; 87804; 90935; 92526; 92610; 93005; 93306; 93356; 94002; 94003; 94640; 94660; 94664; 94667; 94668; 99291; C1894; G0378; J0282; J0883; J1171; J1644; J1815; J1956; J2185; J2371; J2470; J2704; J2919; J3010; J3373; J3411; J3475; J3490; J7050; J7060; J7070; P9046; P9047; A9900; C1751; J0283; J3370; Q5106